=== PATIENT | male | born 1995 | race Caucasian/White ===

== ENCOUNTER 2017-11-05 15:46 | Inpatient (IN) | payer OTHER ==
[2017-11-05] VITALS (9 sets, daily range): BP systolic 100–179; BP diastolic 67–116
[~2017-11-05] VITALS: Ht 137.2 cm; Wt 53.1 kg
[~2017-11-05 15:46] MED LIST: ASCO500S14 GT; BACLOFEN GT; COL250 GT; DIAZ5SOL4 GT; LEVO750T2 PO
--- NOTE | 2017-11-05 15:46 | NUR ---
Patient BIBA to bed 10
--- NOTE | 2017-11-05 15:50 | NUR ---
Patient being evaluated by physician at bedside.
[2017-11-05] MEDS ORDERED: NACL 0.9% 2,000 ML IV ONE (15:57)
[2017-11-05] MEDS ORDERED: PIPERACILLIN/TAZOBACTAM 3.375 GM in DEXTROSE 5% 50 ML IV ONE (16:00)
[2017-11-05] MEDS ORDERED: methylPREDNISolone SS 125 MG in WATER STERILE 2 ML IV ONE (16:00)
--- NOTE | 2017-11-05 16:00 | NUR ---
22 YO MALE BIB EMS FROM HOME FOR SOB TO BED 10 ACUTE ONSET. MULTIPLE MEDICAL ISSUES. PT HAS GUARDIAN AT BEDSIDE. ERMD NOTIFIED OF PATIENT STATUS.
[2017-11-05] MEDS ORDERED: PIPERACILLIN/TAZOBACTAM 3.375 GM VIAL IV ONE ×2 (16:02→21:49)
[2017-11-05] MEDS ORDERED: methylPREDNISolone SS 125 MG/2 ML VIAL ONE (16:02)
[2017-11-05] MEDS ORDERED: ALBUTEROL SULFATE/IPRATROPIU 3 ML SOL IH ONE ×2 (16:10→16:15)
[2017-11-05] MEDS ORDERED: LEVOFLOXACIN 750 MG/D5W PREMIX 150 ML IV ONE (16:35)
[2017-11-05] MEDS ORDERED: CLINDAMYCIN 600 MG in DEXTROSE 5% 50 ML IV ONE (16:35)
[2017-11-05] MEDS ORDERED: CLINDAMYCIN 600 MG/4 ML VIAL ONE (16:42)
--- NOTE | 2017-11-05 16:45 | NUR ---
Patient being evaluated by physician at bedside for intubation. discharge coordinator and respiratory at bedside.
[2017-11-05 17:05] LABS: BASOPHILS # (AUTO) 0.2 K/uL (0.00-0.22); MONOCYTES # (AUTO) 1.7 K/uL (0.8-1.0)
[2017-11-05] MEDS ORDERED: SUCCINYLCHOLINE CHLORIDE 200 MG/10 ML VIAL IVP ONE (17:15)
[2017-11-05] MEDS ORDERED: ETOMIDATE 20 MG/10 ML VIAL IVP ONE (17:15)
--- NOTE | 2017-11-05 17:15 | NUR ---
PT PLACED ON VENT WITH SETTINGS CHARTED PER DR GROSSMAN INTYBATED WITH 7.5 AT 23 CM BREATH SOUNDS PRESENT BILAT COARSE SXN PT FOR SPUTUM SAMPLE SOME YELLOW SOME RSE AMBU BAG AT BEDSIDE X RAY DONE VENT PLUGGED INTO RED OUTLET
--- NOTE | 2017-11-05 17:18 | NUR ---
RESPIRATORY THERAPIST AT BEDSIDE.
[2017-11-05 17:20] LABS: BASOPHILS % (AUTO) 1.1 % (0.0-2.0); EOSINOPHILS # (AUTO) 0.2 K/uL (0-0.4); EOSINOPHILS % (AUTO) 1.2 % (0.0-4.0); HEMATOCRIT 48.2 % (36-52); HEMOGLOBIN 16.4 g/dL (12.0-18.0); LYMPHOCYTES # (AUTO) 0.9 K/uL (2.0-11.5); LYMPHOCYTES % (AUTO) 5.8 % (20.5-51.1); MEAN CORPUSCULAR HEMOGLOBIN 31 pg (27-31); MEAN CORPUSCULAR HGB CONC 34 g/dL (33-37); MEAN CORPUSCULAR VOLUME 90 fL (80-94); NEUTROPHILS # (AUTO) 12.5 K/uL (1.8-7.7); NEUTROPHILS % (AUTO) 80.9 % (42.2-75.2); PLATELET COUNT (AUTO) 82 K/uL (140-450); PROTHROMBIN TIME 16.3 secs (10.8-13.4); RED BLOOD CELL COUNT(AUTO) 5.34 MIL/uL (4.20-6.10); RED CELL DISTRIBUTION WIDTH 13.1 % (11.6-13.7); WHITE BLOOD COUNT (AUTO) 15.5 K/uL (4.8-10.8)
[2017-11-05] MEDS ORDERED: fentaNYL 0.05 MG/ML VIAL IVP ONE (17:20)
[2017-11-05] MEDS ORDERED: LORazepam 2 MG/ML VIAL IVP ONE ×2 (17:20→18:30)
[2017-11-05] MEDS ORDERED: PROPOFOL 1000 MG/100 ML PREMIX 100 ML IV ONE (17:20)
--- NOTE | 2017-11-05 17:20 | NUR ---
UNABLE TO DRAW ABG AT THIS TIME NO ATTEMPT MADE DR GROSSMAN AWARE
[2017-11-05 17:21] LABS: ANION GAP 13.4 (8-16); CARBON DIOXIDE 31.7 mmol/L (21-32); CREATININE 0.6 mg/dL (0.7-1.3); POTASSIUM 4.1 mmol/L (3.5-5.1)
[2017-11-05 17:26] LABS: ALBUMIN 2.8 g/dL (3.4-5.0); TOTAL BILIRUBIN 0.8 mg/dL (0.0-1.0)
[2017-11-05] MEDS ORDERED: LORazepam 2 MG/ML VIAL ONE (17:43)
--- NOTE | 2017-11-05 17:43 | NUR ---
ETT PULLED OUT 2 CM TO 23 AT THE LIP PER XRAY PER DR GROSSMAN
--- NOTE | 2017-11-05 18:16 | NUR ---
ermd at bedside procedure/ starting a central line.
[2017-11-05] MEDS ORDERED: NACL 0.9% 1,000 ML IV ONE (18:45)
[2017-11-05] MEDS ORDERED: NACL 0.9% 1,000 ML IV SCH (18:51)
[2017-11-05] MEDS ORDERED: ACETAMINOPHEN 325 MG TAB PO PRN (18:55)
[2017-11-05] MEDS ORDERED: VANCOMYCIN PER PHARMACY MC PRN ×2 (18:55→20:00)
[2017-11-05] MEDS ORDERED: ONDANSETRON 4 MG/2 ML VIAL IVP PRN (18:55)
[2017-11-05] MEDS ORDERED: MORPHINE SULFATE 4 MG/ML SYR IVP PRN (18:55)
[2017-11-05] MEDS ORDERED: ALBUTEROL 0.083% 2.5 MG/3 ML NEBU INH PRN (18:55)
[2017-11-05] MEDS ORDERED: ALBUTEROL 0.083% 2.5 MG/3 ML NEBU INH SCH (19:00)
[2017-11-05] MEDS: IPRATROPIUM 0.02% 0.5 MG/2.5 ML NEBU INH SCH (19:00)
--- NOTE | 2017-11-05 19:22 | NUR ---
Pt transferred to ICU 5 via .
--- NOTE | 2017-11-05 19:25 | NUR ---
PT TRANPORTED TO ICU-3 VIA 100% AMBU HR 84 SAO2 100%, AND PLACED BACK ON VENTILATOR AC10 VT400 FIO2 70% PEEP +5 W/O ANY RESP DISTRESS DURING TRANSPORT
--- NOTE | 2017-11-05 19:30 | NUR ---
PT ARRIVED IN THE UNIT AT 1930 FROM ER. VS STABLE. AFEBRILE. NO S/S DISTRESS NOTED. PT SEDATED WITH PROPOFOL. ETT TO VENT WITH SETTINGS: AC12, TV400, FIO2 70%, AND PEEP 5. LUNG SOUNDS COARSE. PT COUGHS INTERMITTENTLY. S1+S2 HEARD. PULSES PALPABLE FROM ALL EXTREMITIES. SINUS TACHYCARDIA ON MONITOR. ABDOMEN ROUND, SOFT, AND NONDISTENDED. BOWEL SOUNDS ACTIVE IN ALL QUADRANTS. PT HAD BM. MODERATE IN AMOUNT, PASTEY, AND BROWN IN COLOR. GTUBE IN PLACE, SITE IS NOTED WITH REDNESS AND LEAKING. PT HAS OPEN AREA ON LEFT UPPER ARM AND THROUGHOUT LEFT SIDE OF BODY. PT HAS OGT IN PLACE. PLACEMENT CHECKED AND CONFIRMED. PT CURRENTLY NPO. FREY CATHETER IN PLACE. PT HAS LEFT IJ TRIPLE LUMEN CATH IN PLACE. LINE PATENT AND ASYMPTOMATIC. PT HAS PERIPHERAL IV ACCESS, RIGHT AND LEFT AC 20G. PATENT AND ASYMPTOMATIC. CALL LIGHT WITHIN REACH. BED AT LOW POSSIBLE POSITION. ALL SAFETY PRECAUTIONS ARE IN PLACE. WILL CONTINUE TO MONITOR PT.
--- NOTE | 2017-11-05 19:39 | NUR ---
Patient will be admitted to care of DR. YATES. Admited to ICU. Will go to room5 . Belongings list completed. Report to JUILTA PORTER.
[2017-11-05 19:49] LABS: APPEARANCE,URINE CLEAR (CLEAR); BILIRUBIN,URINE NEGATIVE (NEGATIVE); BLOOD, URINE TRACE-I (NEGATIVE); COLOR,URINE YELLOW (YELLOW); LEUKOCYTE ESTERASE ,URINE NEGATIVE (NEGATIVE); NITRITE, URINE NEGATIVE (NEGATIVE); UGLUCOSE 2+ (NEGATIVE)
--- NOTE | 2017-11-05 19:50 | NUR ---
DR. YATES AT BEDSIDE TO SEE PT. WILL FOLLOW-UP WITH ANY NEW ORDERS.
[2017-11-05 19:58] LABS: RBC,URINE 0-5 (RARE) /HPF (0-5); WBC,URINE 0-5 (RARE) /HPF (0-5)
[2017-11-05] MEDS ORDERED: NOREPINEPHRINE 8 MG in DEXTROSE 5% 250 ML IV PRN (20:00)
[2017-11-05] MEDS ORDERED: VANCOMYCIN 1,000 MG VIAL ONE (20:31)
[2017-11-05] MEDS: DEXT 5% / NACL 0.9% 500 ML IV SCH (20:52)
[2017-11-05] MEDS: BLOOD GLUCOSE MONITORING 1 DEV DEV FS SCH (20:53)
[2017-11-05] MEDS ORDERED: NEOMYCIN/POLYMYXIN/BACITRACIN 0.9 GM/1 PKT TP SCH (21:00)
[2017-11-05] MEDS: INSULIN LISPRO SLIDING SCALE 100 UNITS/ML VIAL SUBQ PRN (21:00)
[2017-11-05] MEDS ORDERED: VANCOMYCIN 1GM/DEXT 5% PREMIX 200 ML IV ONE (21:00)
--- NOTE | 2017-11-05 21:04 | NUR ---
UNAWARE OF ATROVENT TX AT 1900 AND WAS NOT IN [facility] AT TIME OF BEDSIDE AT 1954, ONLY AWARE OF DR SALCEDO ORDER FOR ALBUTEROL BEGINNING AT 0100, WILL CONTINUE WITH NEXT SCHEDULED TX.
--- NOTE | 2017-11-05 21:05 | NUR ---
DR. NICOLE AWARE OF CONSULT WITH PT. WILL COME IN TO SEE PT TOMORROW.
--- NOTE | 2017-11-05 22:15 | NUR ---
PT FAMILY STILL AT BEDSIDE. NO SIGNS OF DISTRESS NOTED ON PT. FLACC 0. PT STILL ON PROPOFOL DRIP. SINUS TACHYCARDIA ON MONITOR. WILL CONTINUE TO MONITOR PT.
[2017-11-06] VITALS (33 sets, daily range): BP systolic 97–129; BP diastolic 51–83
[2017-11-06] MEDS ORDERED: PIPERACILLIN/TAZOBACTAM 3.375 GM in DEXTROSE 5% 50 ML IV SCH ×2
[2017-11-06] MEDS: IPRATROPIUM 0.02% 0.5 MG/2.5 ML NEBU INH SCH ×4 (00:40→19:01)
[2017-11-06] MEDS: ALBUTEROL 0.083% 2.5 MG/3 ML NEBU INH SCH ×4 (00:40→19:01)
[2017-11-06] MEDS: DEXT 5% / NACL 0.9% 500 ML IV SCH ×2 (01:00→06:15)
--- NOTE | 2017-11-06 01:10 | NUR ---
PT NOTED TO BE COUGHING. PT SUCTIONED AND O2SAT DECREASED. SUCTIONED PT MOUTH WELL. CALLED RT TO CHECK ON PT. NO SIGNS OF DISTRESS NOTED. WILL CONTINUE TO MONITOR PT.
--- NOTE | 2017-11-06 01:20 | NUR ---
SAO2 DECREASED TO 91%, HR 120, INCREASED FIO2 TO 60%. SAO2 94% HR 112
--- NOTE | 2017-11-06 03:20 | NUR ---
VS STABLE AT THIS TIME. NO CHANGE IN CONDITION. RASS -3. FLACC 0. NO SIGNS OF DISTRESS NOTED ON PT. CALL LIGHT WITHIN REACH. BED AT LOW POSSIBLE POSITION. WILL CONTINUE TO MONITOR PT.
--- NOTE | 2017-11-06 05:02 | NUR ---
FLACC 0. RASS -3. NO CHANGE IN PT CONDITION AT THIS TIME. VS STABLE. AFEBRILE.
[2017-11-06 05:03] LABS: BASOPHILS # (AUTO) 0.4 K/uL (0.00-0.22); BASOPHILS % (AUTO) 3.2 % (0.0-2.0); EOSINOPHILS # (AUTO) 0.1 K/uL (0-0.4); EOSINOPHILS % (AUTO) 0.6 % (0.0-4.0); HEMATOCRIT 42.7 % (36-52); HEMOGLOBIN 13.9 g/dL (12.0-18.0); LYMPHOCYTES # (AUTO) 0.7 K/uL (2.0-11.5); LYMPHOCYTES % (AUTO) 6.7 % (20.5-51.1); MEAN CORPUSCULAR HEMOGLOBIN 30 pg (27-31); MEAN CORPUSCULAR HGB CONC 32 g/dL (33-37); MEAN CORPUSCULAR VOLUME 93 fL (80-94); MONOCYTES # (AUTO) 0.3 K/uL (0.8-1.0); MONOCYTES % (AUTO) 3.1 % (1.7-9.3); NEUTROPHILS # (AUTO) 9.4 K/uL (1.8-7.7); NEUTROPHILS % (AUTO) 86.4 % (42.2-75.2); PLATELET COUNT (AUTO) 71 K/uL (140-450); RED BLOOD CELL COUNT(AUTO) 4.62 MIL/uL (4.20-6.10); RED CELL DISTRIBUTION WIDTH 13.5 % (11.6-13.7); WHITE BLOOD COUNT (AUTO) 10.9 K/uL (4.8-10.8)
[2017-11-06 06:16] LABS: ALBUMIN 2.1 g/dL (3.4-5.0); ANION GAP 4.6 (8-16); CARBON DIOXIDE 35.3 mmol/L (21-32); CREATININE 0.4 mg/dL (0.7-1.3); POTASSIUM 3.9 mmol/L (3.5-5.1); TOTAL BILIRUBIN 0.6 mg/dL (0.0-1.0)
--- NOTE | 2017-11-06 06:28 | NUR ---
PATIENT HAS BEEN SCREENED AND CATEGORIZED HIGH NUTRITION RISK. PATIENT WILL BE SEEN WITHIN 1-2 DAYS OF ADMISSION. 11/05/17-11/06/17 SAMUEL HENDRIX MS, RDN
[2017-11-06] MEDS: BLOOD GLUCOSE MONITORING 1 DEV DEV FS SCH ×4 (06:54→20:25)
[2017-11-06] MEDS: INSULIN LISPRO SLIDING SCALE 100 UNITS/ML VIAL SUBQ PRN ×3 (06:55→20:26)
--- NOTE | 2017-11-06 06:57 | NUR ---
RECEIVED ON A [employer] R860 VENTILATOR PLUGGED INTO RED OUTLET TOLERATING WELL TO A PORTEX ENDOTRACHEAL TUBE #7.5 SECURED AT 23cm AN ANCHOR FAST CUFF PRESSURE MEASURED NOTED WITH A SHERLYN CUFFFLATOR LOC IRRITABLE AT THIS TIME SKIN TONE PINK BREATH SOUND COARSE RHONCHI BILATERAL WITH GOOD CHEST RISE ENDOTRACHEAL SUCTION FOR LARGE THICK YELLOW WITH BLOOD TINGE SECRETINS AIRWAY PATENT Addendum: 11/06/17 at 0845 by Gage Painting RT OROPHARYNX SUCTION FOR COPIOUS THICK TO THIN CLEAR SECRETIONS
--- NOTE | 2017-11-06 07:19 | NUR ---
REPORT GIVEN TO JULITA KHOURY FOR CONTINUITY OF CARE. PT IN STABLE CONDITION.
--- NOTE | 2017-11-06 07:20 | NUR ---
RECEIVED BEDSIDE REPORT FROM LEAD WEB APPLICATION DEVELOPER RN, DARON, FOR CONTINUITY OF CARE. PATIENT IS CONTRACTED, RESPONSES TO LIGHT PAIN, HE IS SEDATED, ON PROPOFOL DRIP RUNNING AT 25MCG/KG/HR, RASS -3. VS STABLE AT THIS TIME. PATIENT HAS CENTRAL LINE TO LEFT IJ, ASYMPTOMATIC, PATENT AND INTACT, HE ALSO HAS PERIPHERAL LINE TO RIGHT AC AND LEFT AC, BOTH ASYMPTOMATIC, PATENT AND INTACT. PATIENT SKIN IS NOT INTACT, HE HAS AMES TO UPPER LEFT EXTREMITY AND LEFT SIDE OF CHEST. PATIENT HAS OGT IN PLACE AND HAS ETT TO VENT, BILATERAL LUNG SOUNDS ARE COARSE ON EXPIRATORY BREATHS, EVEN AND UNLABORED. S1 AND S2 HEART SOUND HEARD, CAP REFILL IS LESS THAN 3 SECS, SR ON MONITOR. PATIENT HAS A G-TUBE WITH REDNESS TO THE SITE. HOB IS 30 DEGREES IN LOWEST POSSIBLE POSITION, CALL LIGHT WITHIN REACH, NO SIGNS OF DISTRESS NOTED AT THIS TIME, WILL MONITOR CLOSELY.
[2017-11-06] MEDS: PROPOFOL 1000 MG/100 ML PREMIX 100 ML IV PRN ×2 (08:01→22:47)
[2017-11-06] MEDS: NEOMYCIN/POLYMYXIN/BACITRACIN 0.9 GM/1 PKT TP SCH ×2 (09:06→20:25)
--- NOTE | 2017-11-06 09:19 | NUR ---
SEDATED RESTING WELL NO PULMONARY DISTRESS NOTED GOOD CHEST RISE
--- NOTE | 2017-11-06 09:36 | NUR ---
FAXED INITIAL REVIEW TO [facility] [phone] PHONE ROSENDA [phone]
[2017-11-06] MEDS: DEXT 5% /NACL 0.9% 1,000 ML IV SCH (09:41)
[2017-11-06] MEDS: VANCOMYCIN 1GM/DEXT 5% PREMIX 200 ML IV SCH ×2 (11:17→18:37)
--- NOTE | 2017-11-06 11:40 | NUR ---
SEDATED NO DISTRESS NOTED BREATH SOUNDS RALES BILATERAL GOOD CHEST RISE NO SUCTIONING AT THIS TIME OPTICAL SALES ASSOCIATE TO MONITOR SATURATION 97% ON FIO2 OF 60% TITRATED FI02 TO 50% EIRENE/RN NOTIFIED
--- NOTE | 2017-11-06 12:02 | NUR ---
11/06/17 RD INITIAL ASSESSMENT COMPLETED PLEASE REFER TO NUTRITION ASSESSMENT UNDER CARE ACTIVITY FOR ESTIMATED NUTRITIONAL NEEDS. RD RECOMMENDATIONS: 1.WHEN MEDICALLY APPROPRIATE PER MD, CONSIDER INITIATING NUTRITION SUPPORT: NUTREN PULMONARY AT 10 ML/HR, INCREASING BY 10 ML/HR Q4H TIL GOAL RATE OF 45 ML/HR IS REACHED. AT GOAL OF 40 ML/HR 960 ML TOTAL VOLUME, 1200 KCAL, 54.5 GM PROTEIN, 620 ML TOTAL FREE WATER. 2.CONSIDER WATER FLUSHES OF 120 ML Q4H. 3. CONSIDER ADDING MULTI-VITAMIN, VIT C, ZINC FOR SKIN INTEGRITY. 4. CONSULT RDN PRN. 5. RD WILL F/U 2-3 DAYS; HIGH RISK. SAMUEL HENDRIX, MS, RDN
[2017-11-06] MEDS: PIPER/TAZO 3.375GM/D5W PREMIX 50 ML IV SCH ×2 (13:38→20:25)
--- NOTE | 2017-11-06 13:43 | NUR ---
SEDATED NO DISTRESS NOTED BREATH SOUNDS RHONCHI BILATERAL WITH GOOD CHEST RISE ENDOTRACHEAL SUCTION FOR LARGE THICK YELLOW WITH BLOOD TINGE SECRETIONS AIRWAY PATENT
--- NOTE | 2017-11-06 13:43 | NUR ---
INCREASED PEEP TO 8cmH2O TO DECREASE HYPOXEMIA AND INCREASED SATURATION WIRE INSPECTOR TO MONITOR BLOOD PRESSURE WIRE INSPECTOR TO NOTIFY PENG/JULITA
--- NOTE | 2017-11-06 14:37 | NUR ---
FAMILY AT BEDSIDE, UPDATED ON PATIENT'S CONDITION. PATIENT DISPLAYS NO SIGNS OF DISTRESS AT THIS TIME.
--- NOTE | 2017-11-06 15:25 | NUR ---
SATURATION PARALLEL TO PREVIOUS NOTATION AT 94% DECREASED PEEP TO 5 cmH2O SEDATED RESPONSIVE TO STIMULUS BREATH SOUNDS RHONCHI BILATERAL WITH GOOD CHEST RISE ENDOTRACHEAL SUCTION FOR MODERATE THICK YELLOW WITH BLOOD TINGE SECRETIONS AIRWAY PATENT
--- NOTE | 2017-11-06 17:35 | NUR ---
ANCHOR FAST CHANGED NO ADVERSE REACTIONS NOTED
--- NOTE | 2017-11-06 17:40 | NUR ---
COUGHING SPASM BREATH SOUNDS RHONCHI BILATERAL WITH GOOD CHEST RISE ENDOTRACHEAL SUCTION FOR SMALL THICK YELLOW WITH BLOOD TINGE SECRETIONS AIRWAY PATENT OROPHARYNX SUCTION FOR COPIOUS CLEAR SECRETIONS
[2017-11-06] MEDS: SILVER SULFADIAZINE 1% 50 GM JAR TP SCH (18:55)
--- NOTE | 2017-11-06 19:20 | NUR ---
ENDORSED BEDSIDE REPORT TO PILE DRIVING NOZZLEMAN RN, DARON, FOR CONTINUITY OF CARE. PATIENT PRESENTS NO SIGNS OF DISTRESS AT THIS TIME.
--- NOTE | 2017-11-06 19:30 | NUR ---
RECEIVED REPORT FROM JULITA KHOURY FOR CONTINUITY OF CARE. VS STABLE AT THIS TIME. PT SEDATED WITH PROPOFOL. RASS -3 AT THIS TIME. PT AFEBRILE. AROUSABLE TO LIGHT PAIN. PT SINUS TACHYCARDIA ON MONITOR. PULSES PALPABLE IN ALL EXTREMITIES. PT HAS ETT CONNECTED TO VENT WITH SETTINGS:AC12, FIO2 50, TV 400, AND PEEP 5. PT HAS GTUBE IN PLACE, SITE LOOKS RED AND INFECTED. CURRENTLY NOT USED. PT HAS OGT IN PLACE, AND PLACEMENT CHECKED. PT CURRENTLY NPO. ABDOMEN ROUND, SOFT AND NONDISTENDED. BOWEL SOUNDS ACTIVE IN ALL QUADRANTS. FREY CATHETER IN PLACE AND DRAINING CLEAR AND YELLOW URINE. PT HAS SCD IN PLACE. PT HAS LEFT IJ CENTRAL LINE, TRIPLE LUMEN, LINE PATENT AND ASYMPTOMATIC. DRESSING STILL INTACT. HOB AT 30 DEGREES. BED AT LOW POSSIBLE POSITION. CALL LIGHT WITHIN REACH. ALL SAFETY PRECAUTIONS ARE IN PLACE. WILL CONTINUE TO MONITOR PT.
--- NOTE | 2017-11-06 19:37 | NUR ---
DR. VIGIL AT BEDSIDE TO SEE PT. DR. VIGIL LOOKED AT PT GTUBE SITE AND SAID HE WANTS PT TO HAVE CONSULT WITH DR. WASHINGTON AND DR. RAYMOND; DR. VIGIL ALSO WANTED PT TO START FEEDING.
--- NOTE | 2017-11-06 21:24 | NUR ---
PATIENT STABLE AT THIS TIME. FAMILY AT BEDSIDE
--- NOTE | 2017-11-06 21:30 | NUR ---
DR. NICOLE AT BEDSIDE TO SEE PT. WILL FOLLOW-UP WITH ANY NEW ORDER.
[2017-11-07] VITALS (30 sets, daily range): BP systolic 90–123; BP diastolic 45–75
--- NOTE | 2017-11-07 | NUR ---
KEEP HOB AT 30 UP WITH TOLERATING WELL.ORAL CARE DONE WITH LOTS OF SECRETION WITH LIGHT YELLOW MUCOUS NOTED.. KEEP HOB AT 30 UP WITH TOLERATING WELL. FREY CATH CARE BYRD SUPPORT WITH PILLOW CASE ROLL TO SWELLING SCROTAL, PT'S TOLERATING WELL.
--- NOTE | 2017-11-07 00:18 | NUR ---
VS STABLE AT THIS TIME. NO CHANGE IN CONDITION. NO SIGNS OF DISTRESS NOTED ON PT. FLACC 0. RASS -3. HOB AT 30 DEGREES. NO RESIDUAL NOTED ON OGT. FEEDING STILL RUNNING AT 10ML/HR. ALL SAFETY PRECAUTIONS ARE IN PLACE. WILL CONTINUE TO MONITOR PT.
[2017-11-07] MEDS: DEXT 5% /NACL 0.9% 1,000 ML IV SCH ×3 (00:30→13:33)
[2017-11-07] MEDS: IPRATROPIUM 0.02% 0.5 MG/2.5 ML NEBU INH SCH ×4 (01:20→19:10)
[2017-11-07] MEDS: ALBUTEROL 0.083% 2.5 MG/3 ML NEBU INH SCH ×4 (01:20→19:10)
[2017-11-07] MEDS: VANCOMYCIN 1GM/DEXT 5% PREMIX 200 ML IV SCH ×2 (02:45→09:43)
--- NOTE | 2017-11-07 03:16 | NUR ---
NO CHANGE IN CONDITION AT THIS TIME. NO S/S DISTRESS NOTED. FLACC 0. ALL SAFETY PRECAUTIONS ARE IN PLACE. WILL CONTINUE TO MONITOR PT.
[2017-11-07] MEDS: PIPER/TAZO 3.375GM/D5W PREMIX 50 ML IV SCH ×3 (04:32→22:22)
[2017-11-07 05:25] LABS: MEAN CORPUSCULAR HEMOGLOBIN 31 pg (27-31)
[2017-11-07 05:50] LABS: HEMATOCRIT 40.4 % (36-52); HEMOGLOBIN 13.4 g/dL (12.0-18.0); MEAN CORPUSCULAR HGB CONC 33 g/dL (33-37); MEAN CORPUSCULAR VOLUME 92 fL (80-94); PLATELET COUNT (AUTO) 94 K/uL (140-450); RED CELL DISTRIBUTION WIDTH 13.7 % (11.6-13.7); WHITE BLOOD COUNT (AUTO) 13.8 K/uL (4.8-10.8)
[2017-11-07 06:01] LABS: ALBUMIN 2.1 g/dL (3.4-5.0); ANION GAP 9.9 (8-16); CARBON DIOXIDE 30.2 mmol/L (21-32); CREATININE 0.9 mg/dL (0.7-1.3); POTASSIUM 3.1 mmol/L (3.5-5.1); TOTAL BILIRUBIN 0.7 mg/dL (0.0-1.0)
[2017-11-07] MEDS: INSULIN LISPRO SLIDING SCALE 100 UNITS/ML VIAL SUBQ PRN (06:21)
[2017-11-07] MEDS: BLOOD GLUCOSE MONITORING 1 DEV DEV FS SCH ×4 (06:22→21:00)
--- NOTE | 2017-11-07 06:23 | NUR ---
VS STABLE AT THIS TIME. NO SIGNS OF DISTRESS NOTED ON PT. TOLERATING FEEDING WELL. NO RESIDUAL NOTED. RASS -3. PT STILL ON PROPOFOL DRIP. FLACC 0. ALL SAFETY PRECAUTIONS ARE IN PLACE. WILL CONTINUE TO MONITOR.
--- NOTE | 2017-11-07 06:32 | NUR ---
REC'D PT ON CARES[employer]E VENT SETTINGS AC12 VT400 PEEP 5 FIO2 40% ALARMS ON AND FUNCTIONING PROPERLY AMBU BAG AT [facility] I\L TX GIVEN WITH ALBUTEROL 2.5MG AND ATROVENT 0.5MG WITH NO ADVERSE REACTION POST TX, B\S ARE CLEAR BILATERALLY, SXN PT MODERATE AMT OF CLEAR SECRETIONS, PT IS ORALLY INTUBATED WITH 7.5 ET TUBE SECURED WITH ANCHOR FAST AT 23CM LEFT CORNER OF MOUTH. PT IS RESTING
[2017-11-07 06:48] LABS: LYMPHOCYTES % (MANUAL) 10 % (20-46); MONOCYTES % (MANUAL) 9 % (5-12)
--- NOTE | 2017-11-07 07:15 | NUR ---
RECEIVED REPORT FROM JULITA MCCRAY, AT BEDSIDE. PT SEDATED ON PROPOFOL 25MCG/KG/MIN, D5/NS RUNNING 100 ML/HR. PT HAS A LEFT IJ, ALL FLUSH AND ABLE TO GET GOOD BLOOD RETURN. OGT TUBE PLACEMENT CHECKED, ASPIRATED WITH ZERO RESIDUALS; NUTREN SOURCE FEEDING AT 10ML/HR. ETT TO VENT AC, FIO2 40, VT 400, RATE 12, FLOW 35, PEEP 5, PMAC 60. PT HAS FREY CATH IN PLACE WITH CLEAR YELLOW URINE IN BAG. SCDS IN PLACE, HOB 45 DEG. PT HAS PEG TUBE WITH CAMILLE AREA, WARM TO TOUCH AND NOT BEING USED. CURRENTLY DRESSING IN PLACE, DRY AND INTACT. WITH RAILS ELEVATED AND BED IN LOWEST POSITION WITH LOCK ON. WRIST BAND ON AND SAFETY PRECAUTION TAKEN. WILL CLOSELY MONITOR.
--- NOTE | 2017-11-07 07:26 | NUR ---
GIVEN REPORT TO MORNING RN FOR CONTINUITY OF CARE. PT IN STABLE CONDITION AT THIS TIME.
--- NOTE | 2017-11-07 08:30 | NUR ---
VAP ORAL CARE PROVIDED PER PROTOCOL, REPOSITIONED PT, BEDBATH AND FREY CATH CARE. HOB 35 DEG, SIDE RAILS ELEVATED, BED LOCK ON AND BED LEFT IN LOWEST POSITION.
--- NOTE | 2017-11-07 08:30 | NUR ---
DR. VIGIL CAME TO SEE PT. NOTIFIED OF PT'S LOW POTASSIUM AND RECEIVED ORDERS. DISCUSSED TRACH PLACEMENT AND GTUBE. DR. VIGIL CONTACTED [facility] ABOUT GTUBE CONSULTATION.
--- NOTE | 2017-11-07 09:10 | NUR ---
PT SEEN AND EXAMINED BY DR. VIGIL. WILL FOLLOW UP ON ORDERS.
--- NOTE | 2017-11-07 09:14 | NUR ---
VENT CHECK, SXN PT MODERATE AMT OF CLEAR SECRETIONS, PT IS RESTING
[2017-11-07] MEDS ORDERED: fentaNYL 0.05 MG/ML VIAL IVP PRN (09:15)
[2017-11-07] MEDS ORDERED: POTASSIUM CHLORIDE 20% 40 MEQ/15 ML UDC GT SCH (09:30)
[2017-11-07] MEDS: PANTOPRAZOLE 40 MG INJ VIAL IVP SCH (09:51)
[2017-11-07] MEDS: NEOMYCIN/POLYMYXIN/BACITRACIN 0.9 GM/1 PKT TP SCH ×2 (09:52→22:22)
[2017-11-07] MEDS: SILVER SULFADIAZINE 1% 50 GM JAR TP SCH (09:53)
--- NOTE | 2017-11-07 10:00 | NUR ---
D/C CHRISTOPHER. WILL CLOSELY MONITOR. PT CURRENTLY SEDATED AND SAFETY PROTOCOL IN PLACE.
--- NOTE | 2017-11-07 10:00 | NUR ---
PTS. FATHER AT BEDSIDE WITH PT. UPDATED FATHER ON PTS CURRENT STATUS AND DISCUSSED POC.
--- NOTE | 2017-11-07 10:15 | NUR ---
CHECKED RESIDUALS IN STOMACH AFTER BEGINNING TUBE FEEDING, 0 IN STOMACH. WILL CONTINUE TO MONITOR.
--- NOTE | 2017-11-07 10:50 | NUR ---
DR. DE LUNA AT BEDSIDE SPEAKING WITH PT'S FATHER. DR. DE LUNA SPOKE WITH PTS FATHER ABOUT A TRACH AND FAMILY HAS REFUSED TRACH PLACEMENT.
--- NOTE | 2017-11-07 11:17 | NUR ---
VENT CHECK, PT IS SLEEPING WITH NO SIGNS OF DISTRESS NOTED AIRWAY IS PATENT
--- NOTE | 2017-11-07 11:49 | NUR ---
REPOSITIONED PT AND ASSESSED AT BEDSIDE. PT HAS STRIDOR/COARSE LUNG SOUNDS IN UPPER LOBES BILATERALLY. PT RESTING/SEDATED BUT RESPONDS TO LIGHT SENSATION, MOVED AWAY FROM STIMULI. VAP ORAL CARE PERFORMED. SAFETY PRECAUTIONS IN PLACE, BED LOCK ON, RAILS ELEVATED AND IN LOWEST POSITION. TV ON AND PT PLACED IN POSITION FOR COMFORT.
--- NOTE | 2017-11-07 12:41 | NUR ---
VENT CHECK, SXN PT SMALL AMT OF CLEAR SECRETIONS, B\S ARE CLEAR AND I\L TX GIVEN WITH ALBUTEROL 2.5MG AND ATROVENT 0.5MG WITH NO ADVERSE REACTION POST TX FAMILY AT BEDSIDE
--- NOTE | 2017-11-07 13:15 | NUR ---
DR. GIPSON CAME TO REMOVE OLD G-TUBE PORT AND REPLACED WITH BUTTON SHAPE G-TUBE 18F. G-TUBE OKAY TO USE. AREA CLEAN AND DRY WITH DRESSING IN PLACE. CONNECTED FEEDING TO NEW G-TUBE RUNNING 10M/HR. WILL CLOSELY MONITOR
--- NOTE | 2017-11-07 13:44 | NUR ---
DISCONTINUED OGT FOR FEEDING AND CONNECTED FEEDS TO THE NEW G-TUBE PLACED. REMOVAL WITHOUT COMPLICATIONS. PROVIDED VAP ORAL CARE. PT SEDATED, SAFETY PRECAUTIONS IN PLACE.
--- NOTE | 2017-11-07 14:30 | NUR ---
NOTICED SLIGHT SEDIMENTATION IN URINE. URINE STILL CLEAR YELLOW BUT NOTICED A SMALL AMOUNT OF AMAYA SEDIMENT IN URINE
--- NOTE | 2017-11-07 15:26 | NUR ---
VENT CHECK, SXN PT SMALL AMT OF CLEAR SECRETIONS, PT IS RESTING
--- NOTE | 2017-11-07 15:28 | NUR ---
MOTHER AT BEDSIDE. PT WATCHING CARTOONS. POSITIONED FOR COMFORT. SAFETY PROTOCOLS IN PLACE.
[2017-11-07] MEDS: VANCOMYCIN 750 MG in DEXTROSE 5% 250 ML IV SCH (16:29)
--- NOTE | 2017-11-07 16:44 | NUR ---
BOTH PARENTS ARE BEDSIDE. REPOSITIONED PT AND SUCTIONED SECRETIONS / ORAL CARE. PT SEDATED AND NO SIGNS OF PAIN.
--- NOTE | 2017-11-07 17:26 | NUR ---
VENT CHECK, SXN PT MODERATE AMT OF CLEAR SECRETIONS, FAMILY AT BEDSIDE PT IS RESTING
[2017-11-07] MEDS ORDERED: VANCOMYCIN 750 MG in DEXTROSE 5% 250 ML IV SCH (18:00)
--- NOTE | 2017-11-07 18:20 | NUR ---
PTS FAMILY AT BEDSIDE, REPOSITIONED PT. SAFETY PROTOCOL IN PLACE.
--- NOTE | 2017-11-07 19:26 | NUR ---
RECEIVED PT STABLE ON VENT SUPPORT AT DOCUMENTED SETTINGS, SUCTIONED SMALL AMOUNTS OF CLEAR BLOOD TINGED THICK SECRETIONS, HHN TX GIVEN, TOLERATED TX WELL, NO RESP DISTRESS OR SOB NOTED AT THIS TIME, 7.5 ETT SECURED AT 23 CM AT THE TEETH/GUMS, ALARMS SET AND AUDIBLE, VENT PLUGGED INTO RED OUTLET, AMBU BAG AT BEDSIDE, CONT PULSE OX ON, WILL CONT TO MONITOR.
--- NOTE | 2017-11-07 19:30 | NUR ---
REPORT TAKEN FROM DAY NURSE WITH RESUME CARE.PT'S ASLEEP/
--- NOTE | 2017-11-07 19:31 | NUR ---
ENDORSED TO NIGHT NURSE. PT RESTING IN BED, SIDE RAILS ELEVATED, BED LOCK ON, BED IN LOWEST POSITION. SAFETY PROTOCOLS IN PLACE.
--- NOTE | 2017-11-07 22:00 | NUR ---
REPOSITION DONE ,ORAL CARE DONE WITH LOTS OF SECRETION WITH LIGHT YELLOW MUCOUS NOTED.. KEEP HOB AT 30 UP WITH TOLERATING WELL. FREY CATH CARE BYRD SUPPORT WITH PILLOW CASE ROLL TO SWELLING SCROTAL, PT'S TOLERATING WELL.
--- NOTE | 2017-11-07 23:35 | NUR ---
DR JONES AT THE BEDSIDE WITH PT, ORDER TO HOLD FEEDING , KEEP CONNECT TO GRAVITY URO BAG, G TUBE SITE SURROUNDING SKIN WITH REDNESS , SLOUGHY (+), NOTED , DR JONES AWARE. NEW ORDER PLACE BY DR JONES. CT SCAN OF ABDOMEN AND ULTRA SOUND TO BE DONE .
--- NOTE | 2017-11-07 23:55 | NUR ---
DR. RAYMOND INTO SEE PT AT THIS TIME. WILL F/U W/ ANY ORDERS.
[2017-11-08] VITALS (22 sets, daily range): BP systolic 112–153; BP diastolic 63–95
[2017-11-08] MEDS: DEXT 5% /NACL 0.9% 1,000 ML IV SCH ×3 (00:20→19:16)
[2017-11-08] MEDS: IPRATROPIUM 0.02% 0.5 MG/2.5 ML NEBU INH SCH ×4 (00:53→19:01)
[2017-11-08] MEDS: ALBUTEROL 0.083% 2.5 MG/3 ML NEBU INH SCH ×4 (00:53→19:01)
--- NOTE | 2017-11-08 02:00 | NUR ---
REPOSITION DONE. ORAL CARE DONE WITH LOTS OF SECRETION WITH LIGHT YELLOW MUCOUS NOTED.. KEEP HOB AT 30 UP WITH TOLERATING WELL. FREY CATH CARE BYRD SUPPORT WITH PILLOW CASE ROLL TO SWELLING SCROTAL, PT'S TOLERATING WELL.
[2017-11-08] MEDS: VANCOMYCIN 750 MG in DEXTROSE 5% 250 ML IV SCH (04:30)
--- NOTE | 2017-11-08 05:45 | NUR ---
TAKE PT TO CT SCN VIA ICU BED WITH ACLS TEM, INCLUDE RT, AIRPORT MANAGER , ATTACH TO PORTABLE MACHINE VENEER REPAIRER. WITH PT;S TOLERATING WELL.
--- NOTE | 2017-11-08 05:45 | NUR ---
PT LEFT TO CT SCAN WITH RN AND RT AT THIS TIME.
--- NOTE | 2017-11-08 06:05 | NUR ---
PT RETURNED FROM CT SCAN WITH RT, RN, AND APPLICATION COORDINATOR WITH STABLE CONDITION, PROCEDURE TOLERATED
--- NOTE | 2017-11-08 06:10 | NUR ---
PT RETURNED FROM CT SCAN WITH RT, RN, AND RESEARCH CLERK WITH STABLE CONDITION.
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
[2017-11-08] MEDS: PIPER/TAZO 3.375GM/D5W PREMIX 50 ML IV SCH ×3 (06:36→21:11)
[2017-11-08] MEDS: BLOOD GLUCOSE MONITORING 1 DEV DEV FS SCH ×4 (06:37→21:11)
[2017-11-08] MEDS: INSULIN LISPRO SLIDING SCALE 100 UNITS/ML VIAL SUBQ PRN (06:44)
--- NOTE | 2017-11-08 06:53 | NUR ---
rec'd pt on carescape vent settings ac12 vt 400 peep 5 fio2 35% alarms on and functioning properly, ambu bag at hob and i\l tx given with albuterol 2.mg and atrovent 0.5mg with no adverse reaction post tx, b\s are clear bilaterally, snx pt small amt of clear secretions, pt is orally intubated with 7.5 et tube secure with anchor fast at 23cm and skin integrity in intact, pt is resting
--- NOTE | 2017-11-08 08:22 | NUR ---
RECEIVED BEDSIDE REPORT FROM GEOMETRICIAN RN FOR CONTINUITY OF CARE. PATIENT IS AWAKE, RESPONSES TO NAME AND LIGHT PAIN, NONVERBAL. VS STABLE, SR ON MONITOR. PATIENT SKIN IS NOT INTACT, AMES TO UPPER LEFT EXTREMITY AND LEFT ABDOMEN COVERED WITH CLEAN DRESSINGS. PATIENT HAS A LEFT IJ, ASYMPTOMATIC, PATENT AND INTACT. PATIENT HAS ETT TO VENT, BREATHING IS UNLABORED AND EVEN, LUNG SOUNDS ARE COARSE. S1 AND S2 HEART SOUNDS HEARD, CAP REFILL LESS THAN 3 SECS. PATIENT HAS A GTUBE, WITH REDNESS TO THE SITE, CONNECTED TO DRAIN BAG. PATIENT HAS FREY CATHETER IN PLACE TO YELLOW URINE. CALL LIGHT WITHIN REACH, HOB 30 DEGREES IN LOW POSITION, PATIENT PRESENTS NO SIGNS OF DISTRESS OR PAIN AT THIS TIME. WILL MONITOR CLOSELY.
--- NOTE | 2017-11-08 09:15 | NUR ---
vent check, sxn pt small amt of clear secretions, pt is resting
--- NOTE | 2017-11-08 10:05 | NUR ---
FAMILY AT BEDSIDE, UPDATED ON PATIENT'S CONDITION. PATIENT PRESENTS NO SIGNS OF DISTRESS.
[2017-11-08] MEDS: NEOMYCIN/POLYMYXIN/BACITRACIN 0.9 GM/1 PKT TP SCH ×2 (10:43→21:15)
[2017-11-08] MEDS: PANTOPRAZOLE 40 MG INJ VIAL IVP SCH (10:43)
[2017-11-08] MEDS: SILVER SULFADIAZINE 1% 50 GM JAR TP SCH (10:43)
--- NOTE | 2017-11-08 11:29 | NUR ---
VENT CHECK, FAMILY AT BEDSIDE PT IS RESTING WITH NO SIGNS OF DISTRESS NOTED AT THIS TIME
--- NOTE | 2017-11-08 13:08 | NUR ---
VENT CHECK, I\L TX GIVEN WITH ALBUTEROL 2.5MG AND ATROVENT 0.5MG WITH NO ADVERSE REACTION POST TX, B\S ARE CLEAR AND SXN PT SMALL AMT OF CLEAR SECRETIONS
--- NOTE | 2017-11-08 13:51 | NUR ---
FAMILY AT BEDSIDE, PATIENT PRESENTS NO SIGN OF DISTRESS
[2017-11-08 14:29] LABS: BASOPHILS # (AUTO) 0.8 K/uL (0.00-0.22); HEMATOCRIT 40.8 % (36-52); HEMOGLOBIN 13.7 g/dL (12.0-18.0); LYMPHOCYTES # (AUTO) 1.5 K/uL (2.0-11.5); MEAN CORPUSCULAR HEMOGLOBIN 30 pg (27-31); MEAN CORPUSCULAR HGB CONC 34 g/dL (33-37); MEAN CORPUSCULAR VOLUME 90 fL (80-94); MONOCYTES # (AUTO) 0.7 K/uL (0.8-1.0); NEUTROPHILS # (AUTO) 5.2 K/uL (1.8-7.7); PLATELET COUNT (AUTO) 93 K/uL (140-450); RED BLOOD CELL COUNT(AUTO) 4.52 MIL/uL (4.20-6.10); RED CELL DISTRIBUTION WIDTH 13.7 % (11.6-13.7); WHITE BLOOD COUNT (AUTO) 8.2 K/uL (4.8-10.8)
[2017-11-08 14:45] LABS: ANION GAP 5.8 (8-16); CARBON DIOXIDE 31.8 mmol/L (21-32); CREATININE 1.2 mg/dL (0.7-1.3)
[2017-11-08 14:46] LABS: POTASSIUM 2.6 mmol/L (3.5-5.1)
--- NOTE | 2017-11-08 15:26 | NUR ---
VENT CHECK, SXN SMALL AMT OF CLEAR SECRETIONS, PT IS RESTING WITH NO SIGNS OF DISTRESS NOTED
[2017-11-08] MEDS ORDERED: KCL 20 MEQ/WATER INJ PREMIX 200 ML IV SCH (16:15)
[2017-11-08] MEDS ORDERED: POTASSIUM CHLORIDE 20% 40 MEQ/15 ML UDC GT SCH (16:15)
--- NOTE | 2017-11-08 16:50 | NUR ---
DR. VIGIL IN TO SEE PATIENT , UPDATED ON PATIENT'S CONDITION, WILL FOLLOW UP ON ANY ORDERS.
--- NOTE | 2017-11-08 17:18 | NUR ---
VENT CHECK, NO SXN REQUIRED AT THIS TIME AIRWAY IS PATENT FAMILY AT BEDSIDE
--- NOTE | 2017-11-08 17:51 | NUR ---
DR. RAYMOND IN TO SEE PATIENT, WILL FOLLOW UP ON ANY ORDERS.
--- NOTE | 2017-11-08 18:10 | NUR ---
CALL REPORT LAB RESULT CALCIUM 7.[address] TAYLOR .ORDER RECEIVED TO DRAW IONIZE CALCIUM SERUM IN AM,. BEFOR REPLACE CALCIUM.
--- NOTE | 2017-11-08 19:12 | NUR ---
ENDORSED CONTINUITY OF CARE TO CHARGE MASTER ANALYST RN.
--- NOTE | 2017-11-08 19:13 | NUR ---
RECEIVED PT STABLE ON VENT SUPPORT AT DOCUMENTED SETTINGS, SUCTIONED SMALL AMOUNTS OF THICK CLEAR SECRETIONS, HHN TX GIVEN, TOLERATED WELL, NO RESP DISTRESS OR SOB NOTED AT THIS TIME, 7.5 ETT SECURED AT 23 CM AT THE GUM, ALARMS SET AND AUDIBLE, AMBU BAG AT BEDSIDE, VENT PLUGGED INTO RED OUTLET, CONT PULSE OX ON, WILL CONTINUE TO MONITOR.
--- NOTE | 2017-11-08 19:30 | NUR ---
RECEIVED BEDSIDE REPORT FROM MORNING SHIFT RN. PATIENT IS AWAKE, RESPONSES TO LIGHT TOUCH, NONVERBAL. VSS, SR ON MONITOR. PATIENT HAS LEFT IJ, ASYMPTOMATIC, PATENT AND INTACT. PATIENT ON ETT TO VENT WITH SETTING AC12, FIO2 35%, VT 400, PEEP 5. BREATHING IS UNLABORED AND EVEN, LUNG SOUNDS ARE RHONCHI. S1 AND S2 HEART SOUNDS HEARD. PATIENT HAS A GTUBE, WITH REDNESS TO THE SITE, CONNECTED TO DRAIN BAG. PATIENT HAS FREY CATHETER IN PLACE DRAINING YELLOW URINE. PT'S SKIN IS NOT INTACT, AMES TO UPPER LEFT EXTREMITY AND LEFT UPPER ABDOMEN G TUBE SITE REDNESS COVERED WITH CLEAN DRESSINGS. CALL LIGHT WITHIN REACH, HOB 30 DEGREES IN LOW POSITION, CALL LIGHT WITHIN REACH.
--- NOTE | 2017-11-08 21:20 | NUR ---
BS CHECKED 105 NOTED. PT IS AWAKE. PT'S FAMILY MEMBERS ARE AT BEDSIDE. NO ACUTE DISTRESS NOTED. FLACC 0. VSS, SR ON THE SEAPORT PLANNING MANAGER. WILL CONTINUE TO MONITOR.
--- NOTE | 2017-11-08 23:00 | NUR ---
PT OPENS HIS EYES, NON VERBAL, ETT TO VENT. NO ACUTE RESPIRATORY DISTRESS NOTED. VSS. WILL CONTINUE TO MONITOR.
[2017-11-09] VITALS (22 sets, daily range): BP systolic 111–143; BP diastolic 68–109
[2017-11-09] MEDS: IPRATROPIUM 0.02% 0.5 MG/2.5 ML NEBU INH SCH ×4 (00:53→19:23)
[2017-11-09] MEDS: ALBUTEROL 0.083% 2.5 MG/3 ML NEBU INH SCH ×4 (00:53→19:23)
--- NOTE | 2017-11-09 01:00 | NUR ---
PROVIDED ORAL CARE, TOLERATED WELL. SUCTIONED SMALL AMOUNT CLEAR SECRETION FROM MOUTH. NO ACUTE DISTRESS NOTED. VSS. SR ON THE MONITOR.
--- NOTE | 2017-11-09 03:00 | NUR ---
PT IS IN ASLEEP, RESPONSE TO LIGHT TOUCH. NO ACUTE DISTRESS NOTE. VSS. SR ON THE MONITOR. WILL CONTINUE TO MONITOR.
[2017-11-09] MEDS ORDERED: VANCOMYCIN 1GM/DEXT 5% PREMIX 200 ML IV SCH (05:00)
--- NOTE | 2017-11-09 05:00 | NUR ---
PT OPENS HIS EYES, NON VERBAL, ETT TO VENT. NO ACUTE DISTRESS NOTE. VSS. ADMINISTERED SCHEDULED IV ABX ORDERED, TOLERATED WELL. WILL CONTINUE TO MONITOR.
[2017-11-09] MEDS: PIPER/TAZO 3.375GM/D5W PREMIX 50 ML IV SCH ×3 (05:01→20:31)
[2017-11-09 05:10] LABS: EOSINOPHILS # (AUTO) 0.2 K/uL (0-0.4); WHITE BLOOD COUNT (AUTO) 6.7 K/uL (4.8-10.8)
[2017-11-09 05:43] LABS: BASOPHILS # (AUTO) 0.2 K/uL (0.00-0.22); BASOPHILS % (AUTO) 3.2 % (0.0-2.0); EOSINOPHILS % (AUTO) 2.3 % (0.0-4.0); HEMATOCRIT 40.5 % (36-52); HEMOGLOBIN 13.6 g/dL (12.0-18.0); LYMPHOCYTES # (AUTO) 1.4 K/uL (2.0-11.5); LYMPHOCYTES % (AUTO) 20.3 % (20.5-51.1); MEAN CORPUSCULAR HEMOGLOBIN 31 pg (27-31); MEAN CORPUSCULAR HGB CONC 34 g/dL (33-37); MEAN CORPUSCULAR VOLUME 92 fL (80-94); MONOCYTES # (AUTO) 0.9 K/uL (0.8-1.0); MONOCYTES % (AUTO) 13.6 % (1.7-9.3); NEUTROPHILS % (AUTO) 60.6 % (42.2-75.2); PLATELET COUNT (AUTO) 104 K/uL (140-450); RED BLOOD CELL COUNT(AUTO) 4.41 MIL/uL (4.20-6.10); RED CELL DISTRIBUTION WIDTH 13.8 % (11.6-13.7)
[2017-11-09] MEDS: DEXT 5% /NACL 0.9% 1,000 ML IV SCH ×3 (05:56→18:40)
[2017-11-09 06:13] LABS: ANION GAP 10.7 (8-16); CARBON DIOXIDE 29.7 mmol/L (21-32); CREATININE 1.2 mg/dL (0.7-1.3); POTASSIUM 3.4 mmol/L (3.5-5.1)
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
--- NOTE | 2017-11-09 06:50 | NUR ---
SWITCHED PATIENT TO CPAP MODE FOR WEANING TRIAL. CPAP SETTINGS PS 10/. TO KEEP SATURATION ABOVE 92%. WILL CONTINUE TO MONITOR PATIENT CLOSELY. Addendum: 11/09/17 at 0959 by Mally Ward RT PT IS NOT ON SEDATION MEDICATIONS. BASELINE VS: HR 77, RATE 14, SAT 99%
--- NOTE | 2017-11-09 07:00 | NUR ---
RETURNED PATIENT BACK TO PREVIOUS AC/VC VENT MODE. PATIENT DID NOT TOLERATE CPAP WEANING TRIAL. HEART RATE INCREASED TO 102, RATE INCREASED TO 30. WILL CONTINUE TO MONITOR PATIENT.
--- NOTE | 2017-11-09 07:30 | NUR ---
RECEIVED REPORT FROM PM RN, PT SLEEPING BUT FROWNING EYEBROWS WHILE SUCTIONING PT, BEDSIDE MONITOR SHOWS SR, ETT TO VENT FIO2 30%, VT 400, AC 12, PEEP 5. LUNG SOUND CLEAR UPON AUSCULTATION. SKIN NON INTACT, AMES TO LEFT SHOULDER AND UPPER ARM. G-TUBE IN PLACE BY GRAVITY, NO DRAINAGE NOTED. FREY CATH IN PLACE WITH CLEAR YELLOW URINE NOTED. PT HAS HX CEREBRAL PALSY, ALL EXTREMITIES CONTRACTURE NOTED. SCROTAL EDEMA NOTED. SCDS IN PLACE, WILL CONTINUE TO MONITOR. Addendum: 11/09/17 at 0826 by Tom Duggan RN PT HAS CENTRAL LINE TO LEFT IJ TLC RUNNING D5 0.9 NS AT 100 MLS/HR, SITE INTACT AND PATENT. OLD SCAR NOTED TO ABDOMEN.
--- NOTE | 2017-11-09 07:30 | NUR ---
BEDSIDE REPORT GIVEN TO MORNING RN. PT'S VSS.
[2017-11-09] MEDS: BLOOD GLUCOSE MONITORING 1 DEV DEV FS SCH ×4 (07:31→20:31)
--- NOTE | 2017-11-09 08:00 | NUR ---
TURNED AND REPOSITIONED PT , ORAL CARE RENDERED, FREY CATH CARE GIVEN, BED BATH GIVEN. PT OPENS EYES WHILE TURNING PT.
[2017-11-09] MEDS: SILVER SULFADIAZINE 1% 50 GM JAR TP SCH (08:31)
[2017-11-09] MEDS: NEOMYCIN/POLYMYXIN/BACITRACIN 0.9 GM/1 PKT TP SCH ×2 (08:31→21:57)
[2017-11-09] MEDS: PANTOPRAZOLE 40 MG INJ VIAL IVP SCH (08:39)
--- NOTE | 2017-11-09 09:17 | NUR ---
BEGAN SECOND ATTEMPT AT WEANING PATIENT. PT CONTINUES TO REMAIN OFF ANY SEDATION MEDS; CONFIRMED WITH RN. CPAP SETTINGS PS 10/5, TO MAINTAIN O2 SATURATION GREATER THAN 92%. WILL MONITOR PATIENT. Addendum: 11/09/17 at 0957 by Mally Ward RT BASELINE VS: HR 69, RATE 13, SAT 96%
--- NOTE | 2017-11-09 09:34 | NUR ---
RETURNED PT TO INITIAL AC/VC SETTINGS: 400, 12, +5, 30%. PATIENT DID NOT TOLERATE WEANING TRIAL FOR SECOND TIME. PT BECAME TACHYPNEIC, RESPIRATORY RATE INCREASED TO 30. HEART RATE INCREASED TO 82. WILL CONTINUE TO MONITOR.
--- NOTE | 2017-11-09 09:53 | NUR ---
PT FATHER AT BEDSIDE, UPDATED PT CONDITION.
[2017-11-09] MEDS: KCL 20 MEQ/WATER INJ PREMIX 100 ML IV SCH ×2 (10:16→13:34)
[2017-11-09] MEDS ORDERED: PROBIOTIC SCREEN 1 EA MISC MC PRN (11:20)
--- NOTE | 2017-11-09 11:20 | NUR ---
PATIENT IS AWAKE WITH FAMILY AT BEDSIDE. TOLERATING VENT WELL AT SETTINGS DOCUMENTED. NO RESPIRATORY DISTRESS IS NOTED AT THIS TIME. WILL CONTINUE TO MONITOR.
--- NOTE | 2017-11-09 11:20 | NUR ---
CALLED TO ICU BED 5 PT'S MOTHER AT BEDSIDE WANTING TO KNOW WHY PT STILL HAS ET TUBE IN PLACE. I EXPLAINED THAT DR. QUINTEROS ORDERED FOR PT TO BE PLACED ON CPAP FOR TRAIL. AND HOW THE PT FAILED BOTH TIMES THAT PT WAS ON CPAP. PT'S MOM SAID THAT ANY TIME PT IS PLACED ON CPAP HIS HEART RATE AND RR WILL GO UP. I EXPLAINED THE WEANING PROCESS TO PT'S MOM AND SHE WAS NOT UNDERSTANDING THE PROCESS. TOLD HER I WOULD CALL DR. QUINTEROS AND HAVE HIM EXPLAIN THE PROCESS TO HER CALLED DOCTOR OFFICE AND HAD DOCTOR PAGED
--- NOTE | 2017-11-09 11:47 | NUR ---
PAGED , NOTIFIED DR. RAYMOND G-TUBE SITE REDNESS BUT NO LEAKING NOTED. PER DR. RAYMOND RESUME TUBE FEEDING. WILL CARRY OUT.
[2017-11-09] MEDS ORDERED: BISACODYL 10 MG SUPP RC SCH (12:58)
--- NOTE | 2017-11-09 13:00 | NUR ---
STARTED PT ON TUBE FEEDING AT 10 MLS/HR.
--- NOTE | 2017-11-09 13:14 | NUR ---
11/09/17 RD FOLLOW UP COMPLETED. PLEASE REFER TO NUTRITION ASSESSMENT UNDER CARE ACTIVITY FOR ESTIMATED NUTRITIONAL NEEDS. 1.WHEN MEDICALLY APPROPRIATE PER MD, CONSIDER INITIATING NUTRITION SUPPORT: NUTREN PULMONARY AT 10 ML/HR, INCREASING BY 10 ML/HR Q4H TIL GOAL RATE OF 45 ML/HR IS REACHED. AT GOAL OF 40 ML/HR 960 ML TOTAL VOLUME, 1200 KCAL, 54.5 GM PROTEIN, 620 ML TOTAL FREE WATER. 2. CONSIDER WATER FLUSHES OF [address] TO FOLLOW-UP IN 2-3 DAYS PATIENT IS HIGH RISK. ALEXANDREA NEWELL RD
--- NOTE | 2017-11-09 13:27 | NUR ---
PT QUIET AND RESTING. FAMILY AT BEDSIDE. VENT CHECK DONE. SUCTIONED SMALL AMOUNT OF BLOOD TINGED SPUTUM. TX GIVEN. PT TOLERATED WELL. REPOSITIONED ETT TO RIGHT SIDE OF MOUTH. ETT REMAINS AT 23CM AT THE LIPS. NO SIGNS OF RESPIRATORY DISTRESS AT THIS TIME.
--- NOTE | 2017-11-09 14:39 | NUR ---
CM NOTE CONCURRENT REVIEW FAXED TO [facility] (FAX# [phone], ATTN: CHRYSTAL #[id number]) AND [facility] (FAX# [phone], C: #[phone])
--- NOTE | 2017-11-09 15:25 | NUR ---
PATIENT QUIET, AWAKE. VENT CHECK DONE. NO RESPIRATORY DISTRESS NOTED AT THIS TIME.
--- NOTE | 2017-11-09 17:05 | NUR ---
INCREASED TUBE FEEDING TO 20 MLS/HR PER ORDER. PT TOLERATED WELL, RESIDUAL CHECKED, NONE.
--- NOTE | 2017-11-09 17:34 | NUR ---
PATIENT AWAKE AND QUIET. VENT CHECK DONE. PT TOLERATING CURRENT VENT SETTINGS DOCUMENTED. SUCTIONED SCANT AMOUNT OF SLIGHTLY BLOOD TINGED/YELLOW SECRETIONS. VENT PLUGGED INTO RED OUTLET. AMBU BAG AT BEDSIDE. NO RESPIRATORY DISTRESS NOTED AT THIS TIME.
--- NOTE | 2017-11-09 18:30 | NUR ---
TURNED AND REPOSITIONED PT, NO BM NOTED AFTER DULCOLAX GIVEN BY RC THIS AFTER NOON AT 1334
[2017-11-09] MEDS ORDERED: COMMUNICATION ORDER MC SCH (18:35)
--- NOTE | 2017-11-09 19:15 | NUR ---
REPORT GIVEN TO BRUSH HEAD MAKER RN.
--- NOTE | 2017-11-09 19:23 | NUR ---
RECEIVED ON A Virtual PaperAPE R860 VENTILATOR PLUGGED INTO RED OUTLET TOLERATING WELL WITHOUT ADCERSE REACTIONS NOTED TO A PORTEX ENDOTRACHEAL TUBE #7.5 SECURED WITH AN ANCHOR FAST AT 23cm CUFF PRESSURE MEASURED NOTED WITH A SHERLYN CUFFLATOR AMBU BAG NOTED AT HOB LOC ASLEEP RESTING WELL NO SEDATION BREATH SOUNDS DIFFUSED RHONCHI BILATERAL WITH GOOD CHEST RISE ENDOTRACHEAL SUCTION FOR SCANT YELLOW WITH FEW DARK BLOOD CLOTS AIRWAY PATENT REVIEWED CXR IMPRESSION DATED 11/06/2017 INCREASED PEEP TO 8cmH20 ORTIZ/JULITA NOTIFIED Addendum: 11/09/17 at 2005 by Gage Painting RT ABDOMINAL EXTENDED AND FIRM
--- NOTE | 2017-11-09 19:30 | NUR ---
RECEIVED REPORT FROM AM NURSE. NO S/S OF ACUTE DISTRESS. WILL CONTINUE TO OBSERVE.
--- NOTE | 2017-11-09 19:45 | NUR ---
PT ASLEEP, NO PURPOSEFUL MOVEMENT NOTED. HX OF CEREBRAL PALSY, BUE, BLE CONTRACTED. 7.5 MM ET TO VENT 23 CM @ LIP. VENT SETTINGS AC 30 400 12 5. SR 70-80S. +2 EDEMA NOTED TO BLE, SCOTAL EDEMA NOTED. PEG TUBE NUTREN PULMONARY RUNNING @ 20ML NO RESIDUALS NOTED. FREY CATH CLEAR YELLOW URINE NOTED. L I J TRIPLE LUMEN CENTRAL LINE NOTED. L SHOULDER HAS SKIN BREAKDOWN NOTED WELL GT SITE. SKIN WARM DRY PINK. SCDS APPLIED. NO ACUTE DISTRESS NOTED. WILL CONTINUE TO OBSERVE.
[2017-11-09] MEDS: BACLOFEN 5 MG/ML GT SCH (20:37)
[2017-11-09] MEDS: DIAZEPAM 5 MG/5 ML GT SCH (20:37)
--- NOTE | 2017-11-09 20:45 | NUR ---
DR. NICOLE @ BEDSIDE. UPDATE GIVEN TO MD. INFORMED MD ABOUT UPCOMING EXPIRATION OF IV VANCO, AND TO RENEW ORDER. MD STATED HE WOULD UPDATE MEDS. WILL CONTINUE TO MONITOR.
--- NOTE | 2017-11-09 22:32 | NUR ---
AWAKE NO DISTRESS NOTED PEAK PRESSURE AT [id number] BREATH SOUNDS COARSE RHONCHI BILATERAL WITH GOOD CHEST RISE ENDOTRACHEAL SUCTION FOR LARGE THICK YELLOW WITH BLOOD TINGE SECRETIONS AIRWAY PATENT
[2017-11-10] VITALS (24 sets, daily range): BP systolic 105–130; BP diastolic 59–97
--- NOTE | 2017-11-10 00:01 | NUR ---
PT ASLEEP AROUSABLE. PT REPOSITIO. NO S/S OF ACUTE DISTRESS WILL CONITNUE TO MONITOR.
[2017-11-10] MEDS: LORazepam 2 MG/ML VIAL IVP PRN (00:51)
--- NOTE | 2017-11-10 00:51 | NUR ---
PT AGITATED AFTER REPOSITIONING, HR ELEVATED IN 130-140, RESTLESS. ATIVAN PRN GIVEN. PT NOW 90S RELAXED CALM. WILL CONTINUE TO MONITOR.
[2017-11-10] MEDS: ALBUTEROL 0.083% 2.5 MG/3 ML NEBU INH SCH ×4 (01:39→19:08)
[2017-11-10] MEDS: IPRATROPIUM 0.02% 0.5 MG/2.5 ML NEBU INH SCH ×4 (01:39→19:08)
--- NOTE | 2017-11-10 01:39 | NUR ---
ASLEEP NO EVIDENCE OF PULMONARY DISTRESS NOTED BREATH SOUNDS CLEAR BILATERAL WITH GOOD CHEST RISE AND AERATION THROUGHOUT AIRWAY PATENT
--- NOTE | 2017-11-10 02:35 | NUR ---
PT ASLEEP RESTING COMFORTABLY. NO S/S OF ACUTE DISTRESS NOTED. PT TOLERATING TUBE FEEDING. WILL CONTINUE TO MONITOR.
--- NOTE | 2017-11-10 03:33 | NUR ---
RESTING COMFORTABLY NO SOB NOTED GOOD CHEST RISE
[2017-11-10 04:17] LABS: ANION GAP 9.5 (8-16); CARBON DIOXIDE 30.4 mmol/L (21-32)
[2017-11-10 04:27] LABS: POTASSIUM 2.9 mmol/L (3.5-5.1)
[2017-11-10 04:32] LABS: BASOPHILS # (AUTO) 0.3 K/uL (0.00-0.22); EOSINOPHILS # (AUTO) 0.3 K/uL (0-0.4); EOSINOPHILS % (AUTO) 5.6 % (0.0-4.0); HEMATOCRIT 37.3 % (36-52); HEMOGLOBIN 12.5 g/dL (12.0-18.0); LYMPHOCYTES % (AUTO) 16.7 % (20.5-51.1); MEAN CORPUSCULAR HEMOGLOBIN 31 pg (27-31); MEAN CORPUSCULAR HGB CONC 34 g/dL (33-37); MEAN CORPUSCULAR VOLUME 92 fL (80-94); MONOCYTES # (AUTO) 0.6 K/uL (0.8-1.0); MONOCYTES % (AUTO) 9.4 % (1.7-9.3); NEUTROPHILS # (AUTO) 3.9 K/uL (1.8-7.7); NEUTROPHILS % (AUTO) 63.2 % (42.2-75.2); PLATELET COUNT (AUTO) 119 K/uL (140-450); RED BLOOD CELL COUNT(AUTO) 4.05 MIL/uL (4.20-6.10); RED CELL DISTRIBUTION WIDTH 13.9 % (11.6-13.7); WHITE BLOOD COUNT (AUTO) 6.1 K/uL (4.8-10.8)
[2017-11-10 04:35] LABS: BASOPHILS % (AUTO) 5.1 % (0.0-2.0)
--- NOTE | 2017-11-10 04:38 | NUR ---
INFORMED DR. TAYLOR THAT PATIENT'S POTASSIUM LEVEL THIS MORNING IS 2.9, MD ORDERED TO GIVE KRIDER 60 MEQ TO RUN OVER 6 HOURS.
--- NOTE | 2017-11-10 04:38 | NUR ---
PATIENT'S VANCOMYCIN TROUGH DRAWN AT 0400 WAS 18.1, LEVEL STILL ELEVATED.
[2017-11-10] MEDS: BACLOFEN 5 MG/ML GT SCH ×3 (04:59→20:49)
[2017-11-10] MEDS: DIAZEPAM 5 MG/5 ML GT SCH ×4 (04:59→20:49)
[2017-11-10] MEDS: PIPER/TAZO 3.375GM/D5W PREMIX 50 ML IV SCH (05:10)
[2017-11-10] MEDS: KCL 20 MEQ/WATER INJ PREMIX 100 ML IV SCH ×3 (05:12→09:56)
--- NOTE | 2017-11-10 05:35 | NUR ---
NO EVIDENCE OF SOB NOTED BREATH SOUNDS WHEEZE RIGHT SIDE TO CLEAR AT LEFT SIDE GOOD CHEST RISE AIRWAY PATENT
[2017-11-10] MEDS: DEXT 5% /NACL 0.9% 1,000 ML IV SCH (05:43)
--- NOTE | 2017-11-10 07:00 | NUR ---
PATIENT IS QUIETLY RESTING. VENT CHECK DONE. PT TOLERATING VENT SETTINGS DOCUMENTED. AC/VC 12, 400, +8, 30%. VENT PLUGGED INTO RED OUTLET. AMBU BAG AT PT BEDSIDE. ETT PLACEMENT AND CUFF PRESSURE VERIFIED. BREATHING TX ADMINISTERED. PT TOLERATED BREATHING TX WELL. BS CLEAR. NO SUCTIONING INDICATED AT THIS TIME. NO RESPIRATORY DISTRESS NOTED AT THIS TIME. WILL CONTINUE TO MONITOR.
--- NOTE | 2017-11-10 07:17 | NUR ---
REPORT GIVEN TO AM NURSE. NO ACUTE DISTRESS NOTED. ENDORSED CARE TO AM NURSE.
--- NOTE | 2017-11-10 07:21 | NUR ---
RECEIVED REPORT FROM JULITA ALCANTAR. PT RESTING IN BED. RT AT BEDSIDE PT IS ETT TO VENT. PTS HOB IS 35DEG, BED LOCK ON, SIDE RAILS ELEVATED AND BED IN THE LOWEST POSITION. PTS IS NON-VERBAL BUT RESPONDS TO STIMULI AND RETRACTS TO LIGHT PAIN/SUCTIONING. PT HAS LEFT IJ, DRESSING DRY AND INTACT. PT HAS A BURN ON LEFT SHOULDER AND SIDE, LEFT OPEN TO AIR. PT HAD A G-TUBE WITH DRESSING, DRY AND INTACT. PT CURRENTLY HAS 40ML NUTREN PULMO CONNECTED TO GI-TUBE FOR FEEDS. PT HAS A FREY IN PLACE, CLEAR YELLOW URINE. PT HAS SCD ON AND BP CUFF ON RIGHT ARM. PT IS POSITIONED FOR COMFORT AND SAFETY MEASURES ARE IN PLACE. ARM BRACELET ON LEFT WRIST.
--- NOTE | 2017-11-10 07:40 | NUR ---
CALLED TO BEDSIDE DUE TO VENT ALARM. VENT CIRCUIT CHANGED. HME CHANGED. SUCTION CATH CHANGED. VENT ALARMS WORKING AND AUDIBLE. NO RESPIRATORY DISTRESS NOTED. WILL CONTINUE TO MONITOR.
[2017-11-10] MEDS: BLOOD GLUCOSE MONITORING 1 DEV DEV FS SCH ×4 (07:50→20:49)
--- NOTE | 2017-11-10 08:30 | NUR ---
PT IS RESTING, ETT TO VENT. PERRL. PT RESPONDS TO LIGHT PAIN STIMULATION. G-TUBE RESIDUALS ZERO AND IN THE RIGHT PLACE WHEN AUSCULTATED. PT HAS 2+ EDEMA ON LOWER LIMS, SCROTAL AND PENIS EDMA. LUNG SOUNDS ARE DIMINISHED BILATERALLY IN LOWER LOBES. S1, S2 HEARD. PT BURN ON LEFT SHOULDER AND SIDE HAVE BEEN TREATED WITH SILVADENE AND NEOSPORIN AND LEFT OPEN TO AIR. ORAL CARE HAS BEEN PROVIDED. SAFETY PROTOCOLS IN PLACE; BED LOCK ON, RAILS ELEVATED, HOB 35 DEG AND, BED IN LOWEST POSITION.
[2017-11-10] MEDS: LACTOBACILLUS RHAMNOSUS GG 1 EACH CAP PO SCH (08:58)
[2017-11-10] MEDS: SILVER SULFADIAZINE 1% 50 GM JAR TP SCH (08:58)
[2017-11-10] MEDS: NEOMYCIN/POLYMYXIN/BACITRACIN 0.9 GM/1 PKT TP SCH ×2 (08:59→20:49)
[2017-11-10] MEDS: PANTOPRAZOLE 40 MG INJ VIAL IVP SCH (09:00)
--- NOTE | 2017-11-10 09:00 | NUR ---
PTS FAMILY ARRIVED, AT BEDSIDE.
--- NOTE | 2017-11-10 09:06 | NUR ---
WEANING TRIAL BEGAN. PT NOT ON ANY SEDATION. FAMILY AT BEDSIDE WITH PATIENT. PS 14,8, FIO2 30%. VITALS STABLE. HR 73, RATE 22, O2SAT 98%. PATIENT CURRENTLY TOLERATING WEANING. WILL CONTINUE TO MONITOR. Addendum: 11/10/17 at 0924 by Mally Ward RT PS 14, PEEP 8
--- NOTE | 2017-11-10 09:14 | NUR ---
PATIENT TOLERATING WEANING. DECREASED PS TO 12/5 FIO2 30%. VS STABLE HR 68, RATE 26, O2 SAT 98%. FAMILY REMAINS AT BEDSIDE. WILL CONTINUE TO MONITOR.
--- NOTE | 2017-11-10 09:17 | NUR ---
RT CHANGED PT TO CPAP 5 WITH PRESSURE 12 TRIAL. WILL CLOSELY MONITOR.
--- NOTE | 2017-11-10 10:39 | NUR ---
WOUND CULTURE TAKEN FROM G-TUBE SITE. SITE CLEANED WITH NS AND CULTURE TAKEN.
[2017-11-10] MEDS ORDERED: KCL 20 MEQ/WATER INJ PREMIX 200 ML IV SCH (11:13)
--- NOTE | 2017-11-10 11:16 | NUR ---
ABG DRAWN ON LB WITHOUT INCIDENT AND RESULTS READ TO DR. QUINTEROS ORDERED TO PLACE PT BACK ON AC MODE AND TO WEAN AGAIN ON 11/11/2017 SETTINGS CPAP 5 PS 10 AFTER ONE HOUR DO ABG AND CALL HIM WITH RESULTS
--- NOTE | 2017-11-10 11:19 | NUR ---
FAXEE CONCURRENT REVIEW TO [facility] [phone] PHONE ROSENDA [phone]
--- NOTE | 2017-11-10 11:23 | NUR ---
PATIENT QUIET, RESTING. RETURNED TO AC VENT SETTINGS. AC/VA 400, 12, +5, 30%. ALARMS ON AND AUDIBLE. NO RESPIRATORY DISTRESS NOTED AT THIS TIME.
--- NOTE | 2017-11-10 11:24 | NUR ---
RT AT BEDSIDE CHANGING FROM CPAP TO AC VENT SETTINGS. WILL MONITOR CLOSELY.
--- NOTE | 2017-11-10 12:18 | NUR ---
PT RESTING IN BED. VAP ORAL CARE PROVIDED AND REPOSITIONED PT FOR COMFORT. BED BATH GIVEN AND ENSURED SKIN WAS DRY. PT'S BED RAIL ARE RAISED, RAILS ELEVATED AND BED IN LOWEST POSITION.
--- NOTE | 2017-11-10 13:17 | NUR ---
PATIENT IS BRADYCARDIC AT 46BPM. SENT PAGE TO DR. VIGIL. AWAITING FOR CALL BACK.
[2017-11-10] MEDS ORDERED: ATROPINE 0.5 MG/5 ML SYR IVP PRN (13:30)
--- NOTE | 2017-11-10 13:32 | NUR ---
DR. VIGIL RETURNED CALL AT 1330. RECEIVED TELEPHONE ORDERS FOR 0.5MG ATROPINE IVP Q2 PRN FOR HEART RATE UNDER 40. PTS HEART RATE HAS NOW RAISED TO 73. WILL CLOSELY MONITOR.
--- NOTE | 2017-11-10 14:00 | NUR ---
PTS HEART RATE REMAINS MIGUELINA BUT BP AND SPO2 WNL. PT RESTING IN BED, MOTHER AT BEDSIDE. PT REPOSITIONED IN BED, BED LOCK ON, RAILS RAISED- AND BED LEFT IN LOWEST POSITION.
--- NOTE | 2017-11-10 14:36 | NUR ---
PT QUIET AND RESTING. FAMILY AT BEDSIDE. VENT CHECK DONE. TOLERATING CURRENT VENT SETTINGS DOCUMENTED. TX GIVEN. PT TOLERATED TX WELL. NO ADVERSE REACTIONS. BREATH SOUNDS COURSE. SUCTIONED SCANT AMOUNT BLOOD TINGED SECRETIONS. ETT PLACEMENT AND ETT CUFF PRESSURE VERIFIED. NO RESPIRATORY DISTRESS NOTED AT THIS TIME. WILL CONTINUE TO MONITOR.
--- NOTE | 2017-11-10 15:43 | NUR ---
PATIENT RESTING QUIETLY. FAMILY AT BEDSIDE. VENT CHECK DONE. ALARMS ON AND AUDIBLE. NO RESPIRATORY DISTRESS NOTED AT THIS TIME.
--- NOTE | 2017-11-10 16:00 | NUR ---
FREY CARE PROVIDED, REPOSITIONED AND CHECKED REDIALS, ZERO. ORAL VAP CARE PROVIDED.
--- NOTE | 2017-11-10 16:14 | NUR ---
PTS BROTHER CAME TO SEE HIM, AT BEDSIDE.
--- NOTE | 2017-11-10 17:17 | NUR ---
VENT CHECK NO SXN NEEDED AT THIS TIME NO SIGNS OF DISTRESS PT IS SLEEPING WITH FAMILY AT BEDSIDE
--- NOTE | 2017-11-10 18:40 | NUR ---
PT REPOSITIONED, BED CLEANED AND ORAL CARE PROVIDED. PT TOLERATING FEEDS, ZERO RESIDUAL. PT SLEPT MOST OF DAY AND DID NOT HAVE ANY PERIODS OF TIME WITH AGITATION. HR HAS STAYED IN THE 60'S AND NOT GONE BELOW 59. PT'S BROTHER AND MOTHER AT BEDSIDE. BED LEFT IN LOWEST POSITION, HOB 30 DEG, BED ALARM AND LOCK ON.
--- NOTE | 2017-11-10 19:18 | NUR ---
RECEIVED PT STABLE ON VENT SUPPORT AT DOCUMENTED SETTINGS, SUCTIONED SMALL AMOUNTS OF THICK CLEAR SECRETIONS, HHN TX GIVEN, TOLERATED WELL, NO RESP DISTRESS OR SOB NOTED AT THIS TIME, 7.5 ETT SECURED AND PATENT AT 23 CM AT THE GUMS, ALARMS SET AND AUDIBLE, AMBU BAG AT BEDSIDE, VENT PLUGGED INTO RED OUTLET, WILL CONT TO MONITOR.
--- NOTE | 2017-11-10 19:20 | NUR ---
RECEIVED PT FROM AM NURSE. NO ACUTE DISTRESS WILL CONTINUE TO OBSERVE.
--- NOTE | 2017-11-10 19:24 | NUR ---
CALLED DR NICOLE TO CLARIFY ANTIBIOTICS. ZOSYN AND VANCO D/C FOR NOW. KEEP CURRENT ROCEPHIN IV ORDER. NO NEW ORDERS. WILL CONTINUE TO OBSERVE.
--- NOTE | 2017-11-10 19:55 | NUR ---
PT ASLEEP, OPENS EYES TO PAINFUL STIMULI. CONTRACTED @ THIS TIME. 7.5MM ETT 23 CM @ LIP VENT SETTINGS: AC 30 RR 12 TV 400 PEEP 5 MODERATE CLEAR/WHITE SPUTUM NOTED. LUNGS DIMINISHED FINE CRACKLES, BREATH SOUNDS. SINUS RHYTHM ON MONITOR 80-90S. EDEMA NOTED TO PENIS/SCROTAL EDEMA. PEG TUBE IN PLACE NUTREN PULMONARY RUNNING @ 45 ML/HR NO RESIDUALS NOTED, ABD ROUND NON DISTENDED, FIRM, FREY CATH IN PLACE CLEAR YELLOW URINE. HX OF SCOLIOSIS NOTED, AMES TO L ARM NOTED AND REDNESS TO PEG SITE. SCDS IN PLACE. FAMILY @ BEDSIDE. NO OTHER S/S OF ACUTE DISTRESS NOTED. WILL CONTINUE TO OBSERVE.
--- NOTE | 2017-11-10 20:30 | NUR ---
ORAL CARE PER VAP PROTOCOL GIVEN
--- NOTE | 2017-11-10 22:08 | NUR ---
PT REPOSITIONED AND TURNED, FATHER @ BEDSIDE.
--- NOTE | 2017-11-10 23:30 | NUR ---
NEW FEEDING NUTREN PULMONARY BAG HUNG, WITH NEW TUBING, NO RESIDUALS NOTED. WILL CONTINUE TO OBSERVE.
[2017-11-11] VITALS (17 sets, daily range): BP systolic 117–136; BP diastolic 66–91
--- NOTE | 2017-11-11 00:06 | NUR ---
PT AFEBRILE, PT ASLEEP IN BED, NO S/S OF DISTRESS NOTED. WILL CONTINUE TO OBSERVE.
[2017-11-11] MEDS: IPRATROPIUM 0.02% 0.5 MG/2.5 ML NEBU INH SCH ×4 (00:58→19:12)
[2017-11-11] MEDS: ALBUTEROL 0.083% 2.5 MG/3 ML NEBU INH SCH ×4 (00:58→19:12)
[2017-11-11] MEDS: DEXT 5% /NACL 0.9% 1,000 ML IV SCH ×4 (01:10→22:36)
--- NOTE | 2017-11-11 02:43 | NUR ---
SUCTIONED ORAL AND ETTUBE THICK YELLOW / WHITE SPUTUM NOTED. WILL CONTINUE TO OBSERVE.
--- NOTE | 2017-11-11 03:00 | NUR ---
BATH GIVEN, TURNED REPOSITIONED PT. PT RESTLESS, FEELING ANXIOUS. PRN ATIVAN GIVEN. NO OTHER S/S OF DISTRESS NOTED. WILL CONTINUE OBSERVE.
[2017-11-11] MEDS: LORazepam 2 MG/ML VIAL IVP PRN ×2 (03:03→12:36)
[2017-11-11] MEDS: BACLOFEN 5 MG/ML GT SCH ×3 (05:20→21:14)
[2017-11-11] MEDS: DIAZEPAM 5 MG/5 ML GT SCH ×3 (05:20→21:15)
--- NOTE | 2017-11-11 06:12 | NUR ---
PT TURNED REPOSITIONED, ASLEEP IN BED NO S/S OF ACUTE DISTRESS NOTED. WILL CONTINUE TO OBSERVE.
[2017-11-11 06:38] LABS: MEAN CORPUSCULAR HEMOGLOBIN 31 pg (27-31); MEAN CORPUSCULAR HGB CONC 33 g/dL (33-37); MEAN CORPUSCULAR VOLUME 93 fL (80-94); PLATELET COUNT (AUTO) 137 K/uL (140-450); RED BLOOD CELL COUNT(AUTO) 4.21 MIL/uL (4.20-6.10); RED CELL DISTRIBUTION WIDTH 13.7 % (11.6-13.7)
[2017-11-11 07:17] LABS: ANION GAP 8.5 (8-16); CREATININE 0.9 mg/dL (0.7-1.3); POTASSIUM 3.5 mmol/L (3.5-5.1)
--- NOTE | 2017-11-11 07:30 | NUR ---
OBTAINED REPORT FROM JULITA ALCANTAR AT BEDSIDE, PT IS OPEN EYES ONLY, NON-VERBAL, UNABLE TO FOLLOW COMMANDS AND MAKE NEEDS KNOWN, FLACC 0, VSS. ETT TO VENT WITH AC/VC SETTING, FIO2 30, VT 400, R 2, PEEP 5. NO S/S OF DISTRESS, RHONCHI LUNG SOUNDS, CENTRAL LINE TO LIJ, TLC, PATENT, RUNNING WITH NS AT 100ML/HR, SR ON RELAYS DRAFTSPERSON, SOFT ABDOMEN WITH ACTIVE BOWEL SOUNDS, GT IN PLACE, FEEDING WITH NUTREN PULMONARY AT 45ML/HR, TOLERATED WELL, 0ML RESIDUAL, GT SITE REDNESS NOTED, FREY CATHETER IN PLACE WITH CLEAR YELLOW URINE VIA GRAVITY, REVEAL CONTRACTURES NOTED TO ALL EXTREMITIES. SKIN IS WARM AND DRY TO TOUCH, SCABBED WOUNDS AND ULCERATIONS TO LEFT UPPER ARM AND SHOULDER, HOB ELEVATED, SAFETY MEASURE IN PLACE, CALL LIGHT WITHIN REACH, WILL CONTINUE TO MONITOR. Addendum: 11/11/17 at 0838 by Elissa Browne RN SKIN IS INTACT, WARM AND DRY TO TOUCH. Addendum: 11/11/17 at 0945 by Elissa Browne RN SCROTAL EDEMA NOTED.
[2017-11-11] MEDS: BLOOD GLUCOSE MONITORING 1 DEV DEV FS SCH ×4 (07:34→21:14)
[2017-11-11 08:01] LABS: EOSINOPHILS % (MANUAL) 7 % (0-4); LYMPHOCYTES % (MANUAL) 20 % (20-46); MONOCYTES % (MANUAL) 10 % (5-12)
--- NOTE | 2017-11-11 08:30 | NUR ---
ORAL CARE PROVIDED, POSITION CHANGED FOR OFF LOAD PRESSURE, VSS.
[2017-11-11] MEDS ORDERED: SILVER SULFADIAZINE 1% 50 GM JAR TP SCH (09:00)
--- NOTE | 2017-11-11 09:00 | NUR ---
SCHEDULED MEDICATION GIVEN, PT TOLERATED WELL.
[2017-11-11] MEDS: PANTOPRAZOLE 40 MG INJ VIAL IVP SCH (09:18)
[2017-11-11] MEDS: SILVER SULFADIAZINE 1% 50 GM JAR TP SCH (09:18)
[2017-11-11] MEDS: LACTOBACILLUS RHAMNOSUS GG 1 EACH CAP PO SCH (09:18)
[2017-11-11] MEDS: NEOMYCIN/POLYMYXIN/BACITRACIN 0.9 GM/1 PKT TP SCH ×2 (09:18→21:15)
--- NOTE | 2017-11-11 10:30 | NUR ---
DR. VIGIL CAME IN TO SEE PT AT BEDSIDE, WILL FOLLOW UP WITH NEW ORDERS.
--- NOTE | 2017-11-11 11:30 | NUR ---
PT IS EXTUBATED BY RT AT BEDSIDE, SUCTION PROVIDED, MORPHINE GIVEN FOR PAIN, PT TOLERATED WELL.
--- NOTE | 2017-11-11 11:30 | NUR ---
PATIENT WAS EXTUBATED BY RT PER DOCTOR'S ORDERS. PATIENT WAS PLACED ON %40FIO2 COOL AERSOL MASK. PATIENT WAS SUCTIONED AND IS STABLE AND ALERT AT THIS TIME NO RESP DISTRESS NOTED SPO2 94 HR 102. PATIENT WILL BE MONITORED CLOSELY BY RT AND NURSE
--- NOTE | 2017-11-11 12:15 | NUR ---
FOUND CENTRAL LINE WAS OUT AND LYING ON THE BED, PT'S FAMILY STATED THE CENTRAL LINE WAS PULLED OUT BY RT WHEN RT REMOVED ETT, NO BLEEDING NOTED TO CENTRAL LINE SITE, COVERED WITH DRY GAUZE. INSERTED PERIPHERAL LINE TO RIGHT AC WITH ANGIO CATH 22GA AT THIS TIME, PAGED DR. ASHLEY, WAITING TO CALL BACK. CHARGE NURSE MADE AWARE. Addendum: 11/11/17 at 1413 by Elissa Browne RN REMOVE PT'S FAMILY STATED THE CENTRAL LINE WAS PULLED OUT BY RT WHEN RT REMOVED ETT.
--- NOTE | 2017-11-11 12:50 | NUR ---
METAL BENDING MACHINE OPERATOR CALLED TO BEDSIDE TO EVALUATE FOR LABORED BREATHING PATIENT ASSESSMENT DONE SATURATION 96% ON SUPPLEMENTAL OXYGENT AT 40%/10 LPM VIA COOL AEROSOL BREATH SOUNDS COARSE RHONCHI BILATERAL HR 112 RR 24 USING STERILE TECHNIQUE APPLIED LUBRICANT TO THE DISTAL END OF A 14FR SUCTION CATHETER INSERTED INTO RIGHT NARES X2 OBTAINED LARGE THICK YELLOW WITH BLOOD TINGE SECRETIONS OROPHARYNX SUCTION FOR LARGE CLEAR TO FROTHY SECRETIONS HYPEROXYGENATION PROVIDED PRE AND POST SUCTION ENDORSED FOREMENTIONED TO Oswald MCCLURE RCP
--- NOTE | 2017-11-11 13:59 | NUR ---
PATIENT STABLE SATURATION 98 HEART RATE 106 PATEIENT STABLE JOSÉ MIGUEL TX NO RESP DISTRESS
--- NOTE | 2017-11-11 14:12 | NUR ---
FAXED CONCURRENT REVIEW TO [facility] [phone] PHONE ROSENDA [phone].
--- NOTE | 2017-11-11 14:43 | NUR ---
DR. ASHLEY CALLED BACK, INFORMED DR. ASHLEY THAT CENTRAL LINE PULLED OUT. Addendum: 11/11/17 at 1446 by Elissa Browne RN DR. VIGIL CALLED, NOT DR. ASHLEY
[2017-11-11] MEDS ORDERED: MAG SULF 2000 MG/WATER PREMIX 50 ML IV SCH (15:26)
--- NOTE | 2017-11-11 15:51 | NUR ---
DR. NICOLE CAME IN TO SEE PATIENT AT BEDSIDE, NO CHANGE OF ORDER AT THIS TIME.
--- NOTE | 2017-11-11 16:00 | NUR ---
PATIENT STABLE SPO2 96 HEART RATE 110 RESP RATE 28. ORAL SUCTION WAS DONE. PATIENT IS STABLE AT THIS TIME NO SHORTNESS OF BREATH OR RESP DISTRESS NOTED. PATIENT ON %40FIO2.
--- NOTE | 2017-11-11 18:00 | NUR ---
NO S/S OF DISTRESS, VSS, HAD A SOFT YELLOW BM, SAMRA CARE PROVIDED, POSITION CHANGED FOR OFF LOAD PRESSURE.
--- NOTE | 2017-11-11 19:20 | NUR ---
REPORT RECEIVED FROM MORNING NURSE. PT IS AWAKE, NONVERBAL, UNABLE TO FOLLOW COMMANDS. ON COOL AEROSOL MASK 30% FIO2. S/P EXTUBATION TODAY. BILATERAL LUNGS SOUND RHONCHI. RR EVEN AND UNLABORED. GT TO TUBE FEEDING. BOWEL SOUND ACTIVE FROM ALL 4 QUADS. GT SITE NOTED WITH REDNESS W/ MINIMAL DRAINAGE. TREATMENT IN PLACE. DRESSING CLEAN AND INTACT. BURN AREA COVERED WITH DRY DRESSING. SURROUNDING TISSUE WITHOUT S/SX OF INFLAMMATION. AFEBRILE. FLACC 0. FREY DRAINING CLEAR YELLOW URINE. VS WITHOUT ACUTE DISTRESS. WILL CONTINUE TO MONITOR.
--- NOTE | 2017-11-11 19:22 | NUR ---
REPORT GIVEN TO JULITA HENRY AT BEDSIDE FOR CONTINUE OF CARE, PT IS IN STABLE CONDITION AT THIS TIME.
--- NOTE | 2017-11-11 21:15 | NUR ---
PK=[id number]. MEDICATIONS ADMINISTERED ORDERED. GT RESIDUAL ZERO.
--- NOTE | 2017-11-11 22:00 | NUR ---
ORAL CARE PROVIDED. SMALL AMOUNT OF CLEAR SECRETION NOTED. PT SATING 96% WITH COOL AEROSOL MASK FIO2 30%. REPOSITIONED. FLACC 0. AFEBRILE. WILL CONTINUE TO MONITOR.
[2017-11-12] VITALS (12 sets, daily range): BP systolic 98–151; BP diastolic 67–98
--- NOTE | 2017-11-12 00:04 | NUR ---
REPOSITIONED. VS STABLE. WILL CONTINUE TO MONITOR.
[2017-11-12] MEDS: ALBUTEROL 0.083% 2.5 MG/3 ML NEBU INH SCH ×4 (00:53→18:52)
[2017-11-12] MEDS: IPRATROPIUM 0.02% 0.5 MG/2.5 ML NEBU INH SCH ×4 (00:53→18:52)
--- NOTE | 2017-11-12 02:05 | NUR ---
REPOSITIONED. ORALLY SUCTIONED CLEAR SECRETION. CONTINUING WITH O2 VIA COOL AEROSOL MASK. GT FEEDING WITHOUT ANY RESIDUAL. KEPT HOB ELEVATED TO 30 DEGREES. AFEBRILE. FLACC 0. VS STABLE. WILL CONTINUE TO MONITOR.
--- NOTE | 2017-11-12 02:18 | NUR ---
REPOSITIONED. REPOSITIONED. EMPTIED 1000ML CLEAR YELLOW URINE FROM FREY CATHETER.
--- NOTE | 2017-11-12 04:27 | NUR ---
BED BATH, FREY CATHETER CARE, ORAL CARE, MORNING CARE, AND REPOSITION PROVIDED. G-TUBE DRESSING REINFORCED. WOUND CARE TO BURN AREA AND DRESSING REINFORCED. FLACC 0. AFEBRILE. ALL SAFETY PRECAUTIONS ARE IN PLACE. WILL CONTINUE TO MONITOR.
[2017-11-12] MEDS: DIAZEPAM 5 MG/5 ML GT SCH ×3 (04:54→20:25)
[2017-11-12] MEDS: BACLOFEN 5 MG/ML GT SCH ×3 (04:54→20:24)
--- NOTE | 2017-11-12 04:54 | NUR ---
MEDS ADMINISTERED ORDERED VIA GT. RESIDUAL 10ML AT THIS TIME.
[2017-11-12] MEDS: BLOOD GLUCOSE MONITORING 1 DEV DEV FS SCH ×4 (06:55→20:40)
--- NOTE | 2017-11-12 06:55 | NUR ---
BLOOD GLUCOSE=[id number]. NO COVERAGE NEEDED.
--- NOTE | 2017-11-12 07:18 | NUR ---
REPORT GIVEN TO MORNING NURSECARLIE RN. VS STABLE AND ALL SAFETY PRECAUTIONS ARE IN PLACE.
--- NOTE | 2017-11-12 07:50 | NUR ---
RECEIVED ON SUPPLEMENTAL OXYGEN VIA COOL AEROSOL TO MASK AT 30%/9LPM SATURATION 96% HR 86 RR 24 PATIENT PRESENTING WITH LABORED BREATHING BREATH SOUNDS COARSE RHONCHI BILATERAL WITH GOOD CHEST RISE NASOTRACHEAL SUCTION PROCEDURE USING STERILE TECHNIQUE APPLIED MEDLINE E-Z LUBRICANT TO THE DISTAL END OF A MEDLINE 14FR SUCTION CATHETER INSERTED INTO RIGHT NARES X 2 OBTAINING LARGE THICK YELLOW WITH BLOOD TINGE ALONG WITH A MEDIUM BLOOD CLOT AIRWAY PATENT TOLERATED NASOTRACHEAL SUCTION PROCEDURE WELL
--- NOTE | 2017-11-12 08:00 | NUR ---
Patient having rhonchi throughout on assessment, and did oral care for patient, wiping away some dry chapped loose skin, and some old blood on lips. RT at bedside, and suctions the patient for large amount of thick secretions, with bloody mucous plug. Patient has 02 face mask at 7 liters per minute. Andrea Avitia RN
[2017-11-12] MEDS: DEXT 5% /NACL 0.9% 1,000 ML IV SCH (09:26)
[2017-11-12] MEDS: NEOMYCIN/POLYMYXIN/BACITRACIN 0.9 GM/1 PKT TP SCH ×2 (09:27→20:25)
[2017-11-12] MEDS: PANTOPRAZOLE 40 MG INJ VIAL IVP SCH (09:27)
[2017-11-12] MEDS: LACTOBACILLUS RHAMNOSUS GG 1 EACH CAP PO SCH (09:27)
[2017-11-12] MEDS: SILVER SULFADIAZINE 1% 50 GM JAR TP SCH (09:28)
--- NOTE | 2017-11-12 09:30 | NUR ---
Dr Ortiz visits patient, updated on present condition, resp status, and no orders written. Andrea Avitia RN
[2017-11-12 10:40] LABS: HEMATOCRIT 38.5 % (36-52); HEMOGLOBIN 12.9 g/dL (12.0-18.0); MEAN CORPUSCULAR HEMOGLOBIN 31 pg (27-31); MEAN CORPUSCULAR HGB CONC 34 g/dL (33-37); MEAN CORPUSCULAR VOLUME 91.9 fL (80-94); PLATELET COUNT (AUTO) 154 K/uL (140-450); RED BLOOD CELL COUNT(AUTO) 4.18 MIL/uL (4.20-6.10); RED CELL DISTRIBUTION WIDTH 13.7 % (11.6-13.7); WHITE BLOOD COUNT (AUTO) 7.8 K/uL (4.8-10.8)
--- NOTE | 2017-11-12 10:40 | NUR ---
Father @ bedside attending to patient, he plays the guitar, and is singing soft music to his son. I updated on present condition, and allowed family privacy to visit. Andrea Avitia RN
[2017-11-12 10:47] LABS: ANION GAP 10.1 (8-16); CARBON DIOXIDE 31.1 mmol/L (21-32); CREATININE 0.7 mg/dL (0.7-1.3); POTASSIUM 3.2 mmol/L (3.5-5.1)
[2017-11-12 11:07] LABS: EOSINOPHILS % (MANUAL) 7 % (0-4); LYMPHOCYTES % (MANUAL) 21 % (20-46); MONOCYTES % (MANUAL) 12 % (5-12)
--- NOTE | 2017-11-12 11:15 | NUR ---
Noted patient having right hand tremors, focal seizures, a few seconds in duration noted. HR goes to 110, and back to 85 SR. Andrea Avitia RN
[2017-11-12] MEDS ORDERED: POTASSIUM CHLORIDE 10 MEQ TABER PO SCH (11:32)
--- NOTE | 2017-11-12 12:00 | NUR ---
Accu check, finger stick BS 97, and no insulin necessary per sliding scale per do. Patient Residual 10ml, and tolerating TF. Andrea Avitia RN
--- NOTE | 2017-11-12 12:25 | NUR ---
CHANGED OXYGEN DEVICE TO VENTURI MASK AT 35%/9 LPM STANDING TITRATION ORDER TO KEEP SATURATION GREATER THAN 92% LIZZIE/RN AGENCY NOTIFIED
[2017-11-12] MEDS: metroNIDAZOLE 500 MG/NS PREMIX 100 ML IV SCH ×2 (13:19→20:24)
--- NOTE | 2017-11-12 13:25 | NUR ---
NASOTRACHEAL PROCEDURE USING STERILE TECHNIQUE APPLIED [employer] E-Z LUBRICANT TO THE DISTAL END OF A MEDLINE 14FR SUCTION CATHETER INSERTED INTO THE RIGHT NARES X 2 OBTAINED LARGE THICK BLOOD TINGE SECRETIONS OROPHARYNX SUCTION FOR LARGE CLEAR THIN TO FROTHY SECRETIONS HYPEROXYGENATION USED PRE AND POST NST SUCTION TOLERATED PROCEDURE WELL
--- NOTE | 2017-11-12 13:35 | NUR ---
PARENTS AT BEDSIDE
--- NOTE | 2017-11-12 14:10 | NUR ---
PT'S PARENTS CONCERNED ABOUT SCROTAL AND PENILE EDEMA. DR. VIGIL PAGED AND NOTIFIED OF PARENTS' CONCERNS. GAVE AN ORDER.
--- NOTE | 2017-11-12 14:22 | NUR ---
11/12/17 RD FOLLOW UP COMPLETED. PLEASE REFER TO NUTRITION ASSESSMENT UNDER CARE ACTIVITY FOR ESTIMATED NUTRITIONAL NEEDS. CONTINUE NUTREN PULMONARY AT 45 ML/HR TOLERATED. *THIS MEETS 100% OF PT ESTIMATED KCAL/PRO NEEDS.* RD TO FOLLOW-UP IN 2-3 DAYS PATIENT IS HIGH RISK. ALEXANDREA NEWELL, DM
[2017-11-12] MEDS ORDERED: FUROSEMIDE 20 MG/2 ML VIAL IVP SCH (14:34)
--- NOTE | 2017-11-12 14:41 | NUR ---
LASIX 20 MG IVP GIVEN ORDERED.
--- NOTE | 2017-11-12 15:23 | NUR ---
CM NOTE CONCURRENT REVIEW FAXED TO [facility] / FAX# [phone], ATTN: [facility] #[phone]
--- NOTE | 2017-11-12 16:03 | NUR ---
OROPHARYNX SUCTION FOR MODERATE THIN TO FROTHY CLEAR SECRETIONS GOOD CHEST RISE PARENT REMAIN AT BEDSIDE SATURATION 96% ON SUPPLEMENTAL OXYGEN VIA VENTURI MASK AT 35%/9 LPM HR 118 RR 24 PARENTS REMAIN AT BESIDE
--- NOTE | 2017-11-12 17:00 | NUR ---
BS 97, and no insulin coverage necessary per sliding scale per do. Patient had lasix IVP earlier and much urine output over the last 3 hours. Andrea Avitia RN
--- NOTE | 2017-11-12 18:59 | NUR ---
RECIEVED PT ON 35% VENTI MASK. HHN TX GIVEN. CPT DONE. NO DISTRESS NOTED. WILL CONTINUE TO MONITOR.
--- NOTE | 2017-11-12 19:20 | NUR ---
RECEIVED REPORT FROM JULITA LUGO FOR CONTINUITY OF CARE. VS STABLE AT THIS TIME. PT AFEBRILE. ABLE TO OPEN EYES BUT UNABLE TO FOLLOW COMMANDS. FLACC 0. PT DOES NOT APPEAR TO BE IN ANY PAIN OR DISTRESS. S1+S2 HEARD. PULSES ARE PALPABLE. SINUS TACHYCARDIA ON MONITOR. LUNG SOUNDS RHONCHI AND COARSE. PT ON VENTURI MASK AT 35%. GTUBE IN PLACE. NO RESIDUAL NOTED. GTUBE CONNECTED TO FEEDING. RECEIVED PT WITH NUTREN PULMONARY RUNNING AT 30ML/HR. ABDOMEN ROUND, SOFT AND NONDISTENDED. BOWEL SOUNDS ACTIVE IN ALL QUADRANTS. FREY CATHETER IN PLACE. URINE YELLOW AND CLEAR. SCD IN PLACE. PT HAS PERIPHERAL IV ACCESS ON RIGHT AC 22G. LINE PATENT AND ASYMPTOMATIC. ALL SAFETY PRECAUTIONS ARE IN PLACE. HOB KEPT AT 30 DEGREES. CALL LIGHT WITHIN REACH. WILL CONTINUE TO MONITOR PT.
[2017-11-12] MEDS: FUROSEMIDE 20 MG/2 ML VIAL IVP SCH (20:23)
--- NOTE | 2017-11-12 23:11 | NUR ---
VS STABLE AT THIS TIME. NO CHANGE IN CONDITION. FLACC 0. NO SIGNS OF DISTRESS NOTED ON PT. FREY CATHETER EMPTIED. PT HAS CLEAR AND LIGHT YELLOW URINE. HOB AT 30 DEGREES. CURRENTLY NO RESIDUAL NOTED. WILL CONTINUE TO MONITOR PT.
[2017-11-13] VITALS (11 sets, daily range): BP systolic 125–140; BP diastolic 89–105
[2017-11-13] MEDS: ALBUTEROL 0.083% 2.5 MG/3 ML NEBU INH SCH ×4 (00:59→19:29)
[2017-11-13] MEDS: IPRATROPIUM 0.02% 0.5 MG/2.5 ML NEBU INH SCH ×4 (00:59→19:29)
--- NOTE | 2017-11-13 01:20 | NUR ---
PT APPEARS TO BE AWAKE AT THIS TIME. RT AT BEDSIDE. VS STABLE. NO CHANGE IN CONDITION. NO SIGNS OF DISTRESS NOTED ON RESIDENT. FLACC 0. 15ML RESIDUAL NOTED. WILL CONTINUE TO MONITOR PT.
--- NOTE | 2017-11-13 04:11 | NUR ---
PT LAYING IN BED COMFORTABLY AND SLEEPING. VS STABLE AT THIS TIME. SINUS TACHYCARDIA ON MONITOR. VENTURI MASK STILL IN PLACE. NO SIGNS OF DISTRESS NOTED. FLACC 0. DOES NOT APPEAR TO BE IN ANY DISCOMFORT. HOB AT 30 DEGREES. WILL CONTINUE TO MONITOR PT.
[2017-11-13] MEDS: BACLOFEN 5 MG/ML GT SCH ×3 (05:09→20:24)
[2017-11-13] MEDS: DIAZEPAM 5 MG/5 ML GT SCH ×3 (05:09→20:24)
[2017-11-13] MEDS: metroNIDAZOLE 500 MG/NS PREMIX 100 ML IV SCH ×3 (05:09→20:23)
--- NOTE | 2017-11-13 06:08 | NUR ---
PT TURNED AND REPOSITIONED. PM CARE PROVIDED. FREY CATHETER CARE PROVIDED AND FREY EMPTIED. PT LAYING IN BED WITH NO SIGNS OF DISTRESS NOTED. FLACC 0. PT STILL ON VENTURI MASK. WILL CONTINUE TO MONITOR.
[2017-11-13] MEDS: BLOOD GLUCOSE MONITORING 1 DEV DEV FS SCH ×4 (06:47→21:15)
[2017-11-13 06:49] LABS: BASOPHILS # (AUTO) 0.2 K/uL (0.00-0.22); BASOPHILS % (AUTO) 4.2 % (0.0-2.0); EOSINOPHILS # (AUTO) 0.3 K/uL (0-0.4); EOSINOPHILS % (AUTO) 5.4 % (0.0-4.0); HEMATOCRIT 40.4 % (36-52); HEMOGLOBIN 13.4 g/dL (12.0-18.0); LYMPHOCYTES # (AUTO) 1.1 K/uL (2.0-11.5); MEAN CORPUSCULAR HEMOGLOBIN 31 pg (27-31); MEAN CORPUSCULAR HGB CONC 33 g/dL (33-37); MEAN CORPUSCULAR VOLUME 91.8 fL (80-94); MONOCYTES # (AUTO) 0.9 K/uL (0.8-1.0); MONOCYTES % (AUTO) 15.7 % (1.7-9.3); NEUTROPHILS # (AUTO) 3.2 K/uL (1.8-7.7); NEUTROPHILS % (AUTO) 54.7 % (42.2-75.2); PLATELET COUNT (AUTO) 208 K/uL (140-450); RED CELL DISTRIBUTION WIDTH 13.3 % (11.6-13.7); WHITE BLOOD COUNT (AUTO) 5.7 K/uL (4.8-10.8)
--- NOTE | 2017-11-13 07:00 | NUR ---
REPORT GIVEN TO JULITA KHOURY FOR CONTINUITY OF CARE. PT IN STABLE CONDITION AT THIS TIME.
--- NOTE | 2017-11-13 07:02 | NUR ---
RECEIVED BEDSIDE REPORT FROM BROMINATION EQUIPMENT OPERATOR RNFABIOLA, FOR CONTINUITY OF CARE. PATIENT IS AWAKE, NONVERBAL, UNABLE TO FOLLOW COMMANDS OR MAKE NEEDS KNOWN. PATIENT SKIN IS WARM AND DRY, NOT INTACT, HAS AMES TO UPPER LEFT EXTREMITY AND LEFT ABDOMEN, PATIENT HAS PERIPHERAL IV SITE TO RIGHT FINGER, ASYMPTOMATIC, PATENT AND INTACT. HE HAS A VENTURI MASK AT 35%, LUNG SOUNDS ARE COARSE,EVEN AND UNLABORED. HE HAS A G-TUBE TO FEEDING, NO RESIDUAL NOTED. PATIENT HAS A FREY CATHETER IN PLACE TO LIGHT YELLOW URINE. CALL LIGHT WITHIN REACH, HOB IS SEMI FOWLERS IN LOW POSITION. NO SIGNS OF DISTRESS NOTED. WILL MONITOR CLOSELY.
[2017-11-13 07:30] LABS: ANION GAP 9.2 (8-16); CARBON DIOXIDE 34.8 mmol/L (21-32); CREATININE 0.8 mg/dL (0.7-1.3)
[2017-11-13] MEDS: FUROSEMIDE 20 MG/2 ML VIAL IVP SCH ×2 (08:07→20:22)
[2017-11-13] MEDS: LACTOBACILLUS RHAMNOSUS GG 1 EACH CAP PO SCH (08:07)
[2017-11-13] MEDS: NEOMYCIN/POLYMYXIN/BACITRACIN 0.9 GM/1 PKT TP SCH ×2 (08:07→20:23)
[2017-11-13] MEDS: SILVER SULFADIAZINE 1% 50 GM JAR TP SCH (08:33)
[2017-11-13] MEDS: PANTOPRAZOLE 40 MG INJ VIAL IVP SCH (08:33)
--- NOTE | 2017-11-13 08:58 | NUR ---
RIVER PILOT AT BEDSIDE FOR CHEST XRAY, NO SIGNS OF DISTRESS NOTED. WILL CONTINUE TO MONITOR
--- NOTE | 2017-11-13 10:15 | NUR ---
PATIENT HAD AN 3 EPISODES OF SEIZURES THAT LASTED 3 SECS. SEIZURE PRECAUTIONS IN PLACE. GAVE 2MG OF ATIVAN. WILL CONTINUE TO MONITOR CLOSELY.
[2017-11-13] MEDS: LORazepam 2 MG/ML VIAL IVP PRN ×3 (10:38→20:23)
--- NOTE | 2017-11-13 11:32 | NUR ---
DR. VIGIL AT BEDSIDE, UPDATED ON PATIENT'S CONDITION, WILL FOLLOW UP ON ANY ORDERS.
--- NOTE | 2017-11-13 11:38 | NUR ---
AT BEDSIDE, UPDATED ON PATIENT'S CONDITION, WILL FOLLOW UP ON ANY ORDERS.
[2017-11-13] MEDS ORDERED: POTASSIUM CHLORIDE 10 MEQ TABER PO ONE (11:40)
[2017-11-13] MEDS ORDERED: fentaNYL 0.05 MG/ML VIAL IVP PRN (11:45)
[2017-11-13] MEDS ORDERED: POTASSIUM CHLORIDE 10 MEQ TABER PO SCH (12:00)
[2017-11-13] MEDS: POTASSIUM CHLORIDE 20% 40 MEQ/15 ML UDC GT SCH ×3 (12:21→20:21)
[2017-11-13] MEDS: levETIRAcetam 500 MG in NACL 0.9% 100 ML IV SCH ×2 (12:21→20:25)
[2017-11-13] MEDS: ACETYLCYSTEINE 10% (100 MG/ML) 100 MG/ML VIAL INH SCH ×2 (13:52→19:30)
[2017-11-13 14:39] LABS: APPEARANCE,URINE CLEAR (CLEAR); BILIRUBIN,URINE NEGATIVE (NEGATIVE); BLOOD, URINE TRACE-L (NEGATIVE); LEUKOCYTE ESTERASE ,URINE NEGATIVE (NEGATIVE); NITRITE, URINE NEGATIVE (NEGATIVE); PH,URINE 8.5 (5.0-9.0); UGLUCOSE NEGATIVE (NEGATIVE)
[2017-11-13 14:42] LABS: COLOR,URINE STRAW (YELLOW)
--- NOTE | 2017-11-13 15:00 | NUR ---
WOUND CARE EVALUATION NOTES REASON FOR EVALUATION: SKIN AMES TO LEFT SHOULDER AND G-TUBE SITE ERYTHEMA COMPLETE SKIN ASSESSMENT DONE ON THIS 22 Y/O MALE ADMITTED TO [facility] FOR RESPIRATORY DISTRESS. PAST MEDICAL HX INCLUDE CEREBRAL PALSY AND COLECTOMY. ALL ABOVE INFORMATION WAS OBTAINED FROM THE ADMISSION H&P. LABS ARE H/H 13.4/40.4 , ALBUMIN 2.1, PT 16.3, INR 1.6. PATIENT IS APHASIC. PATIENT'S MOTHER PRESENT AT BEDSIDE. PER PATIENT'S MOTHER, PATIENT SUSTAINED AMES FROM IN THE SHOWER LAST WEEK. 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 G-TUBE IN PLACE. ERYTHEMA NOTED ON THE SURROUNDING AREA OF THE G-TUBE SITE. CT ABD AND PELVIS RESULT STATES THAT G-TUBE IS IN GOOD POSITION WITHOUT VISUALIZED ABSCESS. BILATERAL PEDAL PULSES PRESENT. SKIN IS WARM AND DRY. PATIENT NEEDS MAX ASSISTANCE IN TURNING. INITIAL PLAN OF CARE AND PRESSURE PREVENTATIVE MEASURES DISCUSSED WITH PRIMARY NURSE. INTEGUMENTARY: LEFT SHOULDER AMES WITH LARGEST MEASUREMENTS 14CM X 7.0 CM WOUND BED RED, WET AND SHINY. ERYTHEMA ON THE SURROUND ARE OF THE G-TUBE SITE SCROTAL EDEMA, SKIN INTACT RECOMMENDATIONS - APPLY SILVASORB GEL TO LEFT SHOULDER AMES DAILY. COVER WITH NON ADHERENT DRESSING. - CLEANSE G-TUBE SITE AREA WITH NS, PAT DRY. WIPE WITH SUREPREP NO-STING SKIN PROTECTIVE BARRIER WIPE. LET DRY . APPLY DRAIN SPONGE DRESSING. CHANGE DAILY OR PRN WITH SOILING - TURN AND REPOSITION PATIENT Q2H, ASSESS SKIN - OFFLOAD BILATERAL HEELS BY PLACING PILLOWS UNDER CALVES AT ALL TIMES, UNLESS OTHERWISE CONTRAINDICATED -KEEP SKIN CLEAN AND DRY AT ALL TIMES -PRESSURE REDISTRIBUTION SURFACE THERAPY RECOMMENDATIONS DISCUSSED WITH PRIMARY RN PLEASE CONTACT WOUND CARE NURSE FOR ANY QUESTIONS AND CHANGES IN SKIN CONDITION
--- NOTE | 2017-11-13 17:13 | NUR ---
FAXED CONCURRENT REVIEW TO [facility] [phone] PHONE ROSENDA [phone]
--- NOTE | 2017-11-13 17:42 | NUR ---
PATIENT'S HEART RATE HAS BEEN ELEVATED, 130-140, AND RESPIRATIONS WERE ELEVATED 30-40, DR. TAYLOR AWARE, WILL FOLLOW UP ON ORDERS.
[2017-11-13] MEDS: NACL 0.9% 500 ML IV SCH ×2 (17:59→18:36)
--- NOTE | 2017-11-13 19:08 | NUR ---
ENDORSED CONTINUITY OF CARE TO TEXTILE SCREEN PRINTER RNFABIOLA. PATIENT IS IN STABLE CONDITION AT THIS TIME.
--- NOTE | 2017-11-13 19:30 | NUR ---
RECEIVED REPORT FROM MORNING RNPENG FOR CONTINUITY OF CARE. PT AFEBRILE. FLACC 0. OPENS EYES BUT UNABLE TO FOLLOW COMMAND. S1+S2 HEARD. SINUS TACHYCARDIA ON MONITOR. PULSES ARE PALPABLE IN EXTREMITIES. LUNG SOUNDS COARSE. PT ON VENTURI MASK 35%. OXYGEN SATURATION WNL. NO SIGNS OF RESPIRATORY DISTRESS NOTED. ABDOMEN ROUND, SOFT AND NONDISTENDED. GTUBE TO FEEDING. NUTREN PULMONARY RUNNING AT 45ML/HR. NO RESIDUAL NOTED. FREY CATHETER IN PLACE. DRAINING CLEAR AND YELLOW URINE. FREY CATHETER SECURED IN PLACE. PT HAS BURN ON SRAVAN AND SCROTAL EDEMA. PT HAS PERIPHERAL IV ON RIGHT INDEX FINGER 22G. LINE PATENT AND ASYMPTOMATIC. HOB AT 30 DEGREES. ALL SAFETY PRECAUTIONS ARE IN PLACE. WILL CONTINUE TO MONITOR PT.
--- NOTE | 2017-11-13 19:30 | NUR ---
EEG DONE DR DIAZ NOTIFIED
[2017-11-13 19:56] LABS: RBC,URINE 0-5 (RARE) /HPF (0-5); WBC,URINE 0-5 (RARE) /HPF (0-5)
--- NOTE | 2017-11-13 23:13 | NUR ---
VS STABLE AT THIS TIME. NO CHANGE IN CONDITION. NO SIGNS OF DISTRESS NOTED ON PT. FLACC 0. HOB AT 30 DEGREES. BED AT LOW POSITION. ALL SAFETY PRECAUTIONS IN PLACE. WILL CONTINUE TO MONITOR PT.
[2017-11-14] VITALS (12 sets, daily range): BP systolic 118–139; BP diastolic 66–113
--- NOTE | 2017-11-14 00:20 | NUR ---
PT CHANGE AND PM CARE PROVIDED. FREY CATHETER CARE PROVIDED. PT HAD A LARGE BM. PT TOLERATED BEING TURNED AND REPOSITIONED FAIRLY. NO SIGNS OF DISTRESS NOTED. ALL SAFETY PRECAUTIONS ARE IN PLACE. WILL CONTINUE TO MONITOR PT.
[2017-11-14] MEDS: ACETYLCYSTEINE 10% (100 MG/ML) 100 MG/ML VIAL INH SCH ×4 (00:32→18:59)
[2017-11-14] MEDS: IPRATROPIUM 0.02% 0.5 MG/2.5 ML NEBU INH SCH ×4 (00:32→18:59)
[2017-11-14] MEDS: ALBUTEROL 0.083% 2.5 MG/3 ML NEBU INH SCH ×4 (00:32→18:59)
[2017-11-14] MEDS: LORazepam 2 MG/ML VIAL IVP PRN ×2 (01:30→09:35)
[2017-11-14] MEDS ORDERED: DOBUTamine 500 MG/D5W PREMIX 250 ML IV ONE (02:35)
--- NOTE | 2017-11-14 03:45 | NUR ---
VS STABLE AT THIS TIME. NO CHANGE IN CONDITION. PT NOT NOTED TO BE IN ANY SIGNS OF DISTRESS. FLACC 0. PT DOES NOT APPEAR TO BE IN ANY DISCOMFORT. HOB AT 30 DEGREES. GTUBE STILL CONNECTED TO FEEDING. BED AT LOW POSSIBLE POSITION. SINUS TACHYCARDIA ON MONITOR. WILL CONTINUE TO MONITOR PT.
[2017-11-14] MEDS: BACLOFEN 5 MG/ML GT SCH ×3 (05:00→20:21)
[2017-11-14] MEDS: DIAZEPAM 5 MG/5 ML GT SCH ×3 (05:00→20:22)
[2017-11-14] MEDS: metroNIDAZOLE 500 MG/NS PREMIX 100 ML IV SCH ×3 (05:15→20:21)
[2017-11-14 06:47] LABS: HEMATOCRIT 43.8 % (36-52); MEAN CORPUSCULAR HEMOGLOBIN 29 pg (27-31); MEAN CORPUSCULAR HGB CONC 32 g/dL (33-37); MEAN CORPUSCULAR VOLUME 91.9 fL (80-94); PLATELET COUNT (AUTO) 240 K/uL (140-450); RED BLOOD CELL COUNT(AUTO) 4.76 MIL/uL (4.20-6.10); RED CELL DISTRIBUTION WIDTH 13.3 % (11.6-13.7); WHITE BLOOD COUNT (AUTO) 5.6 K/uL (4.8-10.8)
--- NOTE | 2017-11-14 07:13 | NUR ---
wrong pt no order for dobutamine
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
--- NOTE | 2017-11-14 07:30 | NUR ---
REPORT GIVEN TO MORNING RN FOR CONTINUITY OF CARE. PT IN STABLE CONDITION AT THIS TIME.
[2017-11-14 07:42] LABS: ANION GAP 12.4 (8-16); CREATININE 0.8 mg/dL (0.7-1.3); POTASSIUM 4.4 mmol/L (3.5-5.1)
--- NOTE | 2017-11-14 08:00 | NUR ---
DR. CARRION AND DR. ZHENG CAME TO SEE PT. DR. ZHENG AND DR. CARRION WITNESSED PT HAVING SEIZURE. INCREASED KEPPRA, ORDERS RECEIVED TO DOUBLE DOSE; INSERT PICC LINE. INITIATING SEIZURE PRECAUTION, WILL CLOSELY MONITOR.
[2017-11-14] MEDS: BLOOD GLUCOSE MONITORING 1 DEV DEV FS SCH ×4 (08:05→20:22)
--- NOTE | 2017-11-14 08:25 | NUR ---
CALLED MOTHER EVIE, GOT TELEPHONE CONSENT FOR FOR PICC LINE INSERTION.
--- NOTE | 2017-11-14 08:52 | NUR ---
PT NASOTRACHEAL SUCTIONED OBTAINED LARGE AMOUNT OF THICK YELLOW BLOOD TINGED SECRETIONS. PT TOLERATED SUCTIONING WELL WITH NO ADVERSE REACTIONS.
[2017-11-14] MEDS: levETIRAcetam 1,000 MG in NACL 0.9% 100 ML IV SCH ×3 (09:00→17:13)
[2017-11-14] MEDS: PANTOPRAZOLE 40 MG INJ VIAL IVP SCH ×3 (09:00→12:18)
[2017-11-14] MEDS ORDERED: SILVER SULFADIAZINE 1% 50 GM JAR TP SCH (09:00)
[2017-11-14] MEDS: FUROSEMIDE 20 MG/2 ML VIAL IVP SCH ×3 (09:00→21:02)
[2017-11-14] MEDS: LACTOBACILLUS RHAMNOSUS GG 1 EACH CAP PO SCH (09:09)
[2017-11-14] MEDS: NEOMYCIN/POLYMYXIN/BACITRACIN 0.9 GM/1 PKT TP SCH ×2 (09:10→20:20)
[2017-11-14] MEDS: SILVER SULFADIAZINE 1% 50 GM JAR TP SCH (09:11)
--- NOTE | 2017-11-14 09:15 | NUR ---
witnessed another seizure from pt. Mainly right side/ upper extremity shakes, focal point. closely monitoring
[2017-11-14] MEDS ORDERED: LORazepam 2 MG/ML VIAL IM/IVP PRN (09:35)
--- NOTE | 2017-11-14 09:37 | NUR ---
DR. DIAZ CAME TO SEE PT. WITNESSED A SEIZURE WHILE HERE. RECEIVED ORDERS.
--- NOTE | 2017-11-14 10:00 | NUR ---
PICC LINE NURSE ARRIVED. REVIEWING H&P, LABS AND CONSENT.
[2017-11-14 10:11] LABS: EOSINOPHILS % (MANUAL) 6 % (0-4); LYMPHOCYTES % (MANUAL) 24 % (20-46); MONOCYTES % (MANUAL) 25 % (5-12)
--- NOTE | 2017-11-14 10:30 | NUR ---
PICC LINE INSERTION START TIME. FATHER OF PT, CHIEF ENGINEER DRILLING AND RECOVERY, PICC LINE NURSE AND RN STUDENT AT BEDSIDE FOR OBSERVATION.
--- NOTE | 2017-11-14 11:00 | NUR ---
PICC LINE INSERTION COMPLETE. X-RAY AT BEDSIDE FOR PLACEMENT CHECK
--- NOTE | 2017-11-14 11:10 | NUR ---
PTS FATHER AT BEDSIDE, TOOK DOWN SEIZURE RAIL PADS. EDUCATED FAMILY ON SAFETY AND THE USE OF THE SEIZURE RAIL PADS. PTS FATHER DOES NOT WANT THEM ON THE BED.
--- NOTE | 2017-11-14 11:20 | NUR ---
CALLED DR. ALVES TO REVIEW PICC LINE PLACEMENT AND ORDER OKAY TO USE.
--- NOTE | 2017-11-14 11:30 | NUR ---
PTS FATHER LEFT, BED RAIL PADDING PLACED FOR PT SAFETY.
--- NOTE | 2017-11-14 11:46 | NUR ---
11/14/17 RD FOLLOW UP COMPLETED Please refer to nutrition assessment under care activity for estimated needs. Recommendations: Continue Nutren Pulmonary at 45ml/hr as tolerated. Free water flush per MD in ICU. RD will follow up in 2-3 days; high risk. Shakira Singh RD, [facility]
[2017-11-14] MEDS ORDERED: METOPROLOL 25 MG TAB GT SCH (11:52)
--- NOTE | 2017-11-14 12:00 | NUR ---
BED BATH, ORAL CARE, SAMRA AND CATH CARE PROVIDED. PT POSITIONED FOR COMFORT. BED LOCK AND ALARM ON, SEIZURE RAIL PADS IN PLACE, BED IN LOWEST POSITION. ARM BAND ON.
--- NOTE | 2017-11-14 12:13 | NUR ---
PTS AUNT AND UNCLE AT BEDSIDE.
--- NOTE | 2017-11-14 12:15 | NUR ---
PT HAD 10 SECOND SEIZURE WHILE RN AT BEDSIDE. ENSURED PT SAFETY.
--- NOTE | 2017-11-14 12:55 | NUR ---
PTS MOTHER AT BEDSIDE.
--- NOTE | 2017-11-14 13:00 | NUR ---
PTS MOTHER TOOK DOWN SEIZURE RAILS. I EDUCATED MOTHER ON SAFETY, SEIZURE PRECAUTION AND THE USE OF THE PADDED RAILS TO KEEP PT SAFE. PTS MOTHER STILL DID NOT WANT THE PADS ON RAILS.
--- NOTE | 2017-11-14 13:40 | NUR ---
ABX ADMINISTRATION IS LATE DUE TO PICC LINE INSERTION/ NO ACCESS.
--- NOTE | 2017-11-14 14:38 | NUR ---
NOTICED SEDIMENTS IN URINE IN PTS FREY TUBE. URINE IS STILL YELLOW BUT SLIGHTLY CLOUDY.
--- NOTE | 2017-11-14 15:26 | NUR ---
PT SLEEPING IN BED. SEIZURE PADS ON RAILS, RAILS ELEVATED, BED LOCK AND ALARM ON, BED IN LOWEST POSITION. WILL CLOSELY MONITOR.
--- NOTE | 2017-11-14 16:29 | NUR ---
PT NASOTRACHEAL SUCTIONED OBTAINED MODERATE AMOUNT OF THICK SECRETIONS. PT TOLERATED PROCEDURE WELL WITH NO CONTRAINDICATIONS. WILL CONTINUE TO MONITOR.
--- NOTE | 2017-11-14 16:44 | NUR ---
PTS FAMILY AT BEDSIDE, THEY HAVE TAKEN DOWN SEIZURE RAIL PADDING.
--- NOTE | 2017-11-14 17:30 | NUR ---
CLEANING PT AND NOTICED AN AREA OF IRRITATION IN GROIN ON LEFT SIDE BETWEEN LEG AND SCROTUM. CALLED AND RECEIVED ORDERS FOR NYSTATIN.
--- NOTE | 2017-11-14 19:12 | NUR ---
percussion therapy done to the patient bilat. pt has course bs.
--- NOTE | 2017-11-14 19:25 | NUR ---
TRANSFERRED CARE TO NIGHT RN.
--- NOTE | 2017-11-14 19:30 | NUR ---
RECEIVED PT FROM AM SHIFT PT IS AWAKE,OPEN EYES,NON VERBAL, PER AM SHIFT PT WAS ON VENTURI MASK AT 7-8 LPM.PT ON BREATHING TX AT THIS TIME, RT AT BED SIDE. BLANCA LUNGS SOUND COARSE,SUCTION GIVEN BY ORAL PRN WITH CREAMY WHITISH SECRETION NOTED. SR TO ST ON MONITOR. PICC LINE TO RIGHT UPPER ARM DOUBLE LUMENS INTACT WELL.NO S/S OF INFECTION,GOOD BLOOD RETURN NOTED,IV NS TO KEPT OPEN.IV ABT CONTINUE ORDER.GT IN PLACE WITH WITH REDNESS ON STOMA AREA.NO RESIDUAL FROM GT. POSITIVE PLACEMENT AND ACTIVE BOWEL SOUNDS. GT FEEDING PULMOCARE AT 45 CC/HR AND H2O 200 CC Q 6HRS,NO RESIDUAL NOTED.ABD SOFT NON TENDER. OLD SURGERY SCAR ON MID ABD. BURN AREA TO LEFT SHOULDER AND LEFT SIDE OF BODY,BUE AND BLE CONTRACTURE,EDEMA NOTED TO SCROTUM AND PENIS AREA.F/C IN PLACE WITH YELLOW CLEAR URINE.
--- NOTE | 2017-11-14 20:00 | NUR ---
RT DONE WITH PERCUSSION, PER RT PT ON 6 LPM O2 VIA OXIMIZER AND TOLERATING WELL.
[2017-11-14] MEDS: METOPROLOL 25 MG TAB GT SCH (20:20)
--- NOTE | 2017-11-14 21:00 | NUR ---
O2 5LPM VIA OXIMIZER AT THIS TIME PER RT AND PT JOSÉ MIGUEL WELL.
--- NOTE | 2017-11-14 21:15 | NUR ---
NIGHT MEDS GIVEN, LASIX GIVEN ORDER,BLOOD SUGAR 107 NO INSULIN GIVEN AT THIS TIME. GRAND PARENT AT BED SIDE AND REFUSED TO HAVE SIDE RAIL PADDED,EXPLAIN TO FAMILY THE USE OF SIDE RAILS PADDED DURING SEIZURE ACTIVITY TO PREVENT ANY INJURY.PER FAMILY THIS MADE PT AGITATED. EXTRA PILLOW PLACED ON THE SIDE OF BED AT THIS TIME.NO EPISODE OF SEIZURE AT THIS TIME. CONT TO MONITOR CLOSELY.
[2017-11-14] MEDS: ASCORBIC ACID 500 MG TAB GT SCH (22:13)
[2017-11-14] MEDS: NYSTATIN POW 100 MU/GM 15 GM BTL TP SCH (22:15)
--- NOTE | 2017-11-14 22:40 | NUR ---
FAMILY WAS INSIST TO HAVE VIT C 500 MG AND NYSTATIN POWDER TO DAY,ANALYSIS ANALYST AWARE AND PHARMACY COME TO DELIVER. MEDICATION WAS GIVEN.
[2017-11-15] VITALS (12 sets, daily range): BP systolic 109–152; BP diastolic 59–107
[2017-11-15] MEDS: levETIRAcetam 1,000 MG in NACL 0.9% 100 ML IV SCH ×3 (00:58→17:20)
[2017-11-15] MEDS: NYSTATIN POW 100 MU/GM 15 GM BTL TP SCH ×2 (00:58→12:59)
--- NOTE | 2017-11-15 00:59 | NUR ---
NYSTATIN POWDER NOT GIVEN AT THIS TIME D/T GIVEN ALREADY AT 2240. KEPT AREA CLEAN AND DRY. KEPPRA 1000 MG GIVEN ORDER JOSÉ MIGUEL WELL.
[2017-11-15] MEDS: IPRATROPIUM 0.02% 0.5 MG/2.5 ML NEBU INH SCH ×4 (01:06→19:24)
[2017-11-15] MEDS: ACETYLCYSTEINE 10% (100 MG/ML) 100 MG/ML VIAL INH SCH ×4 (01:06→19:24)
[2017-11-15] MEDS: ALBUTEROL 0.083% 2.5 MG/3 ML NEBU INH SCH ×4 (01:06→19:24)
[2017-11-15] MEDS: LORazepam 2 MG/ML VIAL IVP PRN ×4 (02:26→22:36)
--- NOTE | 2017-11-15 02:48 | NUR ---
ANXIETY NOTED HR WAS UP TO 116,BP 135/107.RESP 25-30.PRN ATIVAN WAS GIVEN PRN ORDER TOLERATED WELL. CONTINUE TO MONITOR CLOSELY.
--- NOTE | 2017-11-15 03:00 | NUR ---
PT SLEEP WELL,NO S/S OF ANXIETY AT THIS TIME
[2017-11-15] MEDS: metroNIDAZOLE 500 MG/NS PREMIX 100 ML IV SCH ×3 (04:41→20:14)
[2017-11-15] MEDS: DIAZEPAM 5 MG/5 ML GT SCH ×3 (04:42→20:15)
[2017-11-15] MEDS: BACLOFEN 5 MG/ML GT SCH ×3 (04:42→20:15)
--- NOTE | 2017-11-15 05:00 | NUR ---
AM CARE GIVEN,ORAL CARE,SPONGE BATH,F/C CARE URINE AND 1100 CC YELLOW COLOR NOTED. NO BM.NO EPISODE OF SEIZURE AT THIS TIME. GENTLE CARE GIVEN. KEPT CLEAN AND DRY.
[2017-11-15 06:54] LABS: BASOPHILS # (AUTO) 0.2 K/uL (0.00-0.22); BASOPHILS % (AUTO) 3.2 % (0.0-2.0); EOSINOPHILS # (AUTO) 0.2 K/uL (0-0.4); EOSINOPHILS % (AUTO) 2.9 % (0.0-4.0); HEMATOCRIT 43.8 % (36-52); HEMOGLOBIN 14.4 g/dL (12.0-18.0); LYMPHOCYTES # (AUTO) 1.8 K/uL (2.0-11.5); LYMPHOCYTES % (AUTO) 22.9 % (20.5-51.1); MEAN CORPUSCULAR HEMOGLOBIN 30 pg (27-31); MEAN CORPUSCULAR HGB CONC 33 g/dL (33-37); MONOCYTES % (AUTO) 13.1 % (1.7-9.3); NEUTROPHILS # (AUTO) 4.6 K/uL (1.8-7.7); NEUTROPHILS % (AUTO) 57.9 % (42.2-75.2); PLATELET COUNT (AUTO) 245 K/uL (140-450); RED BLOOD CELL COUNT(AUTO) 4.77 MIL/uL (4.20-6.10); RED CELL DISTRIBUTION WIDTH 13.2 % (11.6-13.7); WHITE BLOOD COUNT (AUTO) 7.8 K/uL (4.8-10.8)
[2017-11-15] MEDS: BLOOD GLUCOSE MONITORING 1 DEV DEV FS SCH ×4 (07:00→20:34)
--- NOTE | 2017-11-15 07:01 | NUR ---
PT HAS EPISODE OF ANXIETY ,ATIVAN GIVEN PRN ORDER.JOSÉ MIGUEL WELL.
--- NOTE | 2017-11-15 07:10 | NUR ---
RECEIVED PATIENT FROM NIGHT RN FOR CONTINUITY OF CARE. PATIENT IS ASLEEP. ON OXYMIZER AT 4LPM. LUQ G TUBE PATENT AND INTACT TO NUTREN PULMONARY AT 45 ML/H. FC IN PLACE PATENT AND INTACT TO YELLOW URINE IN MODERATE AMOUNT. DRESSING DRY AND INTACT TO LEFT UPPER ARM AND CHEST. BUE AND BLE CONTRACTURES NOTED. RIGHT UPPER ARM PICC LINE PATENT AND INTACT. SKIN WARM TO TOUCH WNL, WITH HAIR GROWTH, TOENAILS WNL AND +2 BILATERAL PEDAL PULSES. CALL LIGHT WITHIN REACH. BED AT LOWEST POSSIBLE POSITION. SAFETY MEASURES IN PLACE. WILL CONTINUE TO MONITOR PATIENT.
--- NOTE | 2017-11-15 07:25 | NUR ---
PT SLEEPING AT THIS TIME,NO S/S OF ANXIETY. REPORT GIVEN TO AM SHIFT.
[2017-11-15 07:26] LABS: ANION GAP 10.4 (8-16); CARBON DIOXIDE 36.3 mmol/L (21-32); CREATININE 0.7 mg/dL (0.7-1.3); POTASSIUM 3.7 mmol/L (3.5-5.1)
[2017-11-15] MEDS: METOPROLOL 25 MG TAB GT SCH ×2 (08:45→20:13)
[2017-11-15] MEDS: LACTOBACILLUS RHAMNOSUS GG 1 EACH CAP PO SCH (08:45)
[2017-11-15] MEDS: ASCORBIC ACID 500 MG TAB GT SCH (08:45)
[2017-11-15] MEDS: FUROSEMIDE 20 MG/2 ML VIAL IVP SCH ×2 (08:45→20:14)
[2017-11-15] MEDS: NEOMYCIN/POLYMYXIN/BACITRACIN 0.9 GM/1 PKT TP SCH ×2 (08:46→20:14)
[2017-11-15] MEDS: SILVER SULFADIAZINE 1% 50 GM JAR TP SCH (08:46)
--- NOTE | 2017-11-15 09:00 | NUR ---
MORNING MEDS GIVEN, PATIENT TOLERATED WELL.
--- NOTE | 2017-11-15 10:30 | NUR ---
PATIENT IS TACHYPNEIC AND TACHYCARDIC AT THIS TIME. O2 SAT 87%. RT AT BEDSIDE SUCTIONING PATIENT, ABLE TO SUCTION LARGE AMOUNT OF BLOODY SECRETIONS. PATIENT SWITCHED TO NON REBREATHER MASK. WILL CONTINUE TO MONITOR PATIENT.
--- NOTE | 2017-11-15 11:05 | NUR ---
DR. CARRION PAGED REGARDING PATIENT'S DESATURATION, TACHYCARDIA AND TACHYPNEA EPISODES. STATED TO PAGE BUSINESS CONTINUITY PLANNING DIRECTOR. SENT A PAGE TO DR. BARTH.
--- NOTE | 2017-11-15 11:05 | NUR ---
VEIE CONTRERAS, PATIENT'S MOTHER UPDATED OF STATUS. CONCERNS AND QUESTIONS ANSWERED.
--- NOTE | 2017-11-15 11:10 | NUR ---
DR. BARTH PAGED AND CALLED BACK. MADE AWARE OF PATIENT HAVING EPISODES OF TACHYCARDIA AND TACHYPNEA . WITH ORDER FOR CXR. ORDERS TRANSCRIBED AND CARRIED OUT. WILL CONTINUE TO MONITOR
--- NOTE | 2017-11-15 11:15 | NUR ---
TITRATED PT ON TO OXYMIZER 10LPM 60% FIO2. HR 139 SAT 96 RR 28. WILL CONT TO MONITOR PT.
--- NOTE | 2017-11-15 11:48 | NUR ---
PATIENT'S FAMILY AT BEDSIDE, UPDATED OF PATIENT'S CONDITION.
[2017-11-15] MEDS: INSULIN LISPRO SLIDING SCALE 100 UNITS/ML VIAL SUBQ PRN (11:50)
--- NOTE | 2017-11-15 12:30 | NUR ---
PATIENT APPEARS TO BE RESTING COMFORTABLY. NOT IN DISTRESS. WILL CONTINUE TO MONITOR.
--- NOTE | 2017-11-15 14:30 | NUR ---
DR BARTH IN, SEEN AND EXAMINED PATIENT. WILL FOLLOW UP WITH ORDERS.
--- NOTE | 2017-11-15 15:38 | NUR ---
TITRATED PT DOWN TO 6LPM OXYMIZER HR 118 SAT 98 RR 25. WILL CONT TO MONITOR PT.
--- NOTE | 2017-11-15 17:23 | NUR ---
TITRATED PT ON 4LPM OXYMIZER HR108 SAT97 RR24. WILL CONT TO MONITOR PT.
--- NOTE | 2017-11-15 19:30 | NUR ---
RECEIVED REPORT FROM JULITA CHIN FOR CONTINUITY OF CARE. VS STABLE AT THIS TIME. FLACC 0. PT AFEBRILE. PT OPENS EYES SPONTANEOUSLY. PERRL. SEIZURE PRECAUTION IN PLACE. S1+S2 HEARD. SINUS TACHYCARDIA ON MONITOR. PULSES ARE PALPABLE IN ALL EXTREMITIES. LUNG SOUNDS COARSE AND RHONCHI. PT ON OXIMIZER AT 4L/MIN. NO SIGNS OF RESPIRATORY DISTRESS NOTED. ABDOMEN ROUND, SOFT AND NONDISTENDED. GTUBE IN PLACE. NUTREN PULMONARY RUNNING AT 45ML/HR. RESIDUAL CHECKED AND ASPIRATED 10ML. FREY CATHETER IN PLACE. DRAINING CLEAR AND YELLOW URINE. PT HAS PICC LINE ON RIGHT UPPER ARM. LINES ARE FLUSHING WELL. PT HAS BURN ON SRAVAN THAT EXTENDS TO LEFT LATERAL SIDE. PT STILL HAS SCROTAL EDEMA. HOB KEPT AT 30 DEGREES. BED AT LOW POSSIBLE POSITION. ALL SAFETY PRECAUTIONS ARE IN PLACE. WILL CONTINUE TO MONITOR.
--- NOTE | 2017-11-15 20:10 | NUR ---
PT HAD AN EPISODE OF SEIZURE THAT LASTED LESS THAN 1 MINUTE. VS STABLE AT THIS TIME. PT AWAKE, BUT DOES NOT APPEAR TO BE IN ANY DISTRESS. MEDICATION GIVEN.
--- NOTE | 2017-11-15 20:20 | NUR ---
ALL SCHEDULED MEDICATIONS ADMINISTERED. PT TOLERATED WELL. ORAL CARE PROVIDED AND NO BLEEDING FROM MOUTH NOTED. PT ASLEEP AT THIS TIME. VS STABLE. SINUS TACHYCARDIA ON MONITOR. WILL CONTINUE TO MONITOR PT.
--- NOTE | 2017-11-15 23:05 | NUR ---
PT ASLEEP. VS STABLE AT THIS TIME. CURRENTLY NO CHANGE IN CONDITION. NEW FEEDING BAG HANGED AND RUNNING AT 45ML/HR. HOB AT 30 DEGREES. ALL SAFETY PRECAUTIONS ARE IN PLACE. WILL CONTINUE TO MONITOR PT.
[2017-11-16] VITALS (11 sets, daily range): BP systolic 113–140; BP diastolic 71–96
[2017-11-16] MEDS: NYSTATIN POW 100 MU/GM 15 GM BTL TP SCH (00:40)
[2017-11-16] MEDS: levETIRAcetam 1,000 MG in NACL 0.9% 100 ML IV SCH ×3 (00:40→17:03)
[2017-11-16] MEDS: ACETYLCYSTEINE 10% (100 MG/ML) 100 MG/ML VIAL INH SCH ×3 (00:49→13:34)
[2017-11-16] MEDS: ALBUTEROL 0.083% 2.5 MG/3 ML NEBU INH SCH ×3 (00:49→13:34)
[2017-11-16] MEDS: IPRATROPIUM 0.02% 0.5 MG/2.5 ML NEBU INH SCH ×3 (00:49→13:34)
--- NOTE | 2017-11-16 01:25 | NUR ---
PT AWAKE. SINUS TACHYCARDIA ON MONITOR. VS STABLE. PT RECEIVED BREATHING TX AND TOLERATED WELL. FEEDING STILL RUNNING AT 45ML/HR. NO SIGNS OF DISTRESS NOTED ON PT. ALL SAFETY PRECAUTIONS ARE IN PLACE. WILL CONTINUE TO MONITOR PT.
[2017-11-16] MEDS: LORazepam 2 MG/ML VIAL IVP PRN (02:23)
--- NOTE | 2017-11-16 03:00 | NUR ---
INFORMED RT THAT PT HAS INCREASED RESPIRATION RATE. SUCTIONED PT'S MOUTH BUT DID NOT GET ANYTHING. RT DEEP SUCTIONED PT. RESPIRATION RATE IMPROVED. WILL CONTINUE TO MONITOR. NO SIGNS OF DISTRESS NOTED AT THIS TIME.
[2017-11-16] MEDS: metroNIDAZOLE 500 MG/NS PREMIX 100 ML IV SCH ×2 (04:34→12:16)
[2017-11-16] MEDS: BACLOFEN 5 MG/ML GT SCH ×2 (04:34→12:15)
[2017-11-16] MEDS: DIAZEPAM 5 MG/5 ML GT SCH ×2 (04:35→12:16)
[2017-11-16 04:45] LABS: BASOPHILS # (AUTO) 0.8 K/uL (0.00-0.22); EOSINOPHILS # (AUTO) 0.2 K/uL (0-0.4); EOSINOPHILS % (AUTO) 1.1 % (0.0-4.0); HEMATOCRIT 42.8 % (36-52); HEMOGLOBIN 14.2 g/dL (12.0-18.0); LYMPHOCYTES # (AUTO) 1.3 K/uL (2.0-11.5); LYMPHOCYTES % (AUTO) 8.7 % (20.5-51.1); MEAN CORPUSCULAR HEMOGLOBIN 30 pg (27-31); MEAN CORPUSCULAR HGB CONC 33 g/dL (33-37); MEAN CORPUSCULAR VOLUME 91.5 fL (80-94); MONOCYTES # (AUTO) 1.2 K/uL (0.8-1.0); MONOCYTES % (AUTO) 7.8 % (1.7-9.3); NEUTROPHILS # (AUTO) 11.3 K/uL (1.8-7.7); PLATELET COUNT (AUTO) 261 K/uL (140-450); RED BLOOD CELL COUNT(AUTO) 4.68 MIL/uL (4.20-6.10); RED CELL DISTRIBUTION WIDTH 13.1 % (11.6-13.7); WHITE BLOOD COUNT (AUTO) 14.8 K/uL (4.8-10.8)
--- NOTE | 2017-11-16 05:05 | NUR ---
PT TURNED AND REPOSITIONED. PM CARE AND FREY CATHETER CARE PROVIDED. VS STABLE AT THIS TIME. CURRENTLY NO CHANGE IN CONDITION. RESIDUAL 10ML. NUTREN PULMONARY RUNNING 45ML/HR. PT APPEARS TO BE COMFORTABLE LAYING IN BED. SEIZURE PRECAUTIONS IN PLACE. BED AT LOW POSSIBLE POSITION. SINUS TACHYCARDIA ON MONITOR. WILL CONTINUE TO MONITOR PT.
[2017-11-16] MEDS: BLOOD GLUCOSE MONITORING 1 DEV DEV FS SCH ×3 (06:36→16:49)
[2017-11-16] MEDS: INSULIN LISPRO SLIDING SCALE 100 UNITS/ML VIAL SUBQ PRN (06:37)
--- NOTE | 2017-11-16 07:17 | NUR ---
REPORT GIVEN TO JULITA KHOURY FOR CONTINUITY OF CARE. PT IN STABLE CONDITION AT THIS TIME.
--- NOTE | 2017-11-16 07:18 | NUR ---
RECEIVED REPORT AT BEDSIDE FROM ELECTRICAL MAINTENANCE MAN RNFABIOLA, FOR CONTINUITY OF CARE. PATIENT IS OBSERVED RESTING, RESPONDS TO PAINFUL STIMULI, NONVERBAL, UNABLE TO MAKE NEEDS KNOWN OR FOLLOW SIMPLE COMMANDS. PATIENT HAS A NASAL OXYMIZER AT 4L, RESPIRATIONS ARE EVEN AND UNLABORED. HE IS TACHYCARDIC, ST ON MONITOR, CAP REFILL LESS THAN 3 SECS. PATIENT SKIN IS WARM AND DRY, AMES TO UPPER LEFT EXTREMITY AND LEFT SIDE ABDOMEN. PATIENT HAS A RIGHT UPPER ARM PICC LINE, ASYMPTOMATIC, INTACT, PATENT. HE ALSO HAS SCROTAL SWELLING WITH A FREY CATHETER IN PLACE TO YELLOW URINE. HOB IS 30 DEGREES IN LOW POSITION, AND SEIZURE PADS ARE IN PLACE. NO SIGNS OF DISTRESS NOTED, CALL LIGHT WITHIN REACH. WILL CONTINUE TO MONITOR CLOSELY.
--- NOTE | 2017-11-16 07:39 | NUR ---
ORAL CARE GIVEN VIA ORAL VAP KIT, FREY CATHETER CARE PROVIDED. PATIENT PRESENTS NO SIGNS OF DISTRESS AT THIS TIME. WILL CONTINUE TO MONITOR.
[2017-11-16] MEDS ORDERED: NYSTATIN POW 100 MU/GM 15 GM BTL TP SCH (07:56)
[2017-11-16] MEDS ORDERED: levETIRAcetam 100 MG/ML VIAL IV ONE (08:22)
[2017-11-16] MEDS: LACTOBACILLUS RHAMNOSUS GG 1 EACH CAP PO SCH (08:27)
[2017-11-16] MEDS: FUROSEMIDE 20 MG/2 ML VIAL IVP SCH (08:27)
[2017-11-16] MEDS: PANTOPRAZOLE 40 MG INJ VIAL IVP SCH (08:27)
[2017-11-16] MEDS: ASCORBIC ACID 500 MG TAB GT SCH (08:27)
[2017-11-16] MEDS: SILVER SULFADIAZINE 1% 50 GM JAR TP SCH (08:28)
[2017-11-16] MEDS: NEOMYCIN/POLYMYXIN/BACITRACIN 0.9 GM/1 PKT TP SCH (08:28)
[2017-11-16] MEDS: METOPROLOL 25 MG TAB GT SCH (08:29)
--- NOTE | 2017-11-16 09:34 | NUR ---
DR. CARRION IN TO SEE AND EXAMINE PATIENT, UPDATED ON PATIENT'S CONDITION, TALKED TO PATIENT'S FATHER REGARDING CODE STATUS OF PATIENT. WILL FOLLOW UP ON ANY ORDERS.
[2017-11-16 10:05] LABS: ANION GAP 13.9 (8-16); CARBON DIOXIDE 34.2 mmol/L (21-32); POTASSIUM 3.1 mmol/L (3.5-5.1)
[2017-11-16 10:06] LABS: CREATININE 0.7 mg/dL (0.7-1.3)
--- NOTE | 2017-11-16 10:25 | NUR ---
PATIENT OBSERVED RESTING COMFORTABLY, NOT IN DISTRESS AT THIS TIME. WILL CONTINUE TO MONITOR.
--- NOTE | 2017-11-16 10:28 | NUR ---
PATIENT'S FAMILY AT BEDSIDE, UPDATED ON PATIENT'S CONDITION. WILL CONTINUE TO MONITOR
--- NOTE | 2017-11-16 11:00 | NUR ---
Patient's Father Reagan Burt approach these science writer upset and tearful stating " I just want to take him home" . and Mrs. Burt stated that they are very concern for patient's current condition and they have asked to talk to MD about possible discharge for Patient today. According to Mrs. Burt she has spoken to MD and will be having a meeting and discussion today at 3:00pm in regards to all possible options for patient care, including prognosis, treatment, and hospice care. I explained to the both of them, hospice care and the supportive services provided to patient and the family at their own home. And Mrs. Burt verbalized struggling with their feelings and having difficulty coping with patient's current conditions. I encouraged both to meet with MD this afternoon, to ask all their questions, options, plans, and then make a decision together about how they want to pursued with patient's care. Both agreed and thank me for listening and my assistance.
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
--- NOTE | 2017-11-16 12:36 | NUR ---
PATIENT IS OBSERVED RESTING, FAMILY AT BEDSIDE. NO SIGNS OF DISTRESS NOTED AT THIS TIME.
--- NOTE | 2017-11-16 13:20 | NUR ---
DR. BARTH IN TO SEE AND EXAMINE PATIENT, UPDATED ON PATIENT'S CONDITION. WILL FOLLOW UP ON ANY ORDERS.
--- NOTE | 2017-11-16 13:38 | NUR ---
RT AT BEDSIDE TO PROVIDE PATIENT WITH BREATHING TREATMENT, NO SIGNS OF DISTRESS NOTED, WILL CONTINUE TO MONITOR PATIENT CLOSELY.
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
[2017-11-16] MEDS ORDERED: POTASSIUM CHLORIDE 20% 40 MEQ/15 ML UDC GT SCH (14:00)
--- NOTE | 2017-11-16 14:30 | NUR ---
GOODWILL AMBASSADORJULITA Manley informed [facility] and Case manger about Patient's parents refusal to Hospice care. Addendum: 11/16/17 at 1833 by Marielena Martin CM Advertising Material Distributor Note : for 11/16/17 at 3:50 *(Correct time of note). GOODWILL AMBASSADORJULITA Manley informed [facility] and Case manger about Patient's parents refusal to Hospice care.
--- NOTE | 2017-11-16 14:49 | NUR ---
FAMILY AT BEDSIDE, PATIENT OBSERVED RESTING, WILL CONTINUE TO MONITOR.
--- NOTE | 2017-11-16 15:00 | NUR ---
UPDATED PATIENT'S FAMILY ON 'S PLAN TO TRANSFER PATIENT TO [facility], HOWEVER MOTHER REFUSED. MOTHER WANTS TO TAKE PATIENT HOME. DR. SHEYLA TELLO.
--- NOTE | 2017-11-16 15:30 | NUR ---
IN TO SEE AND SPEAK TO PATIENT'S FAMILY ABOUT DISCHARGING PATIENT. FAMILY AWARE AND SEEKING MORE INFORMATION ABOUT PLACING PATIENT IN HOSPICE. SENT REFERRAL TO [facility]. CLIN NURSE IS AWARE AND IS WORKING ON THE CASE.
--- NOTE | 2017-11-16 15:35 | NUR ---
These automobile service writer meet with both parents after meeting with MD and discussing Patient's discharge home with hospice care. MrLazaro and Mrs. Burt stated been on agreement for Patient to go home with them and services from [facility] care. I explained to both parents that MD has made the referral and orders for hospice care and that they will be receiving a call to set a time when hospice care can meet with parents and patient and began their services at home. Both parents agreed and stated been available to meet with [place] hospice staff. They both thank me for information and Inform them that these automobile service writer and insurance case manager will follow up as needed.
[2017-11-16] MEDS ORDERED: LEVO500T98 PO (15:46)
[2017-11-16] MEDS ORDERED: KEP500L GT (15:46)
--- NOTE | 2017-11-16 16:50 | NUR ---
PROVIDED PATIENT'S MOM WITH INFORMATION REGARDING MEDICATIONS, HOWEVER MOTHER WAS CONCERNED WITH THE TYPE OF ANTIBIOTIC PRESCRIBED, STATES SHE WOULD RATHER GIVE HER SON PENICILLIN. REINFORCED TEACHING ON ANTIBIOTICS, SPECIFICALLY LEVAQUIN.
--- NOTE | 2017-11-16 16:51 | NUR ---
CM NOTE CLINICAL INFORMATION FAXED TO [facility] / FAX# [phone], ATTN: MIDGE #[phone]
--- NOTE | 2017-11-16 17:11 | NUR ---
PATIENT'S MOTHER SPOKE WITH [facility] TRIAL COURT JUDGE, [place]. PATIENT'S PARENTS BOTH REFUSE TO PUT PATIENT IN HOSPICE AND ARE GOING TO TAKE PATIENT HOME, MOTHER STATES THAT THEY ARE ABLE TO PROVIDE EVERYTHING FOR HIM AT HOME.
--- NOTE | 2017-11-16 17:20 | NUR ---
PT'S MOTHER EVIE CONFIRMED THAT THEY HAVE A WORKING SUCTION MACHINE AND OXYGEN AT HOME.
--- NOTE | 2017-11-16 17:25 | NUR ---
DR. CARRION PAGED AND NOTIFIED OF PT'S PARENTS' REFUSAL FOR HOSPICE CARE. DR. CARRION WILL CALL [facility] FOR PRESCRIPTION FOR KEPPRA AND LEVAQUIN.
[2017-11-16] MEDS ORDERED: METOPROLOL 25 MG TAB GT SCH (21:00)
== END 2017-11-16 18:25 | disposition home or self-care (01) | DRG 252 ==
LOC: MED 15:46 → MIC 19:01
PROVIDERS: ADMIT Hospitalist; ATTEND Hospitalist
PROC: 5A1955Z Respiratory Ventilation, Greater than 96 Consecutive Hours (ICD-10-PCS; principal; 2017-11-13)
PROC: 0BH17EZ Insertion of Endotracheal Airway into Trachea, Via Natural or Artificial Opening (ICD-10-PCS; 2017-11-13)
PROC: 5A09357 Assistance with Respiratory Ventilation, Less than 24 Consecutive Hours, Continuous Positive Airway Pressure (ICD-10-PCS; 2017-11-13)
PROC: 05H433Z Insertion of Infusion Device into Left Innominate Vein, Percutaneous Approach (ICD-10-PCS; 2017-11-13)
PROC: 02HV33Z Insertion of Infusion Device into Superior Vena Cava, Percutaneous Approach (ICD-10-PCS; 2017-11-13)
PROC: B548ZZA Ultrasonography of Superior Vena Cava, Guidance (ICD-10-PCS; 2017-11-13)
PROC: 0D20XUZ Change Feeding Device in Upper Intestinal Tract, External Approach (ICD-10-PCS; 2017-11-13)
DX: K94.22 Gastrostomy infection (principal); J96.01 Acute respiratory failure with hypoxia; R65.21 Severe sepsis with septic shock; J69.0 Pneumonitis due to inhalation of food and vomit; A41.9 Sepsis, unspecified organism; G82.50 Quadriplegia, unspecified; J13 Pneumonia due to Streptococcus pneumoniae; E46 Unspecified protein-calorie malnutrition; R13.10 Dysphagia, unspecified; M41.9 Scoliosis, unspecified; T17.990A Other foreign object in respiratory tract, part unspecified in causing asphyxiation, initial encounter; F79 Unspecified intellectual disabilities; G40.909 Epilepsy, unspecified, not intractable, without status epilepticus; L03.311 Cellulitis of abdominal wall; Z74.01 Bed confinement status; Z90.49 Acquired absence of other specified parts of digestive tract; Z68.28 Body mass index [BMI] 28.0-28.9, adult; Z91.040 Latex allergy status; E87.0 Hyperosmolality and hypernatremia; T22.252A Burn of second degree of left shoulder, initial encounter; E87.6 Hypokalemia
CPT/HCPCS: 31500; 36415; 36556; 36600; 71045; 76705; 80048; 80053; 80202; 81001; 82330; 82803; 82948; 83605; 83690; 83735; 83880; 84100; 84132; 84484; 85025; 85610; 87040; 87070; 87075; 87081; 87086; 87186; 87205; 87804; 93005; 94002; 94003; 94640; 94667; 95816; 96365; 96366; 96367; 96368; 96375; 99291; C1751; C1758; C9113; J0696; J1815; J1940; J1953; J1956; J2060; J2270; J2543; J2704; J2930; J3010; J3370; J3475; J3480; J3490; J7030; J7042; J7060; J7613; J7620; J7644; Q0092

== ENCOUNTER 2018-12-13 11:12 | Emergency (ER) | payer OTHER ==
[~2018-12-13] VITALS: Ht 114.3 cm; Wt 49.9 kg
[~2018-12-13 11:12] MED LIST changes: +KEP500L GT; +LEVO500T98 PO; -LEVO750T2 PO
--- NOTE | 2018-12-13 11:12 | NUR ---
pt biba bls to er bed 10
[2018-12-13 11:23] VITALS: BP 130/91
--- NOTE | 2018-12-13 11:25 | NUR ---
BIBA. PER RETAIL KEY HOLDER, DAIRY MANAGER SUCTIONING PATIENT AND JUNIORUR BROKE IN HALF. POSSIBLE FB. PATIENT IN NO RESP. RONCHI HEARD UPON AUSCULTATION TO UPPER BLANCA LOBES. PT O2 SATURATION AT 92%. PT PLACED ON OXYGEN 6L, O2 SATS 98%. HOB UP. BED SIDE RAILS UP X2. ON LOW BED POSITION, LOCKED. ER MADE AWARE OF PT STATUS.
--- NOTE | 2018-12-13 11:28 | NUR ---
DR CALVERT AT BEDSIDE. DR CALVERT VERBAL ORDER TO SUCTION PT BY MOUTH VIA YAUNKER. DONE ORDERED. PT TOLERATED WELL. O2 SATURATION AT 98% VIA 6L NASAL CANNULA.
--- NOTE | 2018-12-13 11:33 | NUR ---
PATIENT'S PARENTS AT BEDSIDE.
--- NOTE | 2018-12-13 11:35 | NUR ---
RADIOLOGY AT BEDSIDE.
--- NOTE | 2018-12-13 11:40 | NUR ---
PT'S PARENTS IF THEY CAN GIVE TUBE FEEDING AND BACLOFEN AND DIAZEPAM THROUGH PEG TUBE. DR CALVERT NOTIFIED AND VERBAL ORDER OK FOR PARENTS TO GIVE FEEDING AND PRESCRIBED MEDICATIONS TO PATIENT VIA PEG TUBE.
[2018-12-13 13:17] VITALS: BP 125/70
--- NOTE | 2018-12-13 13:17 | NUR ---
Patient discharged with v/s stable. Written and verbal after care instructions given and explained. Patient alert, oriented and verbalized understanding of instructions. Ambulatory with steady gait. All questions addressed prior to discharge. ID band removed. Patient advised to follow up with PMD. Opportunity to ask questions provided and answered. DISCHARGE INSTRUCTIONS TO PARENTS (CAREGIVERS), VERBALIZED UNDERSTANDING.
--- NOTE | 2018-12-13 13:50 | NUR ---
Note tianaacosta in EDM - 12/13/18 at 1351 by [email or web address] Patient discharged with v/s stable. Written and verbal after care instructions given and explained. Patient alert, oriented and verbalized understanding of instructions. Ambulatory with steady gait. All questions addressed prior to discharge. ID band removed. Patient advised to follow up with PMD. Opportunity to ask questions provided and answered. DISCHARGE INSTRUCTIONS TO PARENTS (CAREGIVERS), VERBALIZED UNDERSTANDING.
== END 2018-12-13 13:17 | disposition home or self-care (01) ==
LOC: MED 11:12
DX: T18.9XXA Foreign body of alimentary tract, part unspecified, initial encounter (principal); Z79.899 Other long term (current) drug therapy; X58.XXXA Exposure to other specified factors, initial encounter; Y93.89 Activity, other specified; Y92.89 Other specified places as the place of occurrence of the external cause; Y99.8 Other external cause status
CPT/HCPCS: 71045; 99283; Q0092

== ENCOUNTER 2020-09-04 01:35 | Inpatient (IN) | payer OTHER, SELFPAY ==
[~2020-09-04] VITALS: Ht 147.3 cm; Wt 40.8 kg
--- NOTE | 2020-09-04 01:35 | NUR ---
25 y/o male biba c/o respiratory distress - per EMS family started doing CPR x 20 mins ago. per family pt started having respiratory symptoms at 2100 last night. Pt was being bagged upon arrival to ER. Oxygen level 60% on Room air. Pt has palpatable pulse. Lung sounds clear. Observed blood coming from pt's mouth. Pt has hx of cerebral palsy. ERMD and RT at bedside. pmh: cerebral palsy nka
[2020-09-04] MEDS ORDERED: AZITHROMYCIN 250 MG in DEXTROSE 5% 250 ML IV ONE (02:00)
[2020-09-04] MEDS ORDERED: ETOMIDATE 20 MG/10 ML VIAL IVP ONE (02:00)
[2020-09-04] MEDS ORDERED: ROCURONIUM 50 MG/5 ML VIAL IV ONE (02:00)
[2020-09-04] MEDS ORDERED: DEXAMETHASONE 4 MG/ML VIAL IVP ONE (02:00)
[2020-09-04] MEDS ORDERED: NACL 0.9% 1,000 ML IV ONE ×2 (02:00→03:05)
[2020-09-04] MEDS ORDERED: PROPOFOL 200 MG/20 ML VIAL IV ONE (02:00)
[2020-09-04 02:13] LABS: BASOPHILS # (AUTO) 0.1 K/uL (0.00-0.22); BASOPHILS % (AUTO) 0.7 % (0.0-2.0); EOSINOPHILS # (AUTO) 0.1 K/uL (0-0.4); EOSINOPHILS % (AUTO) 0.4 % (0.0-4.0); HEMATOCRIT 45.5 % (36-52); HEMOGLOBIN 14.3 g/dL (12.0-18.0); LYMPHOCYTES % (AUTO) 34.3 % (20.5-51.1); MEAN CORPUSCULAR HEMOGLOBIN 31 pg (27-31); MEAN CORPUSCULAR HGB CONC 32 g/dL (33-37); MONOCYTES # (AUTO) 1.2 K/uL (0.8-1.0); MONOCYTES % (AUTO) 6.9 % (1.7-9.3); NEUTROPHILS # (AUTO) 10.2 K/uL (1.8-7.7); NEUTROPHILS % (AUTO) 57.7 % (42.2-75.2); PLATELET COUNT (AUTO) 260 K/uL (140-450); RED BLOOD CELL COUNT(AUTO) 4.64 MIL/uL (4.20-6.10); RED CELL DISTRIBUTION WIDTH 15.5 % (11.6-13.7); WHITE BLOOD COUNT (AUTO) 17.6 K/uL (4.8-10.8)
[2020-09-04 02:29] LABS: FIBRINOGEN 325 mg/dL (200-400)
--- NOTE | 2020-09-04 02:40 | NUR ---
CIELO SWAB COLLECTED AND WALKED OVER TO LAB
[2020-09-04 02:41] LABS: ALBUMIN 3.5 g/dL (3.4-5.0); ANION GAP 16.7 (8-16); CARBON DIOXIDE 25.8 mmol/L (21-32); CREATININE 0.7 mg/dL (0.6-1.3); POTASSIUM 4.5 mmol/L (3.5-5.1); TOTAL BILIRUBIN 0.6 mg/dL (0.0-1.0)
--- NOTE | 2020-09-04 02:42 | NUR ---
RT notified pt O2 saturation at 88% on vent settings.
[2020-09-04] MEDS ORDERED: PROPOFOL 1000 MG/100 ML PREMIX 100 ML IV ONE ×3 (02:46→13:28)
[2020-09-04] MEDS ORDERED: AZITHROMYCIN 500 MG INJ VIAL IV ONE ×2 (02:47→20:46)
[2020-09-04] MEDS ORDERED: cefTRIAXone 1,000 MG VIAL ONE (02:48)
[2020-09-04] MEDS ORDERED: NACL 0.9% 2,000 ML IV ONE (03:05)
[2020-09-04 03:08] LABS: D-DIMER 1350 ng/ml (0-400)
[2020-09-04] MEDS ORDERED: ACETAMINOPHEN 120 MG SUPP RC ONE (03:14)
--- NOTE | 2020-09-04 03:15 | NUR ---
100.2 rectal temp. MD made aware. MD gave verbal order for tylenol suppository 120mg
[2020-09-04] MEDS ORDERED: SODIUM BICARBONATE 8.4% PFS 50 MEQ/50 ML SYR IVP ONE (03:30)
--- NOTE | 2020-09-04 03:58 | NUR ---
RT AT BEDSIDE
--- NOTE | 2020-09-04 03:59 | NUR ---
RT AT BEDSIDE ---PULLED OUT ETT BY 2 CM---7.5 ET TUBE IS NOW SECURED AT 22CM AT THE TEETH PER ERMD AZUBUIKE ORDERS.
--- NOTE | 2020-09-04 04:00 | NUR ---
SHELBI CARTER ORDERED STAT XRAY TO CONFIRM ETT PLACEM
[2020-09-04 04:25] VITALS: BP 110/77
[2020-09-04 04:25] LABS: APPEARANCE,URINE CLEAR (CLEAR); COLOR,URINE YELLOW (YELLOW); PH,URINE 5.5 (5.0-9.0); UGLUCOSE NEGATIVE (NEGATIVE)
[2020-09-04 04:26] LABS: BILIRUBIN,URINE NEGATIVE (NEGATIVE); BLOOD, URINE NEGATIVE (NEGATIVE); LEUKOCYTE ESTERASE ,URINE NEGATIVE (NEGATIVE); NITRITE, URINE NEGATIVE (NEGATIVE)
[2020-09-04] MEDS ORDERED: HYDROmorphone 1 MG/ML AMP IVP PRN (04:55)
[2020-09-04] MEDS ORDERED: MAGNESIUM OXIDE 400 MG TAB PO PRN (04:55)
[2020-09-04] MEDS ORDERED: ACETAMINOPHEN 325 MG TAB PO PRN (04:55)
[2020-09-04] MEDS ORDERED: ONDANSETRON 4 MG/2 ML VIAL IVP PRN (04:55)
[2020-09-04] MEDS ORDERED: LORazepam 1 MG TAB PO PRN (04:55)
[2020-09-04] MEDS ORDERED: METOCLOPRAMIDE 10 MG/2 ML INJ VIAL IVP PRN (04:55)
[2020-09-04] MEDS ORDERED: DIAZEPAM 2 MG GT PRN (04:55)
[2020-09-04] MEDS ORDERED: HYDROcodone/APAP 5/325 MG 1 TAB TAB PO PRN (04:55)
[2020-09-04] MEDS ORDERED: MAG SULF 2000 MG/WATER PREMIX 50 ML IV PRN (04:55)
[2020-09-04] MEDS ORDERED: ENOXAPARIN 40 MG/0.4 ML SYR SUBQ ONE (05:25)
--- NOTE | 2020-09-04 07:24 | NUR ---
Report given to JULITA Poe for continuation of care.
--- NOTE | 2020-09-04 07:30 | NUR ---
ETT TO VENT AT THIS TIME. PATIENT IS LAYING SUPINE. RASS-2. FLACC 0. BLEEDING NOTED TO LEFT FEMORAL AREA, PRESSURE BANDAGE APPLIED TO SITE. PATIENT REPOSITIONED AT THIS TIME ON RIGHT SIDE-LAYING POSITION. VSS.
--- NOTE | 2020-09-04 08:00 | NUR ---
COVID NOVEL SWAB COLLECTED AT THIS TIME
[2020-09-04] MEDS ORDERED: BACLOFEN GT SCH (09:00)
[2020-09-04] MEDS: ENOXAPARIN 40 MG/0.4 ML SYR SUBQ SCH (09:04)
[2020-09-04] MEDS: DOCUSATE SODIUM 100 MG GELCAP PO SCH (09:04)
[2020-09-04] MEDS: LACTATED RINGERS 1,000 ML IV SCH ×2 (10:29→18:11)
--- NOTE | 2020-09-04 11:00 | NUR ---
SPOKE WITH MOTHER ON THE PHONE AT THIS TIME
--- NOTE | 2020-09-04 11:06 | NUR ---
SOCIAL WORK NOTE: Patient's Orientation Unable To Assess Information Provided By EVIE CONTRERAS - MOTHER/CONSERVATOR Comments SW WAS UNABLE TO MEET PATIENT AT BEDSIDE. SW COMPLETED ASSESSMENT WITH MOTHER/CONSERVATOR. PER MOTHER, PATIENT HAS [facility] WORKER - SLOANE CLEMENTS [phone]. Structures Mechanic, Realtionship and Phone Number EVIE CONTRERAS MOTHER [phone] DULCE CONTRERAS FATHER [phone] Healthcare Power of Hotel Maintenance Engineer No Does Patient Have a POLST No Identifying Problems No Social Work Triggers Is A Social Work Consult Needed No Mandate Report Filed No Explanation Of Identifying Problems PATIENT IS A 25-YEAR-OLD MALE ADMITTED FOR CARDIAC ARREST. PATIENT HAS PMHX OF CEREBRAL PALSY. Admitted From Home Home Health Provider LORENE BRYSON Pre-Admission Level Of Functioning Status Total Care Prior Resources/Services Used In Last 12 Months [facility] Prior Resources/Service Comments SLOANE CLEMENTS - [phone] Prior DME Home Oxygen Wheelchair Hand Held Nebulizer Dialysis Comments N/A Living Situation Lives With Family House Patient Had Caregiver No Home Support No Caregiver Issues CG/Fam Able To Meet Need Financial Issues No Known Financial Issue Factors/Needs No D/C Needs Identified Pt/Rep Participated In Discharge Plan Yes Patient/Family Agress With Discharge Plan Yes Discharge Plan Comments TENTATIVE DISCHARGE PLAN IS FOR PATIENT TO RETURN HOME. DC Plan Status Initiated Addendum: 09/11/20 at 1509 by Dany Gannon SS MALI CONTACTED BENNY FROM [facility] [phone] PER FEDERICO CHIN. BENNY STATED THAT SHE WAS CALLING TO ASSIST FAMILY BECAUSE FAMILY WAS HAVING DIFFICULTIES COPING WITHOUT SEEING PATIENT. BENNY REQUESTED NURSING STATION PHONE NUMBER AND SW INFORMED BENNY THAT NURSING STATION ACCEPTS PHONE CALLS BETWEEN 1PM-2PM AND 11PM-12AM. BENNY STATED SHE WOULD PROVIDE FAMILY NURSING STATION PHONE NUMBER TO SPEAK TO PATIENT'S NURSE TO HAVE UPDATE ON PATIENT.
--- NOTE | 2020-09-04 12:36 | NUR ---
1140: RECEIVED A CALL FROM [facility], INFORMING ME OF CRITICAL LAB LACTIC ACID 3.2. DR. BELL MADE AWARE.
[2020-09-04] MEDS: levETIRAcetam 100 MG/ML ORASYR GT SCH ×2 (13:33→21:00)
[2020-09-04] MEDS: PIPERACILLIN/TAZOBACTAM 3.375 GM in DEXTROSE 5% 50 ML IV SCH ×2 (14:00→21:00)
--- NOTE | 2020-09-04 14:43 | NUR ---
PATIENT HAS BEEN SCREENED AND CATEGORIZED HIGH NUTRITION RISK. PATIENT WILL BE SEEN WITHIN 1-2 DAYS OF ADMISSION. 09/04/20-09/05/[address]
[2020-09-04] MEDS ORDERED: PIPERACILLIN/TAZOBACTAM 3.375 GM VIAL IV ONE ×2 (15:22→20:47)
--- NOTE | 2020-09-04 16:40 | NUR ---
2MG ATIVAN IVP GIVEN PRE-PROCEDURE PER SURGEON [place] VERBAL ORDER
[2020-09-04] MEDS ORDERED: LORazepam 2 MG/ML VIAL ONE (16:41)
[2020-09-04] MEDS ORDERED: LORazepam 2 MG/ML VIAL IVP SCH (16:50)
--- NOTE | 2020-09-04 16:56 | NUR ---
Dr Garcia at bedside for placement of central line.
--- NOTE | 2020-09-04 17:55 | NUR ---
Invalid covid result received from lab.
[2020-09-04] MEDS ORDERED: LORazepam 2 MG/ML VIAL IVP PRN (18:30)
[2020-09-04] MEDS: ALBUTEROL SULFATE/IPRATROPIU 3 ML SOL IH SCH (19:00)
--- NOTE | 2020-09-04 19:30 | NUR ---
ASSUMED REPONSIBILITY OF CARE AT THIS TIME. PT RESTING IN BED, SEDATED. RESPONDS TO PAINFUL STIMULI. ABLE TO TRACK MOVEMENTS. PUPILS 3MM, PERRL, SLUGGISH. ETT TO VENT WITH SETTINGS FOLLOWS: ACPRBC: 18, 100% FIO2, TV 450, PEEP 5. 7.5CM TUBE INPLACE TAPED AT 23 CM AT THE LIP. LUNG SOUNDS DIMINISHED THROUGHOUT. ABD LARGE/FIRM. LEDY-MON TUBE IN PLACE WITH SURROUNDING REDNESS/GRANULATED TISSUE NOTED. ATTACHEMENT TUBE UNAVAILABLE. OGT IN PLACE. 60 ML RESIDUAL ASPIRATED AND REPLACED. +BOWEL SOUNDS NOTED. RT FEM DOUBLE-LUMEN CENTRAL LINE IN PLACE, PATENT, INFUSING PROPOFOL. SEE IV SPREADSHEET FOR DETAILS. BUE/BLE WITH DECEREBRET POSTURING. FLACC 0. BED LOW AND LOCKED WITH SAFETY PRECAUTIONS IN PLACE. WILL CONT TO MONITOR.
[2020-09-04] MEDS: FAMOTIDINE 20 MG/2 ML VIAL IVP SCH (21:00)
[2020-09-04] MEDS: AZITHROMYCIN 500 MG in DEXTROSE 5% 250 ML IV SCH (21:00)
[2020-09-04 21:42] VITALS: BP 104/69
--- NOTE | 2020-09-04 22:00 | NUR ---
ALL DUE MEDICATIONS ADMINISTERED ORDERED WITHOUT INCIDENT. TOLERATED WELL. SAFETY PRECAUTIONS REMAIN IN PLACE WITH BED LOW AND LOCKED. HOB REMAINS >30 DEGREES. WILL CONT TO MONITOR.
--- NOTE | 2020-09-04 23:30 | NUR ---
SPOKE WITH MOTHER OF PT @ THIS TIME. UPDATED ON PT STATUS. ALL QUESTIONS ANSWERED.
[2020-09-05 02:53] VITALS: BP 125/80
--- NOTE | 2020-09-05 02:56 | NUR ---
PT RESTING COMFORTABLY ON VENT SPO2 100% AND FIO2 TITRATED TO 80%. WILL CONTINUE TO MONITOR
--- NOTE | 2020-09-05 03:47 | NUR ---
JORDON & INFLUENZA SWABS COLLECTED AND WALKED TO LAB.
--- NOTE | 2020-09-05 04:00 | NUR ---
BED BATH PROVIDED. PT TOLERATED FAIR. 2 PERSON ASSIST FOR TURNING. EMPTIED FREY WITH 600 ML AMAYA-URINE NOTED.
[2020-09-05] MEDS ORDERED: PIPERACILLIN/TAZOBACTAM 3.375 GM VIAL IV ONE ×3 (04:01→21:03)
[2020-09-05 04:38] VITALS: BP 93/53
[2020-09-05] MEDS: levETIRAcetam 100 MG/ML ORASYR GT SCH ×3 (04:38→21:00)
[2020-09-05] MEDS: PIPERACILLIN/TAZOBACTAM 3.375 GM in DEXTROSE 5% 50 ML IV SCH ×3 (04:38→21:00)
[2020-09-05] MEDS: LACTATED RINGERS 1,000 ML IV SCH ×2 (04:40→18:28)
[2020-09-05] MEDS ORDERED: PROPOFOL 1000 MG/100 ML PREMIX 100 ML IV ONE ×2 (05:19→19:14)
[2020-09-05 06:30] VITALS: BP 105/71
[2020-09-05] MEDS: ALBUTEROL SULFATE/IPRATROPIU 3 ML SOL IH SCH ×4 (07:00→23:27)
--- NOTE | 2020-09-05 07:09 | NUR ---
REPORT GIVEN TO DAYSHIFT RN, AT WINDOW, FOR CONTINUITY OF CARE. VSS.
--- NOTE | 2020-09-05 07:17 | NUR ---
TRANSFER OF CARE AT THIS TIME FROM JULITA LEVI
--- NOTE | 2020-09-05 08:06 | NUR ---
Lab at bedside.
--- NOTE | 2020-09-05 08:40 | NUR ---
Pt repositioned in bed.
[2020-09-05 08:48] LABS: BASOPHILS % (AUTO) 0.2 % (0.0-2.0); HEMATOCRIT 32.6 % (36-52); HEMOGLOBIN 11.1 g/dL (12.0-18.0); LYMPHOCYTES # (AUTO) 2.2 K/uL (2.0-11.5); LYMPHOCYTES % (AUTO) 20.5 % (20.5-51.1); MEAN CORPUSCULAR HEMOGLOBIN 32 pg (27-31); MEAN CORPUSCULAR HGB CONC 34 g/dL (33-37); MEAN CORPUSCULAR VOLUME 92.6 fL (80-94); MONOCYTES # (AUTO) 1.6 K/uL (0.8-1.0); MONOCYTES % (AUTO) 14.5 % (1.7-9.3); NEUTROPHILS # (AUTO) 7.1 K/uL (1.8-7.7); NEUTROPHILS % (AUTO) 64.8 % (42.2-75.2); PLATELET COUNT (AUTO) 203 K/uL (140-450); RED BLOOD CELL COUNT(AUTO) 3.52 MIL/uL (4.20-6.10); RED CELL DISTRIBUTION WIDTH 14.2 % (11.6-13.7); WHITE BLOOD COUNT (AUTO) 10.9 K/uL (4.8-10.8)
[2020-09-05] MEDS: DOCUSATE SODIUM 100 MG GELCAP PO SCH (09:00)
[2020-09-05 09:27] LABS: FERRITIN 194 ng/mL (30-400)
[2020-09-05 09:41] LABS: ALBUMIN 2.7 g/dL (3.4-5.0); ANION GAP 12.6 (8-16); CARBON DIOXIDE 27.2 mmol/L (21-32); CREATININE 0.5 mg/dL (0.6-1.3); TOTAL BILIRUBIN 1.6 mg/dL (0.0-1.0)
[2020-09-05] MEDS: ENOXAPARIN 40 MG/0.4 ML SYR SUBQ SCH (09:53)
[2020-09-05] MEDS: FAMOTIDINE 20 MG/2 ML VIAL IVP SCH ×2 (09:53→21:00)
[2020-09-05 10:00] LABS: CHOL/HDL RATIO 4.9 (1-4.5); MAGNESIUM 2.1 mg/dL (1.8-2.4); PHOSPHORUS 2.8 mg/dL (2.5-4.9)
--- NOTE | 2020-09-05 10:16 | NUR ---
Potassium 2.8--critical value received from lab.
[2020-09-05 10:26] LABS: POTASSIUM 2.8 mmol/L (3.5-5.1)
--- NOTE | 2020-09-05 10:32 | NUR ---
Received call from patients mother, updated her on patients status.
--- NOTE | 2020-09-05 10:37 | NUR ---
Pts position changed in bed and weight shifted to l side.
[2020-09-05 10:50] VITALS: BP 118/70
--- NOTE | 2020-09-05 10:55 | NUR ---
09/05/20 RD INITIAL ASSESSMENT COMPLETED PLEASE REFER TO NUTRITION ASSESSMENT UNDER CARE ACTIVITY FOR ESTIMATED NUTRITIONAL NEEDS. 1. RECOMMEND VITAL 1.2 AF @ 40 ML/HR START AT 10 ML/HR AND INCREASE BY 10 ML/HR Q2H -THIS WILL PROVIDE 960 ML OF VOLUME, 778 ML OF WATER, 1152 KCAL AND 72 GM OF PROTEIN WHICH MEETS 100% OF ESTIMATED KCAL AND PROTEIN NEEDS. 2. RECOMMEND FREE WATER FLUSH OF [address] TO FOLLOW-UP 2-3 DAYS, HIGH RISK LUCY VAZQUEZ RD
--- NOTE | 2020-09-05 10:55 | NUR ---
RT CALLED FOR PT TO BE SUCTIONED.
--- NOTE | 2020-09-05 10:59 | NUR ---
RT AT BEDSIDE.
[2020-09-05] MEDS: KCL 20 MEQ/WATER INJ PREMIX 200 ML IV PRN (11:32)
--- NOTE | 2020-09-05 11:32 | NUR ---
PRN K INFUSING PER STANDING ORDER.
--- NOTE | 2020-09-05 12:25 | NUR ---
Pts weight shifted to r side.
--- NOTE | 2020-09-05 13:00 | NUR ---
DR. KEYS AT BEDSIDE EVALUATING PT.
--- NOTE | 2020-09-05 13:02 | NUR ---
RT called to suction patient
--- NOTE | 2020-09-05 13:04 | NUR ---
RT at bedside
[2020-09-05] MEDS ORDERED: POTASSIUM CHLORIDE 10 MEQ TABER PO ONE (13:15)
--- NOTE | 2020-09-05 13:34 | NUR ---
DR. KEYS PAGED TO CHANGE K ORDER TO OG TUBE.
[2020-09-05] MEDS ORDERED: POTASSIUM CHLORIDE 20% 40 MEQ/15 ML UDC GT SCH (14:30)
--- NOTE | 2020-09-05 16:48 | NUR ---
Pts weight shifted in bed.
--- NOTE | 2020-09-05 17:35 | NUR ---
CHG bath performed for pt. placed in gown and oral care performed
--- NOTE | 2020-09-05 17:45 | NUR ---
pt mother and father dropped off personal belongings for pt. belongings placed at bedside.
--- NOTE | 2020-09-05 18:24 | NUR ---
PT REPOSITIONED IN BED AND WEIGHT SHIFTED TO RIGHT SIDE.
--- NOTE | 2020-09-05 19:14 | NUR ---
PT ENDORSED TO JULITA NEW FOR CONTINUITY OF CARE AT THIS TIME.
--- NOTE | 2020-09-05 19:25 | NUR ---
NEW PROPOFOL BOTTLE HUNG RUNNING AT 35 MCG/KG/MIN.
[2020-09-05] MEDS: PROPOFOL 1000 MG/100 ML PREMIX 100 ML IV PRN (19:30)
--- NOTE | 2020-09-05 19:30 | NUR ---
RECEIVED REPORT FROM KELSEY CANCINO FOR CONTINUITY OF CARE.
[2020-09-05 19:44] LABS: LACTATE DEHYDROGENASE 343 IU/L (0-214)
[2020-09-05 19:45] VITALS: BP 117/71
--- NOTE | 2020-09-05 19:50 | NUR ---
PT MOVED TO BED 10
--- NOTE | 2020-09-05 20:17 | NUR ---
PT RESTING IN BED, SEDATED. RESPONDS TO PAINFUL STIMULI. ABLE TO TRACK MOVEMENTS. PUPILS 3MM, PERRL, SLUGGISH. ETT TO VENT WITH SETTINGS FOLLOWS: ACPRBC: 18, 70% FIO2, TV 426, PEEP 5.9. ETT 7.5CM TUBE INPLACE TAPED AT 23 CM AT THE LIP. LUNG SOUNDS DIMINISHED THROUGHOUT. ABD LARGE/FIRM. LEDY-MON TUBE IN PLACE WITH SURROUNDING REDNESS/GRANULATED TISSUE NOTED. OGT IN PLACE NO FEEDING RUNNING. NPO AT THIS TIME. ACTIVE BOWEL SOUNDS NOTED X 4QUADRANTS. RT FEMORAL CENTRAL LINE IN PLACE, PATENT, INFUSING PROPOFOL AND LACTATED RINGERS AT 80ML/HR. SEE IV SPREADSHEET FOR DETAILS. BUE/BLE WITH DECEREBRET POSTURING. FLACC 0. BED LOW AND LOCKED WITH SAFETY PRECAUTIONS IN PLACE. WILL CONT TO MONITOR. ON CONTINUES MONITORING.
--- NOTE | 2020-09-05 20:23 | NUR ---
PT WAS REPOSITIONED TO RELIEVE PRESSURE TO DEPENDENT AREAS. WILL CONT TO MONITOR ON BEDSIDE MONITORING.
--- NOTE | 2020-09-05 20:45 | NUR ---
RECEIVED NOTIFICATION FROM LAB THAT PT IS COVID+. MOVED PT TO ISOLATION ROOM 10. ADMITTING MD MADE AWARE.
[2020-09-05] MEDS: AZITHROMYCIN 500 MG in DEXTROSE 5% 250 ML IV SCH (21:00)
[2020-09-05] MEDS ORDERED: AZITHROMYCIN 500 MG INJ VIAL IV ONE (21:03)
--- NOTE | 2020-09-05 21:10 | NUR ---
TITRATED FiO2 TO 80%. SPO2 99%. PT TOLERATING WELL. WILL CONTINUE TO MONITOR.
--- NOTE | 2020-09-05 22:36 | NUR ---
PT WAS REPOSITIONED TO RELIEVE PRESSURE TO DEPENDENT AREAS. WILL CONT TO MONITOR ON BEDSIDE MONITORING. TOLERATING WELL.
--- NOTE | 2020-09-05 23:55 | NUR ---
PT WAS REPOSITIONED TO RELIEVE PRESSURE TO DEPENDENT AREAS. WILL CONT TO MONITOR ON BEDSIDE MONITORING.
[2020-09-06] VITALS (22 sets, daily range): BP systolic 81–130; BP diastolic 46–73
--- NOTE | 2020-09-06 00:14 | NUR ---
PICTURE TAKEN FOR G-TUBE PLEASE REFER TO WOUND DOCUMENTATION.
--- NOTE | 2020-09-06 00:15 | NUR ---
Patient will be admitted to care of DR. BELL. Admited to ICU OVERFLOW. Will go to room 134A. Belongings list completed. Report given to RAFI CANCINO for continuity of care. All covid precautions in place transported with rt and JULITA GENAO.
--- NOTE | 2020-09-06 00:40 | NUR ---
RECEIVED PATIENT FROM [employer] FLOOR FINISHER. PT ETT TO VENT AC/VC FIO2 80% RR 18 PEEP 5, TV- 450. RESPIRATION EVEN AND UNLABORED. SYMMETRICAL CHEST EXPANSION, LUNG SOUNDS DIMINISHED UPON AUSCULTATION. RIGHT FEMORAL TRIPLE LUMEN CATH. ASYMPTOMATIC PATENT AND INTACT. PT ON PROPOFOL 40 MCG/KG/MIN, LR @ 80MLS/HR, OGT CLAMPED. ABDOMEN SOFT NON TENDER. REDNESS OBSERVED AROUND GTUBE SITE. FREY CATHETER INTACT AND PATENT, DRAINING TO GRAVITY. BED IN LOWEST POSITION, SIDE RAILS UP, ISOLATION PRECAUTION MAINTAINED. SAFETY PRECAUTIONS IN PLACE.
--- NOTE | 2020-09-06 01:55 | NUR ---
TITRATED FiO2 TO 70%. SPO2 99%. PT TOLERATING WELL. WILL CONTINUE TO MONITOR.
--- NOTE | 2020-09-06 03:14 | NUR ---
TITRATED FiO2 TO 60%. SPO2 99%. PT TOLERATING WELL. WILL CONTINUE TO MONITOR.
--- NOTE | 2020-09-06 04:00 | NUR ---
MT CONDITION REMAINS UNCHANGED. WILL CONTINUE TO MONITOR.
[2020-09-06] MEDS: levETIRAcetam 100 MG/ML ORASYR GT SCH ×3 (05:00→21:28)
[2020-09-06] MEDS: PIPERACILLIN/TAZOBACTAM 3.375 GM in DEXTROSE 5% 50 ML IV SCH ×3 (05:00→21:29)
[2020-09-06] MEDS ORDERED: PIPERACILLIN/TAZOBACTAM 3.375 GM VIAL IV ONE (06:43)
[2020-09-06] MEDS: LACTATED RINGERS 1,000 ML IV SCH (06:47)
--- NOTE | 2020-09-06 07:25 | NUR ---
REPORT GIVEN BY JULITA RIVERA PT ORALLY INTUBATED AND ON PROPOFOL DRIP @ 20MCG/KG/MIN.OPENS EYES ANDFOLLOW SIMPLE COMMAND
[2020-09-06 07:27] LABS: PHOSPHORUS 2.4 mg/dL (2.5-4.9)
[2020-09-06 07:28] LABS: BASOPHILS % (AUTO) 0.1 % (0.0-2.0); EOSINOPHILS % (AUTO) 0.1 % (0.0-4.0); HEMATOCRIT 29.1 % (36-52); HEMOGLOBIN 9.9 g/dL (12.0-18.0); LYMPHOCYTES # (AUTO) 3.3 K/uL (2.0-11.5); LYMPHOCYTES % (AUTO) 36.7 % (20.5-51.1); MEAN CORPUSCULAR HEMOGLOBIN 32 pg (27-31); MEAN CORPUSCULAR HGB CONC 34 g/dL (33-37); MEAN CORPUSCULAR VOLUME 92.7 fL (80-94); MONOCYTES # (AUTO) 1.2 K/uL (0.8-1.0); NEUTROPHILS # (AUTO) 4.5 K/uL (1.8-7.7); NEUTROPHILS % (AUTO) 50.1 % (42.2-75.2); PLATELET COUNT (AUTO) 157 K/uL (140-450); RED BLOOD CELL COUNT(AUTO) 3.14 MIL/uL (4.20-6.10); RED CELL DISTRIBUTION WIDTH 14.5 % (11.6-13.7); WHITE BLOOD COUNT (AUTO) 8.9 K/uL (4.8-10.8)
[2020-09-06 07:40] LABS: ALBUMIN 2.5 g/dL (3.4-5.0); ANION GAP 14.3 (8-16); CARBON DIOXIDE 24.5 mmol/L (21-32); CREATININE 0.4 mg/dL (0.6-1.3); TOTAL BILIRUBIN 1.2 mg/dL (0.0-1.0)
[2020-09-06 08:30] LABS: POTASSIUM 2.8 mmol/L (3.5-5.1)
[2020-09-06] MEDS: DOCUSATE SODIUM 100 MG GELCAP PO SCH (10:07)
[2020-09-06] MEDS: ENOXAPARIN 40 MG/0.4 ML SYR SUBQ SCH (10:10)
[2020-09-06] MEDS ORDERED: remdesivir COMMUNICATION ORDER 1 EA MISC MC PRN (11:00)
--- NOTE | 2020-09-06 11:00 | NUR ---
SEEN AND EXAMINED BY DR. VIGIL UPDATED TO PT'S CONDITION AND W/ ORDER NOTED AND CARRIED OUT. FOR TRANSFUSION OF 1 UNIT PLASMA. CONSENT OBTAINED PT'S MOTHER AWARE AND GIVEN HER CONSENT.
[2020-09-06] MEDS ORDERED: remdesivir CLINICAL MONITORING 1 EA MISC MC PRN (11:25)
[2020-09-06] MEDS: FAMOTIDINE 20 MG/2 ML VIAL IVP SCH ×2 (12:00→21:29)
[2020-09-06] MEDS: DEXAMETHASONE 4 MG/ML VIAL IVP SCH (12:00)
[2020-09-06] MEDS ORDERED: POTASSIUM CHLORIDE 10 MEQ TABER PO ONE (12:50)
[2020-09-06] MEDS ORDERED: POTASSIUM CHLORIDE 20% 40 MEQ/15 ML UDC GT SCH (12:55)
[2020-09-06] MEDS: REMDESIVIR (EUA) 200 MG in NACL 0.9% 100 ML IV SCH ×2 (12:55→13:47)
--- NOTE | 2020-09-06 13:37 | NUR ---
DR. VIGIL APPROVED RD RECOMMENDATIONS FOR TUBE FEEDING. OKAY TO ENTER ORDER.
--- NOTE | 2020-09-06 14:00 | NUR ---
PT'S CONDITION STATUS QUO.HAD SMALL SOFT GREENISH STOOL.COMPLETE BED BATH DONE.REPOSITIONED AFTER.
[2020-09-06] MEDS: POTASSIUM CHLORIDE 10 MEQ TABER PO PRN (14:51)
--- NOTE | 2020-09-06 15:31 | NUR ---
CONTACTED MOTHER, EVIE CONTRERAS AT , SHE IS ABLE TO BRING SOME LEDY-MON EXTENSION SETS FROM HOME. PT ON BOLUS FEEDING AT HOME; 5 CANS OF JEVITY 1.0 PER DAY.
--- NOTE | 2020-09-06 16:27 | NUR ---
DISCHARGE PLANNING: REMAINS INTUBATED TO VENT FIO2 55, PEEP 5, O2 SAT 95%. SEDATED WITH PROPOFOL. ON REMDESIVIR, DECADRON, ZOSYN, AZITHROMYCIN. COVID PCR POSITIVE. PER PULMO - CONT VENTILATORY SUPPORT Addendum: 09/10/20 at 1525 by Alia Martin CM REMAINS ORALLY INTUBATED TO VENT, FIO2 40%, PEEP 5, O2 SAT 100%. SEDATED WITH PROPOFOL. ON LEVOPHED DRIP. ON REMDESIVIR, DECADRON, LOVENOX. PER PULMO - DAILY SBT - GOAL TO EXTUBATE FIO2 REMAINS 40% OR BELOW. Addendum: 09/11/20 at 1111 by Alia Martin CM POC DISCUSSED WITH DR. QUEVEDO. PER DR. QUEVEDO, GOAL IS TO EXTUBATE HOWEVER PATIENT IS NOT STABLE DUE TO RR IS STILL ON THE 30'S, STILL ON SEDATION AND PRESSOR. Addendum: 09/11/20 at 1458 by Alia Martin RECEIVED A CALL FROM BENNY HAWKINS [phone] OF [facility], REQUESTING TO CONTACT THEM ONCE PATIENT IS STABLE FOR DISCHARGE AND FOR ANY DISCHARGE NEEDS. Addendum: 09/21/20 at 1445 by Alia Martin LATE ENTRY FOR YESTERDAY: RECEIVED A CALL FROM PATIENT'S MOTHER EVIE STATING THAT SHE RECEIVED A CALL FROM THE NURSE THAT THE PATIENT WILL BE DOWNGRADED TO TELEMETRY LATER THIS AFTERNOON. SHE STATED SHE DO NOT WANT THE PATIENT TO BE TRANSFERRED TO REGULAR FLOOR BECAUSE SHE WILL NOT BE GETTING THE SAME CARE ICU AND WILL JUST END UP DEVELOPING PRESSURE ULCER. SHE STATED THAT SHE'D RATHER TAKE THE PATIENT HOME AND TAKE CARE OF HIM HERSELF. SHE ALSO STATED THAT SHE WILL SIGN HIM AMA. EXPLAINED TO HER THAT PATIENT IS LESS THAN 24 POST EXTUBATION AND NOT READY TO BE DC HOME YET. SHE STATED "I DO NOT WANT HIM TO DEVELOP PRESSURE ULCER, BECAUSE IT HAPPENED BEFORE." INFORMED HER THAT I WILL LET THE NURSE AND KNOW. PRIMARY RN DVIINA MADE AWARE. HE STATED HE WILL REACH OUT TO DR. BARTH RECEIVED A CALL BACK FROM PRIMARY RN DIVINA STATING THAT DR. BARTH DOES NOT WANT THE MOTHER TO SIGN THE PATIENT AMA. HE DISCUSSED IT WITH THE MOTHER AND THE MOTHER IS IN AGREEMENT FOR THE PATIENT TO STAY OVERNIGHT AND POSSIBLE DC TOMORROW. Addendum: 09/21/20 at 1453 by Alia Martin PER BENNY OF [facility], PATIENT WAS ON O2 AT HOME. [facility] CONTACTED PATIENT'S MOTHER EVIE, AND SHE CONFIRMED THAT PATIENT HAVE O2 SET UP AT HOME.
--- NOTE | 2020-09-06 18:00 | NUR ---
ALL NEEDS ATTENDED AND MET DURING THE SHIFTCONDITION OF PATIENT UNCHANGED.
--- NOTE | 2020-09-06 19:00 | NUR ---
REPORT GIVEN TO JULITA RIVERA FOR CONTINUITY OF CARE.
--- NOTE | 2020-09-06 20:00 | NUR ---
RECEIVED PATIENT FROM [employer]ESSIONALS. PT ETT TO VENT AC/VC FIO2 50% RR 18 PEEP 5, TV- 450. RESPIRATION EVEN AND UNLABORED. SYMMETRICAL CHEST EXPANSION, LUNG SOUNDS DIMINISHED UPON AUSCULTATION. RIGHT FEMORAL TRIPLE LUMEN CATH. ASYMPTOMATIC PATENT AND INTACT. PT ON PROPOFOL 20 MCG/KG/MIN, OGT/GTUBE IN PLACE. ABDOMEN LARGE, ROUND. REDNESS OBSERVED AROUND GTUBE SITE. FREY CATHETER INTACT AND PATENT, DRAINING TO GRAVITY. BED IN LOWEST POSITION, SIDE RAILS UP, ISOLATION PRECAUTION MAINTAINED. SAFETY PRECAUTIONS IN PLACE.
[2020-09-06] MEDS: AZITHROMYCIN 500 MG in DEXTROSE 5% 250 ML IV SCH (21:28)
[2020-09-06] MEDS: ZINC SULF 220 MG CAP PO SCH (21:29)
[2020-09-06] MEDS: ASCORBIC ACID 500 MG TAB PO SCH (21:29)
[2020-09-07] VITALS (27 sets, daily range): BP systolic 97–144; BP diastolic 51–83
--- NOTE | 2020-09-07 00:15 | NUR ---
CONVALESCENT PLASMA INFUSING AT THIS TIME. WILL MONITOR FOR SIGNS OF REACTION.
[2020-09-07] MEDS: PROPOFOL 1000 MG/100 ML PREMIX 100 ML IV PRN ×2 (01:00→18:45)
--- NOTE | 2020-09-07 01:15 | NUR ---
PLASMA COMPLETED AT THIS TIME. NO REACTION OBSERVED. PT CONDITION REMAINS UNCHANGED.
--- NOTE | 2020-09-07 03:28 | NUR ---
TURNED AND REPOSITIONED. PRESSURE AREAS OFF LOADED. WILL CONTINUE TO MONITOR.
--- NOTE | 2020-09-07 04:00 | NUR ---
PATIENT IS ON 50% FIO2, NO CHANGES ON VENT SETTINGS. REMAINED STABLE THROUGH OUT SHIFT.
[2020-09-07] MEDS: levETIRAcetam 100 MG/ML ORASYR GT SCH ×3 (05:00→21:40)
--- NOTE | 2020-09-07 06:00 | NUR ---
PT CONDITION REMAINS UNCHANGED. WILL CONTINUE TO MONITOR.
[2020-09-07] MEDS: PIPERACILLIN/TAZOBACTAM 3.375 GM in DEXTROSE 5% 50 ML IV SCH ×3 (06:22→21:41)
[2020-09-07 06:51] LABS: ALBUMIN 2.4 g/dL (3.4-5.0); ANION GAP 15.6 (8-16); CARBON DIOXIDE 23.9 mmol/L (21-32); CREATININE 0.4 mg/dL (0.6-1.3); POTASSIUM 3.5 mmol/L (3.5-5.1); TOTAL BILIRUBIN 1.6 mg/dL (0.0-1.0)
[2020-09-07 06:54] LABS: MAGNESIUM 2.1 mg/dL (1.8-2.4); PHOSPHORUS 2.9 mg/dL (2.5-4.9)
[2020-09-07] MEDS: ALBUTEROL SULFATE/IPRATROPIU 3 ML SOL IH SCH ×2 (07:00→13:00)
--- NOTE | 2020-09-07 07:15 | NUR ---
RECEIVED REPORT FROM JULITA RIVERA ORALLY INTUBATED AND MILDLY SEDATED W/ PROPOFOL. W/ PATENT CONTRAPTIONS.NOT IN ANY FORM OF DISTRESS. LYING COMFORTABLY AND NO FACIAL GRIMACES SEEN.
--- NOTE | 2020-09-07 07:20 | NUR ---
ENDORSED PT TO DAY SHIFT RN FOR CONTINUITY OF CARE.
[2020-09-07] MEDS: DEXAMETHASONE 4 MG/ML VIAL IVP SCH (08:37)
[2020-09-07] MEDS: FAMOTIDINE 20 MG/2 ML VIAL IVP SCH ×2 (08:37→21:40)
[2020-09-07] MEDS: ASCORBIC ACID 500 MG TAB PO SCH ×2 (08:38→21:40)
[2020-09-07] MEDS: DOCUSATE SODIUM 100 MG GELCAP PO SCH (08:38)
[2020-09-07] MEDS: ZINC SULF 220 MG CAP PO SCH ×2 (08:39→21:39)
[2020-09-07] MEDS: ENOXAPARIN 40 MG/0.4 ML SYR SUBQ SCH (08:41)
[2020-09-07 08:46] LABS: HEPATITIS A ANTIBODY IGM Negative (Negative); HEPATITIS B CORE AB TOTAL Negative (Negative); HEPATITIS B SURFACE ANTIBODY Non Reactive (.); HEPATITIS B SURFACE ANTIGEN Negative (Negative)
[2020-09-07] MEDS: DEXTROSE 5% 1,000 ML IV SCH (11:55)
--- NOTE | 2020-09-07 12:02 | NUR ---
PT. ADMITTED WITH LOW WENDI SCALE AT RISK, CONTINUE TO FOLLOW PRESSURE INJURY PREVENTION INTERVENTIONS. -GT SITE REDNESS, CLEANSE WITH NS, PAT DRY, APPLY Z-GUARD AND COVER WITH DRY DRESSING BID AND PRN IF SOILING -TURN AND REPOSITION PATIENT Q 2H -ASSESS AND MONITOR SKIN CONDITION DURING POSITION CHANGE -OFFLOAD BILATERAL HEELS BY PLACING PILLOWS UNDER CALVES AT ALL TIMES, UNLESS OTHERWISE CONTRAINDICATED -PRESSURE REDISTRIBUTION BY PLACING PILLOWS AND OFFLOADING SACRALCOCCYX -KEEP SKIN CLEAN AND DRY AT ALL TIMES.
--- NOTE | 2020-09-07 13:00 | NUR ---
SEEN AND EXAMINED BY DR. VIGIL UPDATED TO PT'S CONDITION W/ ORDER NOTED AND CARRIED OUT.IVF CHANGED TO D5W STARTED.
[2020-09-07] MEDS ORDERED: POTASSIUM CHLORIDE 20% 40 MEQ/15 ML UDC PO SCH (13:20)
[2020-09-07 14:32] LABS: BASOPHILS % (AUTO) 0.6 % (0.0-2.0); EOSINOPHILS % (AUTO) 0.5 % (0.0-4.0); HEMATOCRIT 27.9 % (36-52); HEMOGLOBIN 9.3 g/dL (12.0-18.0); LYMPHOCYTES # (AUTO) 2.8 K/uL (2.0-11.5); LYMPHOCYTES % (AUTO) 33.9 % (20.5-51.1); MEAN CORPUSCULAR HEMOGLOBIN 31 pg (27-31); MEAN CORPUSCULAR HGB CONC 33 g/dL (33-37); MEAN CORPUSCULAR VOLUME 94.3 fL (80-94); MONOCYTES % (AUTO) 11.8 % (1.7-9.3); NEUTROPHILS # (AUTO) 4.3 K/uL (1.8-7.7); NEUTROPHILS % (AUTO) 53.2 % (42.2-75.2); PLATELET COUNT (AUTO) 140 K/uL (140-450); RED BLOOD CELL COUNT(AUTO) 2.96 MIL/uL (4.20-6.10); RED CELL DISTRIBUTION WIDTH 15.5 % (11.6-13.7); WHITE BLOOD COUNT (AUTO) 8.1 K/uL (4.8-10.8)
--- NOTE | 2020-09-07 15:00 | NUR ---
HAD SMALL BM DARK BROWN SEMI-FORMED STOOL.COMPLETE BED BATH DONE.ORAL CARE RENDERED AND SUCTIONING DONE VIA ORAL AND ET TUBE OBTAINED COLORLESS SECRETIONS MODERATE IN AMOUNT.MAINTAINED ON 30 DEGREES HOB TO FACILITATE EASY BREATHING AND PREVENT ASPIRATION.
[2020-09-07] MEDS: REMDESIVIR (EUA) 100 MG in NACL 0.9% 100 ML IV SCH (17:30)
--- NOTE | 2020-09-07 18:59 | NUR ---
ALL NEEDS ATTENDE AND MET DURING THE SHIFT.CONDITION STATUS QUO. STILL ON PROPOFOL DRIP.ENDORSED TO NIGHT NURSE FOR CONTINUITY OF CARE.
[2020-09-07] MEDS: AZITHROMYCIN 500 MG in DEXTROSE 5% 250 ML IV SCH (21:43)
[2020-09-08] VITALS (26 sets, daily range): BP systolic 86–143; BP diastolic 35–98
[2020-09-08] MEDS: levETIRAcetam 100 MG/ML ORASYR GT SCH ×3 (05:18→21:14)
[2020-09-08] MEDS: PIPERACILLIN/TAZOBACTAM 3.375 GM in DEXTROSE 5% 50 ML IV SCH ×3 (05:18→21:15)
[2020-09-08] MEDS: DEXTROSE 5% 1,000 ML IV SCH ×2 (05:20→17:00)
[2020-09-08 06:07] LABS: LD1 FRACTION 19 % (17-32); LD2 FRACTION 29 % (25-40); LD3 FRACTION 19 % (17-27); LD4 FRACTION 12 % (5-13)
--- NOTE | 2020-09-08 07:10 | NUR ---
REPORT TAKEN FROM THE STATE PATROL OFFICER. CONDITION UNCHANGED.MONITOR SCOPE SHOWED SINUS BRADYCARDIA W RATE OF 50-55 BEATS/MIN.STILL ON PROPOFOL DRIP AND TITRATED DOWN DUE TO LOW HEART RATE. KEPT ON CLOSE WATCH.
[2020-09-08] MEDS: DEXAMETHASONE 4 MG/ML VIAL IVP SCH (09:11)
[2020-09-08] MEDS: FAMOTIDINE 20 MG/2 ML VIAL IVP SCH ×2 (09:11→21:13)
[2020-09-08] MEDS: DOCUSATE SODIUM 100 MG GELCAP PO SCH (09:12)
[2020-09-08] MEDS: ASCORBIC ACID 500 MG TAB PO SCH ×2 (09:12→21:14)
[2020-09-08] MEDS: ZINC SULF 220 MG CAP PO SCH ×2 (09:13→21:13)
[2020-09-08] MEDS: ENOXAPARIN 40 MG/0.4 ML SYR SUBQ SCH (09:13)
--- NOTE | 2020-09-08 11:30 | NUR ---
DR. QUEVEDO CAME IN AND EXAMINED PT W/ ORDER NOTED AND CARRIED OUT.LEVOPHED STARTED @ 1130 @ 5 MCG/MIN.
[2020-09-08] MEDS ORDERED: NOREPINEPHRINE 4 MG in DEXTROSE 5% 250 ML IV PRN (11:35)
--- NOTE | 2020-09-08 12:41 | NUR ---
(09/08/20) RD FOLLOW UP COMPLETED PLEASE REFER TO NUTRITION PROGRESS NOTE UNDER CARE ACTIVITY FOR ESTIMATED NUTRITION NEEDS. RD RECOMMENDATIONS: 1. CONTINUE VITAL 1.2 AF @ 40 ML/HR START AT 10 ML/HR AND INCREASE BY 10 ML/HR Q2H. THIS WILL PROVIDE 960 ML OF VOLUME, 778 ML OF WATER, 1152 KCAL AND 72 GM OF PROTEIN WHICH MEETS 100% OF ESTIMATED KCAL AND PROTEIN NEEDS. 2. CONTINUE FREE WATER FLUSH OF [address] TO FOLLOW-UP 2-3 DAYS, HIGH RISK SAMUEL HENDRIX, MS, RDN
--- NOTE | 2020-09-08 14:00 | NUR ---
COMPLETE BED BATH DONE REPOSITIONED AND MAINTAINED ON 30 DEGREES HOB TO FACILITATE EASY BREATHING AND PREVENT ASPIRATION.
--- NOTE | 2020-09-08 16:00 | NUR ---
B/P WENT BACK TO NORMAL RANGE LEVOPHED DRIP OFF.
[2020-09-08] MEDS: REMDESIVIR (EUA) 100 MG in NACL 0.9% 100 ML IV SCH (17:00)
[2020-09-08] MEDS: PROPOFOL 1000 MG/100 ML PREMIX 100 ML IV PRN (18:46)
--- NOTE | 2020-09-08 19:00 | NUR ---
ALL NEEDS ATTENDED AND MET DURING THE SHIFT.CONDITION STATUS QUO ENDORSED TO INCOMING RN ON DUTY FOR CONTINUITY OF CARE.
[2020-09-08] MEDS: AZITHROMYCIN 500 MG in DEXTROSE 5% 250 ML IV SCH (21:14)
[2020-09-09] VITALS (26 sets, daily range): BP systolic 88–145; BP diastolic 48–90
[2020-09-09] MEDS: DEXTROSE 5% 1,000 ML IV SCH ×2 (06:33→11:13)
[2020-09-09] MEDS: levETIRAcetam 100 MG/ML ORASYR GT SCH ×3 (06:35→21:10)
[2020-09-09] MEDS: DEXAMETHASONE 4 MG/ML VIAL IVP SCH (08:59)
[2020-09-09] MEDS: FAMOTIDINE 20 MG/2 ML VIAL IVP SCH ×2 (09:00→21:10)
[2020-09-09] MEDS: ASCORBIC ACID 500 MG TAB PO SCH ×2 (09:00→21:11)
[2020-09-09] MEDS: DOCUSATE SODIUM 100 MG GELCAP PO SCH (09:00)
[2020-09-09] MEDS: ENOXAPARIN 40 MG/0.4 ML SYR SUBQ SCH (09:01)
[2020-09-09] MEDS: ZINC SULF 220 MG CAP PO SCH ×2 (09:01→21:11)
[2020-09-09] MEDS: PROPOFOL 1000 MG/100 ML PREMIX 100 ML IV PRN (11:14)
[2020-09-09] MEDS: REMDESIVIR (EUA) 100 MG in NACL 0.9% 100 ML IV SCH (17:27)
[2020-09-09] MEDS: NOREPINEPHRINE 4 MG in DEXTROSE 5% 250 ML IV PRN (18:39)
--- NOTE | 2020-09-09 18:50 | NUR ---
No significant change from last assessment.Assissted with ADL< hourly rounding done . All orders reviewed and carried. Still on Levophed drip, continue to monitor.
--- NOTE | 2020-09-09 20:00 | NUR ---
RECEIVED PATIENT TRACH TO VENT. BREATHING EASILY, REPOSITIONED PER PROTOCOL. REMAINS IN ISOLATION FOR COVID-19. NO FEVER. NO PAIN NOTED.
[2020-09-09 21:45] LABS: BASOPHILS % (AUTO) 0.4 % (0.0-2.0); EOSINOPHILS # (AUTO) 0.1 K/uL (0-0.4); HEMATOCRIT 35.3 % (36-52); HEMOGLOBIN 11.9 g/dL (12.0-18.0); LYMPHOCYTES # (AUTO) 1.8 K/uL (2.0-11.5); LYMPHOCYTES % (AUTO) 18.6 % (20.5-51.1); MEAN CORPUSCULAR HEMOGLOBIN 31 pg (27-31); MEAN CORPUSCULAR HGB CONC 34 g/dL (33-37); MEAN CORPUSCULAR VOLUME 92.7 fL (80-94); MONOCYTES # (AUTO) 1.1 K/uL (0.8-1.0); MONOCYTES % (AUTO) 11.3 % (1.7-9.3); NEUTROPHILS # (AUTO) 6.6 K/uL (1.8-7.7); NEUTROPHILS % (AUTO) 68.7 % (42.2-75.2); PLATELET COUNT (AUTO) 321 K/uL (140-450); RED BLOOD CELL COUNT(AUTO) 3.81 MIL/uL (4.20-6.10); RED CELL DISTRIBUTION WIDTH 15.3 % (11.6-13.7); WHITE BLOOD COUNT (AUTO) 9.6 K/uL (4.8-10.8)
[2020-09-09 22:09] LABS: ALBUMIN 2.8 g/dL (3.4-5.0); ANION GAP 11.5 (8-16); CARBON DIOXIDE 23.9 mmol/L (21-32); CREATININE 0.5 mg/dL (0.6-1.3); TOTAL BILIRUBIN 1.1 mg/dL (0.0-1.0)
[2020-09-09 22:12] LABS: POTASSIUM 2.4 mmol/L (3.5-5.1)
--- NOTE | 2020-09-09 22:20 | NUR ---
RECEIVED A CRITICAL LAB VALUE: POTASSIUM 2.4. PHONE CALL PLACED TO DOCTOR WILL. DOCTOR'S EXCHANGE WILL NOTIFY DOCTOR CALIXTO.
[2020-09-09 22:22] LABS: MAGNESIUM 2.1 mg/dL (1.8-2.4); PHOSPHORUS 1.6 mg/dL (2.5-4.9)
--- NOTE | 2020-09-09 23:45 | NUR ---
DR DE LUNA RETURNED PHONE CALL AND AWARE OF PATIENT'S K+=2.4. NEW ORDER GIVEN AND CARRIED OUT.
[2020-09-10] VITALS (23 sets, daily range): BP systolic 92–142; BP diastolic 48–99
[2020-09-10] MEDS: DEXTROSE 5% 1,000 ML IV SCH ×2 (01:13→19:35)
[2020-09-10] MEDS: KCL 20 MEQ/WATER INJ PREMIX 200 ML IV SCH ×3 (01:18→11:07)
--- NOTE | 2020-09-10 06:00 | NUR ---
AT THIS TIME PATIENT RECEIVED 3 (THREE) BAGS OF POTASSIUM CHLORIDE 20MEQ EACH. ONE MORE BAG REMANING TO COMPLETE A TOTAL OF KCL OF 40 MEQ TIMES 2. [facility] DRAWN BY [employer] DESIGN ENGINEER,
[2020-09-10 06:21] LABS: BASOPHILS # (AUTO) 0.1 K/uL (0.00-0.22); BASOPHILS % (AUTO) 0.5 % (0.0-2.0); HEMATOCRIT 34.9 % (36-52); HEMOGLOBIN 11.7 g/dL (12.0-18.0); LYMPHOCYTES # (AUTO) 3.5 K/uL (2.0-11.5); MEAN CORPUSCULAR HEMOGLOBIN 31 pg (27-31); MEAN CORPUSCULAR HGB CONC 33 g/dL (33-37); MEAN CORPUSCULAR VOLUME 92.1 fL (80-94); MONOCYTES # (AUTO) 2.2 K/uL (0.8-1.0); MONOCYTES % (AUTO) 16.4 % (1.7-9.3); NEUTROPHILS # (AUTO) 7.7 K/uL (1.8-7.7); NEUTROPHILS % (AUTO) 57.1 % (42.2-75.2); PLATELET COUNT (AUTO) 330 K/uL (140-450); RED BLOOD CELL COUNT(AUTO) 3.79 MIL/uL (4.20-6.10); RED CELL DISTRIBUTION WIDTH 15.1 % (11.6-13.7); WHITE BLOOD COUNT (AUTO) 13.5 K/uL (4.8-10.8)
[2020-09-10] MEDS: NOREPINEPHRINE 4 MG in DEXTROSE 5% 250 ML IV PRN ×2 (06:27→18:06)
[2020-09-10 06:54] LABS: ALBUMIN 2.8 g/dL (3.4-5.0); ANION GAP 15.6 (8-16); CARBON DIOXIDE 20.6 mmol/L (21-32); CREATININE 0.3 mg/dL (0.6-1.3); POTASSIUM 3.2 mmol/L (3.5-5.1)
--- NOTE | 2020-09-10 07:30 | NUR ---
Received pt vented via ETT with FIO2 50%, on levophed drip and propofol drip , with GT intact connected to continuous feeding.
--- NOTE | 2020-09-10 07:35 | NUR ---
REC' PT ON PB840 VENT SETTINGS AC 18 VT450 PEEP 5 FIO2 40% ALARMS ON AND AUDIBLE AND VENT IS PLUGGED INTO RED OUTLET, SXN PT MODERATE AMT OF BLOODY SECRETIONS, B\S ARE COARSE BILATERALLY, BVM AT [facility] PT IS ORALLY INTUBATED WITH 7.5 ETT SECURED AT 23CM AND PT IS RESTING
[2020-09-10] MEDS: PROPOFOL 1000 MG/100 ML PREMIX 100 ML IV PRN (07:55)
[2020-09-10] MEDS: KCL 20 MEQ/WATER INJ PREMIX 200 ML IV PRN (07:59)
[2020-09-10] MEDS: ENOXAPARIN 40 MG/0.4 ML SYR SUBQ SCH (08:17)
[2020-09-10] MEDS: DOCUSATE SODIUM 100 MG GELCAP PO SCH (08:18)
[2020-09-10] MEDS: ASCORBIC ACID 500 MG TAB PO SCH ×2 (08:18→21:47)
[2020-09-10] MEDS: FAMOTIDINE 20 MG/2 ML VIAL IVP SCH ×2 (08:19→21:47)
[2020-09-10] MEDS: DEXAMETHASONE 4 MG/ML VIAL IVP SCH (08:20)
[2020-09-10] MEDS: ZINC SULF 220 MG CAP PO SCH ×2 (08:22→21:47)
--- NOTE | 2020-09-10 08:30 | NUR ---
4th bag of 20meq KCL infusing,
--- NOTE | 2020-09-10 10:00 | NUR ---
Repositiong done.and oral care done. GT feeding well tolerated.
--- NOTE | 2020-09-10 11:30 | NUR ---
Dr Leach here,seen pt,noted all parameters, K-3.2 ,informed Dr leach that another 20 meq KCL was given and he siad its ok.
[2020-09-10] MEDS: ALBUTEROL SULFATE/IPRATROPIU 3 ML SOL IH SCH ×2 (13:00→19:00)
[2020-09-10] MEDS: levETIRAcetam 100 MG/ML ORASYR GT SCH ×2 (13:22→21:47)
--- NOTE | 2020-09-10 16:25 | NUR ---
Double checked with the Pharmcist abt KCL and only 2 bags given out of 4 bags, .stat BMP ordered before giving the 3rd and 4th bag of kcl.
[2020-09-10] MEDS: REMDESIVIR (EUA) 100 MG in NACL 0.9% 100 ML IV SCH (17:01)
--- NOTE | 2020-09-10 18:28 | NUR ---
no significant change from last assessment.Assisted with ADL and hourly rounding done.All orders reviewed. VSS.
[2020-09-10 19:15] LABS: ANION GAP 14.4 (8-16); CARBON DIOXIDE 22.4 mmol/L (21-32); CREATININE 0.4 mg/dL (0.6-1.3); POTASSIUM 3.8 mmol/L (3.5-5.1)
[2020-09-11] VITALS (27 sets, daily range): BP systolic 85–130; BP diastolic 42–73
[2020-09-11] MEDS: ALBUTEROL SULFATE/IPRATROPIU 3 ML SOL IH SCH ×2 (01:00→07:00)
[2020-09-11] MEDS: PROPOFOL 1000 MG/100 ML PREMIX 100 ML IV PRN ×2 (04:04→23:18)
[2020-09-11 06:54] LABS: BASOPHILS % (AUTO) 0.3 % (0.0-2.0); EOSINOPHILS # (AUTO) 0.1 K/uL (0-0.4); EOSINOPHILS % (AUTO) 0.6 % (0.0-4.0); HEMATOCRIT 30.6 % (36-52); HEMOGLOBIN 10.4 g/dL (12.0-18.0); LYMPHOCYTES # (AUTO) 3.2 K/uL (2.0-11.5); LYMPHOCYTES % (AUTO) 30.9 % (20.5-51.1); MEAN CORPUSCULAR HEMOGLOBIN 32 pg (27-31); MEAN CORPUSCULAR HGB CONC 34 g/dL (33-37); MONOCYTES # (AUTO) 1.2 K/uL (0.8-1.0); MONOCYTES % (AUTO) 11.5 % (1.7-9.3); NEUTROPHILS # (AUTO) 5.8 K/uL (1.8-7.7); NEUTROPHILS % (AUTO) 56.7 % (42.2-75.2); PLATELET COUNT (AUTO) 218 K/uL (140-450); RED BLOOD CELL COUNT(AUTO) 3.25 MIL/uL (4.20-6.10); RED CELL DISTRIBUTION WIDTH 15.2 % (11.6-13.7); WHITE BLOOD COUNT (AUTO) 10.3 K/uL (4.8-10.8)
[2020-09-11] MEDS: levETIRAcetam 100 MG/ML ORASYR GT SCH ×3 (07:04→21:39)
[2020-09-11 08:22] LABS: ALBUMIN 2.6 g/dL (3.4-5.0); ANION GAP 14.1 (8-16); CARBON DIOXIDE 21.5 mmol/L (21-32); CREATININE 0.4 mg/dL (0.6-1.3); POTASSIUM 3.6 mmol/L (3.5-5.1); TOTAL BILIRUBIN 0.9 mg/dL (0.0-1.0)
[2020-09-11] MEDS: DEXTROSE 5% 1,000 ML IV SCH ×2 (08:55→13:29)
[2020-09-11] MEDS: ZINC SULF 220 MG CAP PO SCH ×2 (09:08→21:38)
[2020-09-11] MEDS: ASCORBIC ACID 500 MG TAB PO SCH ×2 (09:08→21:39)
[2020-09-11] MEDS: DEXAMETHASONE 4 MG/ML VIAL IVP SCH (09:09)
[2020-09-11] MEDS: FAMOTIDINE 20 MG/2 ML VIAL IVP SCH ×2 (09:09→21:35)
[2020-09-11] MEDS: DOCUSATE SODIUM 100 MG GELCAP PO SCH (09:09)
[2020-09-11] MEDS: ENOXAPARIN 40 MG/0.4 ML SYR SUBQ SCH (09:12)
--- NOTE | 2020-09-11 16:04 | NUR ---
09/11/20 RD FOLLOW UP COMPLETED PLEASE REFER TO NUTRITION ASSESSMENT UNDER CARE ACTIVITY FOR ESTIMATED NUTRITIONAL NEEDS. 1. CONTINUE VITAL 1.2 AF @ 40 ML/HR START AT 10 ML/HR AND INCREASE BY 10 ML/HR Q2H. THIS WILL PROVIDE 960 ML OF VOLUME, 778 ML OF WATER, 1152 KCAL AND 72 GM OF PROTEIN WHICH MEETS 100% OF ESTIMATED KCAL AND PROTEIN NEEDS. 2. CONTINUE FREE WATER FLUSH OF [address] TO FOLLOW-UP 2-3 DAYS, HIGH RISK LUCY VAZQUEZ RD
[2020-09-12] VITALS (27 sets, daily range): BP systolic 95–129; BP diastolic 52–78
[2020-09-12] MEDS: DEXTROSE 5% 1,000 ML IV SCH ×2 (04:49→19:07)
[2020-09-12] MEDS: levETIRAcetam 100 MG/ML ORASYR GT SCH ×3 (04:52→20:12)
[2020-09-12 06:03] LABS: BASOPHILS % (AUTO) 0.4 % (0.0-2.0); HEMATOCRIT 32.7 % (36-52); LYMPHOCYTES # (AUTO) 1.5 K/uL (2.0-11.5); LYMPHOCYTES % (AUTO) 14.9 % (20.5-51.1); MEAN CORPUSCULAR HEMOGLOBIN 31 pg (27-31); MEAN CORPUSCULAR HGB CONC 34 g/dL (33-37); MEAN CORPUSCULAR VOLUME 92.9 fL (80-94); MONOCYTES % (AUTO) 10.4 % (1.7-9.3); NEUTROPHILS # (AUTO) 7.5 K/uL (1.8-7.7); NEUTROPHILS % (AUTO) 74.3 % (42.2-75.2); PLATELET COUNT (AUTO) 280 K/uL (140-450); RED BLOOD CELL COUNT(AUTO) 3.52 MIL/uL (4.20-6.10); RED CELL DISTRIBUTION WIDTH 15.2 % (11.6-13.7); WHITE BLOOD COUNT (AUTO) 10.1 K/uL (4.8-10.8)
[2020-09-12 06:40] LABS: ALBUMIN 2.7 g/dL (3.4-5.0); ANION GAP 15.6 (8-16); CARBON DIOXIDE 21.7 mmol/L (21-32); CREATININE 0.4 mg/dL (0.6-1.3); POTASSIUM 3.3 mmol/L (3.5-5.1); TOTAL BILIRUBIN 0.8 mg/dL (0.0-1.0)
[2020-09-12] MEDS: ZINC SULF 220 MG CAP PO SCH ×2 (09:30→20:13)
[2020-09-12] MEDS: ENOXAPARIN 40 MG/0.4 ML SYR SUBQ SCH (09:31)
[2020-09-12] MEDS: FAMOTIDINE 20 MG/2 ML VIAL IVP SCH ×2 (09:31→20:13)
[2020-09-12] MEDS: DEXAMETHASONE 4 MG/ML VIAL IVP SCH (09:31)
[2020-09-12] MEDS: ASCORBIC ACID 500 MG TAB PO SCH ×2 (09:33→20:13)
[2020-09-12] MEDS: DOCUSATE SODIUM 100 MG GELCAP PO SCH (09:33)
--- NOTE | 2020-09-12 09:59 | NUR ---
Feeding held by weight shifter nurse, November, due to distended abdomen and no BM in more than 3 days. I talked to mother, Kamilah Burt; said patient usually has BM once every three days; she also said she gives him spository to help; I paged Dr Mayco Zavala. Waiting for call back
--- NOTE | 2020-09-12 11:08 | NUR ---
Dr Zavala here; told him about patient not having BM for more than three days also told him that mother said she gives patient suppository when no BM more than three days
[2020-09-12] MEDS ORDERED: MAGNESIUM HYDROXIDE 2400 MG/30 ML UDC PEG PRN (11:25)
[2020-09-12] MEDS ORDERED: DEXMEDETOMIDINE HCL 400 MCG in NACL 0.9% 96 ML IV PRN (11:50)
[2020-09-12] MEDS ORDERED: POTASSIUM CHLORIDE 20% 40 MEQ/15 ML UDC GT SCH (14:00)
[2020-09-12] MEDS: PROPOFOL 1000 MG/100 ML PREMIX 100 ML IV PRN (20:13)
[2020-09-13] VITALS (27 sets, daily range): BP systolic 101–139; BP diastolic 57–88
[2020-09-13] MEDS: levETIRAcetam 100 MG/ML ORASYR GT SCH ×3 (05:00→21:00)
[2020-09-13 06:33] LABS: BASOPHILS % (AUTO) 0.2 % (0.0-2.0); EOSINOPHILS % (AUTO) 0.1 % (0.0-4.0); HEMATOCRIT 33.4 % (36-52); HEMOGLOBIN 11.2 g/dL (12.0-18.0); LYMPHOCYTES # (AUTO) 3.4 K/uL (2.0-11.5); LYMPHOCYTES % (AUTO) 36.4 % (20.5-51.1); MEAN CORPUSCULAR HEMOGLOBIN 31 pg (27-31); MEAN CORPUSCULAR HGB CONC 34 g/dL (33-37); MEAN CORPUSCULAR VOLUME 92.8 fL (80-94); MONOCYTES # (AUTO) 1.4 K/uL (0.8-1.0); MONOCYTES % (AUTO) 15.2 % (1.7-9.3); NEUTROPHILS # (AUTO) 4.5 K/uL (1.8-7.7); NEUTROPHILS % (AUTO) 48.1 % (42.2-75.2); PLATELET COUNT (AUTO) 242 K/uL (140-450); RED CELL DISTRIBUTION WIDTH 15.2 % (11.6-13.7); WHITE BLOOD COUNT (AUTO) 9.4 K/uL (4.8-10.8)
[2020-09-13 06:57] LABS: ALBUMIN 2.9 g/dL (3.4-5.0); ANION GAP 13.8 (8-16); CARBON DIOXIDE 23.7 mmol/L (21-32); CREATININE 0.5 mg/dL (0.6-1.3); POTASSIUM 3.5 mmol/L (3.5-5.1)
--- NOTE | 2020-09-13 07:15 | NUR ---
RECEIVED REPORT FROM THE DESKTOP SUPPORT ENGINEER. PATIENT COMFORTABLE, ETT TO VENT, AC/VC FIO2 35, TD 350, RATE, 18, PEEP 5, SPO2 97. MIDLINE RIGHT FEMORAL, INFUSING PROPOFOL 5 MCG/KG/MIN, LEVOPHED 4 MCG/MIN, D5 75 ML/HR, G-TUBE IN PLACE, FREY IN PLACE, CIRCUIT COURT CLERK IN PLACE, SAFETY MEASURES IN PLACE, BED IN LOW POSITION, WILL CONTINUE TO MONITOR.
[2020-09-13] MEDS ORDERED: DOCUSATE 100 MG/10 ML UDC ONE (08:05)
[2020-09-13] MEDS: ASCORBIC ACID 500 MG TAB PO SCH ×2 (08:13→21:00)
[2020-09-13] MEDS: FAMOTIDINE 20 MG/2 ML VIAL IVP SCH ×2 (08:13→21:00)
[2020-09-13] MEDS: DEXAMETHASONE 4 MG/ML VIAL IVP SCH (08:13)
[2020-09-13] MEDS: ZINC SULF 220 MG CAP PO SCH ×2 (08:14→21:00)
[2020-09-13] MEDS: ENOXAPARIN 40 MG/0.4 ML SYR SUBQ SCH (08:14)
--- NOTE | 2020-09-13 08:15 | NUR ---
ADMINISTERED AM SCHEDULED MEDS, PROVIDED CHG BATH, HYGIENE CARE, FREY CARE, AND ORAL CARE, RIGHT FEMORAL MIDLINE CLEAN DRY AND INTACT, DRY WEIGHT 40 KG, INFUSING PROPOFOL, LEVOPHED, AND D5, G TUBE INTACT, FREY IN PLACE, SUPERVISOR DOCK IN PLACE, SAFETY MEASURES IN PLACE, BED IN LOW POSITION, WILL CONTINUE TO MONITOR.
[2020-09-13] MEDS: DOCUSATE 100 MG/10 ML UDC GT SCH (08:22)
[2020-09-13] MEDS: DEXTROSE 5% 1,000 ML IV SCH (10:55)
--- NOTE | 2020-09-13 11:05 | NUR ---
UPDATED DR. QUEVEDO ON PATIENTS FEEDING STATUS AND DISTENTION. PER DR. QUEVEDO, CONTINUE FEEDING AND MILK OF MAGNESIUM, AND CONTINUE TO MONITOR PATIENT.
--- NOTE | 2020-09-13 11:09 | NUR ---
DR. QUEVEDO ROUNDED AND UPDATED ON STATUS OF PATIENT.
--- NOTE | 2020-09-13 12:50 | NUR ---
G TUBE IN PLACE WITH NO RESIDUAL, INCREASED FEEDING FROM 10 L TO 20 ML, FLUSHED BEFORE AND AFTER, ADMINISTERED AFTERNOON MEDS, PATIENT COMFORTABLE, NO S/S OF PAIN, SAFETY MEASURES IN PLACE, BED IN LOW POSITION, WILL CONTINUE TO MONITOR.
[2020-09-13] MEDS: ALBUTEROL SULFATE/IPRATROPIU 3 ML SOL IH SCH ×2 (13:00→19:00)
--- NOTE | 2020-09-13 15:35 | NUR ---
RECOMMENDED JEVITY 1.2 @ 60 ML/HR X 16 HR. THIS WILL PROVIDE 960 ML OF VOLUME, 1152 KCAL AND 53 GM OF PROTEIN.
--- NOTE | 2020-09-13 15:50 | NUR ---
09/13/20 RD FOLLOW UP COMPLETED PLEASE REFER TO NUTRITION ASSESSMENT UNDER CARE ACTIVITY FOR ESTIMATED NUTRITIONAL NEEDS. 1. RECOMMEND JEVITY 1.2 @ 60 ML/HR X 16 HR. -PROVIDES 960 ML VOLUME, 774 ML OF H2O, 1152 KCAL AND 53 GM OF PROTEIN. 2. CONTINUE FREE WATER FLUSH OF [address] TO FOLLOW-UP 2-3 DAYS, HIGH RISK LUCY VAZQUEZ RD
--- NOTE | 2020-09-13 16:30 | NUR ---
CHANGED PATIENTS FEEDING PER DR. QUEVEDO ORDER, JEVITY 1.2 STARTING AT 10 ML, GOAL AT 60 ML, PROVIDED CHG BATH, FREY CARE, HYGIENE CARE. TURNED PATIENT. FREY CATH IN PLACE, YELLOW CLEAR URINE, EMPTIED FREY, SAMPLER PICKUP AND PULSE OXIMETER IN PLACE, SAFETY MEASURES IN PLACE, BED IN LOW POSITION.
--- NOTE | 2020-09-13 19:10 | NUR ---
TRANSFER TO ORTIZ CANCINO FOR CONTINUITY OF CARE. PATIENT RASS -3, FLACC 0, ETT TO VENT, AC/VC FIO2 32, RATE 18, PEEP 5, SP02 97, G-TUBE TO FEEDING, RUNNING JEVITY 1.2 AT 10ML. FREY CATH HANGING WITH YELLOW URINE, PATIENT IN COMFORTABLE POSITION, BODY SHOP WORKER IN PLACE, PULSE OXIMETER IN PLACE, SAFETY MEASURES IN PLACE, BED IN LOW POSITION. Addendum: 09/13/20 at 1923 by Elroy Pisano RN RN ENDORSED TO LITERACY TUTOR JULITA ALCANTAR FOR CONTINUITY OF CARE. PATIENT RASS -3, FLACC 0, ETT TO VENT, AC/VC FIO2 32, RATE 18, PEEP 5, SP02 97, G-TUBE TO FEEDING, RUNNING JEVITY 1.2 AT 10ML. RIGHT FEMORAL MIDLINE CLEAN DRY AND INTACT, FREY CATH HANGING WITH YELLOW URINE, PATIENT IN COMFORTABLE POSITION, BODY SHOP WORKER IN PLACE, PULSE OXIMETER IN PLACE, SAFETY MEASURES IN PLACE, BED IN LOW POSITION.
[2020-09-14] VITALS (26 sets, daily range): BP systolic 92–131; BP diastolic 48–83
[2020-09-14] MEDS: ALBUTEROL SULFATE/IPRATROPIU 3 ML SOL IH SCH ×4 (01:00→19:00)
[2020-09-14] MEDS: DEXTROSE 5% 1,000 ML IV SCH ×2 (03:35→10:41)
[2020-09-14] MEDS: levETIRAcetam 100 MG/ML ORASYR GT SCH ×3 (05:16→21:00)
[2020-09-14] MEDS: NOREPINEPHRINE 4 MG in DEXTROSE 5% 250 ML IV PRN (05:17)
[2020-09-14 06:47] LABS: BASOPHILS # (AUTO) 0.1 K/uL (0.00-0.22); BASOPHILS % (AUTO) 0.5 % (0.0-2.0); EOSINOPHILS % (AUTO) 0.1 % (0.0-4.0); HEMATOCRIT 34.3 % (36-52); HEMOGLOBIN 11.6 g/dL (12.0-18.0); LYMPHOCYTES # (AUTO) 4.2 K/uL (2.0-11.5); LYMPHOCYTES % (AUTO) 33.4 % (20.5-51.1); MEAN CORPUSCULAR HEMOGLOBIN 31 pg (27-31); MEAN CORPUSCULAR HGB CONC 34 g/dL (33-37); MEAN CORPUSCULAR VOLUME 92.1 fL (80-94); MONOCYTES # (AUTO) 1.7 K/uL (0.8-1.0); MONOCYTES % (AUTO) 13.2 % (1.7-9.3); NEUTROPHILS # (AUTO) 6.7 K/uL (1.8-7.7); NEUTROPHILS % (AUTO) 52.8 % (42.2-75.2); PLATELET COUNT (AUTO) 278 K/uL (140-450); RED BLOOD CELL COUNT(AUTO) 3.72 MIL/uL (4.20-6.10); WHITE BLOOD COUNT (AUTO) 12.6 K/uL (4.8-10.8)
--- NOTE | 2020-09-14 07:25 | NUR ---
RECEIVED BEDSIDE REPORT FROM INFORMATION SYSTEMS ADMINISTRATOR NURSE ORTIZ RN, PT SEDATED RASS -3, DRY WEIGHT 40KG, PT ON ETT TO VENT, ACVC FIO2 32%, RATE 18, PEEP 5, NO SOB NOTED SATURATING @ 98%. RIGHT FEMORAL CENTRAL LINE TRIPLE LUMEN, PATENT INTACT, INFUSING PROPOFOL @ 5MCG/KG/MIN, LEVOPHED @ 2MCG/MIN, INFUSING WELL, G TUBE IN PLACE WITH FEEDING , FREY CATH IN PLACE DRAINING TO GRAVITY. INITIAL ASSESSMENT DONE, ALL SAFETY PRECAUTION MET, CALL LIGHT WITHIN REACH, WILL CONTINUE TO MONITOR.
[2020-09-14 07:55] LABS: ALBUMIN 3.2 g/dL (3.4-5.0); ANION GAP 12.7 (8-16); CARBON DIOXIDE 23.6 mmol/L (21-32); POTASSIUM 3.3 mmol/L (3.5-5.1); TOTAL BILIRUBIN 1.2 mg/dL (0.0-1.0)
[2020-09-14 08:26] LABS: CREATININE 0.4 mg/dL (0.6-1.3)
[2020-09-14] MEDS: DOCUSATE 100 MG/10 ML UDC GT SCH (09:28)
[2020-09-14] MEDS: DEXAMETHASONE 4 MG/ML VIAL IVP SCH (09:29)
[2020-09-14] MEDS: ASCORBIC ACID 500 MG TAB PO SCH ×2 (09:29→21:00)
[2020-09-14] MEDS: ZINC SULF 220 MG CAP PO SCH ×2 (09:29→21:00)
[2020-09-14] MEDS: FAMOTIDINE 20 MG/2 ML VIAL IVP SCH ×2 (09:29→21:00)
[2020-09-14] MEDS: ENOXAPARIN 40 MG/0.4 ML SYR SUBQ SCH (09:31)
--- NOTE | 2020-09-14 11:20 | NUR ---
NOTIFIED DR QUEVEDO REGARDING PT PARENTS WANTS TO TALK TO HIM FOR UPDATES AND PLAN OF CARE, STATED UNDERSTANDING.
[2020-09-14] MEDS: POTASSIUM CHLORIDE 10 MEQ TABER PO PRN (13:26)
--- NOTE | 2020-09-14 19:26 | NUR ---
ENDORSED PT TO SCRIPT COORDINATOR NURSE FOR CONTINUOS OF CARE.
[2020-09-15] VITALS (28 sets, daily range): BP systolic 89–159; BP diastolic 47–128
--- NOTE | 2020-09-15 02:00 | NUR ---
CHANGED PTS ANCHORFAST TUBE SECUREMENT DEVICE, TUBE MAINTAINED AT 23 CM @ THE LIP OF THE PT. WILL CONTINUE TO MONITOR
[2020-09-15] MEDS: levETIRAcetam 100 MG/ML ORASYR GT SCH ×3 (04:59→20:27)
[2020-09-15] MEDS: DEXTROSE 5% 1,000 ML IV SCH ×2 (06:15→19:35)
[2020-09-15 06:41] LABS: ALBUMIN 3.4 g/dL (3.4-5.0); ANION GAP 17.2 (8-16); CARBON DIOXIDE 21.4 mmol/L (21-32); CREATININE 0.3 mg/dL (0.6-1.3); POTASSIUM 3.6 mmol/L (3.5-5.1); TOTAL BILIRUBIN 1.1 mg/dL (0.0-1.0)
--- NOTE | 2020-09-15 08:28 | NUR ---
RECEIVED ON A PB 840 VENTILATOR PLUGGED INTO RED OUTLET TOLERATING WELL WITHOUT ADVERSE REACTIONS NOTED TO AN ENDOTRACHEAL TUBE #7.5 SECURED AT 23cm TEETH/GUM LINE WITH AN ANCHOR FAST CUFF PRESSURE CHECKED NOTED AMBU BAG AT BEDSIDE LOC AWAKE STABLE EQUAL CHEST RISE ENDOTRAC HE SUCTION FOR LARGE SEMI THICK WHITE SECRETIONS AIRWAY PATENT
[2020-09-15 08:47] LABS: BASOPHILS % (AUTO) 0.4 % (0.0-2.0); EOSINOPHILS % (AUTO) 0.2 % (0.0-4.0); HEMATOCRIT 35.5 % (36-52); HEMOGLOBIN 11.9 g/dL (12.0-18.0); LYMPHOCYTES # (AUTO) 2.6 K/uL (2.0-11.5); LYMPHOCYTES % (AUTO) 26.4 % (20.5-51.1); MEAN CORPUSCULAR HEMOGLOBIN 31 pg (27-31); MEAN CORPUSCULAR HGB CONC 34 g/dL (33-37); MEAN CORPUSCULAR VOLUME 92.8 fL (80-94); MONOCYTES # (AUTO) 1.5 K/uL (0.8-1.0); MONOCYTES % (AUTO) 15.1 % (1.7-9.3); NEUTROPHILS # (AUTO) 5.6 K/uL (1.8-7.7); NEUTROPHILS % (AUTO) 57.9 % (42.2-75.2); PLATELET COUNT (AUTO) 276 K/uL (140-450); RED BLOOD CELL COUNT(AUTO) 3.83 MIL/uL (4.20-6.10); RED CELL DISTRIBUTION WIDTH 15.1 % (11.6-13.7); WHITE BLOOD COUNT (AUTO) 9.7 K/uL (4.8-10.8)
[2020-09-15] MEDS: DOCUSATE 100 MG/10 ML UDC GT SCH (08:59)
[2020-09-15] MEDS: DEXAMETHASONE 4 MG/ML VIAL IVP SCH (08:59)
[2020-09-15] MEDS: ASCORBIC ACID 500 MG TAB PO SCH ×2 (09:00→20:27)
[2020-09-15] MEDS: FAMOTIDINE 20 MG/2 ML VIAL IVP SCH ×2 (09:00→20:27)
[2020-09-15] MEDS: ZINC SULF 220 MG CAP PO SCH ×2 (09:00→20:27)
[2020-09-15] MEDS: ENOXAPARIN 40 MG/0.4 ML SYR SUBQ SCH (09:01)
--- NOTE | 2020-09-15 09:34 | NUR ---
CHECKED OGT RESIDUAL RECEIVED 20 ML WHITE RESIDUAL, ADMINISTERED SCHEDULED AM MEDS VIA OGT AND SUBQ, FLUSHED BEFORE AND AFTER MEDS. PROVIDED HYGIENE CARE, AND REPOSITIONED PATIENT, OFFLOADED PRESSURE WITH PILLOWS. PATIENT TOLERATED FAIR. PATIENT'S BOTH EYES OPEN, FLACC 0. RESPIRATION EVEN AND UNLABORED ON ETT TO VENT, FIO2 AT 97% AT THIS TIME. CONTINUED ON G-TUBE FEEDING JEVITY 1.2 AT 60 ML/HR. SAFETY MEASURES IN PLACE. BED IN LOW POSITION, HOB ELEVATED 35 DEGREE AND BED LOCKED.
--- NOTE | 2020-09-15 11:56 | NUR ---
ORAL CARE PROVIDED, PATIENT TOLERATED FAIR, FLACC 0. RESPIRATION EVEN AND UNLABORED ON ETT TO VENT, SPO2 AT 96%. REPOSITIONED PATIENT, AND PILLOWS USED TO OFFLOADED PRESSURE. SAFETY MEASURES IN PLACE. BED IN LOW POSITION, HOB ELEVATED 35 DEGREE AND BED LOCKED.
--- NOTE | 2020-09-15 13:05 | NUR ---
SCHEDULED KEPPRA GIVEN VIA G-TUBE, FLUSHED BEFORE AND AFTER MED.
--- NOTE | 2020-09-15 13:15 | NUR ---
FAMILY IS SEEING PATIENT FROM WINDOW-SIDE FROM [place].
--- NOTE | 2020-09-15 13:30 | NUR ---
DR BARTH IS ROUNDING ON PATIENT.
--- NOTE | 2020-09-15 13:45 | NUR ---
CLEANSED G-TUBE SITE, PAD DRY, CHANGED DRESSING ON G-TUBE. PATIENT TOLERATED FAIR. FLACC 0. SAFETY MEASURES IN PLACE.
--- NOTE | 2020-09-15 14:14 | NUR ---
RESTING WELL NO EVIDENCE OF RESPIRATORY DISTRESS NOTED EQUAL CHEST RISE ENDOTRACHEAL SUCTION FOR MODERATE SEMI THICK PALE YELLOW SECRETIONS AIRWAY PATENT
--- NOTE | 2020-09-15 15:42 | NUR ---
STARTED A NEW BOTTLE OF G-TUBE FEEDING JEVITY AT 60 ML/HR, WATER FLUSH 150 ML/Q8H. CHANGED ALL TUBING. REPOSITIONED PATIENT, OFFLOADED PRESSURE WITH PILLOWS, POSITIONED PATIENT COMFORTABLY. SAFETY MEASURES IN PLACE. BED IN LOW POSITION AND HOB ELEVATED 35 DEGREE.
--- NOTE | 2020-09-15 19:23 | NUR ---
ENDORSED TO ENVIRONMENTAL ANALYST NURSE ORTIZ FOR CONTINUITY OF CARE. SAFETY MEASURES IN PLACE.
[2020-09-16] VITALS (33 sets, daily range): BP systolic 92–149; BP diastolic 59–106
[2020-09-16] MEDS: NOREPINEPHRINE 4 MG in DEXTROSE 5% 250 ML IV PRN (05:51)
[2020-09-16] MEDS: levETIRAcetam 100 MG/ML ORASYR GT SCH ×3 (05:51→20:51)
[2020-09-16 07:08] LABS: ALBUMIN 3.1 g/dL (3.4-5.0); CREATININE 0.4 mg/dL (0.6-1.3); POTASSIUM 3.9 mmol/L (3.5-5.1); TOTAL BILIRUBIN 0.8 mg/dL (0.0-1.0)
--- NOTE | 2020-09-16 07:15 | NUR ---
RECEIVED REPORT FROM REEFER TRUCK DRIVER, ORTIZ RN, FOR CONTINUITY OF CARE, ETT TO VENT, AC/VC FIO2 24, RATE 18, PEEP 5, G-TUBE IN PLACE RUNNING JEVITY AT 60ML, FREY CATH IN PLACE, WITH AMAYA CLEAR URINE IN BAG, INDUSTRIAL TRUCK DRIVER IN PLACE, PULSE OXIMETER IN PLACE, SAFETY MEASURES IN PLACE, WILL CONTINUE TO MONITOR.
[2020-09-16] MEDS: ALBUTEROL SULFATE/IPRATROPIU 3 ML SOL IH SCH ×3 (07:30→13:27)
[2020-09-16] MEDS: DEXAMETHASONE 4 MG/ML VIAL IVP SCH (08:03)
[2020-09-16] MEDS: DOCUSATE 100 MG/10 ML UDC GT SCH (08:03)
[2020-09-16] MEDS: ASCORBIC ACID 500 MG TAB PO SCH ×2 (08:04→20:51)
[2020-09-16] MEDS: ZINC SULF 220 MG CAP PO SCH ×2 (08:04→20:51)
[2020-09-16] MEDS: FAMOTIDINE 20 MG/2 ML VIAL IVP SCH ×2 (08:04→20:51)
[2020-09-16] MEDS: ENOXAPARIN 40 MG/0.4 ML SYR SUBQ SCH (08:05)
--- NOTE | 2020-09-16 08:05 | NUR ---
ADMINISTERED SCHEDULED AM MEDS, CHECKED RESIDUAL ON G-TUBE, 10 ML, FLUSHED BEFORE AND AFTER, JEVITY RUNNING AT 60ML, FREY CARE, HYGIENE CARE, ORAL CARE, AND CHG BATH PROVIDED, PATIENT IN COMFORTABLE POSITION, MAINTENANCE MAN IN PLACE, PULSE OXIMETER IN PLACE, SAFETY MEASURES IN PLACE, BED IN LOW POSITION, WILL CONTINUE TO MONITOR.
[2020-09-16 08:12] LABS: ANION GAP 14.3 (8-16); CARBON DIOXIDE 23.6 mmol/L (21-32)
[2020-09-16 08:33] LABS: BASOPHILS # (AUTO) 0.1 K/uL (0.00-0.22); BASOPHILS % (AUTO) 0.5 % (0.0-2.0); EOSINOPHILS % (AUTO) 0.2 % (0.0-4.0); HEMATOCRIT 34.7 % (36-52); HEMOGLOBIN 11.6 g/dL (12.0-18.0); LYMPHOCYTES # (AUTO) 2.8 K/uL (2.0-11.5); LYMPHOCYTES % (AUTO) 24.5 % (20.5-51.1); MEAN CORPUSCULAR HEMOGLOBIN 31 pg (27-31); MEAN CORPUSCULAR HGB CONC 34 g/dL (33-37); MEAN CORPUSCULAR VOLUME 92.1 fL (80-94); MONOCYTES # (AUTO) 1.7 K/uL (0.8-1.0); MONOCYTES % (AUTO) 14.6 % (1.7-9.3); NEUTROPHILS # (AUTO) 6.9 K/uL (1.8-7.7); NEUTROPHILS % (AUTO) 60.2 % (42.2-75.2); PLATELET COUNT (AUTO) 244 K/uL (140-450); RED BLOOD CELL COUNT(AUTO) 3.76 MIL/uL (4.20-6.10); RED CELL DISTRIBUTION WIDTH 14.7 % (11.6-13.7); WHITE BLOOD COUNT (AUTO) 11.4 K/uL (4.8-10.8)
[2020-09-16] MEDS: DEXTROSE 5% 1,000 ML IV SCH ×2 (08:55→22:36)
--- NOTE | 2020-09-16 10:01 | NUR ---
DR BARTH IS ROUNDING ON PATIENT. ORDERED CPAP TRAIL FOR 24 HOURS AND KEEP BP MAP ABOVE OR ON 60.
--- NOTE | 2020-09-16 12:05 | NUR ---
ADMINISTERED SCHEDULED AFTERNOON MEDS, CHECKED G-TUBE RESIDUAL, NO RESIDUAL, FLUSHED BEFORE AND AFTER, G-TUBE IN PLACE, FREY IN PLACE, AIRCRAFT ELECTRICAL SYSTEMS SPECIALIST IN PLACE, PULSE OXIMETER IN PLACE, SAFETY MEASURES IN PLACE, PATIENT REPOSITIONED, BED IN LOW POSITION, WILL CONTINUE TO MONITOR.
--- NOTE | 2020-09-16 14:19 | NUR ---
FAMILY IS SEEING PATIENT BY WINDOW-SIDE FROM [place]. UPDATED THEM WITH PATIENT'S CURRENT CONDITION, BOTH PARENTS ARE AWARE.
--- NOTE | 2020-09-16 16:04 | NUR ---
09/16/20 RD FOLLOW UP COMPLETED PLEASE REFER TO NUTRITION PROGRESS NOTES UNDER CARE ACTIVITY FOR ESTIMATED NUTRITIONAL NEEDS. RD RECOMMENDATIONS: 1. RECOMMEND CONTINUE JEVITY 1.2 @ 60 ML/HR X 16 HR. -PROVIDES 960 ML VOLUME, 774 ML OF H2O, 1152 KCAL AND 53 GM OF PROTEIN; SUFFICIENT TO MEET 100% ESTIMATED NEEDS. 2. CONTINUE FREE WATER FLUSH OF [address] TO FOLLOW-UP 2-3 DAYS, HIGH RISK TAMARA BECERRIL MBA, RD
--- NOTE | 2020-09-16 16:35 | NUR ---
PATIENT'S MOTHER CALLED REQUEST THAT DOCTOR CALL HER BEFORE WEENING OFF VENT. WILL ENDORSE TO NIGHT NURSE.
--- NOTE | 2020-09-16 19:22 | NUR ---
ENDORSED CONTINUITY OF CARE TO ORTIZ CANCINO. VICE PRESIDENT OF CONTRACTS IN PLACE, PULSE OXIMETER IN PLACE, FREY IN PLACE, PATIENT IN A COMFORTABLE POSITION, SAFETY MEASURES IN PLACE, BED IN LOW POSITION.
--- NOTE | 2020-09-16 19:35 | NUR ---
RECEIVED REPORT FROM DAY NURSE, ETT TO VENT, PT SEDATED ON PROPOFOL DRIP. AC/VC FIO2 24, RATE 18, PEEP 5. SB 50S ON MONITOR. PALPABLE PULSES. ABD SOFT ROUND HYPOACTIVE BOWEL SOUNDS. G-TUBE IN PLACE RUNNING JEVITY, FREY CATH IN PLACE, AMAYA URINE NOTED, SKIN INTACT; REDNESS TO GT SITE. R FEMORAL IV PATENT IN PLACE. SAFETY PRECAUTIONS IN PLACE, WILL CONTINUE TO OBSERVE.
[2020-09-17] VITALS (30 sets, daily range): BP systolic 84–159; BP diastolic 55–109
--- NOTE | 2020-09-17 05:10 | NUR ---
REINTUBATED DUE TO LEAK IN ETT CUFF. PT TOLERATED WELL, VT IN WNL.
--- NOTE | 2020-09-17 05:10 | NUR ---
ETT IS AT 24 LIP LINE, PENDING X-RAY CONFIRMATION.
[2020-09-17] MEDS: levETIRAcetam 100 MG/ML ORASYR GT SCH ×3 (05:46→20:08)
[2020-09-17] MEDS: PROPOFOL 1000 MG/100 ML PREMIX 100 ML IV PRN (05:47)
[2020-09-17 06:23] LABS: BASOPHILS % (AUTO) 0.3 % (0.0-2.0); EOSINOPHILS % (AUTO) 0.4 % (0.0-4.0); HEMATOCRIT 33.1 % (36-52); HEMOGLOBIN 11.2 g/dL (12.0-18.0); LYMPHOCYTES % (AUTO) 28.1 % (20.5-51.1); MEAN CORPUSCULAR HEMOGLOBIN 31 pg (27-31); MEAN CORPUSCULAR HGB CONC 34 g/dL (33-37); MEAN CORPUSCULAR VOLUME 92.6 fL (80-94); MONOCYTES # (AUTO) 0.7 K/uL (0.8-1.0); MONOCYTES % (AUTO) 9.8 % (1.7-9.3); NEUTROPHILS # (AUTO) 4.3 K/uL (1.8-7.7); NEUTROPHILS % (AUTO) 61.4 % (42.2-75.2); PLATELET COUNT (AUTO) 209 K/uL (140-450); RED BLOOD CELL COUNT(AUTO) 3.58 MIL/uL (4.20-6.10); RED CELL DISTRIBUTION WIDTH 14.7 % (11.6-13.7)
[2020-09-17 07:00] LABS: ANION GAP 15.1 (8-16); CARBON DIOXIDE 23.3 mmol/L (21-32); CREATININE 0.4 mg/dL (0.6-1.3); POTASSIUM 3.4 mmol/L (3.5-5.1); TOTAL BILIRUBIN 0.6 mg/dL (0.0-1.0)
[2020-09-17] MEDS: ALBUTEROL SULFATE/IPRATROPIU 3 ML SOL IH SCH ×3 (07:10→20:00)
--- NOTE | 2020-09-17 07:40 | NUR ---
received pt ,vented via ETT, saturating well,not in distress., on Propofol drip,with GT intact for continuo feeding,well tolerated.VSS
[2020-09-17] MEDS: FAMOTIDINE 20 MG/2 ML VIAL IVP SCH ×2 (08:12→20:08)
[2020-09-17] MEDS: DEXAMETHASONE 4 MG/ML VIAL IVP SCH (08:12)
[2020-09-17] MEDS: ZINC SULF 220 MG CAP PO SCH ×2 (08:13→20:08)
[2020-09-17] MEDS: ASCORBIC ACID 500 MG TAB PO SCH ×2 (08:13→20:08)
[2020-09-17] MEDS: ENOXAPARIN 40 MG/0.4 ML SYR SUBQ SCH (08:14)
[2020-09-17] MEDS: POTASSIUM CHLORIDE 10 MEQ TABER PO PRN (08:16)
--- NOTE | 2020-09-17 10:20 | NUR ---
Dr nuñez here,seen pt,noted all parameters,with orders to the RT to change the vent setting
[2020-09-17] MEDS: DEXTROSE 5% 1,000 ML IV SCH (11:35)
[2020-09-17] MEDS: DOCUSATE 100 MG/10 ML UDC GT SCH (12:53)
--- NOTE | 2020-09-17 15:12 | NUR ---
Pt mother called, update given on her by phone, came earlier thru the window to see her son.
--- NOTE | 2020-09-17 19:11 | NUR ---
surge documentation end of shift no significant change from last assessment.Assisted with ADL and hourly rounding done.All orders reviewed and carried out.
[2020-09-18] VITALS (32 sets, daily range): BP systolic 114–169; BP diastolic 65–98
[2020-09-18] MEDS: DEXTROSE 5% 1,000 ML IV SCH ×2 (00:55→16:00)
[2020-09-18] MEDS: ALBUTEROL SULFATE/IPRATROPIU 3 ML SOL IH SCH (02:07)
[2020-09-18] MEDS: levETIRAcetam 100 MG/ML ORASYR GT SCH ×3 (05:00→21:02)
[2020-09-18 06:44] LABS: ALBUMIN 3.3 g/dL (3.4-5.0); ANION GAP 17.4 (8-16); CARBON DIOXIDE 23.5 mmol/L (21-32); CREATININE 0.4 mg/dL (0.6-1.3); POTASSIUM 3.9 mmol/L (3.5-5.1); TOTAL BILIRUBIN 0.8 mg/dL (0.0-1.0)
--- NOTE | 2020-09-18 07:15 | NUR ---
RECEIVED PT AWAKE AND ON PROPOFOL DRIP NON-VERBAL BUT FOLLOW SIMPLE COMMAND.W/ PATENT CENTRAL LINE CATHETER (3 LUMEN) W/ ON GOING VENOCLYSIS OF D5W @ 75 ML/HR. ORAL CARE RENDERED AND SUCTIONING OF ORAL AND VIA ET TUBE DONE.REPOSITIONED AND MAINTAINED ON 30 DEGREES HOB TO FACILITATE EASY BREATHING AND PREVENT ASPIRATION.
[2020-09-18] MEDS: DOCUSATE 100 MG/10 ML UDC GT SCH (08:49)
[2020-09-18] MEDS: DEXAMETHASONE 4 MG/ML VIAL IVP SCH (08:50)
[2020-09-18] MEDS: FAMOTIDINE 20 MG/2 ML VIAL IVP SCH ×2 (08:50→21:02)
[2020-09-18] MEDS: ZINC SULF 220 MG CAP PO SCH ×2 (08:51→21:02)
[2020-09-18] MEDS: ASCORBIC ACID 500 MG TAB PO SCH ×2 (08:51→21:02)
[2020-09-18] MEDS: ENOXAPARIN 40 MG/0.4 ML SYR SUBQ SCH (08:52)
--- NOTE | 2020-09-18 14:00 | NUR ---
HAD A LARGE WELL-FORMED BROWNISH COLORED STOOL. COMPLETE BED BATH DONE ORAL CARE RENDERED AND SUCTIONED SECRETIONS AFTER. REPOSITIONED AND MAINTAINED ON 30 DEGREES HOB TO FACILITATE EASY BREATHING AND PREVENT ASPIRATION.PT SLEPT AFTER.
--- NOTE | 2020-09-18 18:41 | NUR ---
ALL NEEDS ATTENDED AND MET DURING THE SHIFT.PT CONDITION UNCHANGED.W/ PATENT CONTRAPTIONS.MILDLY SEDATED.TO BE ENDORSED TO JULITA DUPONT FOR CONTINUITY OF CARE.
--- NOTE | 2020-09-18 19:45 | NUR ---
RECEIVED REPORT FROM DAY NURSE, ETT TO VENT, PT SEDATED ON PROPOFOL DRIP. PT ON CPAP MODE PER MD ORDERS.. SB 50S ON MONITOR. PALPABLE PULSES. ABD SOFT ROUND HYPOACTIVE BOWEL SOUNDS. G-TUBE IN PLACE RUNNING JEVITY, FREY CATH IN PLACE, AMAYA URINE NOTED, SKIN INTACT; REDNESS TO GT SITE. R FEMORAL IV PATENT IN PLACE. SAFETY PRECAUTIONS IN PLACE, WILL CONTINUE TO OBSERVE.
[2020-09-19] VITALS (27 sets, daily range): BP systolic 110–161; BP diastolic 63–99
--- NOTE | 2020-09-19 01:04 | NUR ---
PT RETURNED TO PREV VC+ SETTINGS ON VENT DUE TO INCREASED HEART RATE, SPO2 DROPPED TO 86%, AND RR WAS IN MID 30s AFTER A FEW MINS PT HR 94 SPO2 99% RR 27. WILL CONTINUE TO MONITOR
[2020-09-19 05:38] LABS: BASOPHILS % (AUTO) 0.4 % (0.0-2.0); EOSINOPHILS % (AUTO) 0.2 % (0.0-4.0); HEMATOCRIT 33.7 % (36-52); HEMOGLOBIN 11.2 g/dL (12.0-18.0); LYMPHOCYTES # (AUTO) 2.1 K/uL (2.0-11.5); LYMPHOCYTES % (AUTO) 22.8 % (20.5-51.1); MEAN CORPUSCULAR HEMOGLOBIN 31 pg (27-31); MEAN CORPUSCULAR HGB CONC 33 g/dL (33-37); MEAN CORPUSCULAR VOLUME 93.6 fL (80-94); MONOCYTES # (AUTO) 1.6 K/uL (0.8-1.0); MONOCYTES % (AUTO) 17.7 % (1.7-9.3); NEUTROPHILS # (AUTO) 5.4 K/uL (1.8-7.7); NEUTROPHILS % (AUTO) 58.9 % (42.2-75.2); PLATELET COUNT (AUTO) 206 K/uL (140-450); RED BLOOD CELL COUNT(AUTO) 3.61 MIL/uL (4.20-6.10); RED CELL DISTRIBUTION WIDTH 14.7 % (11.6-13.7); WHITE BLOOD COUNT (AUTO) 9.1 K/uL (4.8-10.8)
[2020-09-19 06:04] LABS: ANION GAP 9.9 (8-16); CARBON DIOXIDE 29.3 mmol/L (21-32); CREATININE 0.4 mg/dL (0.6-1.3); POTASSIUM 4.2 mmol/L (3.5-5.1)
--- NOTE | 2020-09-19 07:05 | NUR ---
RECEIVED PT. AWAKE DOES FOLLOW SIMPLE COMMAND.W/ PROPOFOL DRIP @ 5MCG/KG/MIN.NO FACIAL GRIMACES SEEN.
[2020-09-19] MEDS: ALBUTEROL SULFATE/IPRATROPIU 3 ML SOL IH SCH ×3 (07:43→19:00)
--- NOTE | 2020-09-19 07:43 | NUR ---
REC'D PT ON PB840 VENT SETTINGS AC 18 VT 450 PEEP 5 FIO2 24% ALARMS ON AND AUDIBLE AND VENT IS PLUGGED INTO RED OUTLET, I\L TX GIVEN WITH DUONEB 3ML WITH NO ADVERSE REACTION POST TX B\S ARE RHONCHI BILATERALLY, SXN PT SMALL AMT OF CREAM COLOR SECRETIONS, PT IS ORALLY INTUBATED WITH 7.5 ETT AT 24CM AT 0723 PT WAS PLACED ON CPAP 5 PS 12 WILL CONTINUE TO MONITOR PT
[2020-09-19] MEDS: DOCUSATE 100 MG/10 ML UDC GT SCH (09:38)
[2020-09-19] MEDS: FAMOTIDINE 20 MG/2 ML VIAL IVP SCH ×2 (09:39→20:46)
[2020-09-19] MEDS: DEXAMETHASONE 4 MG/ML VIAL IVP SCH (09:39)
[2020-09-19] MEDS: ASCORBIC ACID 500 MG TAB PO SCH ×2 (09:39→20:46)
[2020-09-19] MEDS: ZINC SULF 220 MG CAP PO SCH ×2 (09:40→20:46)
--- NOTE | 2020-09-19 10:31 | NUR ---
VISITED AND EXAMINED BY DR. ZHENG W/ ORDERS NOTED AND CARRIED OUT. RT BRANDAN CALLED AND EXTUBATED PT.@1040. PLACED ON 3 L/MIN KEPT ON CLOSE WATCH. PT BREATHING SPONTANEOUS. NOT IN RESP. DISTRESS.
--- NOTE | 2020-09-19 10:40 | NUR ---
PT EXTUBATED PER DR. BARTH AND PLACED ON 3LNC AND VENT IS ON STANDBY FOR 12 HOURS
[2020-09-19] MEDS: levETIRAcetam 100 MG/ML ORASYR GT SCH ×2 (13:00→20:47)
--- NOTE | 2020-09-19 13:33 | NUR ---
no hhn tx given due to covid 19 protocol
--- NOTE | 2020-09-19 15:00 | NUR ---
COMPLETE BED BATH DONE. REPOSITIONED AND MAINTAINED ON 30 DEGREES HOB @ ALL TIMES.
--- NOTE | 2020-09-19 16:04 | NUR ---
09/19/20 RD FOLLOW UP COMPLETED PLEASE REFER TO NUTRITION ASSESSMENT UNDER CARE ACTIVITY FOR ESTIMATED NUTRITIONAL NEEDS. 1. CONT. JEVITY 1.2 @ 60 ML/HR X 16 HR. -PROVIDES 960 ML VOLUME, 774 ML OF H2O, 1152 KCAL AND 53 GM OF PROTEIN. 2. CONT. FREE WATER FLUSH OF [address] TO FOLLOW-UP 2-3 DAYS, HIGH RISK LUCY VAZQUEZ RD
--- NOTE | 2020-09-19 18:16 | NUR ---
ALL NEEDS ATTENDED AND MET DURING THE SHIFT. NOT IN ANY FORM OF DISTRESS. ON 3L/MIN O2 SATURATING 96-99%.CONDITION IMPROVED,TO BE ENDORSED TO INCOMING SECOND CLASS WELDERROCK CLIMBING INSTRUCTOR FOR CONTINUITY OF CARE.
[2020-09-20] VITALS (14 sets, daily range): BP systolic 123–153; BP diastolic 64–98
[2020-09-20] MEDS: ALBUTEROL SULFATE/IPRATROPIU 3 ML SOL IH SCH ×4 (01:00→19:00)
[2020-09-20] MEDS ORDERED: Z-GUARD PASTE TP ONE (04:48)
[2020-09-20] MEDS: DEXTROSE 5% 1,000 ML IV SCH ×3 (05:22→21:06)
[2020-09-20] MEDS: levETIRAcetam 100 MG/ML ORASYR GT SCH ×3 (05:30→21:04)
[2020-09-20 06:22] LABS: ANION GAP 12.5 (8-16); CARBON DIOXIDE 29.1 mmol/L (21-32); CREATININE 0.5 mg/dL (0.6-1.3); POTASSIUM 3.6 mmol/L (3.5-5.1)
[2020-09-20 06:57] LABS: BASOPHILS % (AUTO) 0.1 % (0.0-2.0); HEMATOCRIT 37.2 % (36-52); HEMOGLOBIN 12.3 g/dL (12.0-18.0); LYMPHOCYTES # (AUTO) 1.5 K/uL (2.0-11.5); LYMPHOCYTES % (AUTO) 16.3 % (20.5-51.1); MEAN CORPUSCULAR HEMOGLOBIN 31 pg (27-31); MEAN CORPUSCULAR HGB CONC 33 g/dL (33-37); MEAN CORPUSCULAR VOLUME 92.8 fL (80-94); MONOCYTES # (AUTO) 1.7 K/uL (0.8-1.0); MONOCYTES % (AUTO) 17.8 % (1.7-9.3); NEUTROPHILS # (AUTO) 6.1 K/uL (1.8-7.7); NEUTROPHILS % (AUTO) 65.8 % (42.2-75.2); PLATELET COUNT (AUTO) 222 K/uL (140-450); RED CELL DISTRIBUTION WIDTH 14.2 % (11.6-13.7); WHITE BLOOD COUNT (AUTO) 9.3 K/uL (4.8-10.8)
--- NOTE | 2020-09-20 07:45 | NUR ---
RECEIVED REPORT FROM TAKER OFF DRYING KILN NURSE. PATIENT EXTUBATED YESTERDAY, CURRENTLY ON O2 3L/MIN VIA NC WITH O2 SAT 98%. PATIENT IN STABLE CONDITION.
[2020-09-20] MEDS: DEXAMETHASONE 4 MG/ML VIAL IVP SCH (08:49)
[2020-09-20] MEDS: ASCORBIC ACID 500 MG TAB PO SCH ×2 (08:49→21:05)
[2020-09-20] MEDS: DOCUSATE 100 MG/10 ML UDC GT SCH (08:49)
[2020-09-20] MEDS: FAMOTIDINE 20 MG/2 ML VIAL IVP SCH ×2 (08:49→21:05)
[2020-09-20] MEDS: ZINC SULF 220 MG CAP PO SCH ×2 (08:50→21:06)
--- NOTE | 2020-09-20 08:51 | NUR ---
SCHEDULED MEDICATIONS DUE GIVEN. PATIENT ON O2 3L/MIN VIA NC WITH O2 SAT AT 98%. WILL CONTINUE TO MONITOR.
--- NOTE | 2020-09-20 11:29 | NUR ---
REPOSITIONED PATIENT. WILL CONTINUE TO MONITOR.
--- NOTE | 2020-09-20 13:23 | NUR ---
SCHEDULED MEDICATIONS DUE GIVEN. WILL CONTINUE TO MONITOR.
--- NOTE | 2020-09-20 16:00 | NUR ---
REPOSITIONED PATIENT AND CLEANED. PATIENT TOLERATED WELL. WILL CONTINUE TO MONITOR.
--- NOTE | 2020-09-20 19:37 | NUR ---
GAVE REPORT TO SOFTWARE DESIGNER NURSE FOR CONTINUITY OF CARE. PATIENT IN STABLE CONDITION.
[2020-09-21] MEDS: levETIRAcetam 100 MG/ML ORASYR GT SCH ×2 (06:49→12:08)
--- NOTE | 2020-09-21 07:35 | NUR ---
RECEIVED PT FROM BRUSH CLEARER SURVEYING NURSE, PT IS SITTING UP IN BED AWAKE, ON 2L NC, TRIPLE LUMEN R. FEMORAL VEIN RUNNING D5 @ 75ML/HR, JEVITY 1.2 RUNNING AT 60 ML/HR W/ 150 H2O Q8HR, CONTRACTURES NOTED TO ALL EXTREMITIES, SAFETY PRECAUTIONS IN PLACE, WILL CONTINUE TO MONITOR.
[2020-09-21] MEDS: DEXTROSE 5% 1,000 ML IV SCH (08:55)
[2020-09-21] MEDS: FAMOTIDINE 20 MG/2 ML VIAL IVP SCH (09:07)
[2020-09-21] MEDS: DOCUSATE 100 MG/10 ML UDC GT SCH (09:08)
[2020-09-21] MEDS: ASCORBIC ACID 500 MG TAB PO SCH (09:08)
[2020-09-21] MEDS: DEXAMETHASONE 4 MG/ML VIAL IVP SCH (09:08)
[2020-09-21] MEDS: ZINC SULF 220 MG CAP PO SCH (09:09)
--- NOTE | 2020-09-21 09:38 | NUR ---
SCHEDULED MEDICATIONS ADMINISTERED, PT IS AWAKE IN BED, 15 ML RESIDUAL NOTED, EDUCATION PROVIDED, WILL CONTINUE TO MONITOR.
--- NOTE | 2020-09-21 09:47 | NUR ---
CONTACTED [facility]EN[facility] SUPPLY FOR SUCTION SET UP AT BEDSIDE, THEY NOTED THEY WILL CHECK FOR SUPPLY AND GET BACK TO ME. WILL CONTINUE TO FOLLOW UP
--- NOTE | 2020-09-21 12:15 | NUR ---
SCHEDULE KEPPRA ADMINISTERED, 1 ML RESIDUAL NOTED, NO SIGNS OF DISTRESS, SUCTION IS NOW SET UP AT BEDSIDE, RT NOTIFIED OF O2 LEAK, O2 LEAK NOW FIXED, EDUCATION PROVIDED, WILL CONTINUE TO MONITOR.
--- NOTE | 2020-09-21 12:18 | NUR ---
DR. DE LUNA NOTIFIED OF SWOLLEN SCROTUM, NO NEW ORDERS RECEIVED, WILL CONTINUE TO MONITOR.
--- NOTE | 2020-09-21 13:58 | NUR ---
SUCTION AT BEDSIDE, RT NOTIFIED OF O2 LEAK, RT FIXED LEAK, PT O2 SATURATED UNAFFECTED BY LEAK, NO SIGNS OF DISTRESS NOTED, WILL CONTINUE TO MONITOR.
[2020-09-21] MEDS ORDERED: ZINC220C28 PO (14:12)
[2020-09-21 15:45] VITALS: BP 148/80
[2020-09-21 15:53] VITALS: BP 148/80
--- NOTE | 2020-09-21 17:00 | NUR ---
FREY REMOVED AND FEMORAL CATH REMOVED.
--- NOTE | 2020-09-21 18:00 | NUR ---
PT DISCHARGED HOME BY PRIVATE VEHICLE WITH MOTHER, ARMBANDS REMOVED, TELE MONITOR REMOVED, FEMORAL IV REMOVED, FRYE REMOVED, DRESSING CHANGED TO GTUBE, EDUCATION AND INFORMATION PACKET PROVIDED TO MOTHER. NO SIGNS OF DISTRESS NOTED.
[2020-09-22] MEDS ORDERED: DEXAMETHASONE 4 MG TAB PEG SCH (09:00)
== END 2020-09-21 18:00 | disposition home or self-care (01) | DRG 720 ==
LOC: MED 01:35 → MMU 05:00 → MIC 05:20 → MTU 05:23 → UNDODEPER 09-05 00:57 → MMU 09-05 22:10
PROVIDERS: ADMIT Internal Medicine; ATTEND Internal Medicine
PROC: 5A1955Z Respiratory Ventilation, Greater than 96 Consecutive Hours (ICD-10-PCS; principal; 2020-09-04)
PROC: 0BH17EZ Insertion of Endotracheal Airway into Trachea, Via Natural or Artificial Opening (ICD-10-PCS; 2020-09-04)
PROC: 06HY33Z Insertion of Infusion Device into Lower Vein, Percutaneous Approach (ICD-10-PCS; 2020-09-04)
PROC: XW13325 Transfusion of Convalescent Plasma (Nonautologous) into Peripheral Vein, Percutaneous Approach, New Technology Group 5 (ICD-10-PCS; 2020-09-07)
DX: A41.9 Sepsis, unspecified organism (principal); U07.1 COVID-19; I46.9 Cardiac arrest, cause unspecified; J69.0 Pneumonitis due to inhalation of food and vomit; J96.01 Acute respiratory failure with hypoxia; R65.21 Severe sepsis with septic shock; R13.10 Dysphagia, unspecified; M41.9 Scoliosis, unspecified; G93.41 Metabolic encephalopathy; J12.82 Pneumonia due to coronavirus disease 2019; Z74.01 Bed confinement status; G40.909 Epilepsy, unspecified, not intractable, without status epilepticus; G80.9 Cerebral palsy, unspecified; Z93.1 Gastrostomy status
CPT/HCPCS: 31500; 36415; 36600; 71045; 80048; 80053; 81003; 82728; 82803; 83036; 83605; 83625; 83690; 83735; 83880; 84100; 84443; 84484; 85025; 85379; 85384; 86140; 86704; 86706; 86708; 86709; 86803; 86900; 86901; 87040; 87070; 87081; 87186; 87205; 87340; 87804; 93005; 94003; 94640; 96365; 96367; 96375; 99291; 99292; J0456; J0696; J1100; J1650; J2060; J2543; J2704; J3480; J3490; J7060; P9017; U0003

== ENCOUNTER 2020-11-19 13:03 | Inpatient (IN) | payer OTHER, SELFPAY ==
[~2020-11-19] VITALS: Ht 144.8 cm; Wt 50.8 kg
[2020-11-19] VITALS (9 sets, daily range): BP systolic 120–162; BP diastolic 72–101
[~2020-11-19 13:03] MED LIST changes: +ETOMIDATE 20 MG/10 ML VIAL IVP ONE; -LEVO500T98 PO; +SUCCINYLCHOLINE CHLORIDE 200 MG/10 ML VIAL IVP ONE; +ZINC220C28 PO
--- NOTE | 2020-11-19 13:30 | NUR ---
ASSUMED CARE OF A 25/M FROM TRIAGE WITH A C/O SOB. PT HAS A HX OF CEREBRAL PALSY AND IS WHEELCHAIR BOUND BROUGHT IN BY RESEARCH ANIMAL ATTENDANT. UPON ARRIVAL TO BED PT IS TACHYPNIC AND TACHYCRADIC AT A RATE OF 144. COARSE CRACKLES HEARD BILATERALLY. O2 SATS 92-96% ON 3L NC. PENDING MSE.
[2020-11-19] MEDS ORDERED: cefTRIAXone 1,000 MG in DEXT 5% MINI-BAG PLUS 50 ML IV ONE (13:35)
[2020-11-19] MEDS ORDERED: NACL 0.9% 1,000 ML IV SCH (13:35)
--- NOTE | 2020-11-19 13:45 | NUR ---
IV ESTABLISHED. BLOOD DRAWN FROM IV START - SENT TO LAB.
[2020-11-19] MEDS ORDERED: cefTRIAXone 1,000 MG VIAL ONE (13:56)
[2020-11-19 13:59] LABS: BASOPHILS % (AUTO) 0.6 % (0.0-2.0); EOSINOPHILS # (AUTO) 0.1 K/uL (0-0.4); HEMATOCRIT 43.5 % (36-52); HEMOGLOBIN 14.1 g/dL (12.0-18.0); LYMPHOCYTES # (AUTO) 2.5 K/uL (2.0-11.5); LYMPHOCYTES % (AUTO) 29.5 % (20.5-51.1); MEAN CORPUSCULAR HEMOGLOBIN 27 pg (27-31); MEAN CORPUSCULAR HGB CONC 32 g/dL (33-37); MEAN CORPUSCULAR VOLUME 81.8 fL (80-94); MONOCYTES % (AUTO) 12.2 % (1.7-9.3); NEUTROPHILS # (AUTO) 4.8 K/uL (1.8-7.7); NEUTROPHILS % (AUTO) 56.7 % (42.2-75.2); PLATELET COUNT (AUTO) 242 K/uL (140-450); RED BLOOD CELL COUNT(AUTO) 5.32 MIL/uL (4.20-6.10); RED CELL DISTRIBUTION WIDTH 16.5 % (11.6-13.7); WHITE BLOOD COUNT (AUTO) 8.5 K/uL (4.8-10.8)
[2020-11-19 14:11] LABS: ALBUMIN 3.7 g/dL (3.4-5.0); ANION GAP 10.4 (8-16); CARBON DIOXIDE 32.7 mmol/L (21-32); CREATININE 0.5 mg/dL (0.6-1.3); POTASSIUM 4.1 mmol/L (3.5-5.1); TOTAL BILIRUBIN 0.6 mg/dL (0.0-1.0)
--- NOTE | 2020-11-19 14:28 | NUR ---
# 16 FR Urinary catheter inserted utilizing sterile technique. Immediate return of 20 ml YELLOW/CLEAR urine noted. Urine sample collected and sent to lab. Pt tolerated procedure WELL.
[2020-11-19 14:38] LABS: APPEARANCE,URINE CLEAR (CLEAR); BILIRUBIN,URINE NEGATIVE (NEGATIVE); BLOOD, URINE 1+ (NEGATIVE); COLOR,URINE YELLOW (YELLOW); LEUKOCYTE ESTERASE ,URINE NEGATIVE (NEGATIVE); NITRITE, URINE NEGATIVE (NEGATIVE); UGLUCOSE NEGATIVE (NEGATIVE)
[2020-11-19 14:44] LABS: RBC,URINE 11-20 (MOD) /HPF (0-5); WBC,URINE 0-5 /HPF (0-5)
--- NOTE | 2020-11-19 15:25 | NUR ---
PT REMAINS IN BED -- DISPO DECISION PENDING. REMAINS TACHYCARDIC AND TACHYNPIC. MD MADE AWARE OF STATUS.
--- NOTE | 2020-11-19 15:53 | NUR ---
UPDATED CAREGIVERS/FAMILY ON PLAN TO ADMIT. DR WIGGINS MADE AWARE OF PERSITANT TACHYCHARDIA AND TACHYPNEA. RT CALLED FOR SUCTIONING PER MD.
[2020-11-19] MEDS ORDERED: SUCCINYLCHOLINE CHLORIDE 200 MG/10 ML VIAL IVP ONE (15:55)
[2020-11-19] MEDS ORDERED: ETOMIDATE 20 MG/10 ML VIAL IVP ONE (15:55)
[2020-11-19] MEDS ORDERED: PROPOFOL 1000 MG/100 ML PREMIX 100 ML IV ONE (15:55)
[2020-11-19] MEDS ORDERED: INTUBATION KIT MC ONE (15:57)
--- NOTE | 2020-11-19 16:00 | NUR ---
OBSERVED CONTINUED TACHYPNEA AND DECREASED O2 SAT. PT IS IN OBVIOUS DISTRESS. O2 SAT RANGING FROM 40-60%. RT CALLED STAT. RN BAGGING PATIENT AT THIS TIME. AIRWAY REMAINS PATENT.
--- NOTE | 2020-11-19 16:02 | NUR ---
DR WIGGINS BEDSIDE. DECISION TO INTUBATE MADE BY MD AND FAMILY.
--- NOTE | 2020-11-19 16:07 | NUR ---
1607-RSI PERFORMED USING ETOMIDATE AND SUCCININYLCHOLINE. 1611-INTUBATED BY DR WIGGINS USING A SIZE 7 ETT, 20CM AT LIP, WITH GOOD COLOR CHANGE. NO ISSUES WITH BAGGING
--- NOTE | 2020-11-19 16:30 | NUR ---
# 16 FR Marr catheter with 10 ml utilizing sterile technique. Immediate return of 50 ml YELLOW/CLEAR urine noted. Bedside drainage bag placed below level of bladder. Urine sample collected and sent to lab. Pt tolerated procedure WELL.
--- NOTE | 2020-11-19 16:30 | NUR ---
PROPOFOL STARTED PER PROTOCOL.
[2020-11-19] MEDS ORDERED: NACL 0.9% 1,000 ML IV ONE (17:10)
--- NOTE | 2020-11-19 17:11 | NUR ---
REMAINS SEDATED WITH PROPOFOL INFUSING AT 10MCG/KG/MIN. RASS -2.
[2020-11-19] MEDS ORDERED: MAG SULF 2000 MG/WATER PREMIX 50 ML IV PRN (17:20)
[2020-11-19] MEDS ORDERED: HYDROmorphone 1 MG/ML AMP IVP PRN (17:20)
[2020-11-19] MEDS ORDERED: KCL 20 MEQ/WATER INJ PREMIX 200 ML IV PRN (17:20)
[2020-11-19] MEDS ORDERED: LORazepam 1 MG TAB PO PRN (17:20)
[2020-11-19] MEDS ORDERED: HYDROcodone/APAP 5/325 MG 1 TAB TAB PO PRN (17:20)
[2020-11-19] MEDS ORDERED: MAGNESIUM OXIDE 400 MG TAB PO PRN (17:20)
[2020-11-19] MEDS ORDERED: MORPHINE SULFATE 4 MG/ML SYR IVP PRN (17:20)
[2020-11-19] MEDS ORDERED: POTASSIUM CHLORIDE 10 MEQ TABER PO PRN (17:20)
[2020-11-19] MEDS ORDERED: VANCOMYCIN PER PHARMACY MC PRN (17:20)
[2020-11-19] MEDS ORDERED: ONDANSETRON 4 MG/2 ML VIAL IVP PRN (17:20)
--- NOTE | 2020-11-19 17:47 | NUR ---
CALLED TO ER FOR VENT ALARMING HIGH PRESSURE. SWITCHED PT TO PRVC 20 400 0.70TI PEEP 5 50%. PT TOLERATING WELL, PRESSURES DOWN TO 30s. ALCIDES RN NOTIFIED OF CHANGES.
--- NOTE | 2020-11-19 18:05 | NUR ---
EKG ORDERED FOR RHYTHM CHANGES NOTED ON MONITOR.
--- NOTE | 2020-11-19 18:07 | NUR ---
EKG PERFROMED BY MONOGRAM MACHINE OPERATOR. READING STATES ACUTE SD. DR WIGGINS MADE AWARE.
[2020-11-19] MEDS ORDERED: diazePAM 2 MG TAB PO PRN (18:10)
--- NOTE | 2020-11-19 18:11 | NUR ---
REMAINS SEDATED WITH PROPOFOL INFUSING AT 10MCG/KG/MIN -- RASS -2. FAMILY AT [facility].
[2020-11-19] MEDS ORDERED: LORazepam 2 MG/ML VIAL IVP PRN (18:20)
--- NOTE | 2020-11-19 18:50 | NUR ---
RECEIVED PT IN ED W/ 7.0 ETT SECURED @ 20cm ON PRVC 400 +5, f15 50% . VENT PLUGGED INTO RED OUTLET, ALARMS ON AND AUDIBLE, AND AMBU AT BEDSIDE WILL CONTINUE TO MONITOR
--- NOTE | 2020-11-19 19:13 | NUR ---
UPDATED FAMILY ON PLAN OF CARE AND INTENT TO ADMIT TO ICU. PER [facility], NO TRASNFER IS NEEDED FOR [facility]I CENTER. FAMILY AGREES WITH PLAN.
--- NOTE | 2020-11-19 19:42 | NUR ---
CALL MADE TO PICC NURSE S/W ALEX. TIFFANIE RESENDEZ.
--- NOTE | 2020-11-19 19:54 | NUR ---
WHEELCHAIR TAKEN BY BROTHER.
--- NOTE | 2020-11-19 20:05 | NUR ---
Patient will be admitted to care of DR CARRION. Admited to ICU. Will go to room ICU08. Belongings list completed. Report to JULITA ALCANTAR.
--- NOTE | 2020-11-19 20:10 | NUR ---
PT TRANSPORTED FROM ED TO ICU 8. PT TOLERATED TRANSPORT WELL. PT REMAINS ON SETTINGS W/ NO CHANGES. VENT ALARMS REMAIN ON AND AUDIBLE. VENT PLUGGED INTO RED OUTLET AND AMBU REMAINS AT BEDSIDE. WILL CONTINUE TO MONITOR.
--- NOTE | 2020-11-19 20:15 | NUR ---
RECEIVED REPORT FROM ED NURSE, PT AWAKE, HISTORY OF CEREBRAL PALSY, UNABLE TO FOLLOW COMMANDS. ETT TO VENT ON 50% fio2. MINIMAL SECRETIONS NOTED. LUNGS RHONCHI NOTED. SR 80-90S, NO EDEMA NOTED. PALPABLE PULSES. OGT IN PLACE, PATENT IN PLACE. FREY CATH IN PLACE CLEAR YELLOW URINE NOTED. SKIN INTACT. IAD TO R GROIN NOTED. PIV TO R FOOT NOTED, AND L HAND PATENT. PROPOFOL @ 20MCG/KG/MIN. SEIZURE PRECAUTIONS IN PLACE. SAFETY PRECAUTIONS, BED LOCKED IN LOWEST POSITION. WILL CONTINUETO OBSERVE.
--- NOTE | 2020-11-19 20:35 | NUR ---
PICC LINE NURSE @ BEDSIDE
[2020-11-19] MEDS: ALBUTEROL SULFATE/IPRATROPIU 3 ML SOL IH SCH (20:53)
[2020-11-19] MEDS ORDERED: VANCOMYCIN HCL 1.25 GM in DEXTROSE 5% 500 ML IV SCH (21:00)
[2020-11-19] MEDS ORDERED: VANCOMYCIN HCL 1.25 GM in DEXTROSE 5% 250 ML IV SCH (21:00)
[2020-11-19] MEDS ORDERED: PIPERACILLIN/TAZOBACTAM 2.25 GM in DEXTROSE 5% 50 ML IV SCH (21:00)
[2020-11-19] MEDS: DOCUSATE SODIUM 250 MG GELCAP PO SCH (21:00)
--- NOTE | 2020-11-19 21:00 | NUR ---
PORTABLE CXR DONE; + PICCLINE PLACEMENT CONFIRMED
--- NOTE | 2020-11-19 21:18 | NUR ---
LOWERED FIO2 FROM 50% TO 40%. SATS ARE 100%. PT GIVEN INLINE HHNTX. PATIENT HAS A LOT OF SECRETIONS FROM MOUTH
[2020-11-19] MEDS: NACL 0.9% 1,000 ML IV SCH (21:30)
[2020-11-19] MEDS: levETIRAcetam 100 MG/ML ORASYR GT SCH (21:42)
[2020-11-19] MEDS: PIPERACILLIN/TAZOBACTAM 3.375 GM in DEXTROSE 5% 50 ML IV SCH (23:12)
--- NOTE | 2020-11-19 23:14 | NUR ---
LOWERED FIO2 FROM 40% TO 30%. SATS 98%
[2020-11-19] MEDS ORDERED: PIPERACILLIN/TAZOBACTAM 3.375 GM VIAL IV ONE (23:36)
[2020-11-20] VITALS (32 sets, daily range): BP systolic 97–142; BP diastolic 58–93
--- NOTE | 2020-11-20 00:15 | NUR ---
VAP ORAL CARE DONE; PT TURNED AND REPOSITIONED. WILL CONTINUE TO OBSERVE
[2020-11-20] MEDS: ALBUTEROL SULFATE/IPRATROPIU 3 ML SOL IH SCH ×4 (01:00→19:51)
[2020-11-20] MEDS: PROPOFOL 1000 MG/100 ML PREMIX 100 ML IV PRN ×2 (01:15→16:26)
--- NOTE | 2020-11-20 02:05 | NUR ---
FLACC 0. RASS-3 NO S/S OF ACUTE DISTRESS NOTED. WILL CONTINUE TO OBSERVE
--- NOTE | 2020-11-20 05:30 | NUR ---
PT HAS EYES CLOSED; AROUSABLE. PT TURNED AND REPOSITIONED. WILL CONTINUE TO OBSERVE
[2020-11-20 05:47] LABS: BASOPHILS # (AUTO) 0.1 K/uL (0.00-0.22); BASOPHILS % (AUTO) 0.8 % (0.0-2.0); EOSINOPHILS # (AUTO) 0.2 K/uL (0-0.4); EOSINOPHILS % (AUTO) 2.3 % (0.0-4.0); HEMATOCRIT 36.1 % (36-52); HEMOGLOBIN 11.8 g/dL (12.0-18.0); LYMPHOCYTES # (AUTO) 1.8 K/uL (2.0-11.5); LYMPHOCYTES % (AUTO) 22.9 % (20.5-51.1); MEAN CORPUSCULAR HEMOGLOBIN 27 pg (27-31); MEAN CORPUSCULAR HGB CONC 33 g/dL (33-37); MEAN CORPUSCULAR VOLUME 80.7 fL (80-94); MONOCYTES # (AUTO) 1.1 K/uL (0.8-1.0); MONOCYTES % (AUTO) 14.3 % (1.7-9.3); NEUTROPHILS # (AUTO) 4.7 K/uL (1.8-7.7); NEUTROPHILS % (AUTO) 59.7 % (42.2-75.2); PLATELET COUNT (AUTO) 175 K/uL (140-450); RED BLOOD CELL COUNT(AUTO) 4.48 MIL/uL (4.20-6.10); RED CELL DISTRIBUTION WIDTH 16.8 % (11.6-13.7); WHITE BLOOD COUNT (AUTO) 7.8 K/uL (4.8-10.8)
[2020-11-20] MEDS: levETIRAcetam 100 MG/ML ORASYR GT SCH ×3 (05:48→21:10)
[2020-11-20] MEDS: NACL 0.9% 1,000 ML IV SCH ×2 (05:49→17:50)
[2020-11-20] MEDS: PIPERACILLIN/TAZOBACTAM 3.375 GM in DEXTROSE 5% 50 ML IV SCH ×4 (05:49→23:54)
[2020-11-20 06:24] LABS: ALBUMIN 2.8 g/dL (3.4-5.0); ANION GAP 14.2 (8-16); CARBON DIOXIDE 24.3 mmol/L (21-32); CHOL/HDL RATIO 3.8 (1-4.5); CREATININE 0.3 mg/dL (0.6-1.3); MAGNESIUM 1.8 mg/dL (1.8-2.4); PHOSPHORUS 2.1 mg/dL (2.5-4.9)
[2020-11-20 06:27] LABS: POTASSIUM 2.5 mmol/L (3.5-5.1)
--- NOTE | 2020-11-20 07:20 | NUR ---
REPORT GIVEN TO DAY SHIFT FOR CONTINUITY OF CARE
--- NOTE | 2020-11-20 07:25 | NUR ---
RECEIVED PATIENT FROM NIGHTSHIFT NURSE. PT RESTING IN BED. FLACC 0. DRY WEIGHT 53.5KG. RESPIRATIONS EVEN AND UNLABORED WITH NO SOB OR RESPIRATORY DISTRESS. PT VENT SETTINGS 30% FIO2, TV 500, RR 20, AND PEEP 5. SKIN WARM, DRY. PICC LINE IN [place] IS CLEAN, DRY, AND INTACT. FREY CATHETER PATENT WITH YELLOW URINE DRAINING TO GRAVITY. SAFETY MEASURES IN PLACE. WILL CONTINUE TO MONITOR
[2020-11-20] MEDS: ASCORBIC ACID 500 MG/5 ML ORASYR GT SCH (08:12)
[2020-11-20] MEDS: DOCUSATE SODIUM 250 MG GELCAP PO SCH ×2 (08:13→21:11)
[2020-11-20] MEDS: ZINC SULF 220 MG CAP PO SCH (08:13)
--- NOTE | 2020-11-20 08:34 | NUR ---
PATIENT HAS BEEN SCREENED AND CATEGORIZED HIGH NUTRITION RISK. PATIENT WILL BE SEEN WITHIN 1-2 DAYS OF ADMISSION. 11/20/20-11/21/[address]
--- NOTE | 2020-11-20 08:37 | NUR ---
RECEIVED FNS REFERRAL FOR TUBE FEEDING, INTUBATED AND WENDI OF LESS THAN 12.
[2020-11-20] MEDS ORDERED: DOCUSATE SODIUM 100 MG GELCAP PO SCH (09:00)
[2020-11-20] MEDS ORDERED: BACLOFEN GT SCH (09:00)
--- NOTE | 2020-11-20 09:30 | NUR ---
ADMINISTERED SCHED MED PRESCRIBED PER MD ORDER. PT TOLERATED WELL. MEDICATION EDUCATION PERFORMED. PT MECHANICALLY VENTILATED UNABLE TO VERBALIZE UNDERSTANDING. SAFETY MEASURES IN PLACE. WILL CONTINUE TO MONITOR
--- NOTE | 2020-11-20 10:05 | NUR ---
DR QUEVEDO AT BEDSIDE, PT ON THE PHONE WITH MOTHER TO UPDATE CONDITION AND PLAN OF CARE
[2020-11-20] MEDS: POTASSIUM CHLORIDE 20% 40 MEQ/15 ML UDC GT SCH ×2 (10:17→13:19)
--- NOTE | 2020-11-20 10:33 | NUR ---
SOCIAL WORK NOTE: SW WAS UNABLE TO MEET PATIENT AT BEDSIDE. SW CONTACTED PATIENT'S MOTHER TO COMPLETE ASSESSMENT. SW LEFT VM WITH EVIE CONTRERAS [phone] AND FATHER, DULCE CONTRERAS [phone].
--- NOTE | 2020-11-20 10:56 | NUR ---
SOCIAL WORK NOTE: Patient's Orientation Unable To Assess Information Provided By EVIE CONTRERAS - MOTHER Comments SW WAS UNABLE TO MEET PATIENT AT BEDSIDE. SW COMPLETED ASSESSMENT WITH PATIENT'S MOTHER. Agricultural Engineering Technologist, Realtionship and Phone Number EVIE CONTRERAS MOTHER [phone] Healthcare Power of Maintenance Foreman No Does Patient Have a POLST No Identifying Problems No Social Work Triggers Is A Social Work Consult Needed No Mandate Report Filed No Explanation Of Identifying Problems PATIENT IS A 25-YEAR-OLD MALE ADMITTED FOR HYPOXIA WITH SEPSIS. PATIENT HAS PMHX OF CARDIAC ARREST, COPD, AND SEIZURES. Admitted From Home Home Health Provider [facility] Pre-Admission Level Of Functioning Status Total Care Level Of Functioning Comment PER MOTHER, PATIENT REQUIRES TOTAL ASSISTANCE WITH ADLS. Prior Resources/Services Used In Last 12 Months [facility] Prior Resources/Service Comments PER MOTHER, PATIENT'S IRC WORKER IS AXEL BOYLE. PATIENT'S MOTHER DID NOT HAVE AXEL'S CONTACT INFORMATION. Prior DME Home Oxygen Hospital Bed Walker Wheelchair Hand Held Nebulizer Dialysis Comments N/A Living Situation Lives With Family House Patient Had Caregiver No Home Support No Caregiver Issues Financial Issues No Known Financial Issue Referral To The Financial Counselor Needed No Factors/Needs No D/C Needs Identified Pt/Rep Participated In Discharge Plan Yes Patient/Family Agress With Discharge Plan Yes Discharge Plan Comments TENTATIVE DISCHARGE PLAN IS FOR PATIENT TO RETURN HOME. DC Plan Status Initiated
--- NOTE | 2020-11-20 11:48 | NUR ---
ADMINISTERED SCHED MED PRESCRIBED PER MD ORDER. NO SIGNS OF DISTRESS NOTED AT THIS TIME. TURNED PATIENT AND SUCTIONED SECRETIONS. SAFETY MEASURES IN PLACE. WILL CONTINUE TO MONITOR
--- NOTE | 2020-11-20 12:30 | NUR ---
STARTED PT ON TUBE FEEDINGS PRESCRIBED PER MD ORDER. PT TOLERATED WELL. NO SIGNS OF DISTRESS NOTED AT THIS TIME. WILL CONTINUE TO MONITOR
--- NOTE | 2020-11-20 13:01 | NUR ---
DC PLANNIN YRS OLD MALE PATIENT WAS ADMITTED FROM HOME WITH A DX OF HYPOXIA WITH SEPSIS. PT HAS A HX OF PREVIOUS CARDIAC ARREST,CEREBRAL PALSY ,NON-VERBAL, COPD G-TUBE AND HIP SURGERY. CXR SHOWED MILD PULMONARY VASCULAR CONGESTION VS ATELECTASIS. RAPID COVID TEST NEGATIVE. PT IS INTUBATED SEDATED. URINE AND BLOOD CULTURE PENDING ADMINISTERED IVF, IV ABX ZOSYN AND CONTINUED HOME MEDS. CONSULTED WITH ID, CARDIO AND PULMO. DC PLAN PER PT RESPONSE TO THE TREATMENT. CM TO FOLLOW Addendum: 11/26/20 at 1518 by Meli King RN DC PLANNING: PER DR QUEVEDO PT FAILED SBT TRIAL ORAL SECRETIONS REMAIN ELEVATED, ETT SECRETIONS ELEVATED NOT A CANDIDATE FOR EXTUBATION. CALLED PATIENT'S MOTHER EVIE [phone] DISCUSSED THE DC PLAN PER EVIE AFTER EXTUBATION SHE WANTED HIM TO COME HOME. DC PLAN PER PT RESPONSE WITH TREATMENT. CM TO FOLLOW Addendum: 11/30/20 at 1440 by Meli King RN DC PLANNING: PT IS EXTUBATED 11/29/20 ON O2 2L/NC SATING 96% HR WITH IN 120- 114. SEIZURE THIS MORNING ATIVAN IV GIVEN, CONTINUE ZOSYN IV ABX . DISCUSSED WITH DR BELL REGARDING DC PLAN ONCE STABLE TO GO HOME WITH MOTHER. CM TO FOLLOW Addendum: 11/30/20 at 1457 by Sophie Zarate CM DC CHILD CENTER ASSISTANT: SCHEDULED PATIENT A FOLLOW APPOINTMENT WITH PCP SANTOS POLK [phone]. Thursday AT 11:15 AM.
--- NOTE | 2020-11-20 14:30 | NUR ---
11/20/20 RD INITIAL ASSESSMENT COMPLETED PLEASE REFER TO NUTRITION ASSESSMENT UNDER CARE ACTIVITY FOR ESTIMATED NUTRITIONAL NEEDS. 1. CONTINUE JEVITY 1.2 @ 40 ML/HR. START AT 10 ML/HR AND INCREASE BY 20 ML/HR Q6H -THIS WILL PROVIDE 1152 KCAL AND 53 GM OF PROTEIN WHICH MEETS 100% OF KCAL NEEDS AND 93% OF PROTEIN NEEDS 2. RECOMMEND FREE WATER FLUSH OF [address] TO FOLLOW-UP 2-3 DAYS, HIGH RISK LUCY VAZQUEZ RD
--- NOTE | 2020-11-20 15:11 | NUR ---
MOTHER EVIE [phone] CALLED AND WANTED ANOTHER UPDATE. UPDATE GIVEN. EVIE VERBALIZED UNDERSTANDING. SAFETY MEASURES IN PLACE. WILL CONTINUE TO MONITOR
--- NOTE | 2020-11-20 16:55 | NUR ---
PT HAS EYES CLOSED; AROUSABLE. PT TURNED AND REPOSITIONED. WILL CONTINUE TO OBSERVE
--- NOTE | 2020-11-20 17:20 | NUR ---
PT IS IN PAIN. PT RESTLESS AND HEART RATE AT 102. PRN SEVERE PAIN MED ADMINISTERED PRESCRIBED PER MD ORDER. MEDICATION EDUCATION PERFORMED, PT VENTILATED AND UNABLE TO RETURN DEMONSTRATION. SAFETY MEASURES IN PLACE. WILL CONTINUE TO MONITOR
--- NOTE | 2020-11-20 17:55 | NUR ---
ADMINISTERED SCHED MED PRESCRIBED PER MD ORDER. PT TOLERATED WELL. MEDICATION EDUCATION PERFORMED. PT APHASIC AND UNABLE TO VERBALIZE UNDERSTANDING. SAFETY MEASURES IN PLACE. WILL CONTINUE TO MONITOR
--- NOTE | 2020-11-20 18:15 | NUR ---
PT RESTING IN BED. FLACC 0. RESPIRATIONS EVEN AND UNLABORED WITH NO SOB OR RESPIRATORY DISTRESS. WILL CONTINUE TO MONITOR
--- NOTE | 2020-11-20 19:22 | NUR ---
ENDORSED AT BEDSIDE FOR CONTINUITY OF CARE. PT IS STABLE
--- NOTE | 2020-11-20 19:52 | NUR ---
RECEIVED REPORT FROM AM SHIFT. PT WAS SEEN AND ASSESSED. FOUND PT INTUBATED TO VENT WITH ETT SIZE 7.0 AND SECURED WITH BITTING BLOCK ANCHOR-FAST. PT IS ON VENT SETTINGS: AC/PRVC RR 20, VT 400, PEEP 5, FiO2 28%. SPO2 98%. VENT PLUGGED IN RED OUTLET, ALARMS SET AND FUNCTIONING, AND AMBU BAG AT BEDSIDE. AUSCULTATION REVEALS BILATERAL COARSE BREATH SOUNDS. SUCTIONED SMALL AMOUNT OF WHITE THICK SECRETIONS. PT TOLERATED PROCEDURE WELL. PT IS IN NO APPARENT RESPIRATORY DISTRESS AT THIS TIME. SCHEDULE HHN TX GIVEN ORDERED AND PT TOLERATED TX WELL WITH NO ADVERSE REACTION. WILL CONTINUE TO MONITOR PT.
--- NOTE | 2020-11-20 20:30 | NUR ---
VAP ORAL CARE DONE. PT TURNED AND REPOSITIONED FOR COMFORT
--- NOTE | 2020-11-20 20:34 | NUR ---
PT SEEN AND EVALUATED BY DR NICOLE
--- NOTE | 2020-11-20 21:10 | NUR ---
ADMINISTERED SCHEDULED MEDS. PT TOLERATED WELL
[2020-11-21] VITALS (32 sets, daily range): BP systolic 91–153; BP diastolic 51–107
[2020-11-21] MEDS: ALBUTEROL SULFATE/IPRATROPIU 3 ML SOL IH SCH ×4 (01:37→19:15)
--- NOTE | 2020-11-21 04:00 | NUR ---
PATIENT GIVEN BED BATH. FREY CARE DONE. ORAL CARE GIVEN. PT TURNED AND REPOSITIONED FOR COMFORT
[2020-11-21] MEDS: PROPOFOL 1000 MG/100 ML PREMIX 100 ML IV PRN (04:18)
[2020-11-21] MEDS: levETIRAcetam 100 MG/ML ORASYR GT SCH ×3 (05:27→21:00)
[2020-11-21] MEDS: PIPERACILLIN/TAZOBACTAM 3.375 GM in DEXTROSE 5% 50 ML IV SCH ×3 (05:32→18:03)
[2020-11-21 06:02] LABS: BASOPHILS % (AUTO) 0.6 % (0.0-2.0); EOSINOPHILS # (AUTO) 0.4 K/uL (0-0.4); EOSINOPHILS % (AUTO) 4.5 % (0.0-4.0); HEMATOCRIT 35.8 % (36-52); HEMOGLOBIN 11.6 g/dL (12.0-18.0); LYMPHOCYTES # (AUTO) 1.3 K/uL (2.0-11.5); LYMPHOCYTES % (AUTO) 16.8 % (20.5-51.1); MEAN CORPUSCULAR HEMOGLOBIN 27 pg (27-31); MEAN CORPUSCULAR HGB CONC 32 g/dL (33-37); MONOCYTES # (AUTO) 0.9 K/uL (0.8-1.0); MONOCYTES % (AUTO) 11.3 % (1.7-9.3); NEUTROPHILS # (AUTO) 5.3 K/uL (1.8-7.7); NEUTROPHILS % (AUTO) 66.8 % (42.2-75.2); PLATELET COUNT (AUTO) 165 K/uL (140-450); RED BLOOD CELL COUNT(AUTO) 4.36 MIL/uL (4.20-6.10); RED CELL DISTRIBUTION WIDTH 16.8 % (11.6-13.7); WHITE BLOOD COUNT (AUTO) 7.9 K/uL (4.8-10.8)
[2020-11-21] MEDS: NACL 0.9% 1,000 ML IV SCH (06:50)
[2020-11-21 07:04] LABS: ALBUMIN 2.7 g/dL (3.4-5.0); ANION GAP 15.8 (8-16); CARBON DIOXIDE 21.4 mmol/L (21-32); CREATININE 0.3 mg/dL (0.6-1.3); PHOSPHORUS 2.9 mg/dL (2.5-4.9); POTASSIUM 3.2 mmol/L (3.5-5.1); TOTAL BILIRUBIN 0.8 mg/dL (0.0-1.0)
--- NOTE | 2020-11-21 07:12 | NUR ---
PATIENT REPORT GIVEN TO AM NURSE. PT ENDORSED IN STABLE CONDITION
--- NOTE | 2020-11-21 07:15 | NUR ---
RECEIVED BEDSIDE REPORT FROM NIGHTSHIFT NURSE. PT RESTING IN BED. FLACC 0. RESPIRATIONS EVEN AND UNLABORED WITH NO SOB OR RESPIRATORY DISTRESS. SKIN WARM AND DRY TO TOUCH. JAILYN PICC LINE IS CLEAN, DRY AND INTACT. SAFETY MEASURES IN PLACE. WILL CONTINUE TO MONITOR
[2020-11-21] MEDS: ASCORBIC ACID 500 MG/5 ML ORASYR GT SCH (08:13)
[2020-11-21] MEDS: ZINC SULF 220 MG CAP PO SCH (08:13)
[2020-11-21] MEDS: PANTOPRAZOLE 40 MG INJ VIAL IVP SCH (08:13)
[2020-11-21] MEDS: DOCUSATE SODIUM 250 MG GELCAP PO SCH ×2 (08:13→21:00)
[2020-11-21 08:29] LABS: MAGNESIUM 1.8 mg/dL (1.8-2.4)
--- NOTE | 2020-11-21 08:40 | NUR ---
ADMINISTERED SCHED MED PRESCRIBED PER MD ORDER. PT TOLERATED WELL. MEDICATION EDUCATION PERFORMED. PT APHASIC AND UNABLE TO VERBALIZE UNDERSTANDING. RENDERED ORAL CARE AND BED BATH. REPOSITIONED PATIENT. SAFETY MEASURES IN PLACE. WILL CONTINUE TO MONITOR
[2020-11-21] MEDS ORDERED: POTASSIUM CHLORIDE 20% 40 MEQ/15 ML UDC PO PRN (09:50)
--- NOTE | 2020-11-21 10:45 | NUR ---
SPOKE WITH MOTHER EVIE ABOUT PT CONDITION. UPDATED EVIE VERBALIZED UNDERSTANDING. SAFETY MEASURES IN PLACE. WILL CONTINUE TO MONITOR
[2020-11-21] MEDS: GLYCOPYRROLATE 1 MG TAB GT SCH ×2 (11:28→16:47)
[2020-11-21] MEDS: SCOPOLAMINE 1.5 MG/72 HR PATCH TD SCH (11:28)
--- NOTE | 2020-11-21 13:15 | NUR ---
ADMINISTERED SCHED MED PRESCRIBED PER MD ORDER. PT TOLERATED WELL. MEDICATION EDUCATION PERFORMED. PT APHASIC AND UNABLE TO VERBALIZE UNDERSTANDING. REPOSITIONED PATIENT. SAFETY MEASURES IN PLACE. WILL CONTINUE TO MONITOR
--- NOTE | 2020-11-21 13:17 | NUR ---
PT PLACED ON SBT CPAP 5 PS 10 AND FIO2 28% TOLERATED. ALARMS SET APPROPRIATELY. WILL CONTINUE TO MONITOR.
--- NOTE | 2020-11-21 15:47 | NUR ---
PT COMPLETED 1 HOUR 37 MIN ON SBT. PT BECAME TACHYPNEIC RR>35 PER MIN AND WOB INCREASED. NURSE MADE AWARE. PT RETURNED TO ORIGINAL VENT SETTINGS. WILL CONTINUE TO MONITOR.
--- NOTE | 2020-11-21 16:14 | NUR ---
PT RESTING IN BED. NO SIGNS OF DISTRESS AT THIS TIME. RESPIRATIONS EVEN AND UNLABORED WITH NO SOB OR RESPIRATORY DISTRESS. WILL CONTINUE TO MONITOR
--- NOTE | 2020-11-21 18:08 | NUR ---
MOTHER EVIE CALLED AND WANTED AN UPDATE. UPDATE GIVEN. SAFETY MEASURES IN PLACE. WILL CONTINUE TO MONITOR
--- NOTE | 2020-11-21 19:10 | NUR ---
ENDORSED AT BEDSIDE FOR CONTINUITY OF CARE. PT IS STABLE
[2020-11-22] VITALS (33 sets, daily range): BP systolic 104–152; BP diastolic 56–100
[2020-11-22] MEDS: PIPERACILLIN/TAZOBACTAM 3.375 GM in DEXTROSE 5% 50 ML IV SCH ×4 (00:22→17:56)
[2020-11-22] MEDS: ALBUTEROL SULFATE/IPRATROPIU 3 ML SOL IH SCH ×4 (01:24→19:24)
[2020-11-22 05:22] LABS: BASOPHILS % (AUTO) 0.5 % (0.0-2.0); EOSINOPHILS # (AUTO) 0.3 K/uL (0-0.4); EOSINOPHILS % (AUTO) 4.1 % (0.0-4.0); HEMOGLOBIN 11.4 g/dL (12.0-18.0); LYMPHOCYTES # (AUTO) 1.8 K/uL (2.0-11.5); LYMPHOCYTES % (AUTO) 24.6 % (20.5-51.1); MEAN CORPUSCULAR HEMOGLOBIN 27 pg (27-31); MEAN CORPUSCULAR HGB CONC 33 g/dL (33-37); MEAN CORPUSCULAR VOLUME 81.8 fL (80-94); MONOCYTES # (AUTO) 0.9 K/uL (0.8-1.0); MONOCYTES % (AUTO) 11.9 % (1.7-9.3); NEUTROPHILS # (AUTO) 4.4 K/uL (1.8-7.7); NEUTROPHILS % (AUTO) 58.9 % (42.2-75.2); PLATELET COUNT (AUTO) 165 K/uL (140-450); RED BLOOD CELL COUNT(AUTO) 4.28 MIL/uL (4.20-6.10); RED CELL DISTRIBUTION WIDTH 16.9 % (11.6-13.7); WHITE BLOOD COUNT (AUTO) 7.5 K/uL (4.8-10.8)
[2020-11-22] MEDS: levETIRAcetam 100 MG/ML ORASYR GT SCH ×3 (05:28→20:48)
[2020-11-22 05:47] LABS: ALBUMIN 2.6 g/dL (3.4-5.0); CARBON DIOXIDE 25.6 mmol/L (21-32); CREATININE 0.3 mg/dL (0.6-1.3); MAGNESIUM 1.9 mg/dL (1.8-2.4); PHOSPHORUS 3.2 mg/dL (2.5-4.9); POTASSIUM 3.6 mmol/L (3.5-5.1); TOTAL BILIRUBIN 0.6 mg/dL (0.0-1.0)
--- NOTE | 2020-11-22 07:25 | NUR ---
RECEIVE REPORT FROM PRO SHOP ATTENDANT NURSE GURMEET FOR CONTINUITY OF CARE. PATIENT IS SLEEPING ON BED, EYES OPEN TO VOICE, FLACC 0, UNABLE TO FOLLOW COMMAND, NOR ABLE TO MAKE NEED KNOWN. RESPIRATION EVEN, UNLABORED ON ETT TO VENT, AC/PRVC FIO2 28%, RATE 20, PEEP 5, VT 400, SPO2 100%, LUNGS SOUND DIMINISHED UPON AUSCULTATION. NO SIGNS OF ACUTE DISTRESS NOTED. JAILYN PICC IN PLACE, TKO. SKIN WARM TO TOUCH, CLEAN AND DRY. LEDY-MON TUBE IN PLACE, NOT RUNNING AT THIS TIME, OGT IN PLACE, RUNNING JEVITY 1.2 AT 40 ML/HR. FREY IN PLACE, RUNNING WITH GRAVITY, YELLOW URINE IN BAG NOTED. SAFETY MEASURES IN PLACE. SAFETY MEASURES IN PLACE. BED IN LOW POSITION, HOB ELEVATED 35 DEGREE, AND BED LOCKED.
[2020-11-22] MEDS: ASCORBIC ACID 500 MG/5 ML ORASYR GT SCH (08:56)
[2020-11-22] MEDS: ZINC SULF 220 MG CAP PO SCH (08:57)
[2020-11-22] MEDS: PANTOPRAZOLE 40 MG INJ VIAL IVP SCH (08:57)
[2020-11-22] MEDS: GLYCOPYRROLATE 1 MG TAB GT SCH ×3 (08:57→16:40)
--- NOTE | 2020-11-22 09:02 | NUR ---
CHECKED OGT RESIDUAL RECEIVED 10 ML WHITE RESIDUAL, FLUSHED. ADMINISTERED SCHEDULED MEDS PER MD ORDER, FLUSHED BEFORE AND AFTER MEDS. PROVIDED ORAL CARE AND SUCTIONING, PATIENT TOLERATED FAIR. PROVIDED CHG BATH AND FREY CARE. REPOSITIONED PATIENT, AND PILLOWS USED TO OFFLOAD PRESSURE FROM BONY AREAS. CONTINUED ON OGT FEEDING. PATIENT IS RESTING ON BED WITH EYES CLOSED, FLACC 0. RESPIRATION EVEN, UNLABORED ON ETT TO VENT, AC/PRVC FIO2 28%, SPO2 100% AT THIS TIME. SAFETY MEASURES IN PLACE.
[2020-11-22] MEDS: DOCUSATE 100 MG/10 ML UDC PO SCH ×2 (09:15→20:48)
--- NOTE | 2020-11-22 10:30 | NUR ---
RECEIVED A CALL FROM FROM [facility] ION HOYT FOR PATIENT'S CONDITION UPDATE, PROVIDED UPDATE AND ANSWER ALL HER QUESTIONS. PER EVELINA, SHE WILL FOLLOW UP THE CONDITION AND CONTACT STRATEGIC DEBRIEFING SPECIALIST MAIRA FOR FURTHER UPDATE. Addendum: 11/22/20 at 1059 by Apple Alvares RN CHARTED UNDER WRONG PATIENT. IGNORED.
--- NOTE | 2020-11-22 10:58 | NUR ---
DR QUEVEDO IS ROUNDING ON PATIENT.
--- NOTE | 2020-11-22 12:32 | NUR ---
SCHEDULED MEDS ADMINISTERED PER MD ORDER. PROVIDED ORAL CARE. WITH ASSIST, REPOSITIONED PATIENT, PILLOWS USED TO OFFLOAD PRESSURE, PATIENT TOLERATED FAIR, FLACC 0. SAFETY MEASURES IN PLACE.
--- NOTE | 2020-11-22 12:39 | NUR ---
PT JOSÉ MIGUEL SBT DR QUEVEDO NOTIFIED UABLE TO DRAW ABG AT THIS TIME PT WITH HIGH RESPIRATORY RATE AND MODERATE SECS DR QUEVEDO DECIDED TO HOLD OFF FOR NOW WILL CONTINUE TO DO SBT TRIALS DAILY
--- NOTE | 2020-11-22 13:00 | NUR ---
[facility]
--- NOTE | 2020-11-22 13:40 | NUR ---
SCHEDULE KEPPRA GIVEN. PARENTS ARE AT BEDSIDE VISITING PATIENT. NO SIGNS OF ACUTE DISTRESS NOTED. SAFETY MEASURES IN PLACE.
--- NOTE | 2020-11-22 16:41 | NUR ---
SCHEDULED MED GIVEN, FLUSHED BEFORE AND AFTER MED. PROVIDED ORAL CARE. REPOSITIONED PATIENT, PILLOWS USED TO OFFLOAD PRESSURE, PATIENT TOLERATED FAIR. SAFETY MEASURES IN PLACE. HOB ELEVATED 35 DEGREE, BED IN LOW POSITION AND BED LOCKED.
--- NOTE | 2020-11-22 17:56 | NUR ---
SCHEDULED ZOSYN GIVEN. PROVIDED ORAL CARE AND SUCTIONING, PATIENT TOLERATED FAIR. WITH ASSIST, REPOSITIONED PATIENT, PILLOWS USED TO OFFLOAD PRESSURE, SAFETY MEASURES IN PLACE.
--- NOTE | 2020-11-22 19:19 | NUR ---
ENDORSED PATIENT TO VAMP STRAP IRONER SHEILA RN FOR CONTINUITY OF CARE. SAFETY MEASURES IN PLACE.
--- NOTE | 2020-11-22 19:40 | NUR ---
RECEIVED REPORT FROM [facility] NURSE. PT ETT TO VENT, AC PRVC 28%, TV 400, RATE 20, PEEP 5. OPENS EYES SPONTANEOUSLY, PERRL BRISK. DOES NOT FOLLOW COMMANDS. OGT IN PLACE, TF JEVITY AT ORDERED RATE.GTUBE IN PLACE, CLAMPED. JAILYN PICC IN PLACE, IVF TKO. FREY CATHETER IN PLACE, HANGING BY GRAVITY. PT WITH DEFORMITIES, HAS CEREBRAL PALSY, SCROTAL EDEMA NOTED, ABLE TO MOVE BILATERAL ARMS. FLACC 0. SEIZURE PRECAUTIONS IN PLACE. BED LOCKED AND IN LOWEST POSITION, SIDE RAILS UP, HOB 30 DEGREES. WILL CONTINUE TO MONITOR.
--- NOTE | 2020-11-22 21:30 | NUR ---
UPDATED PATIENT'S MOTHER ON PATIENT STATUS, ANSWERED ALL QUESTIONS AND CONCERNS.
[2020-11-23] VITALS (33 sets, daily range): BP systolic 111–163; BP diastolic 52–116
--- NOTE | 2020-11-23 00:10 | NUR ---
NO SIGNS OF DISTRESS, PT IS TACHYPNEIC WHEN PROVIDED ORAL CARE, SUCTIONED MODERATE AMOUNT OF SECRETIONS AT ETT. TEMPERATURE SLIGHTLY LOW, 77.1 ADDED EXTRA BLANKETS. IV ANTIBIOTICS ADMINISTERED ORDERED. CONTINUE TO MONITOR.
[2020-11-23] MEDS: ALBUTEROL SULFATE/IPRATROPIU 3 ML SOL IH SCH ×4 (00:47→19:00)
[2020-11-23] MEDS: Z-GUARD PASTE TP SCH ×2 (00:59→12:48)
[2020-11-23] MEDS: PIPERACILLIN/TAZOBACTAM 3.375 GM in DEXTROSE 5% 50 ML IV SCH ×4 (00:59→18:49)
--- NOTE | 2020-11-23 02:35 | NUR ---
PT TURNED AND REPOSITIONED, SMALL BOWEL MOVEMENT NOTED, PROVIDED SKIN CARE, REAPPLIED ZGUARD TO SCROTUM AND PERINEAL AREAS. FLACC 0. PT OPENS EYES SPONTANEOUSLY. SAFETY MEASURES IN PLACE.
--- NOTE | 2020-11-23 05:10 | NUR ---
SPONGE BATH, FREY CARE, AND ORAL CARE PROVIDED. PT TOLERATED FAIRLY, PT HAS SHAKING WITH POSITIONING. OFFLOADED PRESSURE AREAS, PILLOWS IN PLACE AT CONTRACTED UPPER EXTREMITIES. BED LOCKED AND IN LOWEST POSITION, SIDE RAILS UP, HOB 30 DEGREES.
[2020-11-23] MEDS: levETIRAcetam 100 MG/ML ORASYR GT SCH ×3 (05:50→21:33)
[2020-11-23 06:03] LABS: BASOPHILS % (AUTO) 0.8 % (0.0-2.0); EOSINOPHILS # (AUTO) 0.5 K/uL (0-0.4); EOSINOPHILS % (AUTO) 7.7 % (0.0-4.0); HEMATOCRIT 33.3 % (36-52); HEMOGLOBIN 10.8 g/dL (12.0-18.0); LYMPHOCYTES # (AUTO) 2.2 K/uL (2.0-11.5); LYMPHOCYTES % (AUTO) 36.8 % (20.5-51.1); MEAN CORPUSCULAR HEMOGLOBIN 26 pg (27-31); MEAN CORPUSCULAR HGB CONC 33 g/dL (33-37); MEAN CORPUSCULAR VOLUME 80.4 fL (80-94); MONOCYTES # (AUTO) 0.6 K/uL (0.8-1.0); MONOCYTES % (AUTO) 9.8 % (1.7-9.3); NEUTROPHILS # (AUTO) 2.6 K/uL (1.8-7.7); NEUTROPHILS % (AUTO) 44.9 % (42.2-75.2); PLATELET COUNT (AUTO) 187 K/uL (140-450); RED BLOOD CELL COUNT(AUTO) 4.14 MIL/uL (4.20-6.10); RED CELL DISTRIBUTION WIDTH 16.4 % (11.6-13.7); WHITE BLOOD COUNT (AUTO) 5.9 K/uL (4.8-10.8)
[2020-11-23 06:23] LABS: ALBUMIN 2.7 g/dL (3.4-5.0); ANION GAP 17.1 (8-16); CARBON DIOXIDE 22.8 mmol/L (21-32); CREATININE 0.3 mg/dL (0.6-1.3); MAGNESIUM 1.8 mg/dL (1.8-2.4); PHOSPHORUS 3.5 mg/dL (2.5-4.9); TOTAL BILIRUBIN 1.2 mg/dL (0.0-1.0)
[2020-11-23] MEDS: GLYCOPYRROLATE 1 MG TAB GT SCH ×3 (06:35→16:53)
--- NOTE | 2020-11-23 07:20 | NUR ---
ENDORSED PATIENT TO PROJECT MANAGEMENT CONSULTANT NURSE FOR CONTINUITY OF CARE. PATIENT STABLE AT THIS TIME. Addendum: 11/23/20 at 1924 by Erika Laguna RN RN THE TIME IS 1919
--- NOTE | 2020-11-23 07:22 | NUR ---
ENDORSED TO DAYSHIFT NURSE FOR CONTINUITY OF CARE. NO SIGNS OF DISTRESS. PT HAS EYES CLOSED, FLACC 0, SAFETY MEASURES IN PLACE.
--- NOTE | 2020-11-23 07:22 | NUR ---
RECEIVED BEDSIDE REPORT FROM GAS ENGINE MECHANIC NURSE. PATIENT SUPINE IN BED, HOB 30 DEGREES. BREATHING EVEN AND UNLABORED NO SIGNS OF ACUTE DISTRESS NOTED. ETT TO VENT: ACPRVC FIO2 28%, TV 400, RR 20, PEEP 5. OGT INFUSING JEVITY 1.2 @ 40 ML/HR. FREY CATHETER IN PLACE, DRAINING TO GRAVITY. JAILYN PICC INFUSING NS @ 10 ML/HR. WOOD HEEL FITTER MACHINE IN PLACE, SAFETY MEASURES IN PLACE.
--- NOTE | 2020-11-23 08:35 | NUR ---
CRITICAL LAB VALUE POTASSIUM 2.9, PER DR CARRION 20 MEK PO POTASSIUM AND 20 MEQ K RIDER.
[2020-11-23] MEDS: ASCORBIC ACID 500 MG/5 ML ORASYR GT SCH (08:44)
[2020-11-23] MEDS: PANTOPRAZOLE 40 MG INJ VIAL IVP SCH (08:46)
[2020-11-23] MEDS: DOCUSATE 100 MG/10 ML UDC PO SCH ×2 (08:47→21:33)
[2020-11-23] MEDS: ZINC SULF 220 MG CAP PO SCH (08:47)
--- NOTE | 2020-11-23 08:50 | NUR ---
ADMINISTERED SCHEDULED MEDS PER MD ORDER. MED EDUCATION PROVIDED, REINFORCEMENT NEEDED. G TUBE RESIDUAL, 20 ML, FLUSHED BEFORE AND AFTER MEDS. MORNING HYGIENE PROVIDED: VAP ORAL CARE, CATHETER CARE, CHG BATH, CHANGED ALL DIRTY LINEN. PATIENT REPOSITIONED AND OFFLOADED PRESSURE WITH PILLOWS. SHORT ORDER COOK IN PLACE, SAFETY MEASURES IN PLACE, SEIZURE PRECAUTIONS IN PLACE.
[2020-11-23 08:51] LABS: POTASSIUM 2.9 mmol/L (3.5-5.1)
[2020-11-23] MEDS ORDERED: POTASSIUM CHLORIDE 20% 40 MEQ/15 ML UDC GT SCH (09:08)
[2020-11-23] MEDS ORDERED: KCL 20 MEQ/WATER INJ PREMIX 100 ML IV SCH (09:10)
--- NOTE | 2020-11-23 09:19 | NUR ---
DR RAYMOND CALLED BACK FOR DR JACKMAN REGARDING ABNORMAL XRAY RESULTS. PER DR RAYMOND, CONNECT BOTH CHEST TUBES TO SUCTION. WILL CONTINUE TO MONITOR. Addendum: 11/23/20 at 0920 by Erika Laguna RN RN WRONG PATIENT.
--- NOTE | 2020-11-23 09:20 | NUR ---
PATIENTS MOTHER CALLED, UPDATED ON PATIENT CONDITION. ALL QUESTIONS ANSWERED.
[2020-11-23] MEDS: POTASSIUM CHLORIDE 20% 40 MEQ/15 ML UDC GT SCH ×2 (11:52→16:25)
--- NOTE | 2020-11-23 12:49 | NUR ---
ADMINISTERED SCHEDULED MEDS PER MD ORDER. MED EDUCATION PROVIDED, REINFORCEMENT NEEDED. G TUBE FLUSHED BEFORE AND AFTER MEDS.
--- NOTE | 2020-11-23 13:38 | NUR ---
PT PLACED ON SBT FOR 2 HOURS CPAP 5 PS 5 PER PHYSICIAN ORDER. VENT ALARMS SET APPROPRIATELY AND WILL GO BACK INTO PREVIOUS FULL SUPPORT PRVC MODE IF PT FALLS OUT OF SET ALARM PARAMETERS. NURSE MADE AWARE. WILL CONTINUE TO MONITOR.
--- NOTE | 2020-11-23 14:56 | NUR ---
11/23/20 RD FOLLOW UP COMPLETED PLEASE REFER TO NUTRITION ASSESSMENT UNDER CARE ACTIVITY FOR ESTIMATED NUTRITIONAL NEEDS. 1. CONTINUE JEVITY 1.2 @ 40 ML/HR. START AT 10 ML/HR AND INCREASE BY 20 ML/HR Q6H -THIS WILL PROVIDE 1152 KCAL AND 53 GM OF PROTEIN WHICH MEETS 100% OF KCAL NEEDS AND 93% OF PROTEIN NEEDS 2. RECOMMEND FREE WATER FLUSH OF [address] TO FOLLOW-UP 2-3 DAYS, HIGH RISK LUCY VAZQUEZ RD
--- NOTE | 2020-11-23 15:47 | NUR ---
PT COMPLETED TOTAL OF 1 HOUR 30 MIN OF SBT. VT BECAME INADEQUATE FOR PT AND RR INCREASED ABOVE 30. LARGE AMOUNT OF SECRETIONS ALSO SET OFF HIGH PEAK PRESSURE ALARMS. NURSE MADE AWARE. PT RETURNED TO PRVC MODE. WILL CONTINUE TO MONITOR.
--- NOTE | 2020-11-23 17:18 | NUR ---
PT NOT IN ANY DISTRESS AT THIS TIME. PT SUCTIONED OBTAINED LARGE AMOUNT OF THICK CLEAR SECRETIONS, AIRWAY IS PATENT AND SECURE. FATHER IS BEDSIDE WITH PT.VENT ALARMS REMAIN ON AND FUNCTIONING.
[2020-11-24] VITALS (32 sets, daily range): BP systolic 113–165; BP diastolic 54–99
[2020-11-24] MEDS: PIPERACILLIN/TAZOBACTAM 3.375 GM in DEXTROSE 5% 50 ML IV SCH ×4 (00:04→17:11)
[2020-11-24] MEDS: ALBUTEROL SULFATE/IPRATROPIU 3 ML SOL IH SCH ×4 (00:55→19:04)
[2020-11-24] MEDS: Z-GUARD PASTE TP SCH ×2 (01:42→13:12)
[2020-11-24] MEDS: levETIRAcetam 100 MG/ML ORASYR GT SCH ×3 (05:49→21:50)
[2020-11-24 06:04] LABS: BASOPHILS # (AUTO) 0.1 K/uL (0.00-0.22); BASOPHILS % (AUTO) 1.2 % (0.0-2.0); EOSINOPHILS # (AUTO) 0.4 K/uL (0-0.4); EOSINOPHILS % (AUTO) 7.9 % (0.0-4.0); LYMPHOCYTES % (AUTO) 42.2 % (20.5-51.1); MEAN CORPUSCULAR HEMOGLOBIN 26 pg (27-31); MEAN CORPUSCULAR HGB CONC 33 g/dL (33-37); MEAN CORPUSCULAR VOLUME 80.9 fL (80-94); MONOCYTES # (AUTO) 0.6 K/uL (0.8-1.0); MONOCYTES % (AUTO) 11.9 % (1.7-9.3); NEUTROPHILS # (AUTO) 1.8 K/uL (1.8-7.7); NEUTROPHILS % (AUTO) 36.8 % (42.2-75.2); PLATELET COUNT (AUTO) 187 K/uL (140-450); RED BLOOD CELL COUNT(AUTO) 4.57 MIL/uL (4.20-6.10); RED CELL DISTRIBUTION WIDTH 16.7 % (11.6-13.7); WHITE BLOOD COUNT (AUTO) 4.8 K/uL (4.8-10.8)
[2020-11-24 06:23] LABS: ALBUMIN 2.9 g/dL (3.4-5.0); ANION GAP 13.3 (8-16); CARBON DIOXIDE 23.5 mmol/L (21-32); CREATININE 0.4 mg/dL (0.6-1.3); PHOSPHORUS 3.6 mg/dL (2.5-4.9); POTASSIUM 3.8 mmol/L (3.5-5.1); TOTAL BILIRUBIN 0.9 mg/dL (0.0-1.0)
--- NOTE | 2020-11-24 07:10 | NUR ---
RECEIVED HANDOFF FROM HAT BRIM CURLER RN. PT IS A&OX0, BUT WILL SOMETIMES TRACK WITH EYES. PT IS ETT TO VENT ON PRVC MODE WITH FIO28%, VT 400, R 20, PEEP 5. PT IS ST ON THE MONITOR AT THIS TIME. FOR ACCESS PT HAS JAILYN PICC WITH IVF RUNNING TKO. PT HAS G TUBE, BUT PER HAT BRIM CURLER IT WAS NOT WORKING CORRECTLY, SO PT HAS OG TUE WITH JEVITY RUNNING AT 40 ML/HR WITH FWF 70 ML/HR Q6HR. FREY CATHETER IS IN PLACE. HOB IS 30 DEG WITH BED IN LOW, LOCKED POSITION. WILL CONTINUE TO MONITOR.
--- NOTE | 2020-11-24 07:21 | NUR ---
RECEIVED INTUBATED PT WITH A 7.0 ETT SECURED @21 TEETH/GUM ON VENT. SETTINGS PRVC 20, VT 400, PEEP 5 AND FIO2 28%. PT SUCTIONED FOR LARGE AMOUNT OF THICK CLEAR SECRETIONS, AIRWAY IS PATENT AND ETT IS SECURE WITH ANCHOR FAST DEVICE. PT IS AWAKE BUT UNABLE TO FOLLOW COMMANDS. VENT IS PLUGGED INTO A RED OUTLET WITH ALARMS ON AND FUNCTIONING. AMBU BAG IS PRESENT NEAR BEDSIDE. WILL CONTINUE TO MONITOR.
[2020-11-24] MEDS: GLYCOPYRROLATE 1 MG TAB GT SCH ×3 (08:02→16:21)
[2020-11-24] MEDS: PANTOPRAZOLE 40 MG INJ VIAL IVP SCH (08:02)
[2020-11-24] MEDS: ASCORBIC ACID 500 MG/5 ML ORASYR GT SCH (08:03)
[2020-11-24] MEDS: DOCUSATE 100 MG/10 ML UDC PO SCH ×2 (08:03→21:50)
[2020-11-24] MEDS: ZINC SULF 220 MG CAP PO SCH (08:04)
--- NOTE | 2020-11-24 08:43 | NUR ---
MEDICATIONS ADMINISTERED PER ORDER, PT TOLERATED WELL. OG TUBE AUSCULTATED TO CONFIRM PLACEMENT. 5 ML RESIDUAL FROM TUBE FEED. TEMPERATURE 98.0 TEMPORALLY. CHG BATH, VAP ORAL CARE, AND FREY CARE PROVIDED. PT TURNED, REPOSITIONED, OFF LOADED BONY PROMINENCES WITH PILLOWS. TELEVISION IS ON FOR PT, HOB 30 DEG.
--- NOTE | 2020-11-24 10:19 | NUR ---
DR. BELTRÁN SEEING PT. NO CHANGES IN ORDERS AT THIS TIME. Addendum: 11/24/20 at 1020 by Lindsey Holm RN RN PER DR. JEREL MEJIA TO DO CPAP TRIALS, BUT DO NOT EXTUBATE UNTIL SECRETIONS DECREASE
[2020-11-24] MEDS: SCOPOLAMINE 1.5 MG/72 HR PATCH TD SCH (11:19)
--- NOTE | 2020-11-24 11:32 | NUR ---
MEDICATIONS ADMINISTERED PER ORDER. PT TOLERATED WELL. PT REPOSITIONED AND OFF LOADED WITH PILLOWS. VAP ORAL CARE PROVIDED. TEMPERATURE 98.2 TEMPORALLY.
--- NOTE | 2020-11-24 11:38 | NUR ---
DR. CARRION SEEING PT
--- NOTE | 2020-11-24 13:16 | NUR ---
PT PLACED ON SBT FOR 2 HOURS TOLERATED. CPAP 5 PS 8 DUE TO PS 5 NOT ADEQUATE TO VENTILATE PT. NURSE MADE AWARE. VENT ALARMS SET APPROPRIATELY.
--- NOTE | 2020-11-24 14:15 | NUR ---
PT REPOSITIONED, OFF LOADED WITH PILLOWS. ORAL AND ETT SUCTIONED, SMALL AMOUNT OF THIN WATERY SECRETIONS
--- NOTE | 2020-11-24 15:19 | NUR ---
FOUND PT BACK ON PRVC MODE DUE TO SBT ENDING FOR HIGH RR AND LOW VT. NURSE MADE AWARE. TOTAL SBT 1 HOUR 49MIN.
--- NOTE | 2020-11-24 17:17 | NUR ---
MEDICATIONS ADMINISTERED PER ORDER, NEW TUBE FEEDING STARTED. PT GIVEN BATH, WIPED DOWN, CHANGED SHEETS AND GOWN. PT OFFLOADED WITH PILLOWS. VAP ORAL CARE PROVIDED.
--- NOTE | 2020-11-24 19:23 | NUR ---
HANDOFF GIVEN TO HEART SURGEON RN FOR CONTINUITY OF CARE.
--- NOTE | 2020-11-24 19:35 | NUR ---
PT HAS EYES OPEN, HISTORY OF CEREBRAL PALSY, UNABLE TO FOLLOW COMMANDS. ETT TO VENT ON 25% FIO2. COPIOUS SECRETIONS NOTED. LUNGS RHONCHI NOTED. SR 70-80S, NO EDEMA NOTED. PALPABLE PULSES. OGT IN PLACE, PATENT IN PLACE. LEDY-OMN GT IN PLACE TO LLQ. FREY CATH IN PLACE CLEAR YELLOW URINE NOTED. SKIN INTACT. IAD TO R GROIN NOTED. PICC LINE PATENT. SEIZURE PRECAUTIONS IN PLACE. SAFETY PRECAUTIONS BED LOCKED IN LOWEST POSITION. WILL CONTINUE TO OBSERVE.
--- NOTE | 2020-11-24 22:18 | NUR ---
PT TURNED AND REPOSITIONED. WILL CONTINUE TO OBSERVE
[2020-11-25] VITALS (32 sets, daily range): BP systolic 112–144; BP diastolic 58–108
[2020-11-25] MEDS: PIPERACILLIN/TAZOBACTAM 3.375 GM in DEXTROSE 5% 50 ML IV SCH ×4 (00:10→18:15)
[2020-11-25] MEDS: ALBUTEROL SULFATE/IPRATROPIU 3 ML SOL IH SCH ×3 (00:40→19:55)
--- NOTE | 2020-11-25 00:40 | NUR ---
PT SUCTIONED; LOTS OF ORAL SECRETIONS NOTED. NO OTHER ACUTE S/S OF DISTRESS NOTED. WILL CONTINUE TO OBSERVE.
[2020-11-25] MEDS: Z-GUARD PASTE TP SCH ×2 (01:00→13:16)
[2020-11-25] MEDS: levETIRAcetam 100 MG/ML ORASYR GT SCH ×3 (05:09→21:00)
--- NOTE | 2020-11-25 07:15 | NUR ---
RECEIVE REPORT FROM SENIOR PRINCIPAL NURSE ORTIZ FOR CONTINUITY OF CARE. PATIENT'S EYES OPEN, 3 MM BRISK, REACT TO LIGHT, ABLE TO TRACK, FLACC 0, UNABLE TO FOLLOW COMMAND, NOR ABLE TO MAKE NEED KNOWN. RESPIRATION EVEN, UNLABORED ON ETT TO VENT, AC/PRVC FIO2 24%, RATE 20, PEEP 5, VT 400, SPO2 100%, LUNGS SOUND RHONCHI UPON AUSCULTATION. NO SIGNS OF ACUTE DISTRESS NOTED. JAILYN PICC IN PLACE, TKO. SKIN WARM TO TOUCH, CLEAN AND DRY. LEDY-MON TUBE IN PLACE, NOT RUNNING AT THIS TIME, OGT IN PLACE, RUNNING JEVITY 1.2 AT 40 ML/HR. FREY IN PLACE, RUNNING WITH GRAVITY, YELLOW URINE IN BAG NOTED. SAFETY MEASURES IN PLACE. SAFETY MEASURES IN PLACE. SEIZURE PRECAUTION IN PLACE, BOTH SIDE RAILS PADDED. BED IN LOW POSITION, HOB ELEVATED 35 DEGREE, AND BED LOCKED.
[2020-11-25 07:56] LABS: BASOPHILS # (AUTO) 0.1 K/uL (0.00-0.22); BASOPHILS % (AUTO) 1.3 % (0.0-2.0); EOSINOPHILS # (AUTO) 0.4 K/uL (0-0.4); EOSINOPHILS % (AUTO) 6.9 % (0.0-4.0); HEMATOCRIT 35.8 % (36-52); HEMOGLOBIN 11.5 g/dL (12.0-18.0); LYMPHOCYTES # (AUTO) 2.1 K/uL (2.0-11.5); LYMPHOCYTES % (AUTO) 38.4 % (20.5-51.1); MEAN CORPUSCULAR HEMOGLOBIN 26 pg (27-31); MEAN CORPUSCULAR HGB CONC 32 g/dL (33-37); MEAN CORPUSCULAR VOLUME 80.9 fL (80-94); MONOCYTES # (AUTO) 0.6 K/uL (0.8-1.0); MONOCYTES % (AUTO) 11.9 % (1.7-9.3); NEUTROPHILS # (AUTO) 2.3 K/uL (1.8-7.7); NEUTROPHILS % (AUTO) 41.5 % (42.2-75.2); PLATELET COUNT (AUTO) 187 K/uL (140-450); RED BLOOD CELL COUNT(AUTO) 4.42 MIL/uL (4.20-6.10); RED CELL DISTRIBUTION WIDTH 16.8 % (11.6-13.7); WHITE BLOOD COUNT (AUTO) 5.4 K/uL (4.8-10.8)
[2020-11-25 08:04] LABS: ANION GAP 12.7 (8-16); CARBON DIOXIDE 27.7 mmol/L (21-32); CREATININE 0.4 mg/dL (0.6-1.3); POTASSIUM 3.4 mmol/L (3.5-5.1)
[2020-11-25 08:08] LABS: MAGNESIUM 1.9 mg/dL (1.8-2.4); PHOSPHORUS 3.9 mg/dL (2.5-4.9)
[2020-11-25] MEDS: ASCORBIC ACID 500 MG/5 ML ORASYR GT SCH (08:25)
[2020-11-25] MEDS: PANTOPRAZOLE 40 MG INJ VIAL IVP SCH (08:25)
[2020-11-25] MEDS: ZINC SULF 220 MG CAP PO SCH (08:25)
[2020-11-25] MEDS: GLYCOPYRROLATE 1 MG TAB GT SCH ×3 (08:25→16:45)
[2020-11-25] MEDS: DOCUSATE 100 MG/10 ML UDC PO SCH ×2 (08:25→21:00)
--- NOTE | 2020-11-25 08:44 | NUR ---
CHECKED OGT RESIDUAL RECEIVED 20 ML, FLUSHED. ADMINISTERED SCHEDULED AM MEDS VIA OGT AND IVP, FLUSHED BEFORE AND AFTER MEDS. PROVIDED AM HYGIENE CARE, ORAL CARE, SUCTIONING,RECEIVED MINIMAL AMOUNT OF WHITE SECRETION, FREY CARE AND CHG BATH, PATIENT TOLERATED WELL, FLACC 0. EYES OPEN, RESPIRATION EVEN AND UNLABORED, SPO2 100%. REPOSITIONED PATIENT, PILLOWS USED TO OFFLOAD PRESSURE. SAFETY MEASURES IN PLACE. HOB ELEVATED 35 DEGREE, BED IN LOW POSITION, AND BED LOCKED.
--- NOTE | 2020-11-25 09:29 | NUR ---
UPDATED ON SBT RESULTS OVER PAST FEW DAYS FOR PT. PHYSICIAN STATES UNDERSTANDING TO TRY CPAP 5 PS 8 IF PS OF 5 NOT ADEQUATE. EXPLAINED SECRETIONS TO PHYSICIAN ALSO.
--- NOTE | 2020-11-25 09:35 | NUR ---
DR QUEVEDO IS ROUNDING ON PATIENT AT BEDSIDE.
--- NOTE | 2020-11-25 11:40 | NUR ---
WITH ASSIST, REPOSITIONED PATIENT, PILLOWS USED TO UPLOAD PRESSURE, PATIENT TOLERATED FAIR, FLACC 0. RESPIRATION EVEN, UNLABORED, SPO2 100%. SAFETY MEASURES IN PLACE.
--- NOTE | 2020-11-25 12:19 | NUR ---
SCHEDULED MEDS GIVEN, ORAL CARE PROVIDED AND SUCTIONING, PATIENT IS RESTING ON BED, AROUSABLE TO VOICE. SAFETY MEASURES IN PLACE.
--- NOTE | 2020-11-25 13:17 | NUR ---
CHECKED OGT RESIDUAL RECEIVED 10 ML, FLUSHED. ADMINISTERED SCHEDULED MED VIA OGT PER MD ORDER,FLUSHED BEFORE AND AFTER MED. CLEANSED PERINEAL AREA WITH WARM WATER, APPLIED THIN LAYER OF Z-GUARD, REPOSITIONED PATIENT, PILLOWS PLACED TO UPLOADED PRESSURE. ORAL CARE AND SUCTIONING PROVIDED, PATIENT TOLERATED WELL, FLACC 0. PATIENT AWAKE AND LOOKING AT TV. NO SIGNS OF ACUTE DISTRESS NOTED. SAFETY MEASURES IN PLACE. HOB ELEVATED 35 DEGREE, BED IN LOW POSITION, AND BED LOCKED.
[2020-11-25] MEDS ORDERED: POTASSIUM CHLORIDE 20% 40 MEQ/15 ML UDC GT SCH (14:45)
--- NOTE | 2020-11-25 15:17 | NUR ---
POTASSIUM CHLORIDE 40 MEQ GIVEN FOR 3.4 L FROM AM LAB, FLUSHED BEFORE AND AFTER MED. PROVIDED ORAL CARE, AND SUCTIONING, RECEIVED MINIMAL MUCUS. PATIENT AWAKE AND LOOKING AT THE TV, NO SIGNS OF ACUTE DISTRESS NOTED. FLACC 0. RESPIRATION EVEN AND UNLABORED, SPO2 AT 100% AT THIS TIME. SAFETY MEASURES IN PLACE.
--- NOTE | 2020-11-25 15:45 | NUR ---
CHECKED IN ON PT SBT ENDED WITH 26 MIN LEFT ON 2 HOUR SBT. SBT ENDED DUE TO HIGH RR >35 AND LOW VT. NURSE AWARE. PT RETURNED TO PRVC MODE. WILL CONTINUE TO MONITOR.
--- NOTE | 2020-11-25 16:05 | NUR ---
STARTED A NEW BOTTLE OF JEVITY 1.2, CHANGED ALL TUBING, CONTINUE RUNNING AT 40 ML/HR, WATER FLUSHED 70 ML/Q6H. PATIENT IS AWAKE AND RESTING ON BED. PROVIDED ORAL CARE, SUCTIONING, PATIENT TOLERATED FAIR, FLACC 0. SAFETY MEASURES IN PLACE.
--- NOTE | 2020-11-25 18:16 | NUR ---
SCHEDULED ZOSYN ADMINISTERED. PROVIDED ORAL CARE AND SUCTIONING, RECEIVED MINIMAL MUCUS, PATIENT TOLERATED FAIR. FLACC 0. SAFETY MEASURES IN PLACE.
--- NOTE | 2020-11-25 19:30 | NUR ---
RECEIVED REPORT FROM [facility] NURSE. PT ETT TO VENT, AC PRVC 24%, TV 400, RATE 20, PEEP 5. OPENS EYES SPONTANEOUSLY, PERRL BRISK. DOES NOT FOLLOW COMMANDS. OGT IN PLACE, TF JEVITY AT ORDERED RATE.GTUBE IN PLACE, CLAMPED. JAILYN PICC IN PLACE, IVF TKO. FREY CATHETER IN PLACE, HANGING BY GRAVITY. PT WITH DEFORMITIES, HAS CEREBRAL PALSY, SCROTAL EDEMA NOTED, ABLE TO MOVE BILATERAL ARMS. FLACC 0. SEIZURE PRECAUTIONS IN PLACE. BED LOCKED AND IN LOWEST POSITION, SIDE RAILS UP, HOB 30 DEGREES. WILL CONTINUE TO MONITOR.
--- NOTE | 2020-11-25 21:15 | NUR ---
GASTRIC RESIDUALS LESS THAN 40 ML, SCHEDULED MEDS GIVEN. SEIZURE PRECAUTIONS IN PLACE. TEMPERATURE SLIGHTLY ELEVATED, REMOVED BLANKETS. WILL REASSESS.
[2020-11-26] VITALS (35 sets, daily range): BP systolic 111–150; BP diastolic 64–103
--- NOTE | 2020-11-26 00:11 | NUR ---
ORAL CARE PROVIDED, MODERATE AMOUNT OF SECRETIONS NOTED. PT BECOMES TACHYCARDIC WITH CLEANING. NO SIGNS OF DISTRESS. FLACC 0.
[2020-11-26] MEDS: ALBUTEROL SULFATE/IPRATROPIU 3 ML SOL IH SCH ×4 (01:55→19:08)
[2020-11-26] MEDS: Z-GUARD PASTE TP SCH ×2 (01:55→12:11)
--- NOTE | 2020-11-26 04:15 | NUR ---
SPONGE BATH, FREY CARE, AND ORAL CARE PROVIDED. SMALL BOWEL MOVEMENT NOTED. PT TOLERATED TREATMENT FAIRLY. OFFLOADED PRESSURE AREAS.SAFETY MEASURES IN PLACE.
[2020-11-26] MEDS: PIPERACILLIN/TAZOBACTAM 3.375 GM in DEXTROSE 5% 50 ML IV SCH ×6 (05:06→23:01)
[2020-11-26] MEDS: levETIRAcetam 100 MG/ML ORASYR GT SCH ×3 (05:06→20:33)
[2020-11-26 05:27] LABS: BASOPHILS % (AUTO) 0.9 % (0.0-2.0); EOSINOPHILS # (AUTO) 0.3 K/uL (0-0.4); EOSINOPHILS % (AUTO) 5.2 % (0.0-4.0); HEMATOCRIT 37.1 % (36-52); HEMOGLOBIN 11.9 g/dL (12.0-18.0); LYMPHOCYTES # (AUTO) 1.9 K/uL (2.0-11.5); LYMPHOCYTES % (AUTO) 37.1 % (20.5-51.1); MEAN CORPUSCULAR HEMOGLOBIN 26 pg (27-31); MEAN CORPUSCULAR HGB CONC 32 g/dL (33-37); MEAN CORPUSCULAR VOLUME 81.1 fL (80-94); MONOCYTES # (AUTO) 0.5 K/uL (0.8-1.0); NEUTROPHILS # (AUTO) 2.5 K/uL (1.8-7.7); NEUTROPHILS % (AUTO) 47.8 % (42.2-75.2); PLATELET COUNT (AUTO) 218 K/uL (140-450); RED BLOOD CELL COUNT(AUTO) 4.57 MIL/uL (4.20-6.10); RED CELL DISTRIBUTION WIDTH 16.9 % (11.6-13.7); WHITE BLOOD COUNT (AUTO) 5.3 K/uL (4.8-10.8)
[2020-11-26 05:33] LABS: CARBON DIOXIDE 27.4 mmol/L (21-32); CREATININE 0.4 mg/dL (0.6-1.3); POTASSIUM 3.4 mmol/L (3.5-5.1)
[2020-11-26 05:38] LABS: PHOSPHORUS 3.8 mg/dL (2.5-4.9)
--- NOTE | 2020-11-26 06:15 | NUR ---
NO SIGNS OF DISTRESS, PT RESTING COMFORTABLY, JAILYN PICC IN PLACE, INFUSING IV ANTIBIOTICS. OGT IN PLACE, FEEDING HELD, PT WILL HAVE SBT TRIALS IN THE MORNING. ALL SCHEDULED MEDS GIVEN. FREY EMPTIED, 400 ML. SAFETY MEASURES IN PLACE. FLACC 0.
--- NOTE | 2020-11-26 07:24 | NUR ---
VSS, PT NOT IN DISTRESS, ENDORSED TO DAYSHIFT NURSE FOR CONTINUITY OF CARE.
[2020-11-26] MEDS: GLYCOPYRROLATE 1 MG TAB GT SCH ×3 (07:28→16:49)
--- NOTE | 2020-11-26 07:33 | NUR ---
RECEIVED HANDOFF FROM CONTACT ASSEMBLER RN. PT IS A&OX0, BUT WILL SOMETIMES TRACK WITH EYES. PT IS ETT TO VENT ON PRVC MODE WITH FIO24%, VT 400, R 20, PEEP 5. PT IS SR ON THE MONITOR AT THIS TIME. FOR ACCESS PT HAS JAILYN PICC WITH IVF RUNNING TKO. PT HAS G TUBE AND OG TUBE, BUT FEEDING IS HELD AT THIS TIME IN PREPARATION FOR SBT. FREY CATHETER IS IN PLACE. HOB IS 30 DEG WITH BED IN LOW, LOCKED POSITION. WILL CONTINUE TO MONITOR.
[2020-11-26] MEDS: DOCUSATE 100 MG/10 ML UDC PO SCH ×2 (08:09→20:33)
[2020-11-26] MEDS: ZINC SULF 220 MG CAP PO SCH (08:10)
[2020-11-26] MEDS: PANTOPRAZOLE 40 MG INJ VIAL IVP SCH (08:10)
[2020-11-26] MEDS: ASCORBIC ACID 500 MG/5 ML ORASYR GT SCH (08:10)
--- NOTE | 2020-11-26 08:51 | NUR ---
MEDICATIONS ADMINISTERED PER ORDER, PT TOLERATED WELL. G TUBE AUSCULTATED TO CONFIRM PLACEMENT. RESIDUAL 10 ML, BUT FEEDING REMAINS HELD FOR SBT LATER. TEMPERATURE 98.7 TEMPORALLY. VAP ORAL CARE, CHG BATH, AND FREY CARE PROVIDED. REPOSITIONED PT AND OFF LOADED USING PILLOWS.
--- NOTE | 2020-11-26 11:07 | NUR ---
PT PLACED ON 2 HOUR SBT TOLERATED. CPAP 5 PS 8 VERBALLY ORDERED BY 11/25/2020. VENT ALARMS SET AND VENT SET TO BE PLACED BACK ON PRVC MODE IF PT FALLS OUT OF ALARM PARAMETERS. NURSE MADE AWARE.
--- NOTE | 2020-11-26 12:04 | NUR ---
DR. BELL SEEING PT
[2020-11-26] MEDS ORDERED: POTASSIUM CHLORIDE 20% 40 MEQ/15 ML UDC GT SCH (12:30)
--- NOTE | 2020-11-26 12:33 | NUR ---
MEDICATIONS ADMINISTERED PER ORDER, PT TOLERATED WELL. PT REPOSITIONED AND OFF LOADED WITH PILLOWS. VAP ORAL CARE PERFORMED AND SUCTIONED PT. PT RR INCREASED WHILE SUCTIONING AND SBT ENDED. NOTIFIED RT LIZZIE AND HE WILL COME AND ASSESS PT. TEMPERATURE 98.7 TEMPORALLY.
--- NOTE | 2020-11-26 13:25 | NUR ---
PT PLACED ON ADDITIONAL 1 HOUR SBT TOLERATED NURSE MADE AWARE. WILL CONTINUE TO MONITOR.
--- NOTE | 2020-11-26 13:59 | NUR ---
MOTHER OF PT AT BEDSIDE, BROUGHT IN BY PLATING TANK OPERATOR APPRENTICE NILA.
--- NOTE | 2020-11-26 14:04 | NUR ---
PAGED REGARDING PT STATUS AND ABG RESULTS.
--- NOTE | 2020-11-26 14:35 | NUR ---
CHECK ON PT SBT HAS ENDED PT PLACED BACK ON PRVC MODE.
--- NOTE | 2020-11-26 15:58 | NUR ---
DR. CAROLINA SEEING PT, NO CHANGES AT THIS TIME
--- NOTE | 2020-11-26 16:42 | NUR ---
MEDICATIONS ADMINISTERED PER ORDER. TEMPERATURE 97.9 AXILLARY. PT HAD SMALL SMEAR BM. CLEANED PT AND CHANGED SHEETS. REPOSITIONED PT AND OFF LOADED WITH PILLOWS. VAP ORAL CARE PROVIDED.
--- NOTE | 2020-11-26 17:05 | NUR ---
11/26/20 RD FOLLOW UP COMPLETED. PLEASE REFER TO NUTRITION ASSESSMENT UNDER CARE ACTIVITY FOR ESTIMATED NUTRITIONAL NEEDS. RESUME JEVITY 1.2 @ 40 ML/HR. START AT 10 ML/HR AND INCREASE BY 20 ML/HR Q6H ONCE MEDICALLY APPROPRIATE THIS WILL PROVIDE 1152 KCAL AND 53 GM OF PROTEIN WHICH MEETS 100% OF KCAL NEEDS AND 93% OF PROTEIN NEEDS RD TO FOLLOW-UP 2-3 DAYS, HIGH RISK RADHA CORBETT, RD
--- NOTE | 2020-11-26 18:46 | NUR ---
CHANGED PT'S PICC LINE DRESSING USING STERILE TECHNIQUE.
--- NOTE | 2020-11-26 19:12 | NUR ---
HANDOFF GIVEN TO BRANCH STORE MANAGER RN FOR CONTINUITY OF CARE
--- NOTE | 2020-11-26 19:30 | NUR ---
RECEIVED CARE AND REPORT FROM DORA CANCINO. PATIENT ETT TO VENT, INTUBATED, VENT SETTINGS PRVC, FIO2 24%, VT 400, RR 20, AND PEEP 5. PATIENT HAS AN OG TUBE IN PLACE, FEEDING ORDERED IS JEVITY 1.2 AT 40 ML/HR, FWF 70 ML/HR Q6 TOLERATING WELL, WILL CONTINUE TO REASSESS. PATIENT CONNECTED TO CONTINUOUS RN STAFF, SINUS TACHY, HR 100 BPM, OXYGEN SATURATION 100%, WILL CONTINUE TO CLOSELY MONITOR. IV ACCESS SITES INCLUDE RIGHT UPPER ARM PICC LINE DOUBLE LUMEN, DRESSING DRY, INTACT AND FLUSHES WELL. DRIPS CURRENTLY RUNNING INCLUDE IV FLUIDS NS 0.9% AT 5 ML/HR TKO. PATIENT APPROXIMATE WEIGHT IS 48.5 KG. PATIENT HAS A FREY CATHETER IN PLACE, SECURED, DRAINING WELL AND INTACT. PATIENT HAS ANOTHER G TUBE ACCESS SITE CENTER ABDOMEN, NOT CURRENTLY IN USE, INTACT AND SECURED. SKINS MOSTLY INTACT, MINOR EXCORIATION OF THE LEFT AND RIGHT INNER THIGHS IN THE SAMRA AREA, Z GAURD PASTE APPLIED. PATIENT PLACED IN A POSITION OF COMFORT, PRESSURE POINTS BEING OFFLOADED WITH USE OF FREQUENT REPOSITIONING AND USE OF PILLOWS. BED LOCKED AND LOWERED INTO A POSITION OF SAFETY. WILL CONTINUE TO CLOSELY MONITOR AND FREQUENTLY ROUND THROUGHOUT THE SHIFT.
--- NOTE | 2020-11-26 20:00 | NUR ---
VAP ORAL CARE, REPOSITIONING, SAFETY CHECKS, SUCTIONING AND SAFETY CHECKS PROVIDED. PATIENT CONTINUES TO TOLERATE CURRENT THERAPIES AND VENT SETTINGS WELL. HR 100 AND OXYGEN SATURATION 98% ON THE MONITOR. NO SIGNS OF DISTRESS NOTED. WILL CONTINUE TO CLOSELY MONITOR AND FREQUENTLY ROUND.
--- NOTE | 2020-11-26 22:00 | NUR ---
PATIENT CONTINUES TO REST IN A POSITION OF COMFORT, ALL LINES REMAIN SECURED, INTACT AND IN PLACE. PATIENT CURRENTLY WATCHING THE TV AT BEDSIDE, TOLERATING CURRENT VENT SETTINGS AND THERAPIES WELL, OXYGEN SATURATION 100% ON THE MONITOR, NO SIGNS OF DISTRESS NOTED. WILL CONTINUE TO CLOSELY MONITOR AND FREQUENTLY ROUND.
[2020-11-26] MEDS: ACETAMINOPHEN 325 MG TAB PO PRN (23:50)
--- NOTE | 2020-11-26 23:50 | NUR ---
PATIENT TEMPERATURE TAKEN, 101.0 AXILLARY. COOLING MEASURES STARTED IMMEDIATELY AND PRN TYLENOL GIVEN FOR FEVER, PER ORDER. WILL CONTINUE TO CLOSELY MONITOR AND FREQUENTLY ROUND.
[2020-11-27] VITALS (28 sets, daily range): BP systolic 106–164; BP diastolic 64–120
--- NOTE | 2020-11-27 | NUR ---
VAP ORAL CARE, HYGIENE, REPOSITIONING, SUCTIONING AND SAFETY CHECKS PROVIDED. PATIENT RESTING IN A POSITION OF COMFORT. NO SIGNS OF DISTRESS NOTED AT THIS TIME. WILL CONTINUE TO CLOSELY MONITOR AND FREQUENTLY ROUND.
[2020-11-27] MEDS: Z-GUARD PASTE TP SCH ×2 (00:40→13:00)
[2020-11-27] MEDS: ALBUTEROL SULFATE/IPRATROPIU 3 ML SOL IH SCH ×4 (01:08→19:19)
--- NOTE | 2020-11-27 01:15 | NUR ---
PATIENT SHOWING SOME SIGNS OF MILD AGITATION AND RESTLESSNESS. PATIENT PLACED IN A POSITION OF COMFORT, COMFORTED AT BEDSIDE AND GIVEN PRN IVP ATIVAN PER ORDER. WILL CONTINUE TO CLOSELY MONITOR AND FREQUENTLY ROUND.
--- NOTE | 2020-11-27 02:00 | NUR ---
PATIENT RESTING IN A POSITION OF COMFORT, NO LONGER SHOWING SIGNS OF AGITATION OR RESTLESSNESS. PATIENT SLEEPING, NO SIGNS OF DISTRESS NOTED. PATIENT COOLING MEASURES AND INTERVENTIONS EFFECTIVE, AFEBRILE. NO SIGNS OF DISTRESS NOTED. HR 90, RR 20 AND OXYGEN SATURATION 100% ON THE MONITOR. WILL CONTINUE TO CLOSELY MONITOR AND FREQUENTLY ROUND.
--- NOTE | 2020-11-27 04:00 | NUR ---
SPONGE BATH, Z GUARD PASTE APPLIED FOR SAMRA CARE, LINEN CHANGE, GOWN CHANGE, VAP ORAL CARE, REPOSITIONING, HYGIENE AND SAFETY CHECKS PROVIDED. PATIENT CONTINUES TO REST IN A POSITION OF COMFORT. HR ON THE MONITOR SHOWS NSR AT 99, RR 20, AND OXYGEN SATURATION AT 100%. NO SIGNS OF DISTRESS OR AGITATION NOTED. WILL CONTINUE TO CLOSELY MONITOR AND FREQUENTLY ROUND.
[2020-11-27 05:13] LABS: BASOPHILS # (AUTO) 0.1 K/uL (0.00-0.22); BASOPHILS % (AUTO) 1.3 % (0.0-2.0); EOSINOPHILS # (AUTO) 0.2 K/uL (0-0.4); EOSINOPHILS % (AUTO) 3.7 % (0.0-4.0); HEMATOCRIT 35.8 % (36-52); HEMOGLOBIN 11.7 g/dL (12.0-18.0); LYMPHOCYTES # (AUTO) 1.3 K/uL (2.0-11.5); LYMPHOCYTES % (AUTO) 27.4 % (20.5-51.1); MEAN CORPUSCULAR HEMOGLOBIN 26 pg (27-31); MEAN CORPUSCULAR HGB CONC 33 g/dL (33-37); MEAN CORPUSCULAR VOLUME 79.5 fL (80-94); MONOCYTES # (AUTO) 0.6 K/uL (0.8-1.0); MONOCYTES % (AUTO) 11.5 % (1.7-9.3); NEUTROPHILS # (AUTO) 2.7 K/uL (1.8-7.7); NEUTROPHILS % (AUTO) 56.1 % (42.2-75.2); PLATELET COUNT (AUTO) 208 K/uL (140-450); WHITE BLOOD COUNT (AUTO) 4.9 K/uL (4.8-10.8)
[2020-11-27] MEDS: levETIRAcetam 100 MG/ML ORASYR GT SCH ×3 (05:23→20:11)
[2020-11-27 05:50] LABS: ALBUMIN 3.2 g/dL (3.4-5.0); ANION GAP 12.4 (8-16); CARBON DIOXIDE 26.2 mmol/L (21-32); CREATININE 0.4 mg/dL (0.6-1.3); POTASSIUM 3.6 mmol/L (3.5-5.1); TOTAL BILIRUBIN 0.8 mg/dL (0.0-1.0)
--- NOTE | 2020-11-27 06:00 | NUR ---
PATIENT ASLEEP, RESTING IN A POSITION OF COMFORT. NO SIGNS OF DISTRESS NOTED. CONTINUES TO REMAIN AFEBRILE. WILL CONTINUE TO CLOSELY MONITOR AND FREQUENTLY ROUND.
--- NOTE | 2020-11-27 07:56 | NUR ---
RECEIVE REPORT FROM FOUNDRY SUPERINTENDANT NURSE ENDER AT 0735. PATIENT RESTING WITH EYES CLOSED, OPENS EYES WITH TOUCH, JUHI 3 MM BRISK, FLACC 0, UNABLE TO FOLLOW COMMAND, NOR ABLE TO MAKE NEED KNOWN AT BASE LINE. RESPIRATION EVEN, UNLABORED ON ETT TO VENT, AC/PRVC FIO2 24%, RATE 20, PEEP 5, VT 400, SPO2 100%, LUNGS SOUND RHONCHI UPON AUSCULTATION. NO SIGNS OF ACUTE DISTRESS NOTED. ON BRIMMER BLOCKER, NSR AT 80, BP 116/75, JAILYN PICC IN PLACE, TKO, DRESSING AND SITE CDI. SKIN WARM AND DRY TO TOUCH. LEDY-MON TUBE IN PLACE, NOT RUNNING AT THIS TIME, SITE SLIGHTLY RED, CLEANED AND DRESSED WITH SPLIT OMAIRA, OGT IN PLACE, RUNNING JEVITY 1.2 AT 40 ML/HR, FWF 70ML/6HR. FREY IN PLACE, DRAINING TO GRAVITY, YELLOW URINE IN BAG NOTED. SAFETY MEASURES IN PLACE. SAFETY MEASURES IN PLACE. SEIZURE PRECAUTION IN PLACE, BOTH SIDE RAILS PADDED. BED IN LOW POSITION, HOB ELEVATED 35 DEGREE, AND BED LOCKED. PLAN OF CARE REVIEWED.
[2020-11-27] MEDS: DOCUSATE 100 MG/10 ML UDC PO SCH ×2 (08:21→20:12)
[2020-11-27] MEDS: ASCORBIC ACID 500 MG/5 ML ORASYR GT SCH (08:21)
[2020-11-27] MEDS: ZINC SULF 220 MG CAP PO SCH (08:22)
[2020-11-27] MEDS: PANTOPRAZOLE 40 MG INJ VIAL IVP SCH (08:22)
[2020-11-27] MEDS: GLYCOPYRROLATE 1 MG TAB GT SCH ×3 (08:22→16:08)
--- NOTE | 2020-11-27 09:11 | NUR ---
AM MEDS GIVEN PER ORDER, ORAL CARE DONE, FREY CARE DONE, CHG WIPE DONE.
--- NOTE | 2020-11-27 10:00 | NUR ---
STARTED PT ON SBT TRIAL PS 10 CPAP 5. VC 219, NIF -16, RSBI 85. MAINTAINING VOLUMES IN THE 300s, NO INCREASED WOB, VITAL SIGNS NORMAL. TOLERATING WELL, WILL CONTINUE TO MONITOR. RN AWARE
[2020-11-27] MEDS: SCOPOLAMINE 1.5 MG/72 HR PATCH TD SCH (11:10)
--- NOTE | 2020-11-27 11:10 | NUR ---
PREVIOUS SCOPOLAMINE PATCH REMOVED, NEW PLACED TO UNDER/BEHIND LEFT EAR.
--- NOTE | 2020-11-27 12:07 | NUR ---
DR NICOLE PAGED AND CALLED BACK, NOTIFIED OF FEVER, +SPUTUM CULTURE PSEUDOMONAS AND SENSITIVITIES, TO RECEIVED TO ISIDRO CARMONA, START LEVAQUIN 750MG DAILY.
--- NOTE | 2020-11-27 12:45 | NUR ---
DR CAROLINA AT BEDSIDE FOR EVAL, ABG ORDERED, RT MADE AWARE.
[2020-11-27] MEDS: LEVOFLOXACIN 750 MG/D5W PREMIX 150 ML IV SCH (13:00)
--- NOTE | 2020-11-27 13:45 | NUR ---
MOD SOFT STOOL X1, PERICARE DONE, FREY CARE DONE, PT TOLL WELL, SKIN WARM/HOT TO TOUCH, TEMP 99.7, COOL BED BATH GIVEN, WILL CONTINUE TO MONTIOR
--- NOTE | 2020-11-27 14:05 | NUR ---
PAGED DR CAROLINA AND REPORTED ABG RESULTS ON CPAP TRIAL. DUE TO PTS FEVER AND PSEUDOMONAS FOUND IN SPUTUM, DR CAROLINA WILL HOLD OFF ON EXTUBATION UNTIL TOMORROW. ENDED CPAP TRIAL AND PLACED BACK ON PRVC MODE. PT IS COMFORTABLE, WILL CONTINUE TO MONITOR.
--- NOTE | 2020-11-27 14:31 | NUR ---
PT'S MOTHER CALLED FOR CONDITION UPDATE, ALL QUESTIONS ASKED AND ANSWERED.
--- NOTE | 2020-11-27 16:09 | NUR ---
FREQ ARM MOVEMENTS, HEAD MOVEMENT, APPEARS RESTLESS, PRN ATIVAN GIVEN
--- NOTE | 2020-11-27 17:02 | NUR ---
PT NOW APPEARS MORE COMFORTABLE AFTER ATIVAN.
--- NOTE | 2020-11-27 18:03 | NUR ---
FREY CATH OUTPUT 700ML FOR THIS SHIFT
--- NOTE | 2020-11-27 19:30 | NUR ---
PATIENT CARE AND REPORT RECEIVED FROM DORA CANCINO. PATIENT ETT TO VENT, VENT SETTINGS ARE AC/PRVC, FIO2 24%, VT 400, RR20, AND A PEEP OF 5. PATIENT CURRENTLY RESTING IN A POSITION OF COMFORT, HOB 30 DEGREES, AND TOLERATING CURRENT THERAPIES WELL. PATIENT HAS A TUBE FEEDING OF JEVITY 1.2 ORDERED FOR 40 ML/HR, W/ FWF 70 ML Q6. PATIENT RESIDUALS CURRENTLY 5 ML, TOLERATING WELL, WILL CONTINUE TO FREQUENTLY REASSESS. PATIENT HAS AN OG TUBE IN PLACE, SECURED, INTACT AND FLUSHING WELL. PATIENT IS CONNECTED TO CONTINUOUS CARDIAC MONITORING, HR SINUS TACHY AT 115, RR 20, OXYGEN SATURATION AT 100%. WILL CONTINUE TO CLOSELY MONITOR AND FREQUENTLY ROUND. PATIENT IV ACCESS SITES CURRENTLY RIGHT UPPER ARM PCC LINE DOUBLE LUMEN PICC LINE. IV DRIPS CURRENTLY RUNNING INCLUDE IVF NS 0.9% TKO 5 ML/HR. PATIENT WEIGHT APPROXIMATELY 48.5 KG. PATIENT HAS A FREY CATHETER IN PLACE, INTACT, SECURED AND DRAINING WELL. PATIENT HAS A G TUBE IN PLACE, NOT CURRENTLY CONNECTED. SKINS MOSTLY INTACT, PATIENT HAS SOME EXCORIATION AROUND THE SAMRA AREA, USE OF Z GUARD IN PLACE. PATIENT BEING OFFLOADED FROM PRESSURE POINTS WITH USE OF PILLOWS AND FREQUENT REPOSITIONING. BED LOCKED AND LOWERED INTO A POSITION OF SAFETY. WILL CONTINUE TO CLOSELY MONITOR AND FREQUENTLY ROUND THROUGHOUT THE SHIFT.
--- NOTE | 2020-11-27 20:00 | NUR ---
VAP ORAL CARE, SUCTIONING, HYGIENE, REPOSITIONING, AND SAFETY CHECKS PROVIDED. PATIENT RESTING KATI POSITION OF COMFORT, HOB 30 DEGREES, MINIMAL SECRETIONS. WILL CONTINUE TO CLOSELY MONITOR AND FREQUENTLY ROUND.
[2020-11-27] MEDS: LORazepam 2 MG/ML VIAL IVP PRN (20:10)
--- NOTE | 2020-11-27 20:10 | NUR ---
PATIENT SHOWING SOME SIGNS OF RESTLESSNESS AND AGITATION. PATIENT COMFORTED AND REPOSITIONED TO A POSITION OF COMFORT. PRN ATIVAN GIVEN. WILL CONTINUE TO CLOSELY MONITOR AND FREQUENTLY ROUND.
[2020-11-27] MEDS: ACETAMINOPHEN 325 MG TAB PO PRN (20:27)
--- NOTE | 2020-11-27 20:27 | NUR ---
PATIENT HAS A FEVER OF 100.4, COOLING MEASURES IMMEDIATELY INITIATED AND PRN TYLENOL GIVEN. WILL CONTINUE TO CLOSELY MONITOR AND FREQUENTLY ROUND.
--- NOTE | 2020-11-27 22:00 | NUR ---
PATIENT AFEBRILE POST PRN TYLENOL, COOLING MEASURES STILL IN PLACE, RESTING IN A POSITION OF COMFORT, WATCHING THE TV. PATIENT CONTINUES TO BE SINUS TACHYCARDIA. AT BEDSIDE OFTEN TO PROVIDE COMFORT MEASURES AND REPOSITIONING. WILL CONTINUE TO CLOSELY MONITOR AND FREQUENTLY ROUND.
[2020-11-28] VITALS (27 sets, daily range): BP systolic 90–152; BP diastolic 53–108
[2020-11-28] MEDS: LORazepam 2 MG/ML VIAL IVP PRN ×3 (00:21→21:55)
--- NOTE | 2020-11-28 00:37 | NUR ---
VAP ORAL CARE, SUCTIONING, REPOSITIONING, HYGIENE, AND SAFETY CHECKS PROVIDED. PATIENT SHOWING SIGNS OF AGITATION AND RESTLESSNESS. PATIENT OBSERVED REPEATEDLY MOVING LEFT WRIST AGAINST PADDED BED-RAIL, REDNESS NOTED BUT SKIN IS INTACT. PATIENT GIVEN PRN ATIVAN PER ORDER AND PROVIDED COMFORT AT BEDSIDE. WILL CONTINUE TO CLOSELY MONITOR AND FREQUENTLY ROUND.
[2020-11-28] MEDS: ALBUTEROL SULFATE/IPRATROPIU 3 ML SOL IH SCH ×4 (01:38→19:00)
[2020-11-28] MEDS: Z-GUARD PASTE TP SCH ×2 (01:53→13:17)
--- NOTE | 2020-11-28 02:00 | NUR ---
PATIENT IS RESTING ASLEEP, RELAXED AND NO SIGNS OF AGITATION OR RESTLESSNESS, COMFORT MEASURES AND PRN MEDICATION INTERVENTIONS EFFECTIVE. PATIENT HR 85, RR 20, OXYGEN SATURATION 100% ON THE MONITOR. PATIENT LAYING IN THE BED IN A POSITION OF COMFORT, OFFLOADED FROM PRESSURE POINTS WITH USE OF PILLOWS AND REPOSITIONING, ALL LINES INTACT AND SECURED. NO SIGNS OF DISTRESS NOTED. WILL CONTINUE TO CLOSELY MONITOR AND FREQUENTLY ROUND.
--- NOTE | 2020-11-28 04:00 | NUR ---
CHG SPONGE BATH, LINENS CHANGED, SAMRA CARE APPLIED Z GUARD PASTE, GOWN CHANGED, VAP ORAL CARE, HYGIENE, SUCTIONING AND SAFETY CHECKS PROVIDED. PATIENT RESTING IN A POSITION OF COMFORT, HOB 30 DEGREES, RELAXED AND RESTING ASLEEP COMFORTABLY. HR 88, RR 20, AND OXYGEN SATURATION 100% ON THE MONITOR. NO SIGNS OF DISTRESS NOTED. COMFORT MEASURE INTERVENTIONS CONTINUE TO BE EFFECTIVE. WILL CONTINUE TO CLOSELY MONITOR AND FREQUENTLY ROUND.
[2020-11-28 04:55] LABS: BASOPHILS % (AUTO) 0.6 % (0.0-2.0); EOSINOPHILS # (AUTO) 0.1 K/uL (0-0.4); EOSINOPHILS % (AUTO) 1.2 % (0.0-4.0); HEMATOCRIT 36.9 % (36-52); HEMOGLOBIN 11.9 g/dL (12.0-18.0); LYMPHOCYTES % (AUTO) 19.4 % (20.5-51.1); MEAN CORPUSCULAR HEMOGLOBIN 26 pg (27-31); MEAN CORPUSCULAR HGB CONC 32 g/dL (33-37); MEAN CORPUSCULAR VOLUME 80.2 fL (80-94); MONOCYTES # (AUTO) 0.6 K/uL (0.8-1.0); MONOCYTES % (AUTO) 11.1 % (1.7-9.3); NEUTROPHILS # (AUTO) 3.6 K/uL (1.8-7.7); NEUTROPHILS % (AUTO) 67.7 % (42.2-75.2); PLATELET COUNT (AUTO) 210 K/uL (140-450); RED CELL DISTRIBUTION WIDTH 17.2 % (11.6-13.7); WHITE BLOOD COUNT (AUTO) 5.3 K/uL (4.8-10.8)
[2020-11-28] MEDS: levETIRAcetam 100 MG/ML ORASYR GT SCH ×3 (05:02→20:44)
[2020-11-28 05:31] LABS: ANION GAP 12.7 (8-16); CARBON DIOXIDE 25.3 mmol/L (21-32); CREATININE 0.4 mg/dL (0.6-1.3)
--- NOTE | 2020-11-28 06:00 | NUR ---
PATIENT CONTINUING TO REST IN A POSITION OF COMFORT, NO SIGNS OF DISTRESS NOTED. TOLERATING CURRENT THERPAIES WELL. WILL CONTINUE TO CLOSELY MONITOR AND FREQUENTLY ROUND.
--- NOTE | 2020-11-28 07:15 | NUR ---
CALLED AND SPOKE TO DR. CAROLINA TO REPORT LAB VALUE POTASSIUM 3.0. GAVE ORDER OF K RIDER 40 MEQ IV X1. WILL CARRY OUT ORDERS AND ENDORSE TO DORA CANCINO.
--- NOTE | 2020-11-28 07:26 | NUR ---
REPORT AND CARE ENDORSED TO DORA CANCINO.
--- NOTE | 2020-11-28 07:28 | NUR ---
RECEIVE REPORT FROM LIGHT COIL WINDER NURSE ENDER FOR CONTINUITY OF CARE. PATIENT IS SLEEPING ON BED COMFORTABLY, AROUSABLE TO VOICE. RESPIRATION EVEN, UNLABORED ON ETT TO VENT, AC/PRVC FIO2 24%, RATE 20, PEEP 5, VT 400, SPO2 100%, LUNGS SOUND RHONCHI UPON AUSCULTATION. NO SIGNS OF ACUTE DISTRESS NOTED. JAILYN PICC IN PLACE, TKO. SKIN WARM TO TOUCH, CLEAN AND DRY, INCONTINENT DERMATITIS NOTED, Z-GUARD IN PLACE. PILLOWS PLACED TO OFFLOAD PRESSURE. LEDY-MON TUBE IN PLACE, NOT RUNNING AT THIS TIME, OGT IN PLACE, RUNNING JEVITY 1.2 AT 40 ML/HR. FREY IN PLACE, RUNNING WITH GRAVITY, YELLOW URINE IN BAG NOTED. SAFETY MEASURES IN PLACE. SAFETY MEASURES IN PLACE. SEIZURE PRECAUTION IN PLACE, BOTH SIDE RAILS PADDED. BED IN LOW POSITION, HOB ELEVATED 35 DEGREE, AND BED LOCKED.
[2020-11-28] MEDS ORDERED: KCL 20 MEQ/WATER INJ PREMIX 200 ML IV SCH (08:00)
[2020-11-28] MEDS: GLYCOPYRROLATE 1 MG TAB GT SCH ×3 (08:07→16:50)
[2020-11-28] MEDS: DOCUSATE 100 MG/10 ML UDC PO SCH ×2 (08:08→20:45)
[2020-11-28] MEDS: ASCORBIC ACID 500 MG/5 ML ORASYR GT SCH (08:08)
[2020-11-28] MEDS: PANTOPRAZOLE 40 MG INJ VIAL IVP SCH (08:08)
[2020-11-28] MEDS: ZINC SULF 220 MG CAP PO SCH (08:09)
--- NOTE | 2020-11-28 08:33 | NUR ---
CHECKED OGT RESIDUAL RECEIVED 10 ML, FLUSHED. ADMINISTERED SCHEDULED AM MEDS, AND PRN POTASSIUM CHLORIDE FOR LOW POTASSIUM 3 FROM AM LAB, FLUSHED BEFORE AND AFTER MEDS. AM HYGIENE CARE PROVIDED, PATIENT TOLERATED FAIR, FLACC 0. SUCTIONING PROVIDED AND RECEIVED MINIMAL AMOUNT OF MUCUS. REPOSITIONED PATIENT, PILLOWS USED TO OFFLOAD PRESSURE. PATIENT AWAKE AND LOOKING AT TV. RESPIRATION EVEN, UNLABORED ON ETT TO VENT FIO2 24%. SAFETY MEASURES IN PLACE. BED IN LOW POSITION, HOB ELEVATED 35 DEGREE, AND BED LOCKED.
--- NOTE | 2020-11-28 10:30 | NUR ---
WITH ASSIST, REPOSITIONED PATIENT, PILLOWS USED TO OFFLOAD PRESSURE, FOUND PURPLE ABRASION ON L HAND BONY AREA, NOT OPEN, PICTURE TAKEN, OPTIFOAM APPLIED FOR PROTECTION, AND PILLOW USED AROUND BOTH ARMS TO PREVENT FRICTION. ORAL CARE PROVIDED. PATIENT IS RESTING ON BED COMFORTABLY. NO SIGNS OF ACUTE DISTRESS NOTED. SAFETY MEASURES IN PLACE.
--- NOTE | 2020-11-28 11:00 | NUR ---
STARTED SBT TRIAL ON CPAP5 PS 10, RN AT BEDSIDE. WILL CONTINUE TO MONITOR
--- NOTE | 2020-11-28 11:11 | NUR ---
FATHER IS BY BEDSIDE.
--- NOTE | 2020-11-28 11:14 | NUR ---
DR CAROLINA IS AT BEDSIDE.
--- NOTE | 2020-11-28 11:38 | NUR ---
DR CAROLINA SPOKE WITH PATIENT'S FATHER AT NURSING STATION AND FATHER WAS AWARE THAT PATIENT IS GOING TO BE EXTUBATED. ALL QUESTIONS ADDRESSED.
--- NOTE | 2020-11-28 12:15 | NUR ---
PT EXTUBATED AND PLACED ON 2L NC PER DR CAROLINA. PT IS COMFORTABLE AND HAS NO RESPIRATORY DISTRESS. SPO2 100%, WILL CONTINUE TO MONITOR CLOSELY.
[2020-11-28] MEDS: LEVOFLOXACIN 750 MG/D5W PREMIX 150 ML IV SCH (13:17)
--- NOTE | 2020-11-28 13:17 | NUR ---
SCHEDULED MEDS GIVEN. PATIENT TOLERATED WELL ON 2 LPM VIANC. RT HILLARY IS AT BEDSIDE GIVING BREATHING TREATMENT. SAFETY MEASURES IN PLACE.
--- NOTE | 2020-11-28 14:30 | NUR ---
WOUND CARE EVALUATION NOTE: REASON FOR EVALUATION: LEFT HAND DTI CLOSE WOUND LOW WENDI SCALE 25 Y/O PT ADMITTED FROM [facility] TO [facility] WITH INITIAL DX SIGNIFICANT HYPOXIA ON 11/19/2020 PATIENT UNDERWENT EMERGENT INTUBATION IN ER . ALL ABOVE INFORMATION OBTAINED FROM ADMISSION H&P. PT. 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 SIDE RAILS PROTECTED WITH EXTRA PADDING. PLAN OF CARE DISCUSSED WITH PRIMARY RN. INTEGUMENTARY: -GT SAMRA-STOMA SKIN INTACT -IAD TO PERINEAL, GROINS/MEDIAL THIGHS, SKIN RED, MOIST -DTI TO LEFT HAND 3X1 CM 100% MAROON, SAMRA WOUND SKIN WITH OLD HEALING ABRASION NO S/S OF INFECTION RECOMMENDATIONS: -CLEANSE PERINEAL, GROINS AND MEDIA THIGHS WITH MILD SOAP AND WATER, PAT, DRY AND APPLY Z GUARD BID AND PRN IF SOILING -APPLY FOAM DRESSING TO LEFT HAND AND OFFLOADING -OFFLOAD BILATERAL HEELS BY PLACING PILLOWS UNDER CALVES UNLESS OTHERWISE CONTRAINDICATED -PRESSURE REDISTRIBUTION SURFACE THERAPY -TURN AND REPOSITION Q2H, OFFLOAD SACRALCOCCYX BY TURNING RIGHT AND LEFT -CONTINUE TO FOLLOW RD RECOMMENDATIONS ALL ABOVE RECOMMENDATIONS DISCUSSED WITH PRIMARY RN PLEASE CONTACT WOUND CARE NURSE FOR ANY QUESTION AND CHANGE OF WOUND CONDITION.
--- NOTE | 2020-11-28 14:48 | NUR ---
PATIENT HAS ONE SMALL YELLOW BM, PROVIDED HYGIENE CARE, APPLIED Z-GUARD, REPOSITIONED PATIENT, PILLOWS USED TO OFFLOADED PRESSURE, PATIENT TOLERATED FAIR. FLACC 0. RESPIRATION EVEN AND UNLABORED ON 2 LPM VIA NC, SPO2 100%. NO SIGNS OF ACUTE DISTRESS NOTED. SAFETY MEASURES IN PLACE.
--- NOTE | 2020-11-28 15:00 | NUR ---
PATIENT'S MOM IS VISITING PATIENT AT BEDSIDE.
--- NOTE | 2020-11-28 16:50 | NUR ---
ADMINISTERED SCHEDULED MED PER MD ORDER VIA PEG, FLUSHED BEFORE AND AFTER MED. REPOSITIONED PATIENT, PILLOWS PLACED TO OFFLOAD PRESSURE. ORAL CARE PROVIDED, PATIENT TOLERATED FAIR, FLACC 0. EYES OPEN AND WATCHING TV. RESPIRATION EVEN, UNLABORED ON 2 LPM VIA NC, SPO2 100% AT THIS TIME. SAFETY MEASURES IN PLACE. BED IN LOW POSITION, HOB ELEVATED 35 DEGREE, AND BED LOCKED.
--- NOTE | 2020-11-28 17:47 | NUR ---
PATIENT IS AGITATED, KICKING AROUND. REPOSITIONED PATIENT, PILLOWS USED TO OFFLOAD PRESSURE, PATIENT IS STILL RESTLESS AND KICKING. MEDICATED WITH PRN ATIVAN. BP 149/95 PULSE 131 AT THIS TIME, SPO2 100% ON 2 LPM VIA NC. SAFETY MEASURES IN PLACE.
--- NOTE | 2020-11-28 19:04 | NUR ---
ENDORSED PATIENT TO LAUNDERER HAND NURSE ENDER FOR CONTINUITY OF CARE. PATIENT IS IN STABLE CONDITION. SAFETY MEASURES IN PLACE.
--- NOTE | 2020-11-28 19:30 | NUR ---
RCV'D PT ON 2 L NC. DID NOT ADMINISTER HHN TX. PT HR IS 133.RR 20 SPO2 99%. NO DISTRESS OR SOB NOTED. WILL CONTINUE TO MONITOR.
--- NOTE | 2020-11-28 19:35 | NUR ---
RECEIVED REPORT AND CARE FROM DAYSHIFT RN. PATIENT ALERT AND TRACKING WITH EYES UPON ENTERING THE ROOM. PATIENT ON 2 LPM NC, TOLERATING WELL OXYGEN SATURATION 100%, CONTINUES TO HAVE PERIODS OF AGITATION AND RESTLESSNESS, PROVIDING COMFORT AT BEDSIDE AND PRN ATIVAN PER ORDER Q4. PATIENT HAS A JORGE TUB LEFT LOWER ABDOMEN, RUNNING JEVITY 1.2, RUNNING 40 ML/HR, FWF 70 ML Q6, TOLERATING WELL, WILL CONTINUES TO CHECK RESIDUALS OFTEN. PATIENT CONNECTED TO CONTINUOUS CARDIAC MONITORING, PATIENT SINUS TACHY AT 120, WILL CONTINUE TO CLOSELY MONITOR, NO SIGNS OF DISTRESS NOTED. PATIENT HAS IV ACCESS SITE OF RIGHT UPPER ARM PICC LINE DOUBLE LUMEN. IV DRIPS CURRENTLY RUNNING INCLUDE NS 0.9% AT 5 ML/HR TKO. PATIENT APPROXIMATE WEIGHT IS 48.5 KG. PATIENT AHS A FREY CATHETER IN PLACE, SECURED, INTACT AND DRAINING WELL. SKINS SHOW EXCORIATION OF THE SAMRA AREA AND REDNESS ON THE LEFT HAND WRIST, COVERED WITH DRESSING. PATIENT BEING OFFLOADED FROM PRESSURE POINTS WITH USE OF PILLOWS AND FREQUENT REPOSITIONING. BED LOCKED AND LOWERED INTO A POSITION OF SAFETY. WILL CONTINUE TO CLOSELY MONITOR AND FREQUENTLY ROUND THROUGHOUT THE SHIFT.
--- NOTE | 2020-11-28 20:00 | NUR ---
VAP ORAL CARE, REPOSITIONING, SUCTIONING, HYGIENE AND SAFETY CHECKS PROVIDED. PATIENT RESTING HOB 30 DEGREES IN A POSITION OF COMFORT, HR 130, OXYGEN SATURATION 100% ON 2 LPM NC, NO SIGNS OF DISTRESS NOTED. WILL CONTINUE TO CLOSELY MONITOR AND FREQUENTLY ROUND.
--- NOTE | 2020-11-28 22:00 | NUR ---
PATIENT SHOWING SOME SIGNS OF AGITATION AND RESTLESSNESS, PATIENT COMFORTED AT BEDSIDE, REPOSITIONED AND GIVEN PRN ATIVAN IV PUSH PER ORDER. PATIENT IS SINUS TACHYCARDIA 137 AND ON 2 LPM NC, 100% OXYGEN SATURATION ON THE MONITOR. PATIENT WATCHING TV AND PLACED IN A POSITION OF COMFORT TO PROMOTE REST AND RELAXATION. WILL CONTINUE TO CLOSELY MONITOR AND FREQUENTLY ROUND.
[2020-11-29] VITALS (14 sets, daily range): BP systolic 100–145; BP diastolic 64–92
--- NOTE | 2020-11-29 | NUR ---
VAP ORAL CARE, REPOSITIONING, SUCTIONING, HYGIENE AND SAFETY CHECKS PROVIDED. PATIENT WATCHING THE TV, OCCASIONALLY MOVING ARMS AND HEAD, BED PADDED WITH SAFETY MEASURES IN PLACE. COMFORT MEASURES WHILE AT BEDSIDE. CONTINUES TO TOLERATE 2 LPM NC WELL, OXYGEN SATURATION 99%, MINIMAL AND OCCASIONAL ORAL SECRETIONS, SUCTIONED OFTEN AND NEEDED. AIRWAY OPEN, CLEAR AND MAINTAINABLE. NO SIGNS OF DISTRESS NOTED. WILL CONTINUE TO CLOSELY MONITOR AND FREQUENTLY ROUND.
[2020-11-29] MEDS: Z-GUARD PASTE TP SCH ×2 (01:09→13:09)
[2020-11-29] MEDS: ALBUTEROL SULFATE/IPRATROPIU 3 ML SOL IH SCH ×4 (01:10→19:41)
--- NOTE | 2020-11-29 02:00 | NUR ---
PATIENT SLIGHTLY ANXIOUS AND RESTLESS, AT BEDSIDE WITH PATIENT COMFORTING AND REPOSITIONING TO PROMOTE RELAXATION. PATIENT SUCTIONED, MINIMAL SECRETIONS, AIRWAY CONTINUES TO REMAIN PATENT AND MAINTAINABLE, TOLERATING 2 LPM NC, 99% OXYGEN SATURATION. PATIENT GIVEN PRN ATIVAN IV PUSH PER ORDER. PATIENT CONTINUING TO WATCH THE TV. PILLOWS REPOSITIONED TO PROVIDE FURTHER COMFORT AND OFFLOAD FROM PRESSURE POINTS. WILL CONTINUE TO CLOSELY MONITOR AND FREQUENTLY ROUND.
[2020-11-29] MEDS: LORazepam 2 MG/ML VIAL IVP PRN ×3 (02:02→20:57)
--- NOTE | 2020-11-29 03:35 | NUR ---
PATIENT ABLE TO REST IN A POSITION OF COMFORT, HOB 30 DEGREES, CONTINUES TO TOLERATE 2 LPM NC WELL. COMFORT MEASURES AND INTERVENTIONS FOR ANXIETY EFFECTIVE, WILL CONTINUE TO REASSESS OFTEN. MINIMAL ORAL SECRETIONS, SUCTIONED, AIRWAY CLEAR, OPEN PATENT AND MAINTAINABLE. HR 116, RR 24 AND OXYGEN SATURATION 100%. TOLERATING CURRENT THERAPIES WELL. NO SIGNS OF DISTRESS NOTED. WILL CONTINUE TO CLOSELY MONITOR AND FREQUENTLY ROUND.
--- NOTE | 2020-11-29 04:00 | NUR ---
CHG SPONGE BATH GIVEN, Z GUARD APPLIED TO SAMRA AREA, WOUND CARE, LINENS CHANGED, GOWN CHANGED, VAP ORAL CARE, SUCTIONING, REPOSITIONING, HYGIENE AND SAFETY CHECKS PROVIDED. PATIENT ABLE TO REST/SLEEP IN A POSITION OF COMFORT. NO SIGNS OF DISTRESS NOTED. COMFORT MEASURES/INTERVENTIONS CONTINUE TO BE EFFECTIVE. HOB 30 DEGREES, GTUBE REINFORCED WITH NEW GAUZE, SIGHT CLEAN AND DRY. DRESSINGS AND LINES ALL INTACT AND SECURED, PATIENT REMAINS AFEBRILE. WILL CONTINUE TO CLOSELY MONITOR AND FREQUENTLY ROUND.
[2020-11-29] MEDS: levETIRAcetam 100 MG/ML ORASYR GT SCH ×3 (04:29→20:48)
[2020-11-29 05:05] LABS: CARBON DIOXIDE 27.4 mmol/L (21-32); CREATININE 0.4 mg/dL (0.6-1.3); POTASSIUM 3.4 mmol/L (3.5-5.1)
[2020-11-29 05:06] LABS: BASOPHILS # (AUTO) 0.1 K/uL (0.00-0.22); BASOPHILS % (AUTO) 0.8 % (0.0-2.0); EOSINOPHILS # (AUTO) 0.2 K/uL (0-0.4); EOSINOPHILS % (AUTO) 3.1 % (0.0-4.0); HEMATOCRIT 36.8 % (36-52); HEMOGLOBIN 11.9 g/dL (12.0-18.0); LYMPHOCYTES % (AUTO) 29.5 % (20.5-51.1); MEAN CORPUSCULAR HEMOGLOBIN 26 pg (27-31); MEAN CORPUSCULAR HGB CONC 32 g/dL (33-37); MEAN CORPUSCULAR VOLUME 79.9 fL (80-94); MONOCYTES # (AUTO) 0.9 K/uL (0.8-1.0); MONOCYTES % (AUTO) 13.9 % (1.7-9.3); NEUTROPHILS # (AUTO) 3.5 K/uL (1.8-7.7); NEUTROPHILS % (AUTO) 52.7 % (42.2-75.2); PLATELET COUNT (AUTO) 205 K/uL (140-450); RED CELL DISTRIBUTION WIDTH 16.7 % (11.6-13.7); WHITE BLOOD COUNT (AUTO) 6.7 K/uL (4.8-10.8)
--- NOTE | 2020-11-29 06:00 | NUR ---
PATIENT RESTING COMFORTABLY, ASLEEP, COMFORT MEASURES EFFECTIVE. NO SIGNS OF DISTRESS NOTED. HR 93, RR 28, AND OXYGEN SATURATION 99% ON 2 LPM NC. PATIENT AIRWAY OPEN, CLEAR AND MAINTAINABLE. SAFETY MEASURES CONTINUE TO REMAIN IN PLACE. WILL CONTINUE TO CLOSELY MONITOR AND FREQUENTLY ROUND.
[2020-11-29] MEDS: GLYCOPYRROLATE 1 MG TAB GT SCH ×3 (06:32→15:42)
--- NOTE | 2020-11-29 07:30 | NUR ---
REPORT AND CARE ENDORSED TO DORA CANCINO.
--- NOTE | 2020-11-29 07:30 | NUR ---
RECEIVED REPORT FROM TRACTOR EXPERT, ENDER CANCINO, FOR CONTINUITY OF CARE. 2L NC, SATURATING AT 99-100. ST ON MONITOR, 130-150, ATIVAN PRN GIVEN X2. GT IN PLACE, FEEDING HELD BECAUSE OF LEAKING. JAILYN PICC, DOUBLE LUMEN, CLEAN, DRY, AND INTACT, INFUSING NS AT 5 ML/H TKO. FREY IN PLACE, DRAINING URINE, 1 LARGE BM LAST NIGHT. GAS PLUMBING INSPECTOR, PULSE OXIMETER, AND SAFETY MEASURES IN PLACE. HEAD OF BED AT 30 DEGREES, BED IN LOW POSITION. WILL CONTINUE TO MONITOR.
--- NOTE | 2020-11-29 07:52 | NUR ---
recived t on vent with carescape vent bedsidept spo2 .96 shallow breaths althought resting quiet hhn rx given no ill effect noted will continue to monitor pt
[2020-11-29] MEDS: DOCUSATE 100 MG/10 ML UDC PO SCH ×2 (08:13→20:48)
[2020-11-29] MEDS: ZINC SULF 220 MG CAP PO SCH (08:13)
[2020-11-29] MEDS: PANTOPRAZOLE 40 MG INJ VIAL IVP SCH (08:13)
[2020-11-29] MEDS: ASCORBIC ACID 500 MG/5 ML ORASYR GT SCH (08:13)
--- NOTE | 2020-11-29 08:15 | NUR ---
CHECKED RESIDUAL, 0 ML, ADMINISTERED SCHEDULED AM MEDS, FLUSHED G-TUBE, RESTARTED FEEDING. ORAL CARE, HYGIENE CARE, FREY CARE, AND CHG BATH PROVIDED. PATIENT TURNED. IN A COMFORTABLE POSITION. WILL CONTINUE TO MONITOR.
--- NOTE | 2020-11-29 09:05 | NUR ---
DR CAROLINA IS ASSESSING PATIENT AT BEDSIDE. ORDERED GI CONSULT SIVA MONTES FOR LEDY-MON PED LACKING AND DOWNGRADE TO TELE T ROBY. WILL INPUT ORDERS PER MD ORDER. PRIMARY RN WAS AWARE.
--- NOTE | 2020-11-29 09:13 | NUR ---
POTASSIUM 3.4 FROM AM LAB, DR CAROLINA MADE AWARE. ORDERED K-RIDER 40 MEQ ONCE VIA IV, WILL IN PUT ORDER. PRIMARY RN ZOHU MADE AWARE.
[2020-11-29] MEDS ORDERED: KCL 20 MEQ/WATER INJ PREMIX 200 ML IV SCH (09:30)
--- NOTE | 2020-11-29 09:30 | NUR ---
PATIENT'S MOTHER, EVIE, CALLED UPDATED ON PATIENT'S STATUS AND AWARE OF TRANSFER. WISHES TO SPEAK WITH ABOUT TAKING HIM HOME INSTEAD. WILL CONTACT
--- NOTE | 2020-11-29 11:45 | NUR ---
CHECKED RESIDUAL, 60ML. ADMINISTERED SCHEDULED MED. FLUSHED AFTER. PULLED UP AND REPOSITIONED. PATIENT RESTING. NO SIGNS OF DISTRESS OR PAIN. WILL CONTINUE TO MONITOR.
[2020-11-29] MEDS: LEVOFLOXACIN 750 MG/D5W PREMIX 150 ML IV SCH (13:06)
--- NOTE | 2020-11-29 15:00 | NUR ---
RECEIVED HANDOFF FROM ZHOU CANCINO. PT IS A&OX0, BUT WILL TRACK WITH EYES. PT IS ON 2 L NC SATURATING 99% WITH NO SIGNS OF RESPIRATORY DISTRESS. PT IS ST ON THE MONITOR AT THIS TIME. FOR ACCESS PT HAS JAILYN PICC WITH IVF RUNNING TKO. PT HAS G TUBE WITH JEVITY RUNNING AT 40 ML/HR WITH FWF 70 ML Q 6HR. FREY CATHETER IS IN PLACE. HOB IS 30 DEG WITH BED IN LOW, LOCKED POSITION. WILL CONTINUE TO MONITOR.
--- NOTE | 2020-11-29 15:31 | NUR ---
ENDORSED CARE TO MISA CANCINO FOR CONTINUITY OF CARE.
--- NOTE | 2020-11-29 16:09 | NUR ---
MEDICATIONS ADMINISTERED PER ORDER. TEMPERATURE 97.7 TEMPORALLY. PT REPOSITIONED, OFF LOADED WITH PILLOWS. ORAL CARE PROVIDED. NEW FEEDING STARTED, NO LEAKAGE NOTED FROM JORGE BUTTON AT THIS TIME.
--- NOTE | 2020-11-29 17:35 | NUR ---
11/29/20 RD FOLLOW UP COMPLETED. PLEASE REFER TO NUTRITION PROGRESS NOTES UNDER CARE ACTIVITY FOR ESTIMATED NUTRITIONAL NEEDS. RD RECOMMENDATIONS: 1. RECOMMEND CONTINUE TF JEVITY 1.2 @ 40 ML/HR. THIS WILL PROVIDE 1152 KCAL AND 53 GM OF PROTEIN WHICH MEETS 100% OF KCAL NEEDS AND PROTEIN NEEDS 2. RECOMMEND CONTINUE WATER FLUSH 70MLS Q6 HRS 3[address] RD TO FOLLOW-UP 2-3 DAYS, HIGH RISK TAMARA BECERRIL MBA, RD
--- NOTE | 2020-11-29 19:20 | NUR ---
PATIENT TRANSFERRED FROM ICU, ENDORSEMENT RECEIVED FROM AM SHIFT NURSE FOR CONTINUITY OF CARE. AWAKE, UNABLE TO MAKE NEEDS KNOWN. RESPIRATIONS EVEN, UNLABORED. CONTINUES ON O2 2L VIA NC, O2SAT 96%. NO S/S RESPIRATORY DISTRESS. S1/S2 AUSCULTATED. SKIN WARM, DRY. RIGHT UPPER PICC PATENT/INTACT; DRESSING CLEAN/DRY. FLACC 0. NO S/S ACUTE DISTRESS. ABDOMEN SOFT, NONTENDER, NONDISTENDED. BOWEL SOUNDS ACTIVE X4 QUADRANTS. GT PATENT/INTACT, CONTINUES ON ENTERAL FEEDING, TOLERATING WELL. 5 ML OF RESIDUAL NOTED. HOB UP 30 DEGREES. FREY CATHETER PATENT/INTACT WITH YELLOW URINE DRAINING TO GRAVITY. PLAN OF CARE DISCUSSED. SAFETY PRECAUTIONS IN PLACE. SEIZURE PRECAUTIONS IN PLACE. CALL LIGHT WITHIN REACH AT ALL TIMES.
--- NOTE | 2020-11-29 21:30 | NUR ---
DUE MEDS GIVEN. NO S/S RESPIRATORY DISTRESS. NO S/S ACUTE DISTRESS. FLACC 0. SAFETY PRECAUTIONS IN PLACE. SEIZURE PRECAUTIONS IN PLACE. CALL LIGHT WITHIN REACH AT ALL TIMES.
[2020-11-29] MEDS ORDERED: NACL 0.9% 500 ML IV ONE (23:00)
--- NOTE | 2020-11-29 23:17 | NUR ---
PATIENT IS ASLEEP WITH HR 150 BPM. BOLUS GIVEN ORDERED.
[2020-11-29] MEDS: ACETAMINOPHEN 325 MG TAB PO PRN (23:18)
[2020-11-30] VITALS: BP 133/83
[2020-11-30] MEDS: ALBUTEROL SULFATE/IPRATROPIU 3 ML SOL IH SCH ×3 (01:00→13:29)
--- NOTE | 2020-11-30 01:00 | NUR ---
MADE ROUNDS. PATIENT IS ASLEEP. HR CONTINUES TO BE ELEVATED AT 155 BPM. MD AWARE. CALL LIGHT WITHIN REACH. SAFETY PRECAUTIONS IN PLACE. SEIZURE PRECAUTIONS IN PLACE.
[2020-11-30] MEDS: Z-GUARD PASTE TP SCH ×2 (01:05→13:05)
[2020-11-30] MEDS: LORazepam 2 MG/ML VIAL IVP PRN ×2 (03:45→08:31)
--- NOTE | 2020-11-30 03:53 | NUR ---
PATIENT CONTINUES TO HAVE ELEVATED HR. ADMINISTERED ATIVAN ORDERED.
[2020-11-30 04:00] VITALS: BP 121/67
[2020-11-30] MEDS: levETIRAcetam 100 MG/ML ORASYR GT SCH ×2 (04:29→13:05)
--- NOTE | 2020-11-30 05:06 | NUR ---
DUE MEDS GIVEN. HR IN THE 120s. PATIENT IS ASLEEP. CALL LIGHT WITHIN REACH. SAFETY PRECAUTIONS IN PLACE. SEIZURE PRECAUTIONS IN PLACE.
--- NOTE | 2020-11-30 07:05 | NUR ---
ENDORSED TO AM SHIFT NURSE FOR CONTINUITY OF CARE.
--- NOTE | 2020-11-30 07:10 | NUR ---
REC'D REPORT FROM QUALITY CONTROL SYSTEMS MANAGER NURSE, PT CURRENTLY RECEIVING BREATHING TREATMENT BY RESPIRATORY THERAPIST, 2L NC, JEVITY 1.2 BEING ADMINISTERED THROUGH G.TUBE WHICH IS PATENT, GAUZE DRY. NO SIGN OF LEAKAGE. PT HAS FREY CATHETER IN PLACE, URINE CLEAR, ORANGE. SEIZURE PRECAUTIONS IN PLACE. BED IN LOWEST POSITION, CALL LIGHT WITHIN REACH. WILL CONTINUE TO MONITOR
[2020-11-30] MEDS: GLYCOPYRROLATE 1 MG TAB GT SCH ×2 (07:56→12:23)
[2020-11-30 08:00] VITALS: BP 126/84
[2020-11-30] MEDS: ZINC SULF 220 MG CAP PO SCH (08:28)
[2020-11-30] MEDS: DOCUSATE 100 MG/10 ML UDC PO SCH (08:29)
[2020-11-30] MEDS: ASCORBIC ACID 500 MG/5 ML ORASYR GT SCH (08:29)
[2020-11-30] MEDS: PANTOPRAZOLE 40 MG INJ VIAL IVP SCH (08:29)
--- NOTE | 2020-11-30 08:30 | NUR ---
OBSERVED PT SHAKING MILDLY AND GRINDING TEETH FOR 25 SECONDS, PT HAS H/O SEIZURES, ADMINISTERED ATIVAN PER MD ORDER. FLUSHED PICC WITH NS PRIOR TO AND AFTER ADMINISTRATION. ADMINISTERED GTUBE MEDICATIONS PER MD ORDER, 30 ML RESIDUAL, FLUSHED WITH 20ML STERILE WATER PRIOR TO GTUBE MEDICATION ADMINISTRATION AND AFTER. ADMINISTER IV MEDICATIONS PER MD ORDER, FLUSHED WITH 10ML OF NS PRIOR TO AND AFTER ADMINISTRATION. PT TOLERATED MEDICATION ADMINISTRATION WELL. PT UNABLE TO MAKE NEEDS KNOWN. WILL CONTINUE TO MONITOR PT
[2020-11-30] MEDS: SCOPOLAMINE 1.5 MG/72 HR PATCH TD SCH (10:40)
[2020-11-30] MEDS ORDERED: LEVO750T51 PO (11:34)
[2020-11-30 12:00] VITALS: BP 118/69
[2020-11-30] MEDS: LEVOFLOXACIN 750 MG/D5W PREMIX 150 ML IV SCH (13:05)
--- NOTE | 2020-11-30 13:11 | NUR ---
ADMINISTERED MEDICATIONS PER MD ORDER, PT NON VERBAL, COULD NOT VERBALIZE UNDERSTANDING OF MOA AND SIDE EFFECTS, Z-GUARD WAS APPLIED TO BUTTOCKS, SACRAL AREA FOR PREVENTATIVE CARE. PT TOLERATED PROCEDURE WELL.
[2020-11-30 14:29] VITALS: BP 118/69
--- NOTE | 2020-11-30 15:40 | NUR ---
PT DISCHARGED VIA PRIVATE VEHICLE IN PRIVATE WHEELCHAIR, PICC REMOVED, LINE INTACT, NO RESISTANCE, FREY CATHETER BULB SALINE REMOVED 10ML, NO RESISTANCE IN REMOVING CATHETER. PT TOLERATED PROCEDURE WELL, REMOVED ID BAND AND ALLERGY BRACELET. NO SIGN OF DISTRESS UPON DISCHARGE, LEFT WITH FATHER, PT STABLE
== END 2020-11-30 15:40 | disposition home or self-care (01) | DRG 720 ==
LOC: MED 13:03 → MIC 17:23 → MTU 11-29 19:32
PROVIDERS: ADMIT Hospitalist; ATTEND Hospitalist
PROC: 5A1955Z Respiratory Ventilation, Greater than 96 Consecutive Hours (ICD-10-PCS; principal; 2020-11-19)
PROC: 0BH17EZ Insertion of Endotracheal Airway into Trachea, Via Natural or Artificial Opening (ICD-10-PCS; 2020-11-19)
PROC: 02HV33Z Insertion of Infusion Device into Superior Vena Cava, Percutaneous Approach (ICD-10-PCS; 2020-11-19)
PROC: 5A1935Z Respiratory Ventilation, Less than 24 Consecutive Hours (ICD-10-PCS; 2020-11-29)
DX: A41.9 Sepsis, unspecified organism (principal); J96.01 Acute respiratory failure with hypoxia; R65.21 Severe sepsis with septic shock; J69.0 Pneumonitis due to inhalation of food and vomit; J15.1 Pneumonia due to Pseudomonas; R53.2 Functional quadriplegia; E72.20 Disorder of urea cycle metabolism, unspecified; J44.0 Chronic obstructive pulmonary disease with (acute) lower respiratory infection; M41.9 Scoliosis, unspecified; E87.6 Hypokalemia; G40.909 Epilepsy, unspecified, not intractable, without status epilepticus; G80.9 Cerebral palsy, unspecified; J98.11 Atelectasis; Z20.822 Contact with and (suspected) exposure to COVID-19; Z93.1 Gastrostomy status; Z88.1 Allergy status to other antibiotic agents; Z86.74 Personal history of sudden cardiac arrest; Z86.16 Personal history of COVID-19
CPT/HCPCS: 36415; 36600; 71045; 74018; 80048; 80053; 81001; 82140; 82803; 83036; 83605; 83735; 83880; 84100; 84484; 85025; 85379; 87040; 87070; 87081; 87086; 87205; 93005; 94002; 94003; 94640; 96361; 96365; 99291; C1758; C9113; J0330; J0696; J1170; J1956; J2060; J2543; J2704; J3370; J3480; J3490; J7030; J7060